=== PATIENT | male | born 1980 | race Caucasian/White ===

== ENCOUNTER 2016-11-18 21:14 | Emergency (ER) | payer OTHER ==
[~2016-11-18] VITALS: Ht 160 cm; Wt 109.1 kg
[2016-11-18] MEDS ORDERED: ALBU8.5H PO (21:29)
[2016-11-18] MEDS ORDERED: OMEP20CA10 PO (21:29)
[2016-11-18] MEDS ORDERED: ATEN50TA PO (21:29)
[2016-11-18] MEDS ORDERED: AMIT50TA3 PO (21:29)
[2016-11-18] MEDS ORDERED: NABU500T3 PO (21:29)
[2016-11-18] MEDS ORDERED: AMLO10TA55 PO (21:29)
[2016-11-18] MEDS ORDERED: METF500T7 PO (21:29)
[2016-11-18] MEDS ORDERED: TRIA16.96 NS (21:29)
[2016-11-18] MEDS ORDERED: LOSA50TA37 PO (21:29)
[2016-11-18] MEDS ORDERED: SITA100 PO (21:29)
[2016-11-18] MEDS ORDERED: BECL8.7A5 PO (21:29)
[2016-11-18] MEDS ORDERED: FISH1 PO (21:29)
[2016-11-18] MEDS ORDERED: RISP2 PO (21:29)
[2016-11-18 21:47] LABS: GLUCOSE,POINT OF CARE 173 MG/DL (70-110)
[2016-11-18 21:49] LABS: HEMATOCRIT 42.4 % (41-53); HEMOGLOBIN 14.4 g/dL (13.5-17.5); LYMPHOCYTES % (AUTO) 28.1 % (22.0-44.0); MEAN CORPUSCULAR HEMOGLOBIN 30.3 pg (26.0-34.0); MEAN CORPUSCULAR HGB CONC 34.1 G/dL (31.0-37.0); MEAN CORPUSCULAR VOLUME 89 fL (80-100); MONOCYTES % (AUTO) 7.3 % (2.0-9.0); NEUTROPHILS % (AUTO) 63.2 % (40.0-70.0); PLATELET COUNT (AUTO) 221 K/uL (150-450); RED BLOOD CELL COUNT(AUTO) 4.76 MIL/uL (4.50-5.90); RED CELL DISTRIBUTION WIDTH 12.5 % (11.5-14.5); WHITE BLOOD COUNT (AUTO) 5.9 K/uL (4.5-11.0)
[2016-11-18 21:50] LABS: BASOPHILS # (AUTO) 0.02 K/uL (0.00-0.20); BASOPHILS % (AUTO) 0.3 % (0.0-2.0); EOSINOPHILS # (AUTO) 0.07 K/uL (0.00-0.70); EOSINOPHILS % (AUTO) 1.17 % (1.0-6.0); LYMPHOCYTES # (AUTO) 1.7 K/uL (1.0-4.8); MONOCYTES # (AUTO) 0.4 K/uL (0.1-1.0); NEUTROPHILS # (AUTO) 3.8 K/uL (1.8-7.7)
[2016-11-18 22:00] LABS: ANION GAP 10 mmol/L (8-16); CARBON DIOXIDE 28 mmol/L (22-29); CHLORIDE 103 mmol/L (98-107); CREATININE 0.93 mg/dL (0.60-1.30); GLOMERULAR FILTR. RATE CALC > 60 mL/min (>60); POTASSIUM 3.7 mmol/L (3.5-5.1); SODIUM SERUM 141 mmol/L (136-145); UREA NITROGEN, BLOOD 7 mg/dL (7-18)
[2016-11-18 22:06] LABS: ALANINE AMINOTRANSFERASE 46 U/L (12-78); ALBUMIN 4.2 g/dL (3.4-5.0); ASPARTATE AMINOTRANSFERASE 24 U/L (15-37); BILIRUBIN,TOTAL 0.9 mg/dL (0.1-1.0); TOTAL PROTEIN, SERUM 7.8 g/dL (6.4-8.2)
[2016-11-18] MEDS ORDERED: LORazepam 2 MG TABLET PO ONE (22:15)
[2016-11-18] MEDS ORDERED: HALOPERIDOL 5 MG TABLET PO ONE (22:15)
[2016-11-18 22:51] VITALS: BP 131/80
== END 2016-11-18 23:08 | disposition home or self-care (01) ==
LOC: EMS 21:16
DX: F20.9 Schizophrenia, unspecified (principal); R46.89 Other symptoms and signs involving appearance and behavior; E11.65 Type 2 diabetes mellitus with hyperglycemia; F32.9 Major depressive disorder, single episode, unspecified; I10 Essential (primary) hypertension; Z88.8 Allergy status to other drugs, medicaments and biological substances
CPT/HCPCS: 36415; 80053; 80307; 82962; 85025; 99285; G0480

== ENCOUNTER 2016-12-19 18:30 | Emergency (ER) | payer OTHER ==
[~2016-12-19] VITALS: Ht 165.1 cm; Wt 110.0 kg
[~2016-12-19 18:30] MED LIST: ALBU8.5H PO; AMIT50TA3 PO; AMLO10TA55 PO; ATEN50TA PO; BECL8.7A5 PO; FISH1 PO; LOSA50TA37 PO; METF500T7 PO; NABU500T3 PO; OMEP20CA10 PO; RISP2 PO; SITA100 PO; TRIA16.96 NS
[2016-12-19] MEDS ORDERED: ARIP20TA8 PO (18:39)
[2016-12-19 19:52] LABS: BASOPHILS % (AUTO) 0.4 % (0.0-2.0); EOSINOPHILS % (AUTO) 2.1 % (1.0-6.0); HEMATOCRIT 41.4 % (41-53); HEMOGLOBIN 14.2 g/dL (13.5-17.5); LYMPHOCYTES % (AUTO) 24.5 % (22.0-44.0); MEAN CORPUSCULAR HEMOGLOBIN 30.2 pg (26.0-34.0); MEAN CORPUSCULAR HGB CONC 34.3 G/dL (31.0-37.0); MEAN CORPUSCULAR VOLUME 88 fL (80-100); MONOCYTES # (AUTO) 0.6 K/uL (0.1-1.0); MONOCYTES % (AUTO) 7.4 % (2.0-9.0); NEUTROPHILS # (AUTO) 5.5 K/uL (1.8-7.7); NEUTROPHILS % (AUTO) 65.6 % (40.0-70.0); PLATELET COUNT (AUTO) 227 K/uL (150-450); RED CELL DISTRIBUTION WIDTH 12.8 % (11.5-14.5); WHITE BLOOD COUNT (AUTO) 8.4 K/uL (4.5-11.0)
[2016-12-19 20:02] LABS: ANION GAP 5 mmol/L (8-16); CALCIUM, TOTAL 9.7 mg/dL (8.8-10.5); CARBON DIOXIDE 31 mmol/L (22-29); CHLORIDE 103 mmol/L (98-107); CREATININE 0.88 mg/dL (0.60-1.30); GLOMERULAR FILTR. RATE CALC > 60 mL/min (>60); POTASSIUM 3.2 mmol/L (3.5-5.1); SODIUM SERUM 139 mmol/L (136-145); UREA NITROGEN, BLOOD 13 mg/dL (7-18)
[2016-12-19 20:08] LABS: ALANINE AMINOTRANSFERASE 135 U/L (12-78); ALBUMIN 3.8 g/dL (3.4-5.0); ASPARTATE AMINOTRANSFERASE 297 U/L (15-37); TOTAL PROTEIN, SERUM 7.4 g/dL (6.4-8.2)
[2016-12-19 22:00] VITALS: BP 124/74
[2016-12-19] MEDS ORDERED: LORazepam 2 MG TABLET PO ONE (22:30)
[2016-12-19] MEDS ORDERED: HALOPERIDOL 5 MG TABLET PO ONE (22:30)
[2016-12-19] MEDS ORDERED: DiphenhydrAMINE HCL 25 MG CAPSULE PO ONE (22:30)
[2016-12-19] MEDS ORDERED: POTASSIUM CHLORIDE 10% 40 MEQ/30 ML LIQUID UDCUP PO ONE (22:30)
[2016-12-21 09:21] LABS: GLUCOSE,POINT OF CARE 190 MG/DL (70-110)
== END 2016-12-20 00:16 | disposition home or self-care (01) ==
LOC: EMS 18:48
DX: R44.0 Auditory hallucinations (principal); G47.00 Insomnia, unspecified; E11.65 Type 2 diabetes mellitus with hyperglycemia; E87.6 Hypokalemia; F20.9 Schizophrenia, unspecified; F32.9 Major depressive disorder, single episode, unspecified; I10 Essential (primary) hypertension; R79.89 Other specified abnormal findings of blood chemistry; Z88.8 Allergy status to other drugs, medicaments and biological substances
CPT/HCPCS: 36415; 80053; 80307; 82962; 85025; 99284; G0480

== ENCOUNTER 2016-12-20 15:12 | Emergency (ER) | payer OTHER ==
[~2016-12-20] VITALS: Ht 160 cm; Wt 110.0 kg
[~2016-12-20 15:12] MED LIST changes: +ARIP20TA8 PO
[2016-12-20 15:56] VITALS: BP 131/91
[2016-12-20 16:03] LABS: GLUCOSE,POINT OF CARE 134 MG/DL (70-110)
[2016-12-20 16:34] LABS: HEMOGLOBIN 14.1 g/dL (13.5-17.5); RED BLOOD CELL COUNT(AUTO) 4.65 MIL/uL (4.50-5.90); WHITE BLOOD COUNT (AUTO) 6.5 K/uL (4.5-11.0)
[2016-12-20 16:35] LABS: BASOPHILS % (AUTO) 0.4 % (0.0-2.0); EOSINOPHILS % (AUTO) 2.6 % (1.0-6.0); HEMATOCRIT 41.2 % (41-53); LYMPHOCYTES # (AUTO) 1.8 K/uL (1.0-4.8); LYMPHOCYTES % (AUTO) 27.1 % (22.0-44.0); MEAN CORPUSCULAR HEMOGLOBIN 30.2 pg (26.0-34.0); MEAN CORPUSCULAR HGB CONC 34.1 G/dL (31.0-37.0); MEAN CORPUSCULAR VOLUME 89 fL (80-100); NEUTROPHILS # (AUTO) 4.1 K/uL (1.8-7.7); NEUTROPHILS % (AUTO) 63.9 % (40.0-70.0); PLATELET COUNT (AUTO) 207 K/uL (150-450); RED CELL DISTRIBUTION WIDTH 12.8 % (11.5-14.5)
[2016-12-20 16:36] LABS: MONOCYTES # (AUTO) 0.4 K/uL (0.1-1.0)
[2016-12-20 16:40] LABS: ANION GAP 7 mmol/L (8-16); CALCIUM, TOTAL 9.6 mg/dL (8.8-10.5); CARBON DIOXIDE 30 mmol/L (22-29); CHLORIDE 101 mmol/L (98-107); CREATININE 0.81 mg/dL (0.60-1.30); GLOMERULAR FILTR. RATE CALC > 60 mL/min (>60); POTASSIUM 3.4 mmol/L (3.5-5.1); SODIUM SERUM 138 mmol/L (136-145); UREA NITROGEN, BLOOD 14 mg/dL (7-18)
[2016-12-20] MEDS ORDERED: HALOPERIDOL 5 MG TABLET PO ONE (16:45)
[2016-12-20] MEDS ORDERED: LORazepam 2 MG TABLET PO ONE (16:45)
[2016-12-20 16:46] LABS: ALANINE AMINOTRANSFERASE 147 U/L (12-78); ASPARTATE AMINOTRANSFERASE 248 U/L (15-37); BILIRUBIN,TOTAL 2.2 mg/dL (0.1-1.0); TOTAL PROTEIN, SERUM 7.7 g/dL (6.4-8.2)
== END 2016-12-20 17:43 | disposition home or self-care (01) ==
LOC: EMS 15:13
DX: F20.9 Schizophrenia, unspecified (principal); R74.0 Nonspecific elevation of levels of transaminase and lactic acid dehydrogenase [LDH]; E80.7 Disorder of bilirubin metabolism, unspecified; E11.9 Type 2 diabetes mellitus without complications; F32.9 Major depressive disorder, single episode, unspecified; I10 Essential (primary) hypertension; Z88.8 Allergy status to other drugs, medicaments and biological substances
CPT/HCPCS: 36415; 80053; 80307; 82962; 85025; 99284; G0480

== ENCOUNTER 2018-02-01 17:31 | Emergency (ER) | payer MEDICAID, OTHER ==
[~2018-02-01] VITALS: Ht 162.6 cm; Wt 110.0 kg
[~2018-02-01 17:31] MED LIST changes: -ALBU8.5H PO; -AMIT50TA3 PO; +AMLO-512 PO; -AMLO10TA55 PO; -ARIP20TA8 PO; -BECL8.7A5 PO; +BECL8.7A7 PO; +BENZ1TAB10 PO; +DIVA-78 PO; +HALO10 PO; +LOSA50TA25 PO; -LOSA50TA37 PO; -NABU500T3 PO; -RISP2 PO
[2018-02-01] MEDS ORDERED: LURA40 PO (17:58)
[2018-02-01 18:04] LABS: GLUCOSE,POINT OF CARE 282 MG/DL (70-110)
[2018-02-01 18:47] LABS: BASOPHILS % (AUTO) 0.4 % (0.0-2.0); EOSINOPHILS % (AUTO) 1.1 % (1.0-6.0); HEMATOCRIT 44.2 % (41-53); HEMOGLOBIN 15.4 g/dL (13.5-17.5); LYMPHOCYTES # (AUTO) 2.1 K/uL (1.0-4.8); LYMPHOCYTES % (AUTO) 39.4 % (22.0-44.0); MEAN CORPUSCULAR HEMOGLOBIN 30.1 pg (26.0-34.0); MEAN CORPUSCULAR HGB CONC 34.8 G/dL (31.0-37.0); MEAN CORPUSCULAR VOLUME 87 fL (80-100); MONOCYTES # (AUTO) 0.4 K/uL (0.1-1.0); MONOCYTES % (AUTO) 7.6 % (2.0-9.0); NEUTROPHILS # (AUTO) 2.8 K/uL (1.8-7.7); NEUTROPHILS % (AUTO) 51.5 % (40.0-70.0); PLATELET COUNT (AUTO) 197 K/uL (150-450); RED CELL DISTRIBUTION WIDTH 13.2 % (11.5-14.5)
[2018-02-01 19:00] LABS: ANION GAP 8 mmol/L (8-16); CALCIUM, TOTAL 9.8 mg/dL (8.8-10.5); CARBON DIOXIDE 31 mmol/L (22-29); CHLORIDE 95 mmol/L (98-107); CREATININE 0.84 mg/dL (0.60-1.30); GLOMERULAR FILTR. RATE CALC > 60 mL/min (>60); GLUCOSE,RANDOM 248 mg/dL (70-110); POTASSIUM 4.3 mmol/L (3.5-5.1); SODIUM SERUM 134 mmol/L (136-145); UREA NITROGEN, BLOOD 9 mg/dL (7-18)
[2018-02-01 19:06] LABS: ALANINE AMINOTRANSFERASE 106 U/L (12-78); ALBUMIN 3.9 g/dL (3.4-5.0); ALKALINE PHOSPHATASE 101 U/L (46-116); ASPARTATE AMINOTRANSFERASE 60 U/L (15-37); BILIRUBIN,TOTAL 0.5 mg/dL (0.1-1.0); TOTAL PROTEIN, SERUM 8.4 g/dL (6.4-8.2)
[2018-02-01] MEDS ORDERED: LORazepam 2 MG/ML VIAL IM ONE (19:15)
[2018-02-01] MEDS ORDERED: HALOPERIDOL 5 MG TABLET PO ONE (19:15)
[2018-02-01] MEDS ORDERED: MetFORMIN HCL 500 MG TABLET PO ONE (19:15)
[2018-02-01 19:48] LABS: AMPHET/METH SCREEN,URINE NEGATIVE (NEGATIVE); BARBITURATE SCREEN, URINE NEGATIVE (NEGATIVE); BENZODIAZEPINES SCREEN,URINE NEGATIVE (NEGATIVE); CANNABINOID SCREEN,URINE NEGATIVE (NEGATIVE); COCAINE SCREEN,URINE NEGATIVE (NEGATIVE); METHADONE SCREEN, URINE NEGATIVE (NEGATIVE); OPIATE SCREEN,URINE NEGATIVE (NEGATIVE)
[2018-02-01 19:49] LABS: PHENCYCLIDINE SCREEN,URINE NEGATIVE (NEGATIVE)
[2018-02-01 20:00] VITALS: BP 139/85
[2018-02-01] MEDS ORDERED: DIVALPROEX SODIUM 500 MG ER TABLET PO ONE (20:00)
== END 2018-02-01 20:33 | disposition home or self-care (01) ==
LOC: EMS 17:32
DX: F25.9 Schizoaffective disorder, unspecified (principal); E11.65 Type 2 diabetes mellitus with hyperglycemia; K76.0 Fatty (change of) liver, not elsewhere classified; F32.9 Major depressive disorder, single episode, unspecified; I10 Essential (primary) hypertension; Z88.8 Allergy status to other drugs, medicaments and biological substances; Z79.84 Long term (current) use of oral hypoglycemic drugs; Z79.899 Other long term (current) drug therapy
CPT/HCPCS: 36415; 80053; 80164; 80307; 82962; 85025; 96372; 99284; G0480; J2060

== ENCOUNTER 2018-02-07 15:50 | Emergency (ER) | payer OTHER ==
[~2018-02-07] VITALS: Ht 162.6 cm; Wt 109.1 kg
[~2018-02-07 15:50] MED LIST changes: +LURA40 PO
[2018-02-07 16:04] LABS: GLUCOSE,POINT OF CARE 368 MG/DL (70-110)
[2018-02-07] MEDS ORDERED: LORazepam 1 MG TABLET PO ONE (16:45)
[2018-02-07] MEDS ORDERED: HALOPERIDOL 5 MG TABLET PO ONE (16:45)
[2018-02-07] MEDS ORDERED: INSULIN REGULAR, HUMAN 100 UNITS/ML IVP ONE (16:45)
[2018-02-07] MEDS ORDERED: SODIUM CHLORIDE 0.9% 1,000 ML IV ONE (16:45)
[2018-02-07 17:58] LABS: GLUCOSE,POINT OF CARE 317 MG/DL (70-110)
[2018-02-07 18:35] LABS: GLUCOSE,POINT OF CARE 276 MG/DL (70-110)
[2018-02-07 19:12] VITALS: BP 131/87
[2018-02-07 19:14] LABS: GLUCOSE,POINT OF CARE 219 MG/DL (70-110)
== END 2018-02-07 19:18 | disposition home or self-care (01) ==
LOC: EMS 15:52
DX: F20.9 Schizophrenia, unspecified (principal); E11.65 Type 2 diabetes mellitus with hyperglycemia; F41.9 Anxiety disorder, unspecified; I10 Essential (primary) hypertension; F32.9 Major depressive disorder, single episode, unspecified; Z76.0 Encounter for issue of repeat prescription; Z79.4 Long term (current) use of insulin; Z88.8 Allergy status to other drugs, medicaments and biological substances; Z79.84 Long term (current) use of oral hypoglycemic drugs
CPT/HCPCS: 82962; 96374; 99284; J1815; J7030

== ENCOUNTER 2018-02-10 01:32 | Emergency (ER) | payer OTHER ==
[~2018-02-10] VITALS: Ht 165.1 cm; Wt 111.8 kg
[2018-02-10 01:49] LABS: GLUCOSE,POINT OF CARE 361 MG/DL (70-110)
[2018-02-10 02:01] LABS: AMPHET/METH SCREEN,URINE NEGATIVE (NEGATIVE); BARBITURATE SCREEN, URINE NEGATIVE (NEGATIVE); BENZODIAZEPINES SCREEN,URINE NEGATIVE (NEGATIVE); CANNABINOID SCREEN,URINE NEGATIVE (NEGATIVE); COCAINE SCREEN,URINE NEGATIVE (NEGATIVE); METHADONE SCREEN, URINE NEGATIVE (NEGATIVE); OPIATE SCREEN,URINE NEGATIVE (NEGATIVE)
[2018-02-10 02:02] LABS: PHENCYCLIDINE SCREEN,URINE NEGATIVE (NEGATIVE)
[2018-02-10 02:07] LABS: BASOPHILS % (AUTO) 0.4 % (0.0-2.0); EOSINOPHILS % (AUTO) 0.5 % (1.0-6.0); HEMATOCRIT 43.1 % (41-53); HEMOGLOBIN 14.9 g/dL (13.5-17.5); LYMPHOCYTES # (AUTO) 1.9 K/uL (1.0-4.8); LYMPHOCYTES % (AUTO) 30.5 % (22.0-44.0); MEAN CORPUSCULAR HEMOGLOBIN 30.1 pg (26.0-34.0); MEAN CORPUSCULAR HGB CONC 34.5 G/dL (31.0-37.0); MEAN CORPUSCULAR VOLUME 87 fL (80-100); MONOCYTES # (AUTO) 0.5 K/uL (0.1-1.0); MONOCYTES % (AUTO) 7.8 % (2.0-9.0); NEUTROPHILS # (AUTO) 3.8 K/uL (1.8-7.7); NEUTROPHILS % (AUTO) 60.8 % (40.0-70.0); PLATELET COUNT (AUTO) 205 K/uL (150-450); RED BLOOD CELL COUNT(AUTO) 4.94 MIL/uL (4.50-5.90); RED CELL DISTRIBUTION WIDTH 13.3 % (11.5-14.5)
[2018-02-10 02:16] LABS: ANION GAP 9 mmol/L (8-16); CALCIUM, TOTAL 9.7 mg/dL (8.8-10.5); CARBON DIOXIDE 31 mmol/L (22-29); CHLORIDE 95 mmol/L (98-107); CREATININE 0.96 mg/dL (0.60-1.30); GLOMERULAR FILTR. RATE CALC > 60 mL/min (>60); GLUCOSE,RANDOM 337 mg/dL (70-110); POTASSIUM 3.8 mmol/L (3.5-5.1); SODIUM SERUM 135 mmol/L (136-145); UREA NITROGEN, BLOOD 8 mg/dL (7-18)
[2018-02-10 02:21] LABS: ALANINE AMINOTRANSFERASE 82 U/L (12-78); ALBUMIN 3.8 g/dL (3.4-5.0); ALKALINE PHOSPHATASE 120 U/L (46-116); ASPARTATE AMINOTRANSFERASE 28 U/L (15-37); BILIRUBIN,TOTAL 0.5 mg/dL (0.1-1.0); TOTAL PROTEIN, SERUM 7.8 g/dL (6.4-8.2)
[2018-02-10] MEDS ORDERED: INSULIN REGULAR, HUMAN 100 UNITS/ML SQ ONE (03:15)
[2018-02-10] MEDS ORDERED: LORazepam 2 MG TABLET PO ONE (03:15)
[2018-02-10 04:15] VITALS: BP 137/66
== END 2018-02-10 04:25 | disposition home or self-care (01) ==
LOC: EMS 01:33
DX: F20.9 Schizophrenia, unspecified (principal); F41.9 Anxiety disorder, unspecified; E11.65 Type 2 diabetes mellitus with hyperglycemia; G47.00 Insomnia, unspecified; F32.9 Major depressive disorder, single episode, unspecified; K21.9 Gastro-esophageal reflux disease without esophagitis; I10 Essential (primary) hypertension; Z88.8 Allergy status to other drugs, medicaments and biological substances; Z79.84 Long term (current) use of oral hypoglycemic drugs; Z79.899 Other long term (current) drug therapy
CPT/HCPCS: 36415; 80053; 80307; 82962; 85025; 96372; 99284; G0480; J1815

== ENCOUNTER 2018-02-12 22:54 | Emergency (ER) | payer OTHER ==
[~2018-02-12] VITALS: Ht 165.1 cm; Wt 111.8 kg
[2018-02-12 23:00] VITALS: BP 126/81
[2018-02-12 23:13] LABS: GLUCOSE,POINT OF CARE 283 MG/DL (70-110)
[2018-02-13] MEDS ORDERED: ACETAMINOPHEN 325 MG TABLET PO ONE (01:00)
[2018-02-13] MEDS ORDERED: HALOPERIDOL 5 MG TABLET PO ONE (01:00)
[2018-02-13] MEDS ORDERED: DiphenhydrAMINE HCL 25 MG CAPSULE PO ONE (01:00)
[2018-02-13] MEDS ORDERED: LORazepam 2 MG TABLET PO ONE (01:00)
== END 2018-02-13 01:12 | disposition home or self-care (01) ==
LOC: EMS 22:55
DX: R45.1 Restlessness and agitation (principal); F41.9 Anxiety disorder, unspecified; F32.9 Major depressive disorder, single episode, unspecified; E11.9 Type 2 diabetes mellitus without complications; F20.9 Schizophrenia, unspecified; K21.9 Gastro-esophageal reflux disease without esophagitis; I10 Essential (primary) hypertension; Z79.84 Long term (current) use of oral hypoglycemic drugs; Z88.8 Allergy status to other drugs, medicaments and biological substances
CPT/HCPCS: 99284

== ENCOUNTER 2018-02-27 23:14 | Emergency (ER) | payer OTHER ==
[~2018-02-27] VITALS: Ht 165.1 cm; Wt 109.1 kg
[2018-02-27] MEDS ORDERED: DIPH50 PO (23:32)
[2018-02-27] MEDS ORDERED: LURA80 PO (23:32)
[2018-02-27 23:38] LABS: GLUCOSE,POINT OF CARE 283 MG/DL (70-110)
[2018-02-27 23:51] LABS: BASOPHILS % (AUTO) 0.5 % (0.0-2.0); EOSINOPHILS % (AUTO) 0.7 % (1.0-6.0); HEMATOCRIT 45.8 % (41-53); HEMOGLOBIN 15.9 g/dL (13.5-17.5); LYMPHOCYTES # (AUTO) 1.8 K/uL (1.0-4.8); LYMPHOCYTES % (AUTO) 28.5 % (22.0-44.0); MEAN CORPUSCULAR HEMOGLOBIN 30.7 pg (26.0-34.0); MEAN CORPUSCULAR HGB CONC 34.8 G/dL (31.0-37.0); MEAN CORPUSCULAR VOLUME 88 fL (80-100); MONOCYTES # (AUTO) 0.6 K/uL (0.1-1.0); NEUTROPHILS # (AUTO) 3.9 K/uL (1.8-7.7); NEUTROPHILS % (AUTO) 61.3 % (40.0-70.0); PLATELET COUNT (AUTO) 190 K/uL (150-450); RED BLOOD CELL COUNT(AUTO) 5.19 MIL/uL (4.50-5.90); RED CELL DISTRIBUTION WIDTH 13.5 % (11.5-14.5)
[2018-02-28] LABS: ANION GAP 8 mmol/L (8-16); CALCIUM, TOTAL 9.8 mg/dL (8.8-10.5); CARBON DIOXIDE 30 mmol/L (22-29); CHLORIDE 97 mmol/L (98-107); CREATININE 0.88 mg/dL (0.60-1.30); GLOMERULAR FILTR. RATE CALC > 60 mL/min (>60); GLUCOSE,RANDOM 272 mg/dL (70-110); POTASSIUM 3.7 mmol/L (3.5-5.1); SODIUM SERUM 135 mmol/L (136-145); UREA NITROGEN, BLOOD 8 mg/dL (7-18)
[2018-02-28] MEDS ORDERED: HALOPERIDOL 5 MG TABLET PO ONE
[2018-02-28] MEDS ORDERED: LORazepam 2 MG TABLET PO ONE
[2018-02-28] MEDS ORDERED: DiphenhydrAMINE HCL 25 MG CAPSULE PO ONE
[2018-02-28 00:06] LABS: ALANINE AMINOTRANSFERASE 120 U/L (12-78); ALBUMIN 4.1 g/dL (3.4-5.0); ALKALINE PHOSPHATASE 110 U/L (46-116); ASPARTATE AMINOTRANSFERASE 72 U/L (15-37); BILIRUBIN,TOTAL 0.5 mg/dL (0.1-1.0); TOTAL PROTEIN, SERUM 8.3 g/dL (6.4-8.2); VALPROIC ACID 25 mcg/mL (50-100)
[2018-02-28 00:46] LABS: AMPHET/METH SCREEN,URINE NEGATIVE (NEGATIVE); BARBITURATE SCREEN, URINE NEGATIVE (NEGATIVE); BENZODIAZEPINES SCREEN,URINE NEGATIVE (NEGATIVE); CANNABINOID SCREEN,URINE NEGATIVE (NEGATIVE); COCAINE SCREEN,URINE NEGATIVE (NEGATIVE); METHADONE SCREEN, URINE NEGATIVE (NEGATIVE); OPIATE SCREEN,URINE NEGATIVE (NEGATIVE)
[2018-02-28 00:48] LABS: PHENCYCLIDINE SCREEN,URINE NEGATIVE (NEGATIVE)
[2018-02-28 01:22] VITALS: BP 132/86
== END 2018-02-28 01:58 | disposition home or self-care (01) ==
LOC: EMS 23:15
DX: F25.9 Schizoaffective disorder, unspecified (principal); F32.9 Major depressive disorder, single episode, unspecified; F41.9 Anxiety disorder, unspecified; J45.909 Unspecified asthma, uncomplicated; E11.9 Type 2 diabetes mellitus without complications; I10 Essential (primary) hypertension; K21.9 Gastro-esophageal reflux disease without esophagitis; Z88.8 Allergy status to other drugs, medicaments and biological substances; Z79.84 Long term (current) use of oral hypoglycemic drugs
CPT/HCPCS: 36415; 80053; 80164; 80307; 82962; 85025; 99284; G0480

== ENCOUNTER 2018-02-28 17:38 | Emergency (ER) | payer OTHER ==
[~2018-02-28] VITALS: Ht 167.6 cm; Wt 110.5 kg
[~2018-02-28 17:38] MED LIST changes: +DIPH50 PO; +LURA80 PO
[2018-02-28 17:59] LABS: GLUCOSE,POINT OF CARE 273 MG/DL (70-110)
[2018-02-28 19:21] LABS: BASOPHILS % (AUTO) 0.3 % (0.0-2.0); EOSINOPHILS % (AUTO) 0.6 % (1.0-6.0); HEMATOCRIT 42.7 % (41-53); HEMOGLOBIN 15.1 g/dL (13.5-17.5); LYMPHOCYTES # (AUTO) 2.4 K/uL (1.0-4.8); LYMPHOCYTES % (AUTO) 40.6 % (22.0-44.0); MEAN CORPUSCULAR HEMOGLOBIN 30.6 pg (26.0-34.0); MEAN CORPUSCULAR HGB CONC 35.3 G/dL (31.0-37.0); MEAN CORPUSCULAR VOLUME 87 fL (80-100); MONOCYTES # (AUTO) 0.5 K/uL (0.1-1.0); MONOCYTES % (AUTO) 8.5 % (2.0-9.0); NEUTROPHILS # (AUTO) 2.9 K/uL (1.8-7.7); PLATELET COUNT (AUTO) 180 K/uL (150-450); RED BLOOD CELL COUNT(AUTO) 4.92 MIL/uL (4.50-5.90); RED CELL DISTRIBUTION WIDTH 13.5 % (11.5-14.5)
[2018-02-28 19:45] LABS: ANION GAP 6 mmol/L (8-16); CALCIUM, TOTAL 9.4 mg/dL (8.8-10.5); CARBON DIOXIDE 31 mmol/L (22-29); CHLORIDE 98 mmol/L (98-107); CREATININE 0.82 mg/dL (0.60-1.30); GLOMERULAR FILTR. RATE CALC > 60 mL/min (>60); GLUCOSE,RANDOM 235 mg/dL (70-110); POTASSIUM 4.3 mmol/L (3.5-5.1); SODIUM SERUM 135 mmol/L (136-145); UREA NITROGEN, BLOOD 9 mg/dL (7-18)
[2018-02-28 19:52] LABS: ALANINE AMINOTRANSFERASE 111 U/L (12-78); ALKALINE PHOSPHATASE 97 U/L (46-116); ASPARTATE AMINOTRANSFERASE 62 U/L (15-37); BILIRUBIN,TOTAL 0.5 mg/dL (0.1-1.0); TOTAL PROTEIN, SERUM 8.1 g/dL (6.4-8.2); VALPROIC ACID 84 mcg/mL (50-100)
[2018-02-28 22:24] LABS: AMPHET/METH SCREEN,URINE NEGATIVE (NEGATIVE); BARBITURATE SCREEN, URINE NEGATIVE (NEGATIVE); BENZODIAZEPINES SCREEN,URINE NEGATIVE (NEGATIVE); CANNABINOID SCREEN,URINE NEGATIVE (NEGATIVE); COCAINE SCREEN,URINE NEGATIVE (NEGATIVE); METHADONE SCREEN, URINE NEGATIVE (NEGATIVE); OPIATE SCREEN,URINE NEGATIVE (NEGATIVE); PHENCYCLIDINE SCREEN,URINE NEGATIVE (NEGATIVE)
[2018-02-28] MEDS ORDERED: HALOPERIDOL 5 MG TABLET PO ONE (22:30)
[2018-02-28] MEDS ORDERED: DiphenhydrAMINE HCL 25 MG CAPSULE PO ONE (22:30)
[2018-02-28] MEDS ORDERED: LORazepam 2 MG TABLET PO ONE (22:30)
[2018-02-28 23:55] VITALS: BP 127/79
== END 2018-02-28 23:59 | disposition home or self-care (01) ==
LOC: EMS 17:40
DX: F25.9 Schizoaffective disorder, unspecified (principal); F41.9 Anxiety disorder, unspecified; F32.9 Major depressive disorder, single episode, unspecified; E11.9 Type 2 diabetes mellitus without complications; I10 Essential (primary) hypertension; Z88.8 Allergy status to other drugs, medicaments and biological substances; Z79.84 Long term (current) use of oral hypoglycemic drugs; Z79.899 Other long term (current) drug therapy
CPT/HCPCS: 36415; 80053; 80164; 80307; 82962; 85025; 99284; G0480

== ENCOUNTER 2018-08-24 22:07 | Emergency (ER) | payer OTHER ==
[~2018-08-24] VITALS: Ht 162.6 cm; Wt 110.0 kg
[~2018-08-24 22:07] MED LIST changes: -BENZ1TAB10 PO; -HALO10 PO; -LOSA50TA25 PO; +LOSA50TA64 PO; -LURA40 PO
[2018-08-24 22:52] LABS: BASOPHILS % (AUTO) 0.3 % (0.0-2.0); EOSINOPHILS % (AUTO) 0.4 % (1.0-6.0); HEMATOCRIT 42.3 % (41-53); HEMOGLOBIN 14.2 g/dL (13.5-17.5); LYMPHOCYTES # (AUTO) 1.5 K/uL (1.0-4.8); LYMPHOCYTES % (AUTO) 19.4 % (22.0-44.0); MEAN CORPUSCULAR HEMOGLOBIN 28.9 pg (26.0-34.0); MEAN CORPUSCULAR HGB CONC 33.5 G/dL (31.0-37.0); MEAN CORPUSCULAR VOLUME 86 fL (80-100); MONOCYTES # (AUTO) 0.5 K/uL (0.1-1.0); MONOCYTES % (AUTO) 7.1 % (2.0-9.0); NEUTROPHILS # (AUTO) 5.5 K/uL (1.8-7.7); NEUTROPHILS % (AUTO) 72.8 % (40.0-70.0); PLATELET COUNT (AUTO) 279 K/uL (150-450); RED CELL DISTRIBUTION WIDTH 14.2 % (11.5-14.5)
[2018-08-24] MEDS ORDERED: DIVA-78 PO (22:56)
[2018-08-24 22:59] LABS: GLUCOSE,POINT OF CARE 222 MG/DL (70-110)
[2018-08-24 23:03] LABS: ANION GAP 10 mmol/L (8-16); CARBON DIOXIDE 29 mmol/L (22-29); CHLORIDE 103 mmol/L (98-107); CREATININE 0.79 mg/dL (0.60-1.30); GLOMERULAR FILTR. RATE CALC > 60 mL/min (>60); GLUCOSE,RANDOM 209 mg/dL (70-110); POTASSIUM 3.9 mmol/L (3.5-5.1); SODIUM SERUM 142 mmol/L (136-145); UREA NITROGEN, BLOOD 11 mg/dL (7-18)
[2018-08-24 23:08] LABS: ALANINE AMINOTRANSFERASE 22 U/L (12-78); ALBUMIN 4.4 g/dL (3.4-5.0); ALKALINE PHOSPHATASE 76 U/L (46-116); ASPARTATE AMINOTRANSFERASE 14 U/L (15-37); BILIRUBIN,TOTAL 0.8 mg/dL (0.1-1.0); TOTAL PROTEIN, SERUM 8.1 g/dL (6.4-8.2)
[2018-08-24 23:24] LABS: AMPHET/METH SCREEN,URINE NEGATIVE (NEGATIVE); BARBITURATE SCREEN, URINE NEGATIVE (NEGATIVE); BENZODIAZEPINES SCREEN,URINE NEGATIVE (NEGATIVE); CANNABINOID SCREEN,URINE NEGATIVE (NEGATIVE); COCAINE SCREEN,URINE NEGATIVE (NEGATIVE); METHADONE SCREEN, URINE NEGATIVE (NEGATIVE); OPIATE SCREEN,URINE NEGATIVE (NEGATIVE)
[2018-08-24 23:25] LABS: PHENCYCLIDINE SCREEN,URINE NEGATIVE (NEGATIVE)
[2018-08-25] MEDS ORDERED: HALOPERIDOL 5 MG TABLET PO ONE (00:30)
[2018-08-25] MEDS ORDERED: LORazepam 1 MG TABLET PO ONE (00:30)
[2018-08-25 00:54] VITALS: BP 136/84
== END 2018-08-25 01:39 | disposition home or self-care (01) ==
LOC: EMS 22:08
DX: F20.9 Schizophrenia, unspecified (principal); F41.9 Anxiety disorder, unspecified; F32.9 Major depressive disorder, single episode, unspecified; E11.9 Type 2 diabetes mellitus without complications; K21.9 Gastro-esophageal reflux disease without esophagitis; I10 Essential (primary) hypertension; J45.909 Unspecified asthma, uncomplicated; Z88.8 Allergy status to other drugs, medicaments and biological substances; Z79.84 Long term (current) use of oral hypoglycemic drugs
CPT/HCPCS: 36415; 80053; 80307; 82962; 85025; 99285; G0480

== ENCOUNTER 2018-10-13 00:53 | Emergency (ER) | payer OTHER ==
[~2018-10-13] VITALS: Ht 160 cm; Wt 109.1 kg
[2018-10-13] MEDS ORDERED: LITH300C3 PO (00:59)
[2018-10-13 01:09] LABS: GLUCOSE,POINT OF CARE 103 MG/DL (70-110)
[2018-10-13 02:42] LABS: BASOPHILS % (AUTO) 0.2 % (0.0-2.0); EOSINOPHILS % (AUTO) 0.9 % (1.0-6.0); HEMATOCRIT 40.6 % (41-53); HEMOGLOBIN 13.5 g/dL (13.5-17.5); LYMPHOCYTES # (AUTO) 2.4 K/uL (1.0-4.8); LYMPHOCYTES % (AUTO) 29.1 % (22.0-44.0); MEAN CORPUSCULAR HEMOGLOBIN 29.2 pg (26.0-34.0); MEAN CORPUSCULAR HGB CONC 33.3 G/dL (31.0-37.0); MEAN CORPUSCULAR VOLUME 88 fL (80-100); MONOCYTES # (AUTO) 0.6 K/uL (0.1-1.0); MONOCYTES % (AUTO) 7.2 % (2.0-9.0); NEUTROPHILS # (AUTO) 5.2 K/uL (1.8-7.7); NEUTROPHILS % (AUTO) 62.6 % (40.0-70.0); PLATELET COUNT (AUTO) 244 K/uL (150-450); RED BLOOD CELL COUNT(AUTO) 4.62 MIL/uL (4.50-5.90); RED CELL DISTRIBUTION WIDTH 13.9 % (11.5-14.5)
[2018-10-13 02:46] LABS: ANION GAP 8 mmol/L (8-16); CALCIUM, TOTAL 9.2 mg/dL (8.8-10.5); CARBON DIOXIDE 29 mmol/L (22-29); CHLORIDE 104 mmol/L (98-107); CREATININE 0.84 mg/dL (0.60-1.30); GLOMERULAR FILTR. RATE CALC > 60 mL/min (>60); GLUCOSE,RANDOM 90 mg/dL (70-110); POTASSIUM 3.8 mmol/L (3.5-5.1); SODIUM SERUM 141 mmol/L (136-145); UREA NITROGEN, BLOOD 7 mg/dL (7-18)
[2018-10-13 02:49] LABS: AMPHET/METH SCREEN,URINE NEGATIVE (NEGATIVE); BARBITURATE SCREEN, URINE NEGATIVE (NEGATIVE); BENZODIAZEPINES SCREEN,URINE NEGATIVE (NEGATIVE); CANNABINOID SCREEN,URINE NEGATIVE (NEGATIVE); COCAINE SCREEN,URINE NEGATIVE (NEGATIVE); METHADONE SCREEN, URINE NEGATIVE (NEGATIVE); OPIATE SCREEN,URINE NEGATIVE (NEGATIVE); PHENCYCLIDINE SCREEN,URINE NEGATIVE (NEGATIVE)
[2018-10-13 02:52] LABS: ALANINE AMINOTRANSFERASE 29 U/L (12-78); ALBUMIN 3.8 g/dL (3.4-5.0); ALKALINE PHOSPHATASE 62 U/L (46-116); ASPARTATE AMINOTRANSFERASE 19 U/L (15-37); BILIRUBIN,TOTAL 0.8 mg/dL (0.1-1.0); TOTAL PROTEIN, SERUM 7.4 g/dL (6.4-8.2)
[2018-10-13] MEDS ORDERED: LORazepam 1 MG TABLET PO ONE (03:45)
[2018-10-13 06:00] VITALS: BP 135/74
== END 2018-10-13 07:11 | disposition home or self-care (01) ==
LOC: EMS 00:57
DX: R45.4 Irritability and anger (principal); F41.9 Anxiety disorder, unspecified; F32.9 Major depressive disorder, single episode, unspecified; I10 Essential (primary) hypertension; F20.9 Schizophrenia, unspecified; Z88.8 Allergy status to other drugs, medicaments and biological substances; Z79.899 Other long term (current) drug therapy
CPT/HCPCS: 36415; 80053; 80307; 82962; 85025; 99284; G0480

== ENCOUNTER 2018-10-17 01:30 | Emergency (ER) | payer OTHER ==
[~2018-10-17] VITALS: Ht 160 cm; Wt 107.5 kg
[~2018-10-17 01:30] MED LIST changes: -BECL8.7A7 PO; -DIPH50 PO; +LITH300C3 PO; -OMEP20CA10 PO; -TRIA16.96 NS
[2018-10-17 02:16] LABS: BASOPHILS % (AUTO) 0.3 % (0.0-2.0); HEMOGLOBIN 14.4 g/dL (13.5-17.5); LYMPHOCYTES # (AUTO) 2.1 K/uL (1.0-4.8); LYMPHOCYTES % (AUTO) 22.9 % (22.0-44.0); MEAN CORPUSCULAR HEMOGLOBIN 29.5 pg (26.0-34.0); MEAN CORPUSCULAR HGB CONC 33.5 G/dL (31.0-37.0); MEAN CORPUSCULAR VOLUME 88 fL (80-100); MONOCYTES # (AUTO) 0.8 K/uL (0.1-1.0); MONOCYTES % (AUTO) 8.5 % (2.0-9.0); NEUTROPHILS # (AUTO) 6.1 K/uL (1.8-7.7); NEUTROPHILS % (AUTO) 67.3 % (40.0-70.0); PLATELET COUNT (AUTO) 266 K/uL (150-450); RED BLOOD CELL COUNT(AUTO) 4.89 MIL/uL (4.50-5.90); RED CELL DISTRIBUTION WIDTH 13.5 % (11.5-14.5)
[2018-10-17 02:22] VITALS: BP 130/89
[2018-10-17 02:24] LABS: AMPHET/METH SCREEN,URINE NEGATIVE (NEGATIVE); BARBITURATE SCREEN, URINE NEGATIVE (NEGATIVE); BENZODIAZEPINES SCREEN,URINE NEGATIVE (NEGATIVE); CANNABINOID SCREEN,URINE NEGATIVE (NEGATIVE); COCAINE SCREEN,URINE NEGATIVE (NEGATIVE); METHADONE SCREEN, URINE NEGATIVE (NEGATIVE); OPIATE SCREEN,URINE NEGATIVE (NEGATIVE); PHENCYCLIDINE SCREEN,URINE NEGATIVE (NEGATIVE)
[2018-10-17 02:25] LABS: ANION GAP 7 mmol/L (8-16); CALCIUM, TOTAL 9.6 mg/dL (8.8-10.5); CARBON DIOXIDE 32 mmol/L (22-29); CHLORIDE 102 mmol/L (98-107); CREATININE 0.79 mg/dL (0.60-1.30); GLOMERULAR FILTR. RATE CALC > 60 mL/min (>60); GLUCOSE,RANDOM 115 mg/dL (70-110); POTASSIUM 3.8 mmol/L (3.5-5.1); SODIUM SERUM 141 mmol/L (136-145); UREA NITROGEN, BLOOD 8 mg/dL (7-18)
[2018-10-17 02:31] LABS: ALANINE AMINOTRANSFERASE 29 U/L (12-78); ALBUMIN 4.1 g/dL (3.4-5.0); ALKALINE PHOSPHATASE 70 U/L (46-116); ASPARTATE AMINOTRANSFERASE 14 U/L (15-37); BILIRUBIN,TOTAL 0.9 mg/dL (0.1-1.0)
[2018-10-17] MEDS ORDERED: LORazepam 1 MG TABLET PO ONE (03:15)
== END 2018-10-17 03:36 | disposition home or self-care (01) ==
LOC: EMS 01:33
DX: F20.9 Schizophrenia, unspecified (principal); E11.9 Type 2 diabetes mellitus without complications; I10 Essential (primary) hypertension; J45.909 Unspecified asthma, uncomplicated; K21.9 Gastro-esophageal reflux disease without esophagitis; F41.9 Anxiety disorder, unspecified; F32.9 Major depressive disorder, single episode, unspecified; Z79.899 Other long term (current) drug therapy; Z88.8 Allergy status to other drugs, medicaments and biological substances
CPT/HCPCS: 36415; 80053; 80307; 82962; 85025; 99285; G0480

== ENCOUNTER 2018-10-19 01:58 | Emergency (ER) | payer OTHER ==
[~2018-10-19] VITALS: Ht 162.6 cm; Wt 79.5 kg
[2018-10-19 03:12] LABS: AMPHET/METH SCREEN,URINE NEGATIVE (NEGATIVE); BARBITURATE SCREEN, URINE NEGATIVE (NEGATIVE); BENZODIAZEPINES SCREEN,URINE NEGATIVE (NEGATIVE); CANNABINOID SCREEN,URINE NEGATIVE (NEGATIVE); COCAINE SCREEN,URINE NEGATIVE (NEGATIVE); METHADONE SCREEN, URINE NEGATIVE (NEGATIVE); OPIATE SCREEN,URINE NEGATIVE (NEGATIVE); PHENCYCLIDINE SCREEN,URINE NEGATIVE (NEGATIVE)
[2018-10-19 03:22] LABS: BASOPHILS % (AUTO) 0.3 % (0.0-2.0); HEMATOCRIT 40.8 % (41-53); HEMOGLOBIN 13.7 g/dL (13.5-17.5); LYMPHOCYTES # (AUTO) 1.9 K/uL (1.0-4.8); MEAN CORPUSCULAR HEMOGLOBIN 29.4 pg (26.0-34.0); MEAN CORPUSCULAR HGB CONC 33.6 G/dL (31.0-37.0); MEAN CORPUSCULAR VOLUME 87 fL (80-100); MONOCYTES # (AUTO) 0.7 K/uL (0.1-1.0); MONOCYTES % (AUTO) 8.7 % (2.0-9.0); NEUTROPHILS # (AUTO) 5.3 K/uL (1.8-7.7); PLATELET COUNT (AUTO) 242 K/uL (150-450); RED BLOOD CELL COUNT(AUTO) 4.67 MIL/uL (4.50-5.90); RED CELL DISTRIBUTION WIDTH 13.8 % (11.5-14.5)
[2018-10-19 03:31] LABS: ANION GAP 12 mmol/L (8-16); CALCIUM, TOTAL 9.1 mg/dL (8.8-10.5); CARBON DIOXIDE 28 mmol/L (22-29); CHLORIDE 100 mmol/L (98-107); CREATININE 0.74 mg/dL (0.60-1.30); GLOMERULAR FILTR. RATE CALC > 60 mL/min (>60); GLUCOSE,RANDOM 125 mg/dL (70-110); POTASSIUM 3.4 mmol/L (3.5-5.1); SODIUM SERUM 140 mmol/L (136-145); UREA NITROGEN, BLOOD 6 mg/dL (7-18)
[2018-10-19 03:39] LABS: ALANINE AMINOTRANSFERASE 30 U/L (12-78); ALBUMIN 3.6 g/dL (3.4-5.0); ALKALINE PHOSPHATASE 63 U/L (46-116); ASPARTATE AMINOTRANSFERASE 13 U/L (15-37); BILIRUBIN,TOTAL 0.8 mg/dL (0.1-1.0); TOTAL PROTEIN, SERUM 7.3 g/dL (6.4-8.2)
[2018-10-19 08:35] VITALS: BP 122/61
[2018-10-19 14:14] LABS: GLUCOSE,POINT OF CARE 175 MG/DL (70-110)
== END 2018-10-19 08:56 | disposition home or self-care (01) ==
LOC: EMS 02:02
DX: F20.9 Schizophrenia, unspecified (principal); F91.8 Other conduct disorders; F41.9 Anxiety disorder, unspecified; F32.9 Major depressive disorder, single episode, unspecified; J45.909 Unspecified asthma, uncomplicated; K21.9 Gastro-esophageal reflux disease without esophagitis; E11.9 Type 2 diabetes mellitus without complications; I10 Essential (primary) hypertension; Z88.8 Allergy status to other drugs, medicaments and biological substances; Z79.84 Long term (current) use of oral hypoglycemic drugs; Z79.899 Other long term (current) drug therapy
CPT/HCPCS: 36415; 80053; 80178; 80307; 82962; 85025; 99284; G0480

== ENCOUNTER 2018-10-19 19:27 | Inpatient (IN) | payer MEDICAID, OTHER ==
[~2018-10-19] VITALS: Ht 165.1 cm; Wt 107.6 kg
[2018-10-19 20:40] VITALS: BP 126/76
[2018-10-19] MEDS ORDERED: HALOPERIDOL 5 MG TABLET PO PRN (21:00)
[2018-10-19 21:21] VITALS: BP 139/82
[2018-10-19] MEDS ORDERED: GLUCAGON,HUMAN RECOMBINANT 1 MG VIAL IM PRN (21:45)
[2018-10-19] MEDS ORDERED: PNEUMOCOCCAL VACCINE POLYVALENT 0.5 ML VIAL [PPSV23] IM ONE (23:45)
[2018-10-20] MEDS: LORazepam 2 MG TABLET PO PRN ×2 (02:31→12:56)
[2018-10-20 04:48] VITALS: BP 124/82
[2018-10-20 06:39] LABS: GLUCOMETER DEV NAME(LOC) BV2X.; GLUCOSE,POINT OF CARE 129 MG/DL (70-110)
[2018-10-20] MEDS: MetFORMIN HCL 500 MG ER TABLET PO SCH (07:22)
[2018-10-20] MEDS ORDERED: NICOTINE 14 MG/24 HOUR PATCH TD PRN (07:30)
[2018-10-20] MEDS ORDERED: GuaiFENesin/D-METHORPHAN [SUGAR-FREE] 200-20MG/10 ML SYRUP UDCUP PO PRN (07:30)
[2018-10-20] MEDS ORDERED: CloNIDine HCL 0.1 MG TABLET PO PRN (07:30)
[2018-10-20] MEDS ORDERED: ONDANSETRON HCL 4 MG TABLET PO PRN (07:30)
[2018-10-20] MEDS ORDERED: IBUPROFEN 400 MG TABLET PO PRN (07:30)
[2018-10-20] MEDS ORDERED: MAG HYDROX/AL HYDROX/SIMETH ES 30 ML SUSPENSION UDCUP PO PRN (07:30)
[2018-10-20] MEDS ORDERED: DOCUSATE SODIUM 100 MG CAPSULE PO PRN (07:30)
[2018-10-20] MEDS ORDERED: MAGNESIUM HYDROXIDE SUSPENSION 30 ML UDCUP PO PRN (07:30)
[2018-10-20] MEDS ORDERED: LOPERAMIDE HCL 2 MG CAPSULE PO PRN (07:30)
[2018-10-20] MEDS ORDERED: PETROLATUM,WHITE 28 GM JELLY TP PRN (07:30)
[2018-10-20 07:53] LABS: BASOPHILS % (AUTO) 0.1 % (0.0-2.0); EOSINOPHILS % (AUTO) 1.1 % (1.0-6.0); HEMATOCRIT 42.1 % (41-53); HEMOGLOBIN 14.1 g/dL (13.5-17.5); LYMPHOCYTES % (AUTO) 26.3 % (22.0-44.0); MEAN CORPUSCULAR HEMOGLOBIN 29.3 pg (26.0-34.0); MEAN CORPUSCULAR HGB CONC 33.4 G/dL (31.0-37.0); MEAN CORPUSCULAR VOLUME 88 fL (80-100); MONOCYTES # (AUTO) 0.5 K/uL (0.1-1.0); MONOCYTES % (AUTO) 6.4 % (2.0-9.0); NEUTROPHILS # (AUTO) 5.1 K/uL (1.8-7.7); NEUTROPHILS % (AUTO) 66.1 % (40.0-70.0); PLATELET COUNT (AUTO) 270 K/uL (150-450); RED BLOOD CELL COUNT(AUTO) 4.82 MIL/uL (4.50-5.90); RED CELL DISTRIBUTION WIDTH 13.7 % (11.5-14.5)
[2018-10-20 08:03] LABS: LITHIUM 0.26 mmol/L (0.60-1.20)
[2018-10-20 08:19] LABS: HEMOGLOBIN A1C 6.7 % (4.5-6.2)
[2018-10-20 08:24] VITALS: BP 131/83
[2018-10-20] MEDS: ATENOLOL 50 MG TABLET PO SCH (08:24)
[2018-10-20] MEDS: LOSARTAN POTASSIUM 50 MG TABLET PO SCH (08:24)
[2018-10-20] MEDS: AmLODIPine BESYLATE 10 MG TABLET PO SCH (08:24)
[2018-10-20] MEDS: SitaGLIPtin PHOSPHATE 100 MG TABLET PO SCH (08:25)
[2018-10-20] MEDS: OMEGA-3/DHA/EPA/FISH OIL 1,000 MG CAPSULE PO SCH (08:25)
[2018-10-20 08:27] LABS: ALANINE AMINOTRANSFERASE 31 U/L (12-78); ALBUMIN 3.8 g/dL (3.4-5.0); ALKALINE PHOSPHATASE 62 U/L (46-116); ANION GAP 9 mmol/L (8-16); ASPARTATE AMINOTRANSFERASE 17 U/L (15-37); BILIRUBIN,TOTAL 1.2 mg/dL (0.1-1.0); CALCIUM, TOTAL 9.5 mg/dL (8.8-10.5); CARBON DIOXIDE 30 mmol/L (22-29); CHLORIDE 102 mmol/L (98-107); CHOLESTEROL 79 mg/dL (131-200); CREATININE 0.75 mg/dL (0.60-1.30); FREE T4 (FREE THYROXINE) 1.35 ng/dL (0.76-1.46); GLOMERULAR FILTR. RATE CALC > 60 mL/min (>60); GLUCOSE,RANDOM 137 mg/dL (70-110); HDL CHOLESTEROL 39 mg/dL (40-60); LDL CHOL (CALC.) 20 mg/dL (0-130); POTASSIUM 3.8 mmol/L (3.5-5.1); SODIUM SERUM 141 mmol/L (136-145); TOTAL PROTEIN, SERUM 7.5 g/dL (6.4-8.2); TRIGLYCERIDES 100 mg/dL (15-150); UREA NITROGEN, BLOOD 8 mg/dL (7-18)
[2018-10-20 08:38] LABS: VALPROIC ACID 5 mcg/mL (50-100)
[2018-10-20 10:19] LABS: GLUCOMETER DEV NAME(LOC) BV2X.; GLUCOSE,POINT OF CARE 220 MG/DL (70-110)
[2018-10-20] MEDS: INSULIN LISPRO 100 UNITS/ML SQ PRN ×3 (11:19→20:38)
[2018-10-20] MEDS: DIVALPROEX SODIUM 250 MG DR TABLET PO SCH (12:24)
[2018-10-20] MEDS ORDERED: CLOTRIMAZOLE 1% 15 GM CREAM TP PRN (12:30)
[2018-10-20 16:09] LABS: GLUCOMETER DEV NAME(LOC) BV2X.; GLUCOSE,POINT OF CARE 148 MG/DL (70-110)
[2018-10-20] MEDS: LITHIUM CARBONATE 300 MG CAPSULE PO SCH (16:19)
[2018-10-20 16:20] VITALS: BP 108/67
[2018-10-20] MEDS: TraZODone HCL 100 MG TABLET PO SCH (20:16)
[2018-10-20] MEDS: LURASIDONE HCL 40 MG TABLET PO SCH (20:16)
[2018-10-20 20:29] LABS: GLUCOMETER DEV NAME(LOC) BV2X.; GLUCOSE,POINT OF CARE 238 MG/DL (70-110)
[2018-10-21 02:45] VITALS: BP 132/77
[2018-10-21 06:29] LABS: GLUCOMETER DEV NAME(LOC) BV2X.; GLUCOSE,POINT OF CARE 135 MG/DL (70-110)
[2018-10-21] MEDS: MetFORMIN HCL 500 MG ER TABLET PO SCH (06:59)
[2018-10-21 08:20] VITALS: BP 115/69
[2018-10-21] MEDS: ATENOLOL 50 MG TABLET PO SCH (08:49)
[2018-10-21] MEDS: OMEGA-3/DHA/EPA/FISH OIL 1,000 MG CAPSULE PO SCH (08:49)
[2018-10-21] MEDS: LITHIUM CARBONATE 300 MG CAPSULE PO SCH ×2 (08:49→16:42)
[2018-10-21] MEDS: DIVALPROEX SODIUM 250 MG DR TABLET PO SCH (08:49)
[2018-10-21] MEDS: SitaGLIPtin PHOSPHATE 100 MG TABLET PO SCH (08:49)
[2018-10-21] MEDS: LOSARTAN POTASSIUM 50 MG TABLET PO SCH (08:49)
[2018-10-21] MEDS: AmLODIPine BESYLATE 10 MG TABLET PO SCH (08:49)
[2018-10-21] MEDS: LORazepam 2 MG TABLET PO PRN ×2 (08:51→21:21)
[2018-10-21] MEDS: INSULIN LISPRO 100 UNITS/ML SQ PRN ×3 (10:45→20:35)
[2018-10-21 10:55] LABS: GLUCOMETER DEV NAME(LOC) BV2X.; GLUCOSE,POINT OF CARE 150 MG/DL (70-110)
[2018-10-21 16:23] VITALS: BP 133/84
[2018-10-21 19:24] LABS: GLUCOMETER DEV NAME(LOC) BV2X.; GLUCOSE,POINT OF CARE 219 MG/DL (70-110)
[2018-10-21] MEDS: LURASIDONE HCL 40 MG TABLET PO SCH (20:17)
[2018-10-21] MEDS: TraZODone HCL 100 MG TABLET PO SCH (20:17)
[2018-10-21 20:40] LABS: GLUCOMETER DEV NAME(LOC) BV2X.; GLUCOSE,POINT OF CARE 215 MG/DL (70-110)
[2018-10-22 00:37] VITALS: BP 126/72
[2018-10-22] MEDS: INSULIN LISPRO 100 UNITS/ML SQ PRN ×3 (06:45→20:51)
[2018-10-22 06:49] LABS: GLUCOMETER DEV NAME(LOC) BV2X.; GLUCOSE,POINT OF CARE 154 MG/DL (70-110)
[2018-10-22] MEDS: MetFORMIN HCL 500 MG ER TABLET PO SCH (07:08)
[2018-10-22] MEDS: ATENOLOL 50 MG TABLET PO SCH (08:25)
[2018-10-22] MEDS: OMEGA-3/DHA/EPA/FISH OIL 1,000 MG CAPSULE PO SCH (08:25)
[2018-10-22] MEDS: DIVALPROEX SODIUM 250 MG DR TABLET PO SCH (08:25)
[2018-10-22] MEDS: LOSARTAN POTASSIUM 50 MG TABLET PO SCH (08:25)
[2018-10-22] MEDS: AmLODIPine BESYLATE 10 MG TABLET PO SCH (08:25)
[2018-10-22] MEDS: SitaGLIPtin PHOSPHATE 100 MG TABLET PO SCH (08:25)
[2018-10-22] MEDS: LITHIUM CARBONATE 300 MG CAPSULE PO SCH ×2 (08:25→16:24)
[2018-10-22 08:51] VITALS: BP 139/80
[2018-10-22 11:30] LABS: GLUCOMETER DEV NAME(LOC) BV2X.; GLUCOSE,POINT OF CARE 131 MG/DL (70-110)
[2018-10-22 16:12] VITALS: BP 113/70
[2018-10-22 16:29] LABS: GLUCOMETER DEV NAME(LOC) BV2X.; GLUCOSE,POINT OF CARE 163 MG/DL (70-110)
[2018-10-22] MEDS: LURASIDONE HCL 40 MG TABLET PO SCH (20:11)
[2018-10-22] MEDS: TraZODone HCL 100 MG TABLET PO SCH (20:11)
[2018-10-22 20:24] LABS: GLUCOMETER DEV NAME(LOC) BV2X.; GLUCOSE,POINT OF CARE 202 MG/DL (70-110)
[2018-10-22] MEDS: LORazepam 2 MG TABLET PO PRN (21:28)
[2018-10-22 21:55] VITALS: BP 121/76
[2018-10-23 00:59] VITALS: BP 118/70
[2018-10-23 06:54] LABS: GLUCOMETER DEV NAME(LOC) BV2X.; GLUCOSE,POINT OF CARE 134 MG/DL (70-110)
[2018-10-23] MEDS: MetFORMIN HCL 500 MG ER TABLET PO SCH (07:11)
[2018-10-23 08:25] VITALS: BP 125/81
[2018-10-23] MEDS: OMEGA-3/DHA/EPA/FISH OIL 1,000 MG CAPSULE PO SCH (08:41)
[2018-10-23] MEDS: LOSARTAN POTASSIUM 50 MG TABLET PO SCH (08:41)
[2018-10-23] MEDS: SitaGLIPtin PHOSPHATE 100 MG TABLET PO SCH (08:41)
[2018-10-23] MEDS: DIVALPROEX SODIUM 250 MG DR TABLET PO SCH (08:42)
[2018-10-23] MEDS: AmLODIPine BESYLATE 10 MG TABLET PO SCH (08:42)
[2018-10-23] MEDS: LITHIUM CARBONATE 300 MG CAPSULE PO SCH ×2 (08:42→16:22)
[2018-10-23] MEDS: ATENOLOL 50 MG TABLET PO SCH (08:43)
[2018-10-23] MEDS: INSULIN LISPRO 100 UNITS/ML SQ PRN ×2 (11:35→20:48)
[2018-10-23 11:55] LABS: GLUCOMETER DEV NAME(LOC) BV2X.; GLUCOSE,POINT OF CARE 182 MG/DL (70-110)
[2018-10-23 16:12] VITALS: BP 122/73
[2018-10-23 16:49] LABS: GLUCOMETER DEV NAME(LOC) BV2X.; GLUCOSE,POINT OF CARE 135 MG/DL (70-110)
[2018-10-23] MEDS: TraZODone HCL 100 MG TABLET PO SCH (20:25)
[2018-10-23] MEDS: LURASIDONE HCL 40 MG TABLET PO SCH (20:25)
[2018-10-23 20:58] LABS: GLUCOMETER DEV NAME(LOC) BV2X.; GLUCOSE,POINT OF CARE 158 MG/DL (70-110)
[2018-10-23] MEDS: LORazepam 2 MG TABLET PO PRN (21:46)
[2018-10-24 01:54] VITALS: BP 120/81
[2018-10-24] MEDS: INSULIN LISPRO 100 UNITS/ML SQ PRN ×4 (06:41→21:19)
[2018-10-24] MEDS: MetFORMIN HCL 500 MG ER TABLET PO SCH (07:14)
[2018-10-24 07:34] LABS: GLUCOMETER DEV NAME(LOC) BV2X.; GLUCOSE,POINT OF CARE 181 MG/DL (70-110)
[2018-10-24] MEDS: SitaGLIPtin PHOSPHATE 100 MG TABLET PO SCH (08:39)
[2018-10-24] MEDS: DIVALPROEX SODIUM 250 MG DR TABLET PO SCH (08:39)
[2018-10-24 08:40] VITALS: BP 127/72
[2018-10-24] MEDS: LITHIUM CARBONATE 300 MG CAPSULE PO SCH ×2 (08:40→16:35)
[2018-10-24] MEDS: ATENOLOL 50 MG TABLET PO SCH (08:40)
[2018-10-24] MEDS: LOSARTAN POTASSIUM 50 MG TABLET PO SCH (08:40)
[2018-10-24] MEDS: OMEGA-3/DHA/EPA/FISH OIL 1,000 MG CAPSULE PO SCH (08:40)
[2018-10-24] MEDS: AmLODIPine BESYLATE 10 MG TABLET PO SCH (08:40)
[2018-10-24 11:09] LABS: GLUCOMETER DEV NAME(LOC) BV2X.; GLUCOSE,POINT OF CARE 151 MG/DL (70-110)
[2018-10-24 16:12] VITALS: BP 120/80
[2018-10-24 16:24] LABS: GLUCOMETER DEV NAME(LOC) BV2X.; GLUCOSE,POINT OF CARE 194 MG/DL (70-110)
[2018-10-24 20:29] LABS: GLUCOMETER DEV NAME(LOC) BV2X.; GLUCOSE,POINT OF CARE 279 MG/DL (70-110)
[2018-10-24] MEDS: LURASIDONE HCL 40 MG TABLET PO SCH (20:39)
[2018-10-24] MEDS: TraZODone HCL 100 MG TABLET PO SCH (20:39)
[2018-10-24] MEDS: LORazepam 2 MG TABLET PO PRN (22:27)
[2018-10-25] MEDS: ACETAMINOPHEN 325 MG TABLET PO PRN
[2018-10-25 00:30] VITALS: BP 103/62
[2018-10-25] MEDS: MetFORMIN HCL 500 MG ER TABLET PO SCH (06:58)
[2018-10-25 07:10] LABS: GLUCOMETER DEV NAME(LOC) BV2X.; GLUCOSE,POINT OF CARE 165 MG/DL (70-110)
[2018-10-25] MEDS: INSULIN LISPRO 100 UNITS/ML SQ PRN ×3 (07:17→19:52)
[2018-10-25 08:13] VITALS: BP 132/83
[2018-10-25] MEDS: ATENOLOL 50 MG TABLET PO SCH (08:20)
[2018-10-25] MEDS: DIVALPROEX SODIUM 250 MG DR TABLET PO SCH (08:20)
[2018-10-25] MEDS: LOSARTAN POTASSIUM 50 MG TABLET PO SCH (08:20)
[2018-10-25] MEDS: AmLODIPine BESYLATE 10 MG TABLET PO SCH (08:20)
[2018-10-25] MEDS: OMEGA-3/DHA/EPA/FISH OIL 1,000 MG CAPSULE PO SCH (08:21)
[2018-10-25] MEDS: SitaGLIPtin PHOSPHATE 100 MG TABLET PO SCH (08:21)
[2018-10-25] MEDS: LITHIUM CARBONATE 300 MG CAPSULE PO SCH ×2 (08:21→16:42)
[2018-10-25 16:17] VITALS: BP 128/78
[2018-10-25 16:50] LABS: GLUCOMETER DEV NAME(LOC) BV2X.; GLUCOSE,POINT OF CARE 127 MG/DL (70-110)
[2018-10-25 16:50] LABS: GLUCOMETER DEV NAME(LOC) BV2X.; GLUCOSE,POINT OF CARE 269 MG/DL (70-110)
[2018-10-25] MEDS: LURASIDONE HCL 40 MG TABLET PO SCH (19:50)
[2018-10-25] MEDS: TraZODone HCL 100 MG TABLET PO SCH (19:50)
[2018-10-25 20:14] LABS: GLUCOMETER DEV NAME(LOC) BV2X.; GLUCOSE,POINT OF CARE 221 MG/DL (70-110)
[2018-10-25] MEDS: LORazepam 2 MG TABLET PO PRN (21:29)
[2018-10-26 00:32] VITALS: BP 121/68
[2018-10-26] MEDS: INSULIN LISPRO 100 UNITS/ML SQ PRN ×3 (06:36→16:52)
[2018-10-26 06:49] LABS: GLUCOMETER DEV NAME(LOC) BV2X.; GLUCOSE,POINT OF CARE 164 MG/DL (70-110)
[2018-10-26] MEDS: MetFORMIN HCL 500 MG ER TABLET PO SCH (07:09)
[2018-10-26 08:27] VITALS: BP 130/80
[2018-10-26] MEDS: LOSARTAN POTASSIUM 50 MG TABLET PO SCH (08:37)
[2018-10-26] MEDS: DIVALPROEX SODIUM 250 MG DR TABLET PO SCH (08:37)
[2018-10-26] MEDS: ATENOLOL 50 MG TABLET PO SCH (08:38)
[2018-10-26] MEDS: OMEGA-3/DHA/EPA/FISH OIL 1,000 MG CAPSULE PO SCH (08:38)
[2018-10-26] MEDS: LITHIUM CARBONATE 300 MG CAPSULE PO SCH ×2 (08:38→16:15)
[2018-10-26] MEDS: AmLODIPine BESYLATE 10 MG TABLET PO SCH (08:38)
[2018-10-26] MEDS: SitaGLIPtin PHOSPHATE 100 MG TABLET PO SCH (08:39)
[2018-10-26 10:39] LABS: GLUCOMETER DEV NAME(LOC) BV2X.; GLUCOSE,POINT OF CARE 219 MG/DL (70-110)
[2018-10-26 16:09] VITALS: BP 114/74
[2018-10-26 17:05] LABS: GLUCOMETER DEV NAME(LOC) BV2X.; GLUCOSE,POINT OF CARE 233 MG/DL (70-110)
[2018-10-26] MEDS: TraZODone HCL 100 MG TABLET PO SCH (20:09)
[2018-10-26] MEDS: LURASIDONE HCL 40 MG TABLET PO SCH (20:09)
[2018-10-26 20:39] LABS: GLUCOMETER DEV NAME(LOC) BV2X.; GLUCOSE,POINT OF CARE 124 MG/DL (70-110)
[2018-10-26] MEDS: ZOLPIDEM TARTRATE 5 MG TABLET PO PRN (21:03)
[2018-10-27 00:33] VITALS: BP 120/81
[2018-10-27] MEDS: MetFORMIN HCL 500 MG ER TABLET PO SCH (07:10)
[2018-10-27 07:29] LABS: GLUCOMETER DEV NAME(LOC) BV2X.; GLUCOSE,POINT OF CARE 134 MG/DL (70-110)
[2018-10-27] MEDS: LOSARTAN POTASSIUM 50 MG TABLET PO SCH (08:38)
[2018-10-27] MEDS: OMEGA-3/DHA/EPA/FISH OIL 1,000 MG CAPSULE PO SCH (08:38)
[2018-10-27] MEDS: LITHIUM CARBONATE 300 MG CAPSULE PO SCH ×2 (08:38→16:03)
[2018-10-27] MEDS: ATENOLOL 50 MG TABLET PO SCH (08:38)
[2018-10-27] MEDS: AmLODIPine BESYLATE 10 MG TABLET PO SCH (08:38)
[2018-10-27] MEDS: DIVALPROEX SODIUM 250 MG DR TABLET PO SCH (08:38)
[2018-10-27] MEDS: SitaGLIPtin PHOSPHATE 100 MG TABLET PO SCH (08:39)
[2018-10-27 08:40] VITALS: BP 123/90
[2018-10-27 16:06] VITALS: BP 124/63
[2018-10-27 16:10] LABS: GLUCOMETER DEV NAME(LOC) BV2X.; GLUCOSE,POINT OF CARE 174 MG/DL (70-110)
[2018-10-27] MEDS: INSULIN LISPRO 100 UNITS/ML SQ PRN ×2 (16:20→20:52)
[2018-10-27 20:14] LABS: GLUCOMETER DEV NAME(LOC) BV2X.; GLUCOSE,POINT OF CARE 160 MG/DL (70-110)
[2018-10-27] MEDS: LURASIDONE HCL 40 MG TABLET PO SCH (20:32)
[2018-10-27] MEDS: TraZODone HCL 100 MG TABLET PO SCH (20:33)
[2018-10-27] MEDS: ZOLPIDEM TARTRATE 5 MG TABLET PO PRN (21:22)
[2018-10-28 03:58] VITALS: BP 138/89
[2018-10-28 06:21] LABS: GLUCOMETER DEV NAME(LOC) BV2X.; GLUCOSE,POINT OF CARE 134 MG/DL (70-110)
[2018-10-28] MEDS: MetFORMIN HCL 500 MG ER TABLET PO SCH (06:43)
[2018-10-28] MEDS: DIVALPROEX SODIUM 250 MG DR TABLET PO SCH (08:23)
[2018-10-28] MEDS: LITHIUM CARBONATE 300 MG CAPSULE PO SCH ×2 (08:23→16:07)
[2018-10-28] MEDS: AmLODIPine BESYLATE 10 MG TABLET PO SCH (08:23)
[2018-10-28] MEDS: SitaGLIPtin PHOSPHATE 100 MG TABLET PO SCH (08:24)
[2018-10-28] MEDS: OMEGA-3/DHA/EPA/FISH OIL 1,000 MG CAPSULE PO SCH (08:24)
[2018-10-28] MEDS: LOSARTAN POTASSIUM 50 MG TABLET PO SCH (08:24)
[2018-10-28] MEDS: ATENOLOL 50 MG TABLET PO SCH (08:26)
[2018-10-28 08:38] VITALS: BP 142/88
[2018-10-28] MEDS: INSULIN LISPRO 100 UNITS/ML SQ PRN ×2 (11:06→20:41)
[2018-10-28 14:52] VITALS: BP 130/85
[2018-10-28] MEDS: ACETAMINOPHEN 325 MG TABLET PO PRN (14:54)
[2018-10-28 16:04] VITALS: BP 131/83
[2018-10-28 16:14] LABS: GLUCOMETER DEV NAME(LOC) BV2S.; GLUCOSE,POINT OF CARE 137 MG/DL (70-110)
[2018-10-28] MEDS: TraZODone HCL 100 MG TABLET PO SCH (20:32)
[2018-10-28] MEDS: LURASIDONE HCL 40 MG TABLET PO SCH (20:32)
[2018-10-28 20:43] LABS: GLUCOMETER DEV NAME(LOC) BV2S.; GLUCOSE,POINT OF CARE 160 MG/DL (70-110)
[2018-10-28] MEDS: ZOLPIDEM TARTRATE 5 MG TABLET PO PRN (21:24)
[2018-10-29 02:30] VITALS: BP 127/81
[2018-10-29 06:30] LABS: GLUCOMETER DEV NAME(LOC) BV2S.; GLUCOSE,POINT OF CARE 116 MG/DL (70-110)
[2018-10-29] MEDS: MetFORMIN HCL 500 MG ER TABLET PO SCH (06:37)
[2018-10-29 08:12] VITALS: BP 125/83
[2018-10-29] MEDS: ATENOLOL 50 MG TABLET PO SCH (08:40)
[2018-10-29] MEDS: SitaGLIPtin PHOSPHATE 100 MG TABLET PO SCH (08:40)
[2018-10-29] MEDS: LITHIUM CARBONATE 300 MG CAPSULE PO SCH ×2 (08:40→17:12)
[2018-10-29] MEDS: LOSARTAN POTASSIUM 50 MG TABLET PO SCH (08:40)
[2018-10-29] MEDS: AmLODIPine BESYLATE 10 MG TABLET PO SCH (08:40)
[2018-10-29] MEDS: OMEGA-3/DHA/EPA/FISH OIL 1,000 MG CAPSULE PO SCH (08:40)
[2018-10-29] MEDS: DIVALPROEX SODIUM 250 MG DR TABLET PO SCH ×2 (08:42→17:13)
[2018-10-29] MEDS: ACETAMINOPHEN 325 MG TABLET PO PRN (09:10)
[2018-10-29 11:05] LABS: GLUCOMETER DEV NAME(LOC) BV2S.; GLUCOSE,POINT OF CARE 134 MG/DL (70-110)
[2018-10-29 16:11] VITALS: BP 122/75
[2018-10-29 17:10] LABS: GLUCOMETER DEV NAME(LOC) BV2S.; GLUCOSE,POINT OF CARE 138 MG/DL (70-110)
[2018-10-29 21:19] LABS: GLUCOMETER DEV NAME(LOC) BV2S.; GLUCOSE,POINT OF CARE 215 MG/DL (70-110)
[2018-10-29] MEDS: LURASIDONE HCL 40 MG TABLET PO SCH (21:36)
[2018-10-29] MEDS: TraZODone HCL 100 MG TABLET PO SCH (21:36)
[2018-10-29] MEDS: INSULIN LISPRO 100 UNITS/ML SQ PRN (22:44)
[2018-10-30 02:19] VITALS: BP 105/64
[2018-10-30] MEDS: ACETAMINOPHEN 325 MG TABLET PO PRN ×2 (02:19→13:01)
[2018-10-30 06:49] LABS: GLUCOMETER DEV NAME(LOC) BV2S.; GLUCOSE,POINT OF CARE 153 MG/DL (70-110)
[2018-10-30] MEDS: MetFORMIN HCL 500 MG ER TABLET PO SCH (06:52)
[2018-10-30] MEDS: INSULIN LISPRO 100 UNITS/ML SQ PRN ×4 (06:53→21:23)
[2018-10-30] MEDS: LOSARTAN POTASSIUM 50 MG TABLET PO SCH (08:08)
[2018-10-30] MEDS: AmLODIPine BESYLATE 10 MG TABLET PO SCH (08:08)
[2018-10-30] MEDS: DIVALPROEX SODIUM 250 MG DR TABLET PO SCH ×2 (08:08→16:14)
[2018-10-30] MEDS: ATENOLOL 50 MG TABLET PO SCH (08:08)
[2018-10-30] MEDS: OMEGA-3/DHA/EPA/FISH OIL 1,000 MG CAPSULE PO SCH (08:09)
[2018-10-30] MEDS: LITHIUM CARBONATE 300 MG CAPSULE PO SCH ×2 (08:09→16:14)
[2018-10-30] MEDS: SitaGLIPtin PHOSPHATE 100 MG TABLET PO SCH (08:09)
[2018-10-30 08:31] VITALS: BP 138/82
[2018-10-30 11:04] LABS: GLUCOMETER DEV NAME(LOC) BV2S.; GLUCOSE,POINT OF CARE 164 MG/DL (70-110)
[2018-10-30 13:01] VITALS: BP 124/78
[2018-10-30 16:25] LABS: GLUCOMETER DEV NAME(LOC) BV2S.; GLUCOSE,POINT OF CARE 184 MG/DL (70-110)
[2018-10-30 16:40] VITALS: BP 114/82
[2018-10-30 20:10] LABS: GLUCOMETER DEV NAME(LOC) BV2S.; GLUCOSE,POINT OF CARE 179 MG/DL (70-110)
[2018-10-30] MEDS: TraZODone HCL 100 MG TABLET PO SCH (20:29)
[2018-10-30] MEDS: LURASIDONE HCL 40 MG TABLET PO SCH (20:29)
[2018-10-31 06:18] VITALS: BP 117/74
[2018-10-31 06:49] LABS: GLUCOMETER DEV NAME(LOC) BV2S.; GLUCOSE,POINT OF CARE 190 MG/DL (70-110)
[2018-10-31] MEDS: MetFORMIN HCL 500 MG ER TABLET PO SCH (07:13)
[2018-10-31] MEDS: INSULIN LISPRO 100 UNITS/ML SQ PRN ×4 (07:14→21:31)
[2018-10-31] MEDS: OMEGA-3/DHA/EPA/FISH OIL 1,000 MG CAPSULE PO SCH (08:12)
[2018-10-31] MEDS: LOSARTAN POTASSIUM 50 MG TABLET PO SCH (08:12)
[2018-10-31] MEDS: AmLODIPine BESYLATE 10 MG TABLET PO SCH (08:12)
[2018-10-31] MEDS: ATENOLOL 50 MG TABLET PO SCH (08:12)
[2018-10-31] MEDS: LITHIUM CARBONATE 300 MG CAPSULE PO SCH ×2 (08:12→16:42)
[2018-10-31] MEDS: SitaGLIPtin PHOSPHATE 100 MG TABLET PO SCH (08:12)
[2018-10-31] MEDS: DIVALPROEX SODIUM 250 MG DR TABLET PO SCH ×2 (08:12→16:42)
[2018-10-31 09:22] VITALS: BP 145/80
[2018-10-31 11:19] LABS: GLUCOMETER DEV NAME(LOC) BV2S.; GLUCOSE,POINT OF CARE 153 MG/DL (70-110)
[2018-10-31 16:07] VITALS: BP 121/73
[2018-10-31 16:09] LABS: GLUCOMETER DEV NAME(LOC) BV2S.; GLUCOSE,POINT OF CARE 185 MG/DL (70-110)
[2018-10-31] MEDS: LURASIDONE HCL 40 MG TABLET PO SCH (20:09)
[2018-10-31] MEDS: TraZODone HCL 100 MG TABLET PO SCH (20:09)
[2018-10-31 20:14] LABS: GLUCOMETER DEV NAME(LOC) BV2S.; GLUCOSE,POINT OF CARE 204 MG/DL (70-110)
[2018-11-01 01:31] VITALS: BP 107/69
[2018-11-01] MEDS: ZOLPIDEM TARTRATE 5 MG TABLET PO PRN ×2 (02:07→21:24)
[2018-11-01] MEDS: MetFORMIN HCL 500 MG ER TABLET PO SCH (07:25)
[2018-11-01] MEDS: INSULIN LISPRO 100 UNITS/ML SQ PRN ×4 (07:28→20:41)
[2018-11-01 07:37] LABS: GLUCOMETER DEV NAME(LOC) BV2S.; GLUCOSE,POINT OF CARE 165 MG/DL (70-110)
[2018-11-01] MEDS: OMEGA-3/DHA/EPA/FISH OIL 1,000 MG CAPSULE PO SCH (08:11)
[2018-11-01] MEDS: DIVALPROEX SODIUM 250 MG DR TABLET PO SCH ×2 (08:11→16:33)
[2018-11-01] MEDS: SitaGLIPtin PHOSPHATE 100 MG TABLET PO SCH (08:11)
[2018-11-01] MEDS: AmLODIPine BESYLATE 10 MG TABLET PO SCH (08:11)
[2018-11-01] MEDS: LITHIUM CARBONATE 300 MG CAPSULE PO SCH ×2 (08:11→16:32)
[2018-11-01] MEDS: ATENOLOL 50 MG TABLET PO SCH (08:11)
[2018-11-01] MEDS: LOSARTAN POTASSIUM 50 MG TABLET PO SCH (08:11)
[2018-11-01 08:42] VITALS: BP 117/69
[2018-11-01] MEDS: ALBUTEROL SULFATE HFA 90 MCG/PUFF 8 GM INHALER IH PRN (09:59)
[2018-11-01 11:14] LABS: GLUCOMETER DEV NAME(LOC) BV2S.; GLUCOSE,POINT OF CARE 219 MG/DL (70-110)
[2018-11-01 16:18] VITALS: BP 114/68
[2018-11-01 16:39] LABS: GLUCOMETER DEV NAME(LOC) BV2S.; GLUCOSE,POINT OF CARE 145 MG/DL (70-110)
[2018-11-01] MEDS: TraZODone HCL 100 MG TABLET PO SCH (20:25)
[2018-11-01] MEDS: LURASIDONE HCL 80 MG TABLET PO SCH (20:26)
[2018-11-01] MEDS ORDERED: LURASIDONE HCL 80 MG TABLET PO SCH (21:00)
[2018-11-01 21:08] LABS: GLUCOMETER DEV NAME(LOC) BV2S.; GLUCOSE,POINT OF CARE 211 MG/DL (70-110)
[2018-11-02 03:51] VITALS: BP 127/78
[2018-11-02] MEDS: MetFORMIN HCL 500 MG ER TABLET PO SCH (06:26)
[2018-11-02 06:29] LABS: GLUCOMETER DEV NAME(LOC) BV2S.; GLUCOSE,POINT OF CARE 174 MG/DL (70-110)
[2018-11-02] MEDS: ALBUTEROL SULFATE HFA 90 MCG/PUFF 8 GM INHALER IH PRN (06:42)
[2018-11-02] MEDS: INSULIN LISPRO 100 UNITS/ML SQ PRN ×3 (06:49→16:35)
[2018-11-02 07:56] LABS: LITHIUM 0.53 mmol/L (0.60-1.20)
[2018-11-02 08:32] VITALS: BP 123/78
[2018-11-02] MEDS: LITHIUM CARBONATE 300 MG CAPSULE PO SCH ×2 (08:32→17:07)
[2018-11-02] MEDS: AmLODIPine BESYLATE 10 MG TABLET PO SCH (08:32)
[2018-11-02] MEDS: ATENOLOL 50 MG TABLET PO SCH (08:32)
[2018-11-02] MEDS: SitaGLIPtin PHOSPHATE 100 MG TABLET PO SCH (08:32)
[2018-11-02] MEDS: OMEGA-3/DHA/EPA/FISH OIL 1,000 MG CAPSULE PO SCH (08:32)
[2018-11-02] MEDS: DIVALPROEX SODIUM 250 MG DR TABLET PO SCH (08:32)
[2018-11-02] MEDS: LOSARTAN POTASSIUM 50 MG TABLET PO SCH (08:32)
[2018-11-02 11:14] LABS: GLUCOMETER DEV NAME(LOC) BV2S.; GLUCOSE,POINT OF CARE 152 MG/DL (70-110)
[2018-11-02 16:06] VITALS: BP 126/85
[2018-11-02 16:34] LABS: GLUCOMETER DEV NAME(LOC) BV2S.; GLUCOSE,POINT OF CARE 148 MG/DL (70-110)
[2018-11-02] MEDS: LURASIDONE HCL 80 MG TABLET PO SCH (17:08)
[2018-11-02] MEDS: TraZODone HCL 100 MG TABLET PO SCH (20:06)
[2018-11-02] MEDS: DIVALPROEX SODIUM 500 MG DR TABLET PO SCH (20:06)
[2018-11-02 20:23] LABS: GLUCOMETER DEV NAME(LOC) BV2S.; GLUCOSE,POINT OF CARE 128 MG/DL (70-110)
[2018-11-02] MEDS: ZOLPIDEM TARTRATE 5 MG TABLET PO PRN (21:43)
[2018-11-03 05:56] VITALS: BP 132/82
[2018-11-03 05:59] LABS: GLUCOMETER DEV NAME(LOC) BV2S.; GLUCOSE,POINT OF CARE 134 MG/DL (70-110)
[2018-11-03] MEDS: MetFORMIN HCL 500 MG ER TABLET PO SCH (07:05)
[2018-11-03] MEDS: LITHIUM CARBONATE 300 MG CAPSULE PO SCH ×2 (08:04→17:12)
[2018-11-03] MEDS: AmLODIPine BESYLATE 10 MG TABLET PO SCH (08:04)
[2018-11-03] MEDS: ATENOLOL 50 MG TABLET PO SCH (08:04)
[2018-11-03] MEDS: SitaGLIPtin PHOSPHATE 100 MG TABLET PO SCH (08:04)
[2018-11-03] MEDS: OMEGA-3/DHA/EPA/FISH OIL 1,000 MG CAPSULE PO SCH (08:04)
[2018-11-03] MEDS: DIVALPROEX SODIUM 500 MG DR TABLET PO SCH ×2 (08:04→20:19)
[2018-11-03] MEDS: LOSARTAN POTASSIUM 50 MG TABLET PO SCH (08:04)
[2018-11-03 08:09] VITALS: BP 129/75
[2018-11-03] MEDS: ALBUTEROL SULFATE HFA 90 MCG/PUFF 8 GM INHALER IH PRN (09:02)
[2018-11-03 10:59] LABS: GLUCOMETER DEV NAME(LOC) BV2S.; GLUCOSE,POINT OF CARE 125 MG/DL (70-110)
[2018-11-03 16:08] VITALS: BP 116/70
[2018-11-03 16:45] LABS: GLUCOMETER DEV NAME(LOC) BV2S.; GLUCOSE,POINT OF CARE 102 MG/DL (70-110)
[2018-11-03] MEDS: LURASIDONE HCL 80 MG TABLET PO SCH (17:11)
[2018-11-03] MEDS: TraZODone HCL 100 MG TABLET PO SCH (20:19)
[2018-11-03] MEDS: INSULIN LISPRO 100 UNITS/ML SQ PRN (20:21)
[2018-11-03 20:54] LABS: GLUCOMETER DEV NAME(LOC) BV2S.; GLUCOSE,POINT OF CARE 234 MG/DL (70-110)
[2018-11-04 06:22] VITALS: BP 112/60
[2018-11-04 06:44] LABS: GLUCOMETER DEV NAME(LOC) BV2S.; GLUCOSE,POINT OF CARE 116 MG/DL (70-110)
[2018-11-04] MEDS: MetFORMIN HCL 500 MG ER TABLET PO SCH (07:12)
[2018-11-04] MEDS: SitaGLIPtin PHOSPHATE 100 MG TABLET PO SCH (08:05)
[2018-11-04] MEDS: LOSARTAN POTASSIUM 50 MG TABLET PO SCH (08:05)
[2018-11-04] MEDS: DIVALPROEX SODIUM 500 MG DR TABLET PO SCH ×2 (08:05→20:46)
[2018-11-04] MEDS: AmLODIPine BESYLATE 10 MG TABLET PO SCH (08:05)
[2018-11-04] MEDS: OMEGA-3/DHA/EPA/FISH OIL 1,000 MG CAPSULE PO SCH (08:05)
[2018-11-04] MEDS: ATENOLOL 50 MG TABLET PO SCH (08:05)
[2018-11-04] MEDS: LITHIUM CARBONATE 300 MG CAPSULE PO SCH ×2 (08:06→16:52)
[2018-11-04 08:28] VITALS: BP 133/69
[2018-11-04 11:44] LABS: GLUCOMETER DEV NAME(LOC) BV2S.; GLUCOSE,POINT OF CARE 100 MG/DL (70-110)
[2018-11-04] MEDS: ALBUTEROL SULFATE HFA 90 MCG/PUFF 8 GM INHALER IH PRN (13:51)
[2018-11-04 16:34] LABS: GLUCOMETER DEV NAME(LOC) BV2S.; GLUCOSE,POINT OF CARE 167 MG/DL (70-110)
[2018-11-04 16:36] VITALS: BP 122/66
[2018-11-04] MEDS: INSULIN LISPRO 100 UNITS/ML SQ PRN ×2 (16:59→21:11)
[2018-11-04] MEDS: LURASIDONE HCL 80 MG TABLET PO SCH (17:31)
[2018-11-04 20:44] LABS: GLUCOMETER DEV NAME(LOC) BV2S.; GLUCOSE,POINT OF CARE 205 MG/DL (70-110)
[2018-11-04] MEDS: TraZODone HCL 100 MG TABLET PO SCH (20:46)
[2018-11-05 03:35] VITALS: BP 120/80
[2018-11-05] MEDS: MetFORMIN HCL 500 MG ER TABLET PO SCH (07:09)
[2018-11-05 07:35] LABS: GLUCOMETER DEV NAME(LOC) BV2S.; GLUCOSE,POINT OF CARE 139 MG/DL (70-110)
[2018-11-05 08:03] LABS: AMPHET/METH SCREEN,URINE NEGATIVE (NEGATIVE); BARBITURATE SCREEN, URINE NEGATIVE (NEGATIVE); BENZODIAZEPINES SCREEN,URINE NEGATIVE (NEGATIVE); CANNABINOID SCREEN,URINE NEGATIVE (NEGATIVE); COCAINE SCREEN,URINE NEGATIVE (NEGATIVE); METHADONE SCREEN, URINE NEGATIVE (NEGATIVE); OPIATE SCREEN,URINE NEGATIVE (NEGATIVE); PHENCYCLIDINE SCREEN,URINE NEGATIVE (NEGATIVE)
[2018-11-05] MEDS: LOSARTAN POTASSIUM 50 MG TABLET PO SCH (08:08)
[2018-11-05] MEDS: OMEGA-3/DHA/EPA/FISH OIL 1,000 MG CAPSULE PO SCH (08:08)
[2018-11-05] MEDS: SitaGLIPtin PHOSPHATE 100 MG TABLET PO SCH (08:08)
[2018-11-05] MEDS: ATENOLOL 50 MG TABLET PO SCH (08:08)
[2018-11-05] MEDS: AmLODIPine BESYLATE 10 MG TABLET PO SCH (08:08)
[2018-11-05] MEDS: DIVALPROEX SODIUM 500 MG DR TABLET PO SCH ×2 (08:09→20:37)
[2018-11-05] MEDS: LITHIUM CARBONATE 300 MG CAPSULE PO SCH ×2 (08:09→16:31)
[2018-11-05 08:18] VITALS: BP 122/64
[2018-11-05 10:59] LABS: GLUCOMETER DEV NAME(LOC) BV2S.; GLUCOSE,POINT OF CARE 135 MG/DL (70-110)
[2018-11-05 16:06] VITALS: BP 108/68
[2018-11-05 16:29] LABS: GLUCOMETER DEV NAME(LOC) BV2S.; GLUCOSE,POINT OF CARE 175 MG/DL (70-110)
[2018-11-05] MEDS: INSULIN LISPRO 100 UNITS/ML SQ PRN ×2 (16:42→20:47)
[2018-11-05] MEDS: LURASIDONE HCL 80 MG TABLET PO SCH (17:11)
[2018-11-05] MEDS: TraZODone HCL 100 MG TABLET PO SCH (20:37)
[2018-11-05 20:39] LABS: GLUCOMETER DEV NAME(LOC) BV2S.; GLUCOSE,POINT OF CARE 151 MG/DL (70-110)
[2018-11-06 06:03] VITALS: BP 121/68
[2018-11-06 06:14] LABS: GLUCOMETER DEV NAME(LOC) BV2S.; GLUCOSE,POINT OF CARE 108 MG/DL (70-110)
[2018-11-06] MEDS: MetFORMIN HCL 500 MG ER TABLET PO SCH (06:36)
[2018-11-06 08:29] VITALS: BP 119/77
[2018-11-06] MEDS: OMEGA-3/DHA/EPA/FISH OIL 1,000 MG CAPSULE PO SCH (08:36)
[2018-11-06] MEDS: AmLODIPine BESYLATE 10 MG TABLET PO SCH (08:36)
[2018-11-06] MEDS: LITHIUM CARBONATE 300 MG CAPSULE PO SCH ×2 (08:36→17:18)
[2018-11-06] MEDS: ATENOLOL 50 MG TABLET PO SCH (08:36)
[2018-11-06] MEDS: DIVALPROEX SODIUM 500 MG DR TABLET PO SCH (08:36)
[2018-11-06] MEDS: SitaGLIPtin PHOSPHATE 100 MG TABLET PO SCH (08:36)
[2018-11-06] MEDS: LOSARTAN POTASSIUM 50 MG TABLET PO SCH (08:37)
[2018-11-06] MEDS: INSULIN LISPRO 100 UNITS/ML SQ PRN ×2 (10:52→16:23)
[2018-11-06 10:59] LABS: GLUCOMETER DEV NAME(LOC) BV2S.; GLUCOSE,POINT OF CARE 141 MG/DL (70-110)
[2018-11-06] MEDS ORDERED: LURA80 PO (12:10)
[2018-11-06] MEDS ORDERED: TRAZ-220 PO (12:14)
[2018-11-06] MEDS ORDERED: LITH600 PO (12:14)
[2018-11-06] MEDS ORDERED: DIVA-78 PO ×2 (12:14)
[2018-11-06 16:29] LABS: GLUCOMETER DEV NAME(LOC) BV2S.; GLUCOSE,POINT OF CARE 245 MG/DL (70-110)
[2018-11-06] MEDS: LURASIDONE HCL 80 MG TABLET PO SCH (17:18)
== END 2018-11-06 17:30 | disposition home or self-care (01) | DRG 750 ==
LOC: B2X 22:55 → B2S 10-28 08:55
PROVIDERS: ADMIT Psychiatry & Neurology Child & Adolescent Psychiatry; ATTEND Psychiatry & Neurology Child & Adolescent Psychiatry
PROC: 3E0234Z Introduction of Serum, Toxoid and Vaccine into Muscle, Percutaneous Approach (ICD-10-PCS; principal; 2018-10-19)
DX: F20.0 Paranoid schizophrenia (principal); R45.850 Homicidal ideations; Z81.8 Family history of other mental and behavioral disorders; E11.9 Type 2 diabetes mellitus without complications; E78.00 Pure hypercholesterolemia, unspecified; E78.5 Hyperlipidemia, unspecified; F41.9 Anxiety disorder, unspecified; I10 Essential (primary) hypertension; J45.909 Unspecified asthma, uncomplicated; K21.9 Gastro-esophageal reflux disease without esophagitis; Z23 Encounter for immunization
CPT/HCPCS: 80307; 83036; 84439; 84443; 86592; 90732; J3535

== ENCOUNTER 2019-01-10 17:33 | Emergency (ER) | payer MEDICAID, OTHER ==
[~2019-01-10] VITALS: Ht 165.1 cm; Wt 108.6 kg
[~2019-01-10 17:33] MED LIST changes: -AMLO-512 PO; +AMLO10TA7 PO; -LITH300C3 PO; +LITH600 PO; +TRAZ-220 PO
[2019-01-10 18:40] LABS: AMPHET/METH SCREEN,URINE NEGATIVE (NEGATIVE); BARBITURATE SCREEN, URINE NEGATIVE (NEGATIVE); BENZODIAZEPINES SCREEN,URINE NEGATIVE (NEGATIVE); CANNABINOID SCREEN,URINE NEGATIVE (NEGATIVE); COCAINE SCREEN,URINE NEGATIVE (NEGATIVE); METHADONE SCREEN, URINE NEGATIVE (NEGATIVE); OPIATE SCREEN,URINE NEGATIVE (NEGATIVE)
[2019-01-10 18:42] LABS: PHENCYCLIDINE SCREEN,URINE NEGATIVE (NEGATIVE)
[2019-01-10 19:07] LABS: ANION GAP 10 mmol/L (8-16); BASOPHILS % (AUTO) 0.3 % (0.0-2.0); CARBON DIOXIDE 27 mmol/L (22-29); CHLORIDE 99 mmol/L (98-107); CREATININE 0.75 mg/dL (0.60-1.30); EOSINOPHILS % (AUTO) 1.4 % (1.0-6.0); GLOMERULAR FILTR. RATE CALC > 60 mL/min (>60); GLUCOSE,RANDOM 123 mg/dL (70-110); HEMATOCRIT 41.8 % (41-53); HEMOGLOBIN 13.9 g/dL (13.5-17.5); LYMPHOCYTES # (AUTO) 2.2 K/uL (1.0-4.8); LYMPHOCYTES % (AUTO) 24.2 % (22.0-44.0); MEAN CORPUSCULAR HEMOGLOBIN 29.7 pg (26.0-34.0); MEAN CORPUSCULAR HGB CONC 33.3 G/dL (31.0-37.0); MEAN CORPUSCULAR VOLUME 89 fL (80-100); MONOCYTES # (AUTO) 0.5 K/uL (0.1-1.0); MONOCYTES % (AUTO) 5.5 % (2.0-9.0); NEUTROPHILS # (AUTO) 6.2 K/uL (1.8-7.7); NEUTROPHILS % (AUTO) 68.6 % (40.0-70.0); POTASSIUM 4.2 mmol/L (3.5-5.1); RED BLOOD CELL COUNT(AUTO) 4.69 MIL/uL (4.50-5.90); RED CELL DISTRIBUTION WIDTH 13.7 % (11.5-14.5); SODIUM SERUM 136 mmol/L (136-145); UREA NITROGEN, BLOOD 5 mg/dL (7-18)
[2019-01-10 19:13] LABS: ALANINE AMINOTRANSFERASE 18 U/L (12-78); ALBUMIN 4.3 g/dL (3.4-5.0); ALKALINE PHOSPHATASE 78 U/L (46-116); ASPARTATE AMINOTRANSFERASE 17 U/L (15-37); BILIRUBIN,TOTAL 0.7 mg/dL (0.1-1.0)
[2019-01-10] MEDS ORDERED: HALOPERIDOL 5 MG TABLET PO ONE (19:15)
[2019-01-10 19:29] LABS: PLATELET COUNT (AUTO) 225 K/uL (150-450)
[2019-01-10 20:10] VITALS: BP 121/77
== END 2019-01-10 20:18 | disposition home or self-care (01) ==
LOC: EMS 17:34
DX: F41.9 Anxiety disorder, unspecified (principal); J45.909 Unspecified asthma, uncomplicated; F32.9 Major depressive disorder, single episode, unspecified; E11.9 Type 2 diabetes mellitus without complications; K21.9 Gastro-esophageal reflux disease without esophagitis; I10 Essential (primary) hypertension; F20.9 Schizophrenia, unspecified; Z79.84 Long term (current) use of oral hypoglycemic drugs; Z88.8 Allergy status to other drugs, medicaments and biological substances
CPT/HCPCS: 36415; 80053; 80307; 85025; 99285; G0480

== ENCOUNTER 2019-01-12 17:39 | Inpatient (IN) | payer MEDICAID, OTHER ==
[~2019-01-12] VITALS: Ht 165.1 cm; Wt 108.6 kg
[2019-01-12 18:56] LABS: BASOPHILS % (AUTO) 0.5 % (0.0-2.0); EOSINOPHILS % (AUTO) 1.7 % (1.0-6.0); HEMATOCRIT 40.9 % (41-53); HEMOGLOBIN 13.5 g/dL (13.5-17.5); LYMPHOCYTES % (AUTO) 25.2 % (22.0-44.0); MEAN CORPUSCULAR HEMOGLOBIN 29.4 pg (26.0-34.0); MEAN CORPUSCULAR HGB CONC 32.9 G/dL (31.0-37.0); MEAN CORPUSCULAR VOLUME 89 fL (80-100); MONOCYTES # (AUTO) 0.5 K/uL (0.1-1.0); MONOCYTES % (AUTO) 6.9 % (2.0-9.0); NEUTROPHILS # (AUTO) 5.1 K/uL (1.8-7.7); NEUTROPHILS % (AUTO) 65.7 % (40.0-70.0); PLATELET COUNT (AUTO) 278 K/uL (150-450); RED BLOOD CELL COUNT(AUTO) 4.58 MIL/uL (4.50-5.90); RED CELL DISTRIBUTION WIDTH 13.6 % (11.5-14.5)
[2019-01-12 19:25] LABS: APPEARANCE,URINE CLEAR (CLEAR); BILIRUBIN,URINE NEGATIVE (NEGATIVE); GLUCOSE, URINE (UA) NEGATIVE (NEGATIVE); KETONES,URINE NEGATIVE (NEGATIVE); LEUKOCYTE ESTERASE ,URINE NEGATIVE (NEGATIVE); NITRATE,URINE NEGATIVE (NEGATIVE); OCCULT BLOOD,URINE NEGATIVE (NEGATIVE); PROTEIN,URINE NEGATIVE (NEGATIVE); UROBILINOGEN,URINE 0.2 mg/dL (<=1.0)
[2019-01-12 19:25] LABS: ANION GAP 8 mmol/L (8-16); CALCIUM, TOTAL 10.1 mg/dL (8.8-10.5); CARBON DIOXIDE 29 mmol/L (22-29); CHLORIDE 101 mmol/L (98-107); CREATININE 0.83 mg/dL (0.60-1.30); GLOMERULAR FILTR. RATE CALC > 60 mL/min (>60); GLUCOSE,RANDOM 158 mg/dL (70-110); POTASSIUM 4.1 mmol/L (3.5-5.1); SODIUM SERUM 138 mmol/L (136-145); UREA NITROGEN, BLOOD 6 mg/dL (7-18)
[2019-01-12 19:30] LABS: AMPHET/METH SCREEN,URINE NEGATIVE (NEGATIVE); BARBITURATE SCREEN, URINE NEGATIVE (NEGATIVE); BENZODIAZEPINES SCREEN,URINE NEGATIVE (NEGATIVE); CANNABINOID SCREEN,URINE NEGATIVE (NEGATIVE); COCAINE SCREEN,URINE NEGATIVE (NEGATIVE); METHADONE SCREEN, URINE NEGATIVE (NEGATIVE); OPIATE SCREEN,URINE NEGATIVE (NEGATIVE); PHENCYCLIDINE SCREEN,URINE NEGATIVE (NEGATIVE)
[2019-01-12 19:30] LABS: ALANINE AMINOTRANSFERASE 20 U/L (12-78); ALBUMIN 4.4 g/dL (3.4-5.0); ALKALINE PHOSPHATASE 86 U/L (46-116); ASPARTATE AMINOTRANSFERASE 13 U/L (15-37); BILIRUBIN,TOTAL 0.5 mg/dL (0.1-1.0); TOTAL PROTEIN, SERUM 7.6 g/dL (6.4-8.2)
[2019-01-12 21:16] VITALS: BP 142/90
[2019-01-12] MEDS ORDERED: ALBUTEROL SULFATE HFA 90 MCG/PUFF 8 GM INHALER IH PRN (21:45)
[2019-01-12] MEDS ORDERED: GuaiFENesin/D-METHORPHAN [SUGAR-FREE] 200-20MG/10 ML SYRUP UDCUP PO PRN (21:45)
[2019-01-12] MEDS ORDERED: NICOTINE 14 MG/24 HOUR PATCH TD PRN (21:45)
[2019-01-12] MEDS ORDERED: LOPERAMIDE HCL 2 MG CAPSULE PO PRN (21:45)
[2019-01-12] MEDS ORDERED: MAG HYDROX/AL HYDROX/SIMETH ES 30 ML SUSPENSION UDCUP PO PRN (21:45)
[2019-01-12] MEDS ORDERED: IBUPROFEN 400 MG TABLET PO PRN (21:45)
[2019-01-12] MEDS ORDERED: MAGNESIUM HYDROXIDE SUSPENSION 30 ML UDCUP PO PRN (21:45)
[2019-01-12] MEDS ORDERED: DOCUSATE SODIUM 100 MG CAPSULE PO PRN (21:45)
[2019-01-12] MEDS ORDERED: CloNIDine HCL 0.1 MG TABLET PO PRN (21:45)
[2019-01-12] MEDS ORDERED: ACETAMINOPHEN 325 MG TABLET PO PRN (21:45)
[2019-01-12] MEDS ORDERED: PETROLATUM,WHITE 28 GM JELLY TP PRN (21:45)
[2019-01-12] MEDS ORDERED: ONDANSETRON HCL 4 MG TABLET PO PRN (21:45)
[2019-01-12] MEDS: ZOLPIDEM TARTRATE 10 MG TABLET PO PRN (22:25)
[2019-01-12] MEDS: HALOPERIDOL 5 MG TABLET PO PRN (22:47)
[2019-01-13 00:15] VITALS: BP 139/86
[2019-01-13 06:57] LABS: BASOPHILS % (AUTO) 0.3 % (0.0-2.0); EOSINOPHILS % (AUTO) 1.9 % (1.0-6.0); HEMATOCRIT 39.4 % (41-53); HEMOGLOBIN 13.2 g/dL (13.5-17.5); LYMPHOCYTES # (AUTO) 2.5 K/uL (1.0-4.8); MEAN CORPUSCULAR HEMOGLOBIN 29.9 pg (26.0-34.0); MEAN CORPUSCULAR HGB CONC 33.4 G/dL (31.0-37.0); MEAN CORPUSCULAR VOLUME 89 fL (80-100); MONOCYTES # (AUTO) 0.5 K/uL (0.1-1.0); NEUTROPHILS # (AUTO) 4.6 K/uL (1.8-7.7); NEUTROPHILS % (AUTO) 58.8 % (40.0-70.0); PLATELET COUNT (AUTO) 244 K/uL (150-450); RED BLOOD CELL COUNT(AUTO) 4.41 MIL/uL (4.50-5.90); RED CELL DISTRIBUTION WIDTH 13.6 % (11.5-14.5)
[2019-01-13 07:41] LABS: CHOL/HDL RATIO 2.2 (4.2-7.3); FREE T4 (FREE THYROXINE) 1.07 ng/dL (0.76-1.46); THYROID STIMULATING HORMONE 4.47 uIU/mL (0.36-3.74)
[2019-01-13] MEDS: ATENOLOL 50 MG TABLET PO SCH (09:00)
[2019-01-13] MEDS: SitaGLIPtin PHOSPHATE 100 MG TABLET PO SCH (09:41)
[2019-01-13] MEDS: MetFORMIN HCL 500 MG ER TABLET PO SCH (09:41)
[2019-01-13] MEDS: LOSARTAN POTASSIUM 50 MG TABLET PO SCH (09:41)
[2019-01-13 10:13] VITALS: BP 139/94
[2019-01-13] MEDS: DIVALPROEX SODIUM 500 MG DR TABLET PO SCH ×2 (11:30→20:18)
[2019-01-13 12:21] LABS: GLUCOSE,POINT OF CARE 231 MG/DL (70-110)
[2019-01-13 12:40] LABS: GLUCOMETER DEV NAME(LOC) 3E.I; GLUCOSE,POINT OF CARE 171 MG/DL (70-110)
[2019-01-13 12:40] LABS: GLUCOMETER DEV NAME(LOC) 3E.I; GLUCOSE,POINT OF CARE 133 MG/DL (70-110)
[2019-01-13] MEDS: LORazepam 2 MG TABLET PO PRN (16:11)
[2019-01-13] MEDS: LITHIUM CARBONATE 600 MG CAPSULE PO SCH (16:11)
[2019-01-13 16:19] VITALS: BP 118/70
[2019-01-13 16:20] LABS: GLUCOMETER DEV NAME(LOC) 3E.I; GLUCOSE,POINT OF CARE 156 MG/DL (70-110)
[2019-01-13] MEDS: LURASIDONE HCL 80 MG TABLET PO SCH (18:42)
[2019-01-13] MEDS: TraZODone HCL 100 MG TABLET PO SCH (20:18)
[2019-01-13 20:24] LABS: GLUCOMETER DEV NAME(LOC) 3E.I; GLUCOSE,POINT OF CARE 170 MG/DL (70-110)
[2019-01-13] MEDS: ZOLPIDEM TARTRATE 10 MG TABLET PO PRN (21:59)
[2019-01-14 06:36] LABS: GLUCOMETER DEV NAME(LOC) 3E.I; GLUCOSE,POINT OF CARE 114 MG/DL (70-110)
[2019-01-14] MEDS: MetFORMIN HCL 500 MG ER TABLET PO SCH (06:53)
[2019-01-14] MEDS: ATENOLOL 50 MG TABLET PO SCH (08:51)
[2019-01-14] MEDS: DIVALPROEX SODIUM 500 MG DR TABLET PO SCH ×2 (08:51→20:08)
[2019-01-14] MEDS: LITHIUM CARBONATE 600 MG CAPSULE PO SCH ×2 (08:51→16:57)
[2019-01-14] MEDS: SitaGLIPtin PHOSPHATE 100 MG TABLET PO SCH (08:51)
[2019-01-14] MEDS: LOSARTAN POTASSIUM 50 MG TABLET PO SCH (08:52)
[2019-01-14 10:11] VITALS: BP 156/80
[2019-01-14 15:59] LABS: GLUCOMETER DEV NAME(LOC) 3E.I; GLUCOSE,POINT OF CARE 182 MG/DL (70-110)
[2019-01-14] MEDS: LURASIDONE HCL 80 MG TABLET PO SCH (17:40)
[2019-01-14 18:21] VITALS: BP 113/68
[2019-01-14] MEDS: HALOPERIDOL 5 MG TABLET PO PRN (20:08)
[2019-01-14] MEDS: TraZODone HCL 100 MG TABLET PO SCH (20:08)
[2019-01-14] MEDS: ZOLPIDEM TARTRATE 10 MG TABLET PO PRN (20:52)
[2019-01-15 06:15] LABS: GLUCOMETER DEV NAME(LOC) 3E.I; GLUCOSE,POINT OF CARE 124 MG/DL (70-110)
[2019-01-15] MEDS: MetFORMIN HCL 500 MG ER TABLET PO SCH (06:48)
[2019-01-15] MEDS: DIVALPROEX SODIUM 500 MG DR TABLET PO SCH ×2 (08:47→20:05)
[2019-01-15] MEDS: LITHIUM CARBONATE 600 MG CAPSULE PO SCH ×2 (08:48→16:02)
[2019-01-15] MEDS: SitaGLIPtin PHOSPHATE 100 MG TABLET PO SCH (08:48)
[2019-01-15] MEDS: ATENOLOL 50 MG TABLET PO SCH (08:49)
[2019-01-15] MEDS: LOSARTAN POTASSIUM 50 MG TABLET PO SCH (08:49)
[2019-01-15 09:45] VITALS: BP 124/86
[2019-01-15] MEDS: LORazepam 2 MG TABLET PO PRN (15:35)
[2019-01-15 16:05] VITALS: BP 106/65
[2019-01-15 16:11] LABS: GLUCOMETER DEV NAME(LOC) 3E.I; GLUCOSE,POINT OF CARE 162 MG/DL (70-110)
[2019-01-15] MEDS: LURASIDONE HCL 80 MG TABLET PO SCH (18:09)
[2019-01-15] MEDS: TraZODone HCL 100 MG TABLET PO SCH (20:05)
[2019-01-15] MEDS: ZOLPIDEM TARTRATE 10 MG TABLET PO PRN (20:58)
[2019-01-15] MEDS: HALOPERIDOL 5 MG TABLET PO PRN (20:58)
[2019-01-16] MEDS: MetFORMIN HCL 500 MG ER TABLET PO SCH (06:45)
[2019-01-16 07:02] LABS: GLUCOMETER DEV NAME(LOC) 3E.I; GLUCOSE,POINT OF CARE 152 MG/DL (70-110)
[2019-01-16 08:00] VITALS: BP 128/84
[2019-01-16] MEDS: DIVALPROEX SODIUM 500 MG DR TABLET PO SCH ×2 (08:57→20:15)
[2019-01-16] MEDS: LOSARTAN POTASSIUM 50 MG TABLET PO SCH (08:58)
[2019-01-16] MEDS: ATENOLOL 50 MG TABLET PO SCH (08:58)
[2019-01-16] MEDS: SitaGLIPtin PHOSPHATE 100 MG TABLET PO SCH (08:58)
[2019-01-16] MEDS: LITHIUM CARBONATE 600 MG CAPSULE PO SCH ×2 (08:58→16:32)
[2019-01-16] MEDS: HALOPERIDOL 5 MG TABLET PO PRN (16:32)
[2019-01-16] MEDS: LORazepam 2 MG TABLET PO PRN ×2 (16:32→21:48)
[2019-01-16 16:41] LABS: GLUCOMETER DEV NAME(LOC) 3E.I; GLUCOSE,POINT OF CARE 214 MG/DL (70-110)
[2019-01-16 17:00] VITALS: BP 116/79
[2019-01-16] MEDS: LURASIDONE HCL 80 MG TABLET PO SCH (18:22)
[2019-01-16] MEDS: TraZODone HCL 100 MG TABLET PO SCH (20:15)
[2019-01-16] MEDS: ZOLPIDEM TARTRATE 10 MG TABLET PO PRN (21:48)
[2019-01-17 06:32] LABS: GLUCOMETER DEV NAME(LOC) 3E.I; GLUCOSE,POINT OF CARE 123 MG/DL (70-110)
[2019-01-17] MEDS: MetFORMIN HCL 500 MG ER TABLET PO SCH (06:52)
[2019-01-17] MEDS: LOSARTAN POTASSIUM 50 MG TABLET PO SCH (08:54)
[2019-01-17] MEDS: ATENOLOL 50 MG TABLET PO SCH (08:55)
[2019-01-17] MEDS: LITHIUM CARBONATE 600 MG CAPSULE PO SCH ×2 (08:55→17:00)
[2019-01-17] MEDS: DIVALPROEX SODIUM 500 MG DR TABLET PO SCH (08:55)
[2019-01-17] MEDS: SitaGLIPtin PHOSPHATE 100 MG TABLET PO SCH (08:55)
[2019-01-17 10:22] VITALS: BP 132/72
[2019-01-17 16:11] VITALS: BP 127/74
[2019-01-17] MEDS: LURASIDONE HCL 80 MG TABLET PO SCH (18:00)
== END 2019-01-17 19:45 | disposition home or self-care (01) | DRG 750 ==
LOC: EMS 17:40 → 3EI 19:30
PROVIDERS: ADMIT Psychiatry & Neurology Psychiatry; ATTEND Psychiatry & Neurology Psychiatry
DX: F20.9 Schizophrenia, unspecified (principal); R45.850 Homicidal ideations; E11.9 Type 2 diabetes mellitus without complications; F32.9 Major depressive disorder, single episode, unspecified; F41.9 Anxiety disorder, unspecified; F80.81 Childhood onset fluency disorder; I10 Essential (primary) hypertension; J45.909 Unspecified asthma, uncomplicated; K21.9 Gastro-esophageal reflux disease without esophagitis; Z79.899 Other long term (current) drug therapy; Z88.8 Allergy status to other drugs, medicaments and biological substances
CPT/HCPCS: 83036; 84439; 84443; 87081; G0480

== ENCOUNTER 2019-01-26 23:17 | Inpatient (IN) | payer MEDICAID ==
[~2019-01-26] VITALS: Ht 172.7 cm; Wt 110.0 kg
[~2019-01-26 23:17] MED LIST changes: -AMLO10TA7 PO; -FISH1 PO; +METF500T20 PO; -METF500T7 PO
[2019-01-27 01:34] LABS: BASOPHILS % (AUTO) 0.2 % (0.0-2.0); EOSINOPHILS % (AUTO) 1.7 % (1.0-6.0); HEMATOCRIT 42.5 % (41-53); LYMPHOCYTES # (AUTO) 2.3 K/uL (1.0-4.8); MEAN CORPUSCULAR HEMOGLOBIN 29.5 pg (26.0-34.0); MEAN CORPUSCULAR VOLUME 90 fL (80-100); MONOCYTES # (AUTO) 0.5 K/uL (0.1-1.0); NEUTROPHILS # (AUTO) 3.8 K/uL (1.8-7.7); NEUTROPHILS % (AUTO) 56.1 % (40.0-70.0); PLATELET COUNT (AUTO) 266 K/uL (150-450); RED BLOOD CELL COUNT(AUTO) 4.75 MIL/uL (4.50-5.90); RED CELL DISTRIBUTION WIDTH 13.1 % (11.5-14.5)
[2019-01-27 01:48] LABS: ANION GAP 8 mmol/L (8-16); CALCIUM, TOTAL 9.7 mg/dL (8.8-10.5); CARBON DIOXIDE 29 mmol/L (22-29); CHLORIDE 102 mmol/L (98-107); CREATININE 0.78 mg/dL (0.60-1.30); GLOMERULAR FILTR. RATE CALC > 60 mL/min (>60); GLUCOSE,RANDOM 182 mg/dL (70-110); POTASSIUM 3.8 mmol/L (3.5-5.1); SODIUM SERUM 139 mmol/L (136-145); UREA NITROGEN, BLOOD 7 mg/dL (7-18)
[2019-01-27 01:54] LABS: ALANINE AMINOTRANSFERASE 15 U/L (12-78); ALBUMIN 3.9 g/dL (3.4-5.0); ALKALINE PHOSPHATASE 76 U/L (46-116); ASPARTATE AMINOTRANSFERASE 12 U/L (15-37); BILIRUBIN,TOTAL 0.5 mg/dL (0.1-1.0); TOTAL PROTEIN, SERUM 7.7 g/dL (6.4-8.2)
[2019-01-27 02:11] LABS: AMPHET/METH SCREEN,URINE NEGATIVE (NEGATIVE); BARBITURATE SCREEN, URINE NEGATIVE (NEGATIVE); BENZODIAZEPINES SCREEN,URINE NEGATIVE (NEGATIVE); CANNABINOID SCREEN,URINE NEGATIVE (NEGATIVE); COCAINE SCREEN,URINE NEGATIVE (NEGATIVE); METHADONE SCREEN, URINE NEGATIVE (NEGATIVE); OPIATE SCREEN,URINE NEGATIVE (NEGATIVE)
[2019-01-27 02:13] LABS: PHENCYCLIDINE SCREEN,URINE NEGATIVE (NEGATIVE)
[2019-01-27] MEDS ORDERED: OLANZapine 5 MG RAPDIS TABLET PO PRN (03:30)
[2019-01-27 04:43] LABS: APPEARANCE,URINE CLEAR (CLEAR); BILIRUBIN,URINE NEGATIVE (NEGATIVE); GLUCOSE, URINE (UA) 500 mg/dL (NEGATIVE); KETONES,URINE NEGATIVE (NEGATIVE); LEUKOCYTE ESTERASE ,URINE NEGATIVE (NEGATIVE); NITRATE,URINE NEGATIVE (NEGATIVE); OCCULT BLOOD,URINE NEGATIVE (NEGATIVE); PROTEIN,URINE NEGATIVE (NEGATIVE); UROBILINOGEN,URINE 0.2 mg/dL (<=1.0)
[2019-01-27 04:47] LABS: VALPROIC ACID 87 mcg/mL (50-100)
[2019-01-27 04:55] LABS: BACTERIA,URINE None Seen /HPF (None Seen); RBC,URINE 0-2 /HPF (0-2); SQUAMOUS EPITHELIAL CELL,UR Rare /LPF (None Seen); WBC,URINE 0-2 /HPF (0-5)
[2019-01-27 05:01] LABS: GLUCOSE,POINT OF CARE 168 MG/DL (70-110)
[2019-01-27] MEDS ORDERED: MAGNESIUM HYDROXIDE SUSPENSION 30 ML UDCUP PO PRN (07:15)
[2019-01-27] MEDS ORDERED: ACETAMINOPHEN 325 MG TABLET PO PRN (07:15)
[2019-01-27] MEDS ORDERED: CloNIDine HCL 0.1 MG TABLET PO PRN (07:15)
[2019-01-27] MEDS ORDERED: IBUPROFEN 400 MG TABLET PO PRN (07:15)
[2019-01-27] MEDS ORDERED: ALBUTEROL SULFATE HFA 90 MCG/PUFF 8 GM INHALER IH PRN (07:15)
[2019-01-27] MEDS ORDERED: LOPERAMIDE HCL 2 MG CAPSULE PO PRN (07:15)
[2019-01-27] MEDS ORDERED: PETROLATUM,WHITE 28 GM JELLY TP PRN (07:15)
[2019-01-27] MEDS ORDERED: DOCUSATE SODIUM 100 MG CAPSULE PO PRN (07:15)
[2019-01-27] MEDS ORDERED: MAG HYDROX/AL HYDROX/SIMETH ES 30 ML SUSPENSION UDCUP PO PRN (07:15)
[2019-01-27] MEDS ORDERED: ONDANSETRON HCL 4 MG TABLET PO PRN (07:15)
[2019-01-27] MEDS ORDERED: GuaiFENesin/D-METHORPHAN [SUGAR-FREE] 200-20MG/10 ML SYRUP UDCUP PO PRN (07:15)
[2019-01-27] MEDS ORDERED: NICOTINE 14 MG/24 HOUR PATCH TD PRN (07:15)
[2019-01-27 11:54] VITALS: BP 108/76
[2019-01-27 12:27] VITALS: BP 108/76
[2019-01-27] MEDS: LORazepam 2 MG TABLET PO PRN (14:46)
[2019-01-27 16:04] VITALS: BP 128/72
[2019-01-28 00:18] VITALS: BP 117/78
[2019-01-28 06:26] LABS: GLUCOMETER DEV NAME(LOC) BV2S.; GLUCOSE,POINT OF CARE 137 MG/DL (70-110)
[2019-01-28] MEDS ORDERED: MetFORMIN HCL 500 MG ER TABLET PO SCH (07:00)
[2019-01-28 08:04] VITALS: BP 125/84
[2019-01-28] MEDS: ATENOLOL 50 MG TABLET PO SCH (08:12)
[2019-01-28] MEDS: SitaGLIPtin PHOSPHATE 100 MG TABLET PO SCH (08:12)
[2019-01-28 08:52] LABS: CHOL/HDL RATIO 2.9 (4.2-7.3); FREE T4 (FREE THYROXINE) 1.04 ng/dL (0.76-1.46); HEMOGLOBIN A1C 6.6 % (4.5-6.2); THYROID STIMULATING HORMONE 2.67 uIU/mL (0.36-3.74)
[2019-01-28] MEDS: LITHIUM CARBONATE 600 MG CAPSULE PO SCH ×2 (11:29→16:02)
[2019-01-28] MEDS: DIVALPROEX SODIUM 500 MG DR TABLET PO SCH ×2 (11:29→20:07)
[2019-01-28] MEDS: OLANZapine 5 MG TABLET PO SCH ×2 (11:29→16:02)
[2019-01-28] MEDS: LORazepam 2 MG TABLET PO PRN (14:19)
[2019-01-28 16:37] VITALS: BP 130/79
[2019-01-28] MEDS ORDERED: LURASIDONE HCL 80 MG TABLET PO SCH (17:00)
[2019-01-28 18:28] LABS: GLUCOMETER DEV NAME(LOC) BV2S.; GLUCOSE,POINT OF CARE 232 MG/DL (70-110)
[2019-01-28] MEDS ORDERED: TraZODone HCL 100 MG TABLET PO SCH (21:00)
[2019-01-28] MEDS: ZOLPIDEM TARTRATE 10 MG TABLET PO PRN (21:01)
[2019-01-29 02:10] VITALS: BP 124/76
[2019-01-29 06:30] LABS: GLUCOMETER DEV NAME(LOC) BV2S.; GLUCOSE,POINT OF CARE 147 MG/DL (70-110)
[2019-01-29] MEDS: MetFORMIN HCL 750 MG ER TABLET PO SCH (06:55)
[2019-01-29] MEDS: SitaGLIPtin PHOSPHATE 100 MG TABLET PO SCH (08:11)
[2019-01-29] MEDS: OLANZapine 5 MG TABLET PO SCH ×2 (08:11→16:04)
[2019-01-29] MEDS: LITHIUM CARBONATE 600 MG CAPSULE PO SCH (08:11)
[2019-01-29] MEDS: ATENOLOL 50 MG TABLET PO SCH (08:11)
[2019-01-29] MEDS: DIVALPROEX SODIUM 500 MG DR TABLET PO SCH ×2 (08:11→20:14)
[2019-01-29 08:27] VITALS: BP 119/71
[2019-01-29 08:30] LABS: LITHIUM 0.47 mmol/L (0.60-1.20)
[2019-01-29] MEDS: LORazepam 2 MG TABLET PO PRN (11:47)
[2019-01-29 16:01] VITALS: BP 121/74
[2019-01-29 16:55] LABS: GLUCOMETER DEV NAME(LOC) BV2S.; GLUCOSE,POINT OF CARE 143 MG/DL (70-110)
[2019-01-29] MEDS: LITHIUM CARBONATE 300 MG CAPSULE PO SCH (20:13)
[2019-01-29] MEDS: ZOLPIDEM TARTRATE 10 MG TABLET PO PRN (21:55)
[2019-01-30 06:26] LABS: GLUCOMETER DEV NAME(LOC) BV2S.; GLUCOSE,POINT OF CARE 124 MG/DL (70-110)
[2019-01-30] MEDS: MetFORMIN HCL 750 MG ER TABLET PO SCH (06:50)
[2019-01-30] MEDS: OLANZapine 5 MG TABLET PO SCH ×2 (08:03→16:39)
[2019-01-30] MEDS: SitaGLIPtin PHOSPHATE 100 MG TABLET PO SCH (08:03)
[2019-01-30] MEDS: LITHIUM CARBONATE 600 MG CAPSULE PO SCH (08:04)
[2019-01-30] MEDS: ATENOLOL 50 MG TABLET PO SCH (08:04)
[2019-01-30] MEDS: DIVALPROEX SODIUM 500 MG DR TABLET PO SCH ×2 (08:04→20:44)
[2019-01-30 08:15] VITALS: BP 132/70
[2019-01-30 16:08] VITALS: BP 148/57
[2019-01-30 16:21] LABS: GLUCOMETER DEV NAME(LOC) BV2S.; GLUCOSE,POINT OF CARE 137 MG/DL (70-110)
[2019-01-30] MEDS: LORazepam 2 MG TABLET PO PRN (16:49)
[2019-01-30 16:59] VITALS: BP 111/80
[2019-01-30] MEDS: LITHIUM CARBONATE 300 MG CAPSULE PO SCH (20:44)
[2019-01-30] MEDS: ZOLPIDEM TARTRATE 10 MG TABLET PO PRN (21:10)
[2019-01-31 00:30] VITALS: BP 130/72
[2019-01-31 06:31] LABS: GLUCOMETER DEV NAME(LOC) BV2S.; GLUCOSE,POINT OF CARE 127 MG/DL (70-110)
[2019-01-31] MEDS: MetFORMIN HCL 750 MG ER TABLET PO SCH (06:45)
[2019-01-31] MEDS: LITHIUM CARBONATE 600 MG CAPSULE PO SCH (08:24)
[2019-01-31] MEDS: SitaGLIPtin PHOSPHATE 100 MG TABLET PO SCH (08:24)
[2019-01-31] MEDS: OLANZapine 5 MG TABLET PO SCH ×2 (08:25→16:10)
[2019-01-31] MEDS: DIVALPROEX SODIUM 500 MG DR TABLET PO SCH ×2 (08:25→20:37)
[2019-01-31] MEDS: ATENOLOL 50 MG TABLET PO SCH (08:25)
[2019-01-31 08:43] VITALS: BP 127/65
[2019-01-31 16:20] VITALS: BP 115/69
[2019-01-31 17:17] LABS: GLUCOMETER DEV NAME(LOC) BV2S.; GLUCOSE,POINT OF CARE 210 MG/DL (70-110)
[2019-01-31] MEDS: LORazepam 2 MG TABLET PO PRN (18:39)
[2019-01-31] MEDS: ZOLPIDEM TARTRATE 10 MG TABLET PO PRN (20:37)
[2019-01-31] MEDS: LITHIUM CARBONATE 300 MG CAPSULE PO SCH (20:37)
[2019-02-01 06:59] VITALS: BP 116/67
[2019-02-01] MEDS: MetFORMIN HCL 750 MG ER TABLET PO SCH (07:05)
[2019-02-01] MEDS: OLANZapine 5 MG TABLET PO SCH ×2 (08:20→16:07)
[2019-02-01] MEDS: DIVALPROEX SODIUM 500 MG DR TABLET PO SCH ×2 (08:20→20:09)
[2019-02-01] MEDS: LITHIUM CARBONATE 600 MG CAPSULE PO SCH (08:20)
[2019-02-01] MEDS: SitaGLIPtin PHOSPHATE 100 MG TABLET PO SCH (08:21)
[2019-02-01] MEDS: ATENOLOL 50 MG TABLET PO SCH (08:21)
[2019-02-01 09:43] VITALS: BP 122/77
[2019-02-01 16:17] VITALS: BP 118/68
[2019-02-01 17:01] LABS: GLUCOMETER DEV NAME(LOC) BV2S.; GLUCOSE,POINT OF CARE 180 MG/DL (70-110)
[2019-02-01] MEDS: LORazepam 2 MG TABLET PO PRN (17:29)
[2019-02-01] MEDS: LITHIUM CARBONATE 300 MG CAPSULE PO SCH (20:09)
[2019-02-02 05:03] VITALS: BP 114/67
[2019-02-02 06:21] LABS: GLUCOMETER DEV NAME(LOC) BV2S.; GLUCOSE,POINT OF CARE 123 MG/DL (70-110)
[2019-02-02] MEDS: MetFORMIN HCL 750 MG ER TABLET PO SCH (06:45)
[2019-02-02 08:20] VITALS: BP 112/66
[2019-02-02] MEDS: SitaGLIPtin PHOSPHATE 100 MG TABLET PO SCH (08:34)
[2019-02-02] MEDS: ATENOLOL 50 MG TABLET PO SCH (08:34)
[2019-02-02] MEDS: LITHIUM CARBONATE 600 MG CAPSULE PO SCH (08:34)
[2019-02-02] MEDS: DIVALPROEX SODIUM 500 MG DR TABLET PO SCH ×2 (08:34→20:06)
[2019-02-02] MEDS: OLANZapine 5 MG TABLET PO SCH ×2 (08:34→16:01)
[2019-02-02 16:09] VITALS: BP 106/60
[2019-02-02 16:25] LABS: GLUCOMETER DEV NAME(LOC) BV2S.; GLUCOSE,POINT OF CARE 173 MG/DL (70-110)
[2019-02-02] MEDS: LITHIUM CARBONATE 300 MG CAPSULE PO SCH (20:06)
[2019-02-02] MEDS: ZOLPIDEM TARTRATE 10 MG TABLET PO PRN (21:12)
[2019-02-03] MEDS: MetFORMIN HCL 750 MG ER TABLET PO SCH (06:30)
[2019-02-03 06:42] VITALS: BP 113/66
[2019-02-03 06:50] LABS: GLUCOMETER DEV NAME(LOC) BV2S.; GLUCOSE,POINT OF CARE 100 MG/DL (70-110)
[2019-02-03] MEDS: ATENOLOL 50 MG TABLET PO SCH (08:03)
[2019-02-03] MEDS: SitaGLIPtin PHOSPHATE 100 MG TABLET PO SCH (08:03)
[2019-02-03] MEDS: DIVALPROEX SODIUM 500 MG DR TABLET PO SCH ×2 (08:03→20:15)
[2019-02-03] MEDS: LITHIUM CARBONATE 600 MG CAPSULE PO SCH (08:03)
[2019-02-03] MEDS: OLANZapine 5 MG TABLET PO SCH ×2 (08:04→16:29)
[2019-02-03 08:09] VITALS: BP 125/64
[2019-02-03 16:04] VITALS: BP 121/72
[2019-02-03 16:26] LABS: GLUCOMETER DEV NAME(LOC) BV2S.; GLUCOSE,POINT OF CARE 157 MG/DL (70-110)
[2019-02-03] MEDS: LORazepam 2 MG TABLET PO PRN (16:30)
[2019-02-03] MEDS: ZOLPIDEM TARTRATE 10 MG TABLET PO PRN (20:15)
[2019-02-03] MEDS: LITHIUM CARBONATE 300 MG CAPSULE PO SCH (20:15)
[2019-02-04 06:17] LABS: GLUCOMETER DEV NAME(LOC) BV2S.; GLUCOSE,POINT OF CARE 137 MG/DL (70-110)
[2019-02-04 06:29] VITALS: BP 113/72
[2019-02-04] MEDS: MetFORMIN HCL 750 MG ER TABLET PO SCH (06:38)
[2019-02-04 08:11] VITALS: BP 129/94
[2019-02-04] MEDS: OLANZapine 5 MG TABLET PO SCH ×2 (08:20→16:09)
[2019-02-04] MEDS: ATENOLOL 50 MG TABLET PO SCH (08:20)
[2019-02-04] MEDS: DIVALPROEX SODIUM 500 MG DR TABLET PO SCH ×2 (08:20→20:07)
[2019-02-04] MEDS: SitaGLIPtin PHOSPHATE 100 MG TABLET PO SCH (08:20)
[2019-02-04] MEDS: LITHIUM CARBONATE 600 MG CAPSULE PO SCH (08:20)
[2019-02-04 16:04] VITALS: BP 105/60
[2019-02-04] MEDS: LITHIUM CARBONATE 300 MG CAPSULE PO SCH (20:07)
[2019-02-04] MEDS: ZOLPIDEM TARTRATE 10 MG TABLET PO PRN (21:28)
[2019-02-04] MEDS: LORazepam 2 MG TABLET PO PRN (23:52)
[2019-02-05 00:18] VITALS: BP 122/86
[2019-02-05] MEDS: MetFORMIN HCL 750 MG ER TABLET PO SCH (06:25)
[2019-02-05 06:35] LABS: GLUCOMETER DEV NAME(LOC) BV2S.; GLUCOSE,POINT OF CARE 135 MG/DL (70-110)
[2019-02-05] MEDS: LITHIUM CARBONATE 600 MG CAPSULE PO SCH (08:05)
[2019-02-05] MEDS: ATENOLOL 50 MG TABLET PO SCH (08:05)
[2019-02-05] MEDS: DIVALPROEX SODIUM 500 MG DR TABLET PO SCH (08:05)
[2019-02-05] MEDS: OLANZapine 5 MG TABLET PO SCH ×2 (08:05→16:07)
[2019-02-05] MEDS: SitaGLIPtin PHOSPHATE 100 MG TABLET PO SCH (08:05)
[2019-02-05 08:15] VITALS: BP 130/79
[2019-02-05] MEDS ORDERED: OLAN5TAB2 PO (13:19)
[2019-02-05] MEDS ORDERED: METF-960 PO (13:19)
[2019-02-05] MEDS ORDERED: LITH600 PO ×2 (13:19→13:20)
[2019-02-05 16:03] VITALS: BP 124/81
== END 2019-02-05 16:30 | disposition home or self-care (01) | DRG 750 ==
LOC: EMS 23:18 → B2S 01-27 09:18
PROVIDERS: ADMIT Psychiatry & Neurology Psychiatry; ATTEND Psychiatry & Neurology Psychiatry
DX: F20.9 Schizophrenia, unspecified (principal); E11.65 Type 2 diabetes mellitus with hyperglycemia; F31.9 Bipolar disorder, unspecified; I10 Essential (primary) hypertension; J45.909 Unspecified asthma, uncomplicated; F41.9 Anxiety disorder, unspecified; K21.9 Gastro-esophageal reflux disease without esophagitis; Z79.84 Long term (current) use of oral hypoglycemic drugs; Z79.899 Other long term (current) drug therapy; Z88.8 Allergy status to other drugs, medicaments and biological substances; Z91.14 Patient's other noncompliance with medication regimen
CPT/HCPCS: 83036; 84439; 84443; 87081; G0480

== ENCOUNTER 2020-08-16 14:17 | Emergency (ER) | payer MEDICAID, OTHER ==
[~2020-08-16] VITALS: Ht 170.2 cm; Wt 113.6 kg
[~2020-08-16 14:17] MED LIST changes: +ATEN-72 PO; -ATEN50TA PO; +DIVA-112 PO; -DIVA-78 PO; -LITH600 PO; +LITH600C5 PO; -LOSA50TA64 PO; -LURA80 PO; +METF-960 PO; -METF500T20 PO; +OLAN5TAB2 PO; -TRAZ-220 PO
[2020-08-16] MEDS ORDERED: HALO5TAB2 PO (15:04)
[2020-08-16] MEDS ORDERED: OMEG100033 PO (15:04)
[2020-08-16] MEDS ORDERED: MONT-35 PO (15:04)
[2020-08-16] MEDS ORDERED: PANT-31 PO (15:04)
[2020-08-16] MEDS ORDERED: BENZ1TAB10 PO (15:04)
[2020-08-16] MEDS ORDERED: GLIM4 PO (15:04)
[2020-08-16] MEDS ORDERED: AMLO-258 PO (15:04)
[2020-08-16] MEDS ORDERED: OLAN5TAB2 PO (15:04)
[2020-08-16] MEDS ORDERED: ZOLP-280 PO (15:04)
[2020-08-16] MEDS ORDERED: ATEN-72 PO (15:04)
[2020-08-16] MEDS ORDERED: LOSA50TA37 PO (15:04)
[2020-08-16] MEDS ORDERED: FAMO20 PO (15:04)
[2020-08-16] MEDS ORDERED: LOPE2 PO (15:04)
[2020-08-16] MEDS ORDERED: CHOL100044 PO (15:04)
[2020-08-16] MEDS ORDERED: LITH300C3 PO (15:04)
[2020-08-16] MEDS ORDERED: OLAN10TA3 PO (15:04)
[2020-08-16] MEDS ORDERED: NAPR-1025 PO (15:04)
[2020-08-16] MEDS ORDERED: ATOR40TA28 PO (15:04)
[2020-08-16] MEDS ORDERED: HydrOXYzine PAMOATE 25 MG CAPSULE PO ONE (15:30)
[2020-08-16] MEDS ORDERED: HydrOXYzine HCL 25 MG TABLET PO ONE (15:30)
[2020-08-16 16:16] VITALS: BP 131/84
== END 2020-08-16 16:27 | disposition home or self-care (01) ==
LOC: EMS 14:21
DX: F43.20 Adjustment disorder, unspecified (principal); J45.909 Unspecified asthma, uncomplicated; F32.9 Major depressive disorder, single episode, unspecified; E11.9 Type 2 diabetes mellitus without complications; K21.9 Gastro-esophageal reflux disease without esophagitis; I10 Essential (primary) hypertension; F20.9 Schizophrenia, unspecified; Z88.8 Allergy status to other drugs, medicaments and biological substances
CPT/HCPCS: 99283

== ENCOUNTER 2020-09-20 18:47 | Inpatient (IN) | payer MEDICAID, OTHER ==
[~2020-09-20] VITALS: Ht 167.6 cm; Wt 111.3 kg
[~2020-09-20 18:47] MED LIST changes: +AMLO-258 PO; +ATOR40TA28 PO; +BENZ1TAB10 PO; +CHOL100044 PO; +FAMO20 PO; +GLIM4 PO; +HALO5TAB2 PO; +LITH300C3 PO; +LOPE2 PO; +LOSA50TA37 PO; -METF-960 PO; +MONT-35 PO; +NAPR-1025 PO; +OLAN10TA3 PO; +OMEG100033 PO; +PANT-31 PO; +ZOLP-280 PO
[2020-09-20] MEDS ORDERED: LORazepam 2 MG TABLET PO ONE (19:30)
[2020-09-20] MEDS ORDERED: HALOPERIDOL 5 MG TABLET PO ONE (19:30)
[2020-09-20] MEDS ORDERED: DIPH25 PO (19:56)
[2020-09-20] MEDS ORDERED: ATEN-73 PO (19:56)
[2020-09-20 20:13] LABS: BASOPHILS % (AUTO) 0.2 % (0.0-2.0); EOSINOPHILS % (AUTO) 0.6 % (1.0-6.0); HEMATOCRIT 41.9 % (41-53); HEMOGLOBIN 14.2 g/dL (13.5-17.5); LYMPHOCYTES # (AUTO) 1.4 K/uL (1.0-4.8); LYMPHOCYTES % (AUTO) 24.4 % (22.0-44.0); MEAN CORPUSCULAR HEMOGLOBIN 29.7 pg (26.0-34.0); MEAN CORPUSCULAR HGB CONC 33.9 G/dL (31.0-37.0); MEAN CORPUSCULAR VOLUME 88 fL (80-100); MONOCYTES # (AUTO) 0.5 K/uL (0.1-1.0); MONOCYTES % (AUTO) 8.4 % (2.0-9.0); NEUTROPHILS # (AUTO) 3.9 K/uL (1.8-7.7); NEUTROPHILS % (AUTO) 66.4 % (40.0-70.0); PLATELET COUNT (AUTO) 198 K/uL (150-450); RED BLOOD CELL COUNT(AUTO) 4.78 MIL/uL (4.50-5.90); RED CELL DISTRIBUTION WIDTH 13.3 % (11.5-14.5)
[2020-09-20 20:29] LABS: ANION GAP 11 mmol/L (8-16); CARBON DIOXIDE 27 mmol/L (22-29); CHLORIDE 94 mmol/L (98-107); CREATININE 0.88 mg/dL (0.60-1.30); GLOMERULAR FILTR. RATE CALC > 60 mL/min (>60); GLUCOSE,RANDOM 303 mg/dL (70-110); POTASSIUM 3.9 mmol/L (3.5-5.1); SODIUM SERUM 132 mmol/L (136-145); UREA NITROGEN, BLOOD 6 mg/dL (7-18)
[2020-09-20 20:34] LABS: ALANINE AMINOTRANSFERASE 74 U/L (12-78); ALBUMIN 4.3 g/dL (3.4-5.0); ALKALINE PHOSPHATASE 87 U/L (46-116); ASPARTATE AMINOTRANSFERASE 43 U/L (15-37); BILIRUBIN,TOTAL 0.8 mg/dL (0.1-1.0); TOTAL PROTEIN, SERUM 7.9 g/dL (6.4-8.2)
[2020-09-20 20:35] LABS: COVID AG,FIA SOURCE NASOPHARYNGEAL
[2020-09-20 20:43] LABS: LITHIUM 0.49 mmol/L (0.60-1.20)
[2020-09-20] MEDS ORDERED: OLANZapine 5 MG RAPDIS TABLET PO PRN (20:45)
[2020-09-20] MEDS ORDERED: ZOLPIDEM TARTRATE 10 MG TABLET PO PRN (20:45)
[2020-09-20 21:08] LABS: VALPROIC ACID 65 mcg/mL (50-100)
[2020-09-20 21:39] LABS: GLUCOSE,POINT OF CARE 334 MG/DL (70-110)
[2020-09-20 21:40] LABS: AMPHET/METH SCREEN,URINE NEGATIVE (NEGATIVE); BARBITURATE SCREEN, URINE NEGATIVE (NEGATIVE); BENZODIAZEPINES SCREEN,URINE NEGATIVE (NEGATIVE); CANNABINOID SCREEN,URINE NEGATIVE (NEGATIVE); COCAINE SCREEN,URINE NEGATIVE (NEGATIVE); METHADONE SCREEN, URINE NEGATIVE (NEGATIVE); OPIATE SCREEN,URINE NEGATIVE (NEGATIVE); PHENCYCLIDINE SCREEN,URINE NEGATIVE (NEGATIVE)
[2020-09-21 00:28] LABS: GLUCOMETER DEV NAME(LOC) BV3N.; GLUCOSE,POINT OF CARE 374 MG/DL (70-110)
[2020-09-21] MEDS ORDERED: -PHARMACY VACCINE NOTE- MISC ONE (00:30)
[2020-09-21] MEDS: LORazepam 2 MG TABLET PO PRN ×2 (00:34→06:25)
[2020-09-21 01:11] LABS: GLUCOMETER DEV NAME(LOC) BV3N.; GLUCOSE,POINT OF CARE 397 MG/DL (70-110)
[2020-09-21 01:50] VITALS: BP 139/87
[2020-09-21] MEDS ORDERED: GLUCAGON,HUMAN RECOMBINANT 1 MG VIAL IM PRN (07:30)
[2020-09-21] MEDS: SitaGLIPtin PHOSPHATE 100 MG TABLET PO SCH (08:08)
[2020-09-21 08:44] VITALS: BP 143/96
[2020-09-21] MEDS: INSULIN LISPRO 100 UNITS/ML SQ PRN ×3 (11:21→20:25)
[2020-09-21 13:01] LABS: GLUCOMETER DEV NAME(LOC) BV3N.; GLUCOSE,POINT OF CARE 375 MG/DL (70-110)
[2020-09-21] MEDS ORDERED: TUBERCULIN, PURIFIED PROTEIN DERIVATIVE 5 TU/0.1 ML SYRINGE ID ONE (13:30)
[2020-09-21] MEDS ORDERED: PROMETHAZINE HCL 25 MG TABLET PO PRN (13:30)
[2020-09-21] MEDS ORDERED: MAG HYDROX/AL HYDROX/SIMETH ES 30 ML SUSPENSION UDCUP PO PRN (13:30)
[2020-09-21] MEDS ORDERED: GuaiFENesin/D-METHORPHAN [SUGAR-FREE] 200-20MG/10 ML SYRUP UDCUP PO PRN (13:30)
[2020-09-21] MEDS ORDERED: MAGNESIUM HYDROXIDE SUSPENSION 30 ML UDCUP PO PRN (13:30)
[2020-09-21] MEDS ORDERED: ACETAMINOPHEN 325 MG TABLET PO PRN (13:30)
[2020-09-21] MEDS ORDERED: HydrOXYzine PAMOATE 50 MG CAPSULE PO PRN (13:30)
[2020-09-21] MEDS ORDERED: LOPERAMIDE HCL 2 MG CAPSULE PO PRN (13:30)
[2020-09-21 13:45] VITALS: BP 137/85
[2020-09-21] MEDS: THIAMINE 100 MG TABLET PO SCH (15:58)
[2020-09-21 16:01] VITALS: BP 135/76
[2020-09-21] MEDS: LITHIUM CARBONATE 600 MG CAPSULE PO SCH (20:27)
[2020-09-21] MEDS: DIVALPROEX SODIUM 500 MG ER TABLET PO SCH (20:27)
[2020-09-21] MEDS: MELATONIN 5 MG TABLET PO SCH (20:27)
[2020-09-21 20:39] VITALS: BP 108/68
[2020-09-21] MEDS ORDERED: OLANZapine 5 MG RAPDIS TABLET PO SCH (21:00)
[2020-09-21] MEDS: ATORVASTATIN CALCIUM 40 MG TABLET PO SCH (21:00)
[2020-09-21 23:20] LABS: GLUCOMETER DEV NAME(LOC) BV3N.; GLUCOSE,POINT OF CARE 348 MG/DL (70-110)
[2020-09-21 23:20] LABS: GLUCOMETER DEV NAME(LOC) BV3N.; GLUCOSE,POINT OF CARE 318 MG/DL (70-110)
[2020-09-22 05:22] VITALS: BP 115/74
[2020-09-22 06:29] LABS: GLUCOMETER DEV NAME(LOC) BV3N.; GLUCOSE,POINT OF CARE 208 MG/DL (70-110)
[2020-09-22] MEDS: MetFORMIN HCL 500 MG TABLET PO SCH ×2 (06:59→16:47)
[2020-09-22] MEDS: INSULIN LISPRO 100 UNITS/ML SQ PRN ×4 (07:01→21:18)
[2020-09-22 08:05] VITALS: BP 121/82
[2020-09-22 08:16] LABS: HEMOGLOBIN A1C 8.6 % (3.8-5.6)
[2020-09-22 08:36] LABS: CHOL/HDL RATIO 6.5 (4.2-7.3); CHOLESTEROL 203 mg/dL (131-200); FREE T4 (FREE THYROXINE) 1.45 ng/dL (0.76-1.46); HDL CHOLESTEROL 31 mg/dL (40-60); THYROID STIMULATING HORMONE 2.96 uIU/mL (0.36-3.74); TRIGLYCERIDES 611 mg/dL (15-150)
[2020-09-22] MEDS: LOSARTAN POTASSIUM 50 MG TABLET PO SCH (08:39)
[2020-09-22] MEDS: FAMOTIDINE 20 MG TABLET PO SCH ×2 (08:40→16:47)
[2020-09-22] MEDS: SitaGLIPtin PHOSPHATE 100 MG TABLET PO SCH ×2 (08:40→09:00)
[2020-09-22] MEDS: FOLIC ACID 1 MG TABLET PO SCH (08:40)
[2020-09-22] MEDS: OMEGA-3/DHA/EPA/FISH OIL 1,000 MG CAPSULE PO SCH (08:40)
[2020-09-22] MEDS: NALTREXONE HCL 50 MG TABLET PO SCH (08:40)
[2020-09-22] MEDS: THIAMINE 100 MG TABLET PO SCH ×2 (08:41→16:47)
[2020-09-22] MEDS: MULTIVITAMINS WITH MINERALS, THERAPEUTIC TABLET PO SCH (08:41)
[2020-09-22] MEDS: CHOLECALCIFEROL (VIT D3) 1,000 UNITS [25 MCG] TABLET PO SCH (08:41)
[2020-09-22 11:59] LABS: GLUCOMETER DEV NAME(LOC) BV3N.; GLUCOSE,POINT OF CARE 238 MG/DL (70-110)
[2020-09-22 14:03] VITALS: BP 121/82
[2020-09-22] MEDS: LORazepam 2 MG TABLET PO PRN (16:47)
[2020-09-22 17:21] LABS: GLUCOMETER DEV NAME(LOC) BV3N.; GLUCOSE,POINT OF CARE 295 MG/DL (70-110)
[2020-09-22 17:48] VITALS: BP 118/73
[2020-09-22] MEDS ORDERED: OLANZapine 10 MG RAPDIS TABLET PO SCH (21:00)
[2020-09-22] MEDS: MELATONIN 5 MG TABLET PO SCH (21:11)
[2020-09-22] MEDS: LITHIUM CARBONATE 600 MG CAPSULE PO SCH (21:11)
[2020-09-22] MEDS: DIVALPROEX SODIUM 500 MG ER TABLET PO SCH (21:11)
[2020-09-22] MEDS: ATORVASTATIN CALCIUM 40 MG TABLET PO SCH (21:12)
[2020-09-23 04:07] VITALS: BP 120/80
[2020-09-23] MEDS: MetFORMIN HCL 500 MG TABLET PO SCH (06:12)
[2020-09-23 06:38] LABS: GLUCOMETER DEV NAME(LOC) BV3N.; GLUCOSE,POINT OF CARE 298 MG/DL (70-110)
[2020-09-23 06:47] LABS: GLUCOMETER DEV NAME(LOC) BV3N.; GLUCOSE,POINT OF CARE 196 MG/DL (70-110)
[2020-09-23] MEDS: INSULIN LISPRO 100 UNITS/ML SQ PRN ×2 (07:10→11:29)
[2020-09-23 08:06] VITALS: BP 131/91
[2020-09-23] MEDS: LOSARTAN POTASSIUM 50 MG TABLET PO SCH (08:12)
[2020-09-23] MEDS: NALTREXONE HCL 50 MG TABLET PO SCH (08:12)
[2020-09-23] MEDS: THIAMINE 100 MG TABLET PO SCH (08:12)
[2020-09-23] MEDS: SitaGLIPtin PHOSPHATE 100 MG TABLET PO SCH (08:12)
[2020-09-23] MEDS: FAMOTIDINE 20 MG TABLET PO SCH (08:13)
[2020-09-23] MEDS: MULTIVITAMINS WITH MINERALS, THERAPEUTIC TABLET PO SCH (08:13)
[2020-09-23] MEDS: LORazepam 2 MG TABLET PO PRN (08:13)
[2020-09-23] MEDS: CHOLECALCIFEROL (VIT D3) 1,000 UNITS [25 MCG] TABLET PO SCH (08:13)
[2020-09-23] MEDS: OMEGA-3/DHA/EPA/FISH OIL 1,000 MG CAPSULE PO SCH (08:13)
[2020-09-23] MEDS: FOLIC ACID 1 MG TABLET PO SCH (08:13)
[2020-09-23 11:24] LABS: GLUCOMETER DEV NAME(LOC) BV3N.; GLUCOSE,POINT OF CARE 256 MG/DL (70-110)
[2020-09-23] MEDS ORDERED: OLAN10TA22 PO (13:31)
[2020-09-23] MEDS ORDERED: DIVA-80 PO (13:31)
[2020-09-23] MEDS ORDERED: LITH600C5 PO (13:31)
[2020-09-23] MEDS ORDERED: NALT50TA PO (13:31)
[2020-09-23] MEDS ORDERED: OMEG-135 PO (13:31)
[2020-09-23] MEDS ORDERED: MELA5TAB3 PO (13:31)
[2020-09-23] MEDS ORDERED: METF-960 PO (13:57)
[2020-09-23 16:08] VITALS: BP 100/63
== END 2020-09-23 15:45 | disposition home or self-care (01) | DRG 750 ==
LOC: EMS 18:48 → B3A 21:00
PROVIDERS: ADMIT Psychiatry & Neurology Psychiatry; ATTEND Psychiatry & Neurology Psychiatry
DX: F25.9 Schizoaffective disorder, unspecified (principal); E11.65 Type 2 diabetes mellitus with hyperglycemia; R45.850 Homicidal ideations; E78.00 Pure hypercholesterolemia, unspecified; Z81.8 Family history of other mental and behavioral disorders; J45.909 Unspecified asthma, uncomplicated; I10 Essential (primary) hypertension; Z88.8 Allergy status to other drugs, medicaments and biological substances; E66.9 Obesity, unspecified; Z68.39 Body mass index [BMI] 39.0-39.9, adult; F31.9 Bipolar disorder, unspecified; F41.9 Anxiety disorder, unspecified; K21.9 Gastro-esophageal reflux disease without esophagitis; E78.5 Hyperlipidemia, unspecified; Z20.822 Contact with and (suspected) exposure to COVID-19
CPT/HCPCS: 80053; 80061; 80164; 80178; 82962; 83036; 84439; 84443; 85025; 86592; 87426; 99285; A9575; G0480

== ENCOUNTER 2020-10-07 17:23 | Inpatient (IN) | payer MEDICAID, OTHER ==
[~2020-10-07] VITALS: Ht 165.1 cm; Wt 105.2 kg
[~2020-10-07 17:23] MED LIST changes: -AMLO-258 PO; -ATEN-72 PO; -BENZ1TAB10 PO; -CHOL100044 PO; -DIVA-112 PO; +DIVA-80 PO; -GLIM4 PO; -HALO5TAB2 PO; -LITH300C3 PO; -LOPE2 PO; +MELA5TAB3 PO; +METF-960 PO; -MONT-35 PO; +NALT50TA PO; -NAPR-1025 PO; +OLAN10TA22 PO; -OLAN10TA3 PO; -OLAN5TAB2 PO; +OMEG-135 PO; -OMEG100033 PO; -PANT-31 PO; -ZOLP-280 PO
[2020-10-07 18:05] LABS: COVID AG,FIA SOURCE NASOPHARYNGEAL
[2020-10-07 18:13] LABS: AMPHET/METH SCREEN,URINE NEGATIVE (NEGATIVE); BARBITURATE SCREEN, URINE NEGATIVE (NEGATIVE); BENZODIAZEPINES SCREEN,URINE NEGATIVE (NEGATIVE); CANNABINOID SCREEN,URINE NEGATIVE (NEGATIVE); COCAINE SCREEN,URINE NEGATIVE (NEGATIVE); METHADONE SCREEN, URINE NEGATIVE (NEGATIVE); OPIATE SCREEN,URINE NEGATIVE (NEGATIVE)
[2020-10-07 18:29] LABS: BASOPHILS % (AUTO) 0.4 % (0.0-2.0); EOSINOPHILS % (AUTO) 0.5 % (1.0-6.0); HEMOGLOBIN 14.4 g/dL (13.5-17.5); LYMPHOCYTES % (AUTO) 13.4 % (22.0-44.0); MEAN CORPUSCULAR HEMOGLOBIN 29.7 pg (26.0-34.0); MEAN CORPUSCULAR HGB CONC 33.4 G/dL (31.0-37.0); MEAN CORPUSCULAR VOLUME 89 fL (80-100); MONOCYTES # (AUTO) 0.5 K/uL (0.1-1.0); MONOCYTES % (AUTO) 6.9 % (2.0-9.0); NEUTROPHILS # (AUTO) 5.6 K/uL (1.8-7.7); NEUTROPHILS % (AUTO) 78.8 % (40.0-70.0); PLATELET COUNT (AUTO) 176 K/uL (150-450); RED BLOOD CELL COUNT(AUTO) 4.84 MIL/uL (4.50-5.90); RED CELL DISTRIBUTION WIDTH 13.3 % (11.5-14.5)
[2020-10-07 18:35] LABS: PHENCYCLIDINE SCREEN,URINE NEGATIVE (NEGATIVE)
[2020-10-07 18:40] LABS: ANION GAP 12 mmol/L (8-16); CALCIUM, TOTAL 9.5 mg/dL (8.8-10.5); CARBON DIOXIDE 26 mmol/L (22-29); CHLORIDE 92 mmol/L (98-107); CREATININE 0.83 mg/dL (0.60-1.30); GLOMERULAR FILTR. RATE CALC > 60 mL/min (>60); GLUCOSE,RANDOM 342 mg/dL (70-110); POTASSIUM 3.9 mmol/L (3.5-5.1); SODIUM SERUM 130 mmol/L (136-145); UREA NITROGEN, BLOOD 4 mg/dL (7-18)
[2020-10-07 18:46] LABS: ALANINE AMINOTRANSFERASE 63 U/L (12-78); ALBUMIN 4.2 g/dL (3.4-5.0); ALKALINE PHOSPHATASE 88 U/L (46-116); ASPARTATE AMINOTRANSFERASE 31 U/L (15-37); BILIRUBIN,TOTAL 1.1 mg/dL (0.1-1.0); TOTAL PROTEIN, SERUM 7.7 g/dL (6.4-8.2)
[2020-10-07] MEDS ORDERED: OLANZapine 5 MG RAPDIS TABLET PO PRN (19:00)
[2020-10-07] MEDS ORDERED: LORazepam 2 MG TABLET PO PRN (19:00)
[2020-10-07] MEDS ORDERED: SitaGLIPtin PHOSPHATE 100 MG TABLET PO ONE (19:45)
[2020-10-07 22:30] LABS: GLUCOSE,POINT OF CARE 249 MG/DL (70-110)
[2020-10-08 01:36] LABS: GLUCOSE,POINT OF CARE 214 MG/DL (70-110)
[2020-10-08 02:30] VITALS: BP 135/82
[2020-10-08] MEDS: ZOLPIDEM TARTRATE 10 MG TABLET PO PRN (03:14)
[2020-10-08 05:44] LABS: CHOL/HDL RATIO 2.5 (4.2-7.3)
[2020-10-08] MEDS ORDERED: -PHARMACY VACCINE NOTE- MISC ONE (05:45)
[2020-10-08 05:57] LABS: GLUCOMETER DEV NAME(LOC) 3E.I 2; GLUCOSE,POINT OF CARE 198 MG/DL (70-110)
[2020-10-08 11:36] VITALS: BP 134/90
[2020-10-08] MEDS ORDERED: PROMETHAZINE HCL 25 MG TABLET PO PRN (13:00)
[2020-10-08] MEDS ORDERED: HydrOXYzine PAMOATE 50 MG CAPSULE PO PRN (13:00)
[2020-10-08] MEDS ORDERED: GuaiFENesin/D-METHORPHAN [SUGAR-FREE] 200-20MG/10 ML SYRUP UDCUP PO PRN (13:00)
[2020-10-08] MEDS ORDERED: GLUCAGON,HUMAN RECOMBINANT 1 MG VIAL IM PRN (16:15)
[2020-10-08] MEDS ORDERED: DEXTROSE 50%-WATER 25 GM/50 ML SYRINGE IVP PRN (16:15)
[2020-10-08] MEDS ORDERED: INSULIN LISPRO 100 UNITS/ML SQ PRN (16:15)
[2020-10-08 16:29] VITALS: BP 141/75
[2020-10-08] MEDS: THIAMINE 100 MG TABLET PO SCH (17:11)
[2020-10-08] MEDS: LITHIUM CARBONATE 600 MG CAPSULE PO SCH (17:11)
[2020-10-08] MEDS ORDERED: PALIPERIDONE PALMITATE 234 MG/1.5 ML SYRINGE IM ONE (19:15)
[2020-10-08] MEDS ORDERED: PALIPERIDONE 1.5 MG ER TABLET PO PRN (19:15)
[2020-10-08] MEDS: DIVALPROEX SODIUM 500 MG ER TABLET PO SCH (20:07)
[2020-10-08] MEDS: ATORVASTATIN CALCIUM 40 MG TABLET PO SCH (20:07)
[2020-10-08] MEDS: MELATONIN 5 MG TABLET PO SCH (20:07)
[2020-10-08] MEDS: MetFORMIN HCL 500 MG TABLET PO SCH (20:07)
[2020-10-08] MEDS ORDERED: PALIPERIDONE 3 MG ER TABLET PO SCH (21:00)
[2020-10-08] MEDS ORDERED: OLANZapine 5 MG RAPDIS TABLET PO SCH (21:00)
[2020-10-09 00:10] VITALS: BP 107/65
[2020-10-09 05:28] LABS: GLUCOMETER DEV NAME(LOC) 3E.I 2; GLUCOSE,POINT OF CARE 259 MG/DL (70-110)
[2020-10-09] MEDS: INSULIN LISPRO 100 UNITS/ML SQ PRN ×2 (06:30→17:46)
[2020-10-09] MEDS: LITHIUM CARBONATE 600 MG CAPSULE PO SCH ×2 (06:30→16:50)
[2020-10-09] MEDS: MetFORMIN HCL 500 MG TABLET PO SCH ×2 (06:30→16:50)
[2020-10-09 07:07] LABS: LITHIUM 0.54 mmol/L (0.60-1.20)
[2020-10-09 08:33] VITALS: BP 131/85
[2020-10-09] MEDS: THIAMINE 100 MG TABLET PO SCH ×2 (08:46→16:50)
[2020-10-09] MEDS: MULTIVITAMINS WITH MINERALS, THERAPEUTIC TABLET PO SCH (08:46)
[2020-10-09] MEDS: OMEGA-3/DHA/EPA/FISH OIL 1,000 MG CAPSULE PO SCH (08:47)
[2020-10-09] MEDS: FOLIC ACID 1 MG TABLET PO SCH (08:47)
[2020-10-09] MEDS: LOSARTAN POTASSIUM 50 MG TABLET PO SCH (08:47)
[2020-10-09] MEDS: NALTREXONE HCL 50 MG TABLET PO SCH (08:47)
[2020-10-09] MEDS: SitaGLIPtin PHOSPHATE 100 MG TABLET PO SCH (08:47)
[2020-10-09 08:54] VITALS: BP 138/90
[2020-10-09] MEDS ORDERED: OMEGA-3/DHA/EPA/FISH OIL 1,000 MG CAPSULE PO SCH (09:00)
[2020-10-09 11:19] LABS: FREE T4 (FREE THYROXINE) 1.38 ng/dL (0.76-1.46); THYROID STIMULATING HORMONE 3.18 uIU/mL (0.36-3.74)
[2020-10-09 16:54] VITALS: BP 148/87
[2020-10-09 18:21] LABS: GLUCOMETER DEV NAME(LOC) 3E.I 2; GLUCOSE,POINT OF CARE 304 MG/DL (70-110)
[2020-10-09] MEDS: DIVALPROEX SODIUM 500 MG ER TABLET PO SCH (20:47)
[2020-10-09] MEDS: ATORVASTATIN CALCIUM 40 MG TABLET PO SCH (20:47)
[2020-10-09] MEDS: MELATONIN 5 MG TABLET PO SCH (20:47)
[2020-10-09] MEDS: ZOLPIDEM TARTRATE 10 MG TABLET PO PRN (21:59)
[2020-10-10 05:43] LABS: GLUCOMETER DEV NAME(LOC) 3E.I 2; GLUCOSE,POINT OF CARE 226 MG/DL (70-110)
[2020-10-10] MEDS: LITHIUM CARBONATE 600 MG CAPSULE PO SCH ×2 (06:33→16:18)
[2020-10-10] MEDS: MetFORMIN HCL 500 MG TABLET PO SCH ×2 (06:34→16:18)
[2020-10-10] MEDS: INSULIN LISPRO 100 UNITS/ML SQ PRN ×2 (06:55→17:19)
[2020-10-10] MEDS: MULTIVITAMINS WITH MINERALS, THERAPEUTIC TABLET PO SCH (08:20)
[2020-10-10] MEDS: OMEGA-3/DHA/EPA/FISH OIL 1,000 MG CAPSULE PO SCH (08:20)
[2020-10-10] MEDS: THIAMINE 100 MG TABLET PO SCH ×2 (08:20→16:18)
[2020-10-10] MEDS: FOLIC ACID 1 MG TABLET PO SCH (08:20)
[2020-10-10] MEDS: NALTREXONE HCL 50 MG TABLET PO SCH (08:20)
[2020-10-10] MEDS: LOSARTAN POTASSIUM 50 MG TABLET PO SCH (08:20)
[2020-10-10] MEDS: SitaGLIPtin PHOSPHATE 100 MG TABLET PO SCH (08:20)
[2020-10-10 08:28] VITALS: BP 144/86
[2020-10-10 16:20] VITALS: BP 118/83
[2020-10-10 16:43] LABS: GLUCOMETER DEV NAME(LOC) 3E.I 2; GLUCOSE,POINT OF CARE 343 MG/DL (70-110)
[2020-10-10] MEDS: ATORVASTATIN CALCIUM 40 MG TABLET PO SCH (20:13)
[2020-10-10] MEDS: DIVALPROEX SODIUM 500 MG ER TABLET PO SCH (20:13)
[2020-10-10] MEDS: MELATONIN 5 MG TABLET PO SCH (20:13)
[2020-10-11 05:33] LABS: GLUCOMETER DEV NAME(LOC) 3E.I 2; GLUCOSE,POINT OF CARE 234 MG/DL (70-110)
[2020-10-11] MEDS: INSULIN LISPRO 100 UNITS/ML SQ PRN ×2 (06:33→17:45)
[2020-10-11] MEDS: LITHIUM CARBONATE 600 MG CAPSULE PO SCH ×2 (06:34→16:10)
[2020-10-11] MEDS: MetFORMIN HCL 500 MG TABLET PO SCH ×2 (06:34→16:10)
[2020-10-11] MEDS: SitaGLIPtin PHOSPHATE 100 MG TABLET PO SCH (08:16)
[2020-10-11] MEDS: OMEGA-3/DHA/EPA/FISH OIL 1,000 MG CAPSULE PO SCH (08:16)
[2020-10-11] MEDS: MULTIVITAMINS WITH MINERALS, THERAPEUTIC TABLET PO SCH (08:16)
[2020-10-11] MEDS: LOSARTAN POTASSIUM 50 MG TABLET PO SCH (08:16)
[2020-10-11] MEDS: NALTREXONE HCL 50 MG TABLET PO SCH (08:16)
[2020-10-11] MEDS: THIAMINE 100 MG TABLET PO SCH ×2 (08:16→16:10)
[2020-10-11] MEDS: FOLIC ACID 1 MG TABLET PO SCH (08:16)
[2020-10-11 08:26] VITALS: BP 123/72
[2020-10-11 16:26] LABS: GLUCOMETER DEV NAME(LOC) 3E.I 2; GLUCOSE,POINT OF CARE 252 MG/DL (70-110)
[2020-10-11 17:00] VITALS: BP 120/74
[2020-10-11] MEDS ORDERED: LOPERAMIDE HCL 2 MG CAPSULE PO PRN (19:45)
[2020-10-11] MEDS: ATORVASTATIN CALCIUM 40 MG TABLET PO SCH (20:49)
[2020-10-11] MEDS: DIVALPROEX SODIUM 500 MG ER TABLET PO SCH (20:49)
[2020-10-11] MEDS: MELATONIN 5 MG TABLET PO SCH (20:49)
[2020-10-11] MEDS: DIVALPROEX SODIUM 250 MG ER TABLET PO SCH (21:25)
[2020-10-12 06:04] LABS: GLUCOMETER DEV NAME(LOC) 3E.I 2; GLUCOSE,POINT OF CARE 178 MG/DL (70-110)
[2020-10-12] MEDS: INSULIN LISPRO 100 UNITS/ML SQ PRN ×2 (06:38→17:00)
[2020-10-12] MEDS: MetFORMIN HCL 500 MG TABLET PO SCH ×2 (06:40→16:39)
[2020-10-12 08:15] VITALS: BP 146/93
[2020-10-12] MEDS ORDERED: PALIPERIDONE PALMITATE 156 MG/ML SYRINGE IM ONE (09:00)
[2020-10-12] MEDS: THIAMINE 100 MG TABLET PO SCH ×2 (09:34→16:40)
[2020-10-12] MEDS: NALTREXONE HCL 50 MG TABLET PO SCH (09:34)
[2020-10-12] MEDS: FOLIC ACID 1 MG TABLET PO SCH (09:34)
[2020-10-12] MEDS: OMEGA-3/DHA/EPA/FISH OIL 1,000 MG CAPSULE PO SCH (09:34)
[2020-10-12] MEDS: MULTIVITAMINS WITH MINERALS, THERAPEUTIC TABLET PO SCH (09:34)
[2020-10-12] MEDS: SitaGLIPtin PHOSPHATE 100 MG TABLET PO SCH (09:34)
[2020-10-12] MEDS: LITHIUM CARBONATE 600 MG CAPSULE PO SCH (09:35)
[2020-10-12] MEDS: LOSARTAN POTASSIUM 50 MG TABLET PO SCH (09:35)
[2020-10-12 16:19] VITALS: BP 116/74
[2020-10-12 17:14] LABS: GLUCOMETER DEV NAME(LOC) 3E.I 2; GLUCOSE,POINT OF CARE 241 MG/DL (70-110)
[2020-10-12] MEDS ORDERED: LITHIUM CARBONATE 300 MG CAPSULE PO SCH (18:00)
[2020-10-12] MEDS: MELATONIN 5 MG TABLET PO SCH (21:13)
[2020-10-12] MEDS: DIVALPROEX SODIUM 250 MG ER TABLET PO SCH (21:13)
[2020-10-12] MEDS: ATORVASTATIN CALCIUM 40 MG TABLET PO SCH (21:13)
[2020-10-12] MEDS: DIVALPROEX SODIUM 500 MG ER TABLET PO SCH (21:13)
[2020-10-12 21:38] LABS: COVID AG,FIA SOURCE NASOPHARYNGEAL
[2020-10-13 05:37] LABS: GLUCOMETER DEV NAME(LOC) 3E.I 2; GLUCOSE,POINT OF CARE 171 MG/DL (70-110)
[2020-10-13] MEDS: MetFORMIN HCL 500 MG TABLET PO SCH (07:01)
[2020-10-13] MEDS: INSULIN LISPRO 100 UNITS/ML SQ PRN (07:04)
[2020-10-13] MEDS: LITHIUM CARBONATE 600 MG CAPSULE PO SCH (08:29)
[2020-10-13] MEDS: FOLIC ACID 1 MG TABLET PO SCH (08:29)
[2020-10-13] MEDS: NALTREXONE HCL 50 MG TABLET PO SCH (08:29)
[2020-10-13] MEDS: THIAMINE 100 MG TABLET PO SCH (08:29)
[2020-10-13] MEDS: OMEGA-3/DHA/EPA/FISH OIL 1,000 MG CAPSULE PO SCH (08:29)
[2020-10-13] MEDS: LOSARTAN POTASSIUM 50 MG TABLET PO SCH (08:29)
[2020-10-13] MEDS: SitaGLIPtin PHOSPHATE 100 MG TABLET PO SCH (08:29)
[2020-10-13] MEDS: MULTIVITAMINS WITH MINERALS, THERAPEUTIC TABLET PO SCH (08:29)
[2020-10-13 08:44] VITALS: BP 130/70
[2020-10-13] MEDS ORDERED: FOLI-130 PO (14:56)
[2020-10-13] MEDS ORDERED: MULT-1239 PO (15:01)
[2020-10-13] MEDS ORDERED: PALI117D IM (15:07)
[2020-10-13] MEDS ORDERED: LITH600C5 PO (15:07)
[2020-10-13] MEDS ORDERED: LITH300C3 PO (15:07)
[2020-10-13] MEDS ORDERED: NALT50TA PO (15:07)
[2020-10-13] MEDS ORDERED: DIVA-80 PO (15:07)
[2020-10-13] MEDS ORDERED: DIVA-85 PO (15:07)
[2020-10-13] MEDS ORDERED: OMEG-135 PO (15:07)
[2020-10-13] MEDS ORDERED: MELA5TAB3 PO (15:07)
[2020-10-13] MEDS ORDERED: THIA100T80 PO (15:44)
[2020-10-13 16:25] VITALS: BP 135/82
== END 2020-10-13 16:45 | disposition home or self-care (01) | DRG 750 ==
LOC: EMS 17:23 → 3EI 22:40
PROVIDERS: ADMIT Psychiatry & Neurology Psychiatry; ATTEND Psychiatry & Neurology Psychiatry
DX: F25.9 Schizoaffective disorder, unspecified (principal); E11.649 Type 2 diabetes mellitus with hypoglycemia without coma; R45.851 Suicidal ideations; E78.00 Pure hypercholesterolemia, unspecified; E78.5 Hyperlipidemia, unspecified; F41.9 Anxiety disorder, unspecified; Z20.822 Contact with and (suspected) exposure to COVID-19; K21.9 Gastro-esophageal reflux disease without esophagitis; I10 Essential (primary) hypertension; J45.909 Unspecified asthma, uncomplicated; Z88.6 Allergy status to analgesic agent; Z91.14 Patient's other noncompliance with medication regimen
CPT/HCPCS: 80053; 80061; 80074; 80164; 80178; 82948; 82962; 83036; 84439; 84443; 85025; 87426; 99285; A9575; G0480

== ENCOUNTER 2020-11-05 15:46 | Emergency (ER) | payer MEDICAID, OTHER ==
[~2020-11-05] VITALS: Ht 177.8 cm; Wt 108.0 kg
[~2020-11-05 15:46] MED LIST changes: +DIVA-85 PO; -FAMO20 PO; +FOLI-130 PO; +LITH300C3 PO; +MULT-1239 PO; -OLAN10TA22 PO; +PALI117D IM; +THIA100T80 PO
[2020-11-05 16:56] LABS: BASOPHILS % (AUTO) 0.2 % (0.0-2.0); EOSINOPHILS % (AUTO) 0.7 % (1.0-6.0); HEMATOCRIT 41.2 % (41-53); HEMOGLOBIN 13.9 g/dL (13.5-17.5); LYMPHOCYTES # (AUTO) 1.3 K/uL (1.0-4.8); MEAN CORPUSCULAR HEMOGLOBIN 29.5 pg (26.0-34.0); MEAN CORPUSCULAR HGB CONC 33.7 G/dL (31.0-37.0); MEAN CORPUSCULAR VOLUME 88 fL (80-100); MONOCYTES # (AUTO) 0.5 K/uL (0.1-1.0); NEUTROPHILS # (AUTO) 5.3 K/uL (1.8-7.7); NEUTROPHILS % (AUTO) 74.1 % (40.0-70.0); PLATELET COUNT (AUTO) 177 K/uL (150-450); RED BLOOD CELL COUNT(AUTO) 4.71 MIL/uL (4.50-5.90); RED CELL DISTRIBUTION WIDTH 13.3 % (11.5-14.5)
[2020-11-05 17:04] LABS: AMPHET/METH SCREEN,URINE NEGATIVE (NEGATIVE); BARBITURATE SCREEN, URINE NEGATIVE (NEGATIVE); BENZODIAZEPINES SCREEN,URINE NEGATIVE (NEGATIVE); CANNABINOID SCREEN,URINE NEGATIVE (NEGATIVE); COCAINE SCREEN,URINE NEGATIVE (NEGATIVE); METHADONE SCREEN, URINE NEGATIVE (NEGATIVE); OPIATE SCREEN,URINE NEGATIVE (NEGATIVE)
[2020-11-05 17:05] LABS: PHENCYCLIDINE SCREEN,URINE NEGATIVE (NEGATIVE)
[2020-11-05 17:08] LABS: ANION GAP 11 mmol/L (8-16); CALCIUM, TOTAL 9.2 mg/dL (8.8-10.5); CARBON DIOXIDE 26 mmol/L (22-29); CHLORIDE 98 mmol/L (98-107); CREATININE 0.78 mg/dL (0.60-1.30); GLOMERULAR FILTR. RATE CALC > 60 mL/min (>60); GLUCOSE,RANDOM 370 mg/dL (70-110); POTASSIUM 4.2 mmol/L (3.5-5.1); SODIUM SERUM 135 mmol/L (136-145); UREA NITROGEN, BLOOD 10 mg/dL (7-18)
[2020-11-05 17:10] LABS: LITHIUM 0.55 mmol/L (0.60-1.20)
[2020-11-05 17:11] LABS: ALANINE AMINOTRANSFERASE 47 U/L (12-78); ALBUMIN 3.8 g/dL (3.4-5.0); ALKALINE PHOSPHATASE 94 U/L (46-116); ASPARTATE AMINOTRANSFERASE 25 U/L (15-37); BILIRUBIN,TOTAL 0.7 mg/dL (0.1-1.0); TOTAL PROTEIN, SERUM 7.6 g/dL (6.4-8.2); VALPROIC ACID 38 mcg/mL (50-100)
[2020-11-05] MEDS ORDERED: INSULIN REGULAR, HUMAN 100 UNITS/ML SQ ONE (17:30)
[2020-11-05 18:05] VITALS: BP 140/80
== END 2020-11-05 18:16 | disposition home or self-care (01) ==
LOC: EMS 15:49
DX: E11.65 Type 2 diabetes mellitus with hyperglycemia (principal); F20.9 Schizophrenia, unspecified; J45.909 Unspecified asthma, uncomplicated; F41.9 Anxiety disorder, unspecified; K21.9 Gastro-esophageal reflux disease without esophagitis; I10 Essential (primary) hypertension; Z76.0 Encounter for issue of repeat prescription; Z79.84 Long term (current) use of oral hypoglycemic drugs; Z88.6 Allergy status to analgesic agent; Z88.8 Allergy status to other drugs, medicaments and biological substances
CPT/HCPCS: 36415; 80053; 80164; 80178; 80307; 82962; 85025; 96372; 99283; G0480; J1815

== ENCOUNTER 2020-12-05 17:27 | Inpatient (IN) | payer MEDICAID, OTHER ==
[~2020-12-05] VITALS: Ht 167.6 cm; Wt 103.5 kg
[2020-12-05 18:34] LABS: AMPHET/METH SCREEN,URINE NEGATIVE (NEGATIVE); BARBITURATE SCREEN, URINE NEGATIVE (NEGATIVE); BENZODIAZEPINES SCREEN,URINE NEGATIVE (NEGATIVE); CANNABINOID SCREEN,URINE NEGATIVE (NEGATIVE); COCAINE SCREEN,URINE NEGATIVE (NEGATIVE); METHADONE SCREEN, URINE NEGATIVE (NEGATIVE); OPIATE SCREEN,URINE NEGATIVE (NEGATIVE); PHENCYCLIDINE SCREEN,URINE NEGATIVE (NEGATIVE)
[2020-12-05 18:37] LABS: BASOPHILS % (AUTO) 0.2 % (0.0-2.0); EOSINOPHILS % (AUTO) 0.4 % (1.0-6.0); HEMATOCRIT 41.4 % (41-53); HEMOGLOBIN 13.9 g/dL (13.5-17.5); LYMPHOCYTES # (AUTO) 1.4 K/uL (1.0-4.8); LYMPHOCYTES % (AUTO) 20.8 % (22.0-44.0); MEAN CORPUSCULAR HEMOGLOBIN 29.4 pg (26.0-34.0); MEAN CORPUSCULAR HGB CONC 33.5 G/dL (31.0-37.0); MEAN CORPUSCULAR VOLUME 88 fL (80-100); MONOCYTES # (AUTO) 0.5 K/uL (0.1-1.0); MONOCYTES % (AUTO) 7.2 % (2.0-9.0); NEUTROPHILS # (AUTO) 4.8 K/uL (1.8-7.7); NEUTROPHILS % (AUTO) 71.4 % (40.0-70.0); PLATELET COUNT (AUTO) 189 K/uL (150-450); RED BLOOD CELL COUNT(AUTO) 4.72 MIL/uL (4.50-5.90); RED CELL DISTRIBUTION WIDTH 13.5 % (11.5-14.5)
[2020-12-05 18:45] LABS: ANION GAP 11 mmol/L (8-16); CALCIUM, TOTAL 9.2 mg/dL (8.8-10.5); CARBON DIOXIDE 25 mmol/L (22-29); CHLORIDE 91 mmol/L (98-107); CREATININE 0.69 mg/dL (0.60-1.30); GLOMERULAR FILTR. RATE CALC > 60 mL/min (>60); GLUCOSE,RANDOM 297 mg/dL (70-110); POTASSIUM 3.7 mmol/L (3.5-5.1); SODIUM SERUM 127 mmol/L (136-145); UREA NITROGEN, BLOOD 6 mg/dL (7-18)
[2020-12-05 18:51] LABS: ALANINE AMINOTRANSFERASE 53 U/L (12-78); ALBUMIN 3.9 g/dL (3.4-5.0); ALKALINE PHOSPHATASE 81 U/L (46-116); ASPARTATE AMINOTRANSFERASE 29 U/L (15-37); TOTAL PROTEIN, SERUM 7.5 g/dL (6.4-8.2)
[2020-12-05 18:52] LABS: VALPROIC ACID < 3 mcg/mL (50-100)
[2020-12-05 18:53] LABS: LITHIUM 0.57 mmol/L (0.60-1.20)
[2020-12-05 19:53] LABS: COVID AG,FIA SOURCE NASOPHARYNGEAL
[2020-12-05] MEDS ORDERED: HALOPERIDOL 5 MG TABLET PO PRN (20:45)
[2020-12-05] MEDS ORDERED: LORazepam 2 MG TABLET PO PRN (20:45)
[2020-12-05 21:38] VITALS: BP 151/93
[2020-12-05] MEDS: ZOLPIDEM TARTRATE 10 MG TABLET PO PRN (21:47)
[2020-12-05] MEDS ORDERED: DEXTROSE 50%-WATER 25 GM/50 ML SYRINGE IVP PRN (22:15)
[2020-12-06 06:15] LABS: GLUCOMETER DEV NAME(LOC) 3E.C; GLUCOSE,POINT OF CARE 191 MG/DL (70-110)
[2020-12-06] MEDS ORDERED: OMEPRAZOLE 20 MG CAPSULE PO PRN (07:00)
[2020-12-06] MEDS ORDERED: ACETAMINOPHEN 325 MG TABLET PO PRN (07:00)
[2020-12-06] MEDS ORDERED: PETROLATUM,WHITE 28 GM JELLY TP PRN (07:00)
[2020-12-06] MEDS ORDERED: BENZOCAINE/MENTHOL LOZENGE PO PRN (07:00)
[2020-12-06] MEDS ORDERED: DOCUSATE SODIUM 100 MG CAPSULE PO PRN (07:00)
[2020-12-06] MEDS ORDERED: ALBUTEROL SULFATE HFA 90 MCG/PUFF 8 GM INHALER IH PRN (07:00)
[2020-12-06] MEDS ORDERED: MAG HYDROX/AL HYDROX/SIMETH ES 30 ML SUSPENSION UDCUP PO PRN (07:00)
[2020-12-06] MEDS ORDERED: BACITRACIN 28 GM OINTMENT TP PRN (07:00)
[2020-12-06] MEDS ORDERED: MAGNESIUM HYDROXIDE SUSPENSION 30 ML UDCUP PO PRN (07:00)
[2020-12-06] MEDS ORDERED: ONDANSETRON HCL 4 MG TABLET PO PRN (07:00)
[2020-12-06] MEDS ORDERED: CloNIDine HCL 0.1 MG TABLET PO PRN (07:00)
[2020-12-06] MEDS: MetFORMIN HCL 500 MG TABLET PO SCH ×2 (07:03→17:44)
[2020-12-06] MEDS: INSULIN LISPRO 100 UNITS/ML SQ PRN ×2 (07:10→16:39)
[2020-12-06] MEDS: LOSARTAN POTASSIUM 50 MG TABLET PO SCH (08:28)
[2020-12-06] MEDS: TERBINAFINE HCL 1% 30 GM CREAM TP SCH ×2 (08:28→16:35)
[2020-12-06] MEDS: METOPROLOL TARTRATE 25 MG TABLET PO SCH ×2 (08:28→16:35)
[2020-12-06] MEDS: SitaGLIPtin PHOSPHATE 100 MG TABLET PO SCH (08:28)
[2020-12-06] MEDS: DIVALPROEX SODIUM 500 MG ER TABLET PO SCH ×3 (08:30→16:36)
[2020-12-06] MEDS ORDERED: CLOTRIMAZOLE 1% 15 GM CREAM TP SCH (09:00)
[2020-12-06 09:15] VITALS: BP 143/101
[2020-12-06 10:01] LABS: BASOPHILS % (AUTO) 0.2 % (0.0-2.0); EOSINOPHILS % (AUTO) 0.7 % (1.0-6.0); HEMATOCRIT 43.5 % (41-53); HEMOGLOBIN 14.5 g/dL (13.5-17.5); LYMPHOCYTES # (AUTO) 1.5 K/uL (1.0-4.8); LYMPHOCYTES % (AUTO) 26.6 % (22.0-44.0); MEAN CORPUSCULAR HEMOGLOBIN 29.5 pg (26.0-34.0); MEAN CORPUSCULAR HGB CONC 33.4 G/dL (31.0-37.0); MEAN CORPUSCULAR VOLUME 89 fL (80-100); MONOCYTES # (AUTO) 0.5 K/uL (0.1-1.0); MONOCYTES % (AUTO) 8.2 % (2.0-9.0); NEUTROPHILS # (AUTO) 3.5 K/uL (1.8-7.7); NEUTROPHILS % (AUTO) 64.3 % (40.0-70.0); PLATELET COUNT (AUTO) 206 K/uL (150-450); RED BLOOD CELL COUNT(AUTO) 4.92 MIL/uL (4.50-5.90); RED CELL DISTRIBUTION WIDTH 13.4 % (11.5-14.5)
[2020-12-06 10:20] LABS: ALANINE AMINOTRANSFERASE 52 U/L (12-78); ALBUMIN 3.9 g/dL (3.4-5.0); ALKALINE PHOSPHATASE 81 U/L (46-116); ANION GAP 9 mmol/L (8-16); ASPARTATE AMINOTRANSFERASE 27 U/L (15-37); BILIRUBIN,TOTAL 0.9 mg/dL (0.1-1.0); CALCIUM, TOTAL 9.9 mg/dL (8.8-10.5); CARBON DIOXIDE 24 mmol/L (22-29); CHLORIDE 102 mmol/L (98-107); CREATININE 0.82 mg/dL (0.60-1.30); GLOMERULAR FILTR. RATE CALC > 60 mL/min (>60); GLUCOSE,RANDOM 326 mg/dL (70-110); POTASSIUM 4.2 mmol/L (3.5-5.1); SODIUM SERUM 135 mmol/L (136-145); TOTAL PROTEIN, SERUM 7.7 g/dL (6.4-8.2); UREA NITROGEN, BLOOD 8 mg/dL (7-18)
[2020-12-06 10:22] LABS: CHOL/HDL RATIO 5.5 (4.2-7.3); CHOLESTEROL 177 mg/dL (131-200); HDL CHOLESTEROL 32 mg/dL (40-60); TRIGLYCERIDES 483 mg/dL (15-150)
[2020-12-06 16:00] VITALS: BP 96/52
[2020-12-06 16:30] LABS: GLUCOMETER DEV NAME(LOC) 3E.C; GLUCOSE,POINT OF CARE 280 MG/DL (70-110)
[2020-12-06 18:00] VITALS: BP 102/58
[2020-12-06] MEDS: ATORVASTATIN CALCIUM 40 MG TABLET PO SCH (20:08)
[2020-12-06] MEDS: LITHIUM CARBONATE 600 MG CAPSULE PO SCH (20:08)
[2020-12-06] MEDS: OLANZapine 10 MG TABLET PO SCH (20:08)
[2020-12-06 21:05] VITALS: BP 126/87
[2020-12-06] MEDS: ZOLPIDEM TARTRATE 10 MG TABLET PO PRN (21:08)
[2020-12-06 21:26] VITALS: BP 126/87
[2020-12-07 06:38] LABS: GLUCOMETER DEV NAME(LOC) 3E.C; GLUCOSE,POINT OF CARE 186 MG/DL (70-110)
[2020-12-07] MEDS: MetFORMIN HCL 500 MG TABLET PO SCH ×2 (06:57→18:41)
[2020-12-07] MEDS: INSULIN LISPRO 100 UNITS/ML SQ PRN ×2 (06:58→17:08)
[2020-12-07 07:48] LABS: POTASSIUM 4.1 mmol/L (3.5-5.1)
[2020-12-07] MEDS: METOPROLOL TARTRATE 25 MG TABLET PO SCH ×2 (09:43→16:13)
[2020-12-07] MEDS: TERBINAFINE HCL 1% 30 GM CREAM TP SCH ×2 (09:43→16:12)
[2020-12-07] MEDS: LOSARTAN POTASSIUM 50 MG TABLET PO SCH (09:43)
[2020-12-07] MEDS: SitaGLIPtin PHOSPHATE 100 MG TABLET PO SCH (09:43)
[2020-12-07] MEDS: DIVALPROEX SODIUM 500 MG ER TABLET PO SCH ×3 (09:44→16:12)
[2020-12-07] MEDS: LOPERAMIDE HCL 2 MG CAPSULE PO PRN ×3 (12:27→19:18)
[2020-12-07 16:28] LABS: GLUCOMETER DEV NAME(LOC) 3E.C; GLUCOSE,POINT OF CARE 213 MG/DL (70-110)
[2020-12-07] MEDS: ATORVASTATIN CALCIUM 40 MG TABLET PO SCH (20:04)
[2020-12-07] MEDS: OLANZapine 10 MG TABLET PO SCH (20:04)
[2020-12-07] MEDS: LITHIUM CARBONATE 600 MG CAPSULE PO SCH (20:04)
[2020-12-07] MEDS: ZOLPIDEM TARTRATE 10 MG TABLET PO PRN (20:28)
[2020-12-07 21:05] LABS: GLUCOMETER DEV NAME(LOC) 3E.C; GLUCOSE,POINT OF CARE 282 MG/DL (70-110)
[2020-12-08 06:48] LABS: GLUCOMETER DEV NAME(LOC) 3E.C; GLUCOSE,POINT OF CARE 195 MG/DL (70-110)
[2020-12-08] MEDS: MetFORMIN HCL 500 MG TABLET PO SCH ×2 (06:58→16:54)
[2020-12-08] MEDS: INSULIN LISPRO 100 UNITS/ML SQ PRN ×2 (06:59→16:51)
[2020-12-08 08:11] VITALS: BP 122/72
[2020-12-08] MEDS: SitaGLIPtin PHOSPHATE 100 MG TABLET PO SCH (08:49)
[2020-12-08] MEDS: TERBINAFINE HCL 1% 30 GM CREAM TP SCH ×2 (08:49→15:57)
[2020-12-08] MEDS: METOPROLOL TARTRATE 25 MG TABLET PO SCH ×2 (08:49→15:59)
[2020-12-08] MEDS: LOSARTAN POTASSIUM 50 MG TABLET PO SCH (08:49)
[2020-12-08] MEDS: DIVALPROEX SODIUM 500 MG ER TABLET PO SCH ×3 (08:51→15:57)
[2020-12-08 16:45] LABS: GLUCOMETER DEV NAME(LOC) 3E.C; GLUCOSE,POINT OF CARE 255 MG/DL (70-110)
[2020-12-08 17:29] VITALS: BP 109/67
[2020-12-08] MEDS: LITHIUM CARBONATE 600 MG CAPSULE PO SCH (20:08)
[2020-12-08] MEDS: OLANZapine 10 MG TABLET PO SCH (20:08)
[2020-12-08] MEDS: ATORVASTATIN CALCIUM 40 MG TABLET PO SCH (20:08)
[2020-12-08] MEDS: ZOLPIDEM TARTRATE 10 MG TABLET PO PRN (20:28)
[2020-12-09 06:40] LABS: GLUCOMETER DEV NAME(LOC) 3E.C; GLUCOSE,POINT OF CARE 186 MG/DL (70-110)
[2020-12-09] MEDS: MetFORMIN HCL 500 MG TABLET PO SCH ×2 (06:53→17:01)
[2020-12-09] MEDS: INSULIN LISPRO 100 UNITS/ML SQ PRN ×2 (06:54→17:00)
[2020-12-09 08:09] VITALS: BP 114/79
[2020-12-09] MEDS: DIVALPROEX SODIUM 500 MG ER TABLET PO SCH ×3 (08:26→16:03)
[2020-12-09] MEDS: METOPROLOL TARTRATE 25 MG TABLET PO SCH ×2 (08:26→16:03)
[2020-12-09] MEDS: SitaGLIPtin PHOSPHATE 100 MG TABLET PO SCH (08:26)
[2020-12-09] MEDS: LOSARTAN POTASSIUM 50 MG TABLET PO SCH (08:26)
[2020-12-09] MEDS: TERBINAFINE HCL 1% 30 GM CREAM TP SCH ×2 (09:46→16:03)
[2020-12-09] MEDS: LOPERAMIDE HCL 2 MG CAPSULE PO PRN (14:15)
[2020-12-09 16:25] VITALS: BP 123/90
[2020-12-09 16:26] LABS: GLUCOMETER DEV NAME(LOC) 3E.C; GLUCOSE,POINT OF CARE 214 MG/DL (70-110)
[2020-12-09] MEDS: ATORVASTATIN CALCIUM 40 MG TABLET PO SCH (20:13)
[2020-12-09] MEDS: OLANZapine 10 MG TABLET PO SCH (20:13)
[2020-12-09] MEDS: LITHIUM CARBONATE 600 MG CAPSULE PO SCH (20:13)
[2020-12-09] MEDS: ZOLPIDEM TARTRATE 10 MG TABLET PO PRN (20:33)
[2020-12-10 05:24] LABS: GLUCOMETER DEV NAME(LOC) 3E.C; GLUCOSE,POINT OF CARE 173 MG/DL (70-110)
[2020-12-10 05:45] LABS: LITHIUM 0.94 mmol/L (0.60-1.20)
[2020-12-10] MEDS: INSULIN LISPRO 100 UNITS/ML SQ PRN (07:00)
[2020-12-10] MEDS: MetFORMIN HCL 500 MG TABLET PO SCH (07:01)
[2020-12-10 08:10] VITALS: BP 116/86
[2020-12-10] MEDS: LOSARTAN POTASSIUM 50 MG TABLET PO SCH (10:51)
[2020-12-10] MEDS: SitaGLIPtin PHOSPHATE 100 MG TABLET PO SCH (10:51)
[2020-12-10] MEDS: METOPROLOL TARTRATE 25 MG TABLET PO SCH (10:51)
[2020-12-10] MEDS: DIVALPROEX SODIUM 500 MG ER TABLET PO SCH ×2 (10:52→12:49)
[2020-12-10] MEDS: TERBINAFINE HCL 1% 30 GM CREAM TP SCH (10:52)
[2020-12-10] MEDS: LOPERAMIDE HCL 2 MG CAPSULE PO PRN (12:48)
[2020-12-10] MEDS ORDERED: DIVA-80 PO (14:24)
[2020-12-10] MEDS ORDERED: OLAN10TA74 PO (14:30)
[2020-12-10] MEDS ORDERED: METO25 PO (14:32)
== END 2020-12-10 15:20 | disposition home or self-care (01) | DRG 750 ==
LOC: EMS 17:29 → 3EC 20:31
PROVIDERS: ADMIT Psychiatry & Neurology Psychiatry; ATTEND Psychiatry & Neurology Psychiatry
DX: F20.0 Paranoid schizophrenia (principal); E11.65 Type 2 diabetes mellitus with hyperglycemia; Z20.822 Contact with and (suspected) exposure to COVID-19; E87.1 Hypo-osmolality and hyponatremia; E78.5 Hyperlipidemia, unspecified; F31.9 Bipolar disorder, unspecified; G47.00 Insomnia, unspecified; I10 Essential (primary) hypertension; J45.909 Unspecified asthma, uncomplicated; K59.00 Constipation, unspecified; R45.850 Homicidal ideations
CPT/HCPCS: 80053; 80061; 80164; 80178; 82962; 84132; 84295; 85025; 99285; G0480

== ENCOUNTER 2020-12-18 16:54 | Inpatient (IN) | payer MEDICAID, OTHER ==
[~2020-12-18] VITALS: Ht 162.6 cm; Wt 103.9 kg
[~2020-12-18 16:54] MED LIST changes: -DIVA-85 PO; -FOLI-130 PO; -LITH300C3 PO; -MELA5TAB3 PO; +METO25 PO; -MULT-1239 PO; -NALT50TA PO; +OLAN10TA74 PO; -OMEG-135 PO; -PALI117D IM; -THIA100T80 PO
[2020-12-18 17:47] LABS: AMPHET/METH SCREEN,URINE NEGATIVE (NEGATIVE); BARBITURATE SCREEN, URINE NEGATIVE (NEGATIVE); BENZODIAZEPINES SCREEN,URINE NEGATIVE (NEGATIVE); CANNABINOID SCREEN,URINE NEGATIVE (NEGATIVE); COCAINE SCREEN,URINE NEGATIVE (NEGATIVE); METHADONE SCREEN, URINE NEGATIVE (NEGATIVE); OPIATE SCREEN,URINE NEGATIVE (NEGATIVE); PHENCYCLIDINE SCREEN,URINE NEGATIVE (NEGATIVE)
[2020-12-18 18:08] LABS: BASOPHILS % (AUTO) 0.3 % (0.0-2.0); EOSINOPHILS % (AUTO) 0.5 % (1.0-6.0); HEMATOCRIT 43.8 % (41-53); HEMOGLOBIN 14.9 g/dL (13.5-17.5); LYMPHOCYTES # (AUTO) 1.4 K/uL (1.0-4.8); LYMPHOCYTES % (AUTO) 19.1 % (22.0-44.0); MEAN CORPUSCULAR HEMOGLOBIN 29.7 pg (26.0-34.0); MEAN CORPUSCULAR HGB CONC 33.9 G/dL (31.0-37.0); MEAN CORPUSCULAR VOLUME 88 fL (80-100); MONOCYTES # (AUTO) 0.6 K/uL (0.1-1.0); MONOCYTES % (AUTO) 7.9 % (2.0-9.0); NEUTROPHILS # (AUTO) 5.4 K/uL (1.8-7.7); NEUTROPHILS % (AUTO) 72.2 % (40.0-70.0); PLATELET COUNT (AUTO) 205 K/uL (150-450); RED CELL DISTRIBUTION WIDTH 13.3 % (11.5-14.5)
[2020-12-18 18:18] LABS: ANION GAP 7 mmol/L (8-16); CALCIUM, TOTAL 9.9 mg/dL (8.8-10.5); CARBON DIOXIDE 28 mmol/L (22-29); CHLORIDE 99 mmol/L (98-107); CREATININE 0.74 mg/dL (0.60-1.30); GLOMERULAR FILTR. RATE CALC > 60 mL/min (>60); GLUCOSE,RANDOM 264 mg/dL (70-110); POTASSIUM 4.1 mmol/L (3.5-5.1); SODIUM SERUM 134 mmol/L (136-145); UREA NITROGEN, BLOOD 8 mg/dL (7-18)
[2020-12-18 18:25] LABS: ALANINE AMINOTRANSFERASE 52 U/L (12-78); ALBUMIN 4.4 g/dL (3.4-5.0); ALKALINE PHOSPHATASE 89 U/L (46-116); ASPARTATE AMINOTRANSFERASE 26 U/L (15-37); BILIRUBIN,TOTAL 0.6 mg/dL (0.1-1.0); VALPROIC ACID < 3 mcg/mL (50-100)
[2020-12-18] MEDS ORDERED: LORazepam 2 MG/ML VIAL IVP ONE (19:15)
[2020-12-18] MEDS ORDERED: SODIUM CHLORIDE 0.9% 1,000 ML IV ONE (19:15)
[2020-12-18 19:43] LABS: COVID AG,FIA SOURCE NASOPHARYNGEAL
[2020-12-18] MEDS ORDERED: HALOPERIDOL 5 MG TABLET PO PRN (20:30)
[2020-12-18] MEDS ORDERED: LORazepam 2 MG TABLET PO PRN (20:30)
[2020-12-18] MEDS: OLANZapine 10 MG TABLET PO SCH (22:12)
[2020-12-18] MEDS: LITHIUM CARBONATE 600 MG CAPSULE PO SCH (22:12)
[2020-12-19 09:05] LABS: GLUCOMETER DEV NAME(LOC) BV3N.; GLUCOSE,POINT OF CARE 238 MG/DL (70-110)
[2020-12-19] MEDS ORDERED: ACETAMINOPHEN 325 MG TABLET PO PRN (10:15)
[2020-12-19] MEDS ORDERED: GLUCAGON,HUMAN RECOMBINANT 1 MG VIAL IM PRN (10:15)
[2020-12-19] MEDS ORDERED: OMEPRAZOLE 20 MG CAPSULE PO PRN (10:15)
[2020-12-19] MEDS ORDERED: BACITRACIN 28 GM OINTMENT TP PRN (10:15)
[2020-12-19] MEDS ORDERED: DOCUSATE SODIUM 100 MG CAPSULE PO PRN (10:15)
[2020-12-19] MEDS ORDERED: CloNIDine HCL 0.1 MG TABLET PO PRN (10:15)
[2020-12-19] MEDS ORDERED: MAGNESIUM HYDROXIDE SUSPENSION 30 ML UDCUP PO PRN (10:15)
[2020-12-19] MEDS ORDERED: MAG HYDROX/AL HYDROX/SIMETH ES 30 ML SUSPENSION UDCUP PO PRN (10:15)
[2020-12-19] MEDS ORDERED: BENZOCAINE/MENTHOL LOZENGE PO PRN (10:15)
[2020-12-19] MEDS ORDERED: PETROLATUM,WHITE 28 GM JELLY TP PRN (10:15)
[2020-12-19] MEDS ORDERED: LOPERAMIDE HCL 2 MG CAPSULE PO PRN (10:15)
[2020-12-19] MEDS ORDERED: ALBUTEROL SULFATE HFA 90 MCG/PUFF 8 GM INHALER IH PRN (10:15)
[2020-12-19] MEDS ORDERED: ONDANSETRON HCL 4 MG TABLET PO PRN (10:15)
[2020-12-19] MEDS: INSULIN LISPRO 100 UNITS/ML SQ PRN ×3 (11:50→21:04)
[2020-12-19 11:58] LABS: GLUCOMETER DEV NAME(LOC) BV3N.; GLUCOSE,POINT OF CARE 288 MG/DL (70-110)
[2020-12-19 13:56] VITALS: BP 138/92
[2020-12-19] MEDS: LOSARTAN POTASSIUM 50 MG TABLET PO SCH (16:23)
[2020-12-19] MEDS: MetFORMIN HCL 500 MG TABLET PO SCH (16:23)
[2020-12-19 16:42] LABS: GLUCOMETER DEV NAME(LOC) BV3N.; GLUCOSE,POINT OF CARE 261 MG/DL (70-110)
[2020-12-19 17:33] VITALS: BP 138/92
[2020-12-19] MEDS: LITHIUM CARBONATE 600 MG CAPSULE PO SCH (20:13)
[2020-12-19] MEDS: ATORVASTATIN CALCIUM 40 MG TABLET PO SCH (20:13)
[2020-12-19] MEDS: OLANZapine 10 MG TABLET PO SCH (20:13)
[2020-12-19] MEDS: ZOLPIDEM TARTRATE 10 MG TABLET PO PRN (20:14)
[2020-12-19 20:36] LABS: GLUCOMETER DEV NAME(LOC) BV2S.; GLUCOSE,POINT OF CARE 236 MG/DL (70-110)
[2020-12-20 05:54] VITALS: BP 110/73
[2020-12-20 06:18] LABS: GLUCOMETER DEV NAME(LOC) BV2S.; GLUCOSE,POINT OF CARE 237 MG/DL (70-110)
[2020-12-20] MEDS: MetFORMIN HCL 500 MG TABLET PO SCH ×2 (06:56→17:32)
[2020-12-20] MEDS: INSULIN LISPRO 100 UNITS/ML SQ PRN ×4 (06:57→21:12)
[2020-12-20 08:28] VITALS: BP 116/76
[2020-12-20] MEDS: SitaGLIPtin PHOSPHATE 100 MG TABLET PO SCH (09:12)
[2020-12-20] MEDS: LOSARTAN POTASSIUM 50 MG TABLET PO SCH (09:12)
[2020-12-20 11:28] LABS: GLUCOMETER DEV NAME(LOC) BV3S.; GLUCOSE,POINT OF CARE 339 MG/DL (70-110)
[2020-12-20] MEDS ORDERED: PNEUMOCOCCAL VACCINE POLYVALENT 0.5 ML VIAL [PPSV23] IM. ONE (13:30)
[2020-12-20] MEDS ORDERED: -PHARMACY VACCINE NOTE- MISC ONE (13:45)
[2020-12-20 16:31] VITALS: BP 137/77
[2020-12-20 17:45] LABS: GLUCOMETER DEV NAME(LOC) BV2S.; GLUCOSE,POINT OF CARE 325 MG/DL (70-110)
[2020-12-20] MEDS: OLANZapine 10 MG TABLET PO SCH (20:53)
[2020-12-20] MEDS: LITHIUM CARBONATE 600 MG CAPSULE PO SCH (20:53)
[2020-12-20] MEDS: ATORVASTATIN CALCIUM 40 MG TABLET PO SCH (21:08)
[2020-12-20] MEDS: ZOLPIDEM TARTRATE 10 MG TABLET PO PRN (21:18)
[2020-12-20 21:19] LABS: GLUCOMETER DEV NAME(LOC) BV2S.; GLUCOSE,POINT OF CARE 287 MG/DL (70-110)
[2020-12-21 00:26] VITALS: BP 133/72
[2020-12-21 05:59] LABS: GLUCOMETER DEV NAME(LOC) BV2S.; GLUCOSE,POINT OF CARE 228 MG/DL (70-110)
[2020-12-21] MEDS: MetFORMIN HCL 500 MG TABLET PO SCH ×2 (06:26→16:53)
[2020-12-21] MEDS: INSULIN LISPRO 100 UNITS/ML SQ PRN ×4 (06:27→20:08)
[2020-12-21 08:17] VITALS: BP 130/86
[2020-12-21] MEDS: SitaGLIPtin PHOSPHATE 100 MG TABLET PO SCH (08:36)
[2020-12-21] MEDS: LOSARTAN POTASSIUM 50 MG TABLET PO SCH (08:37)
[2020-12-21 11:22] LABS: GLUCOMETER DEV NAME(LOC) BV2S.; GLUCOSE,POINT OF CARE 228 MG/DL (70-110)
[2020-12-21 16:21] VITALS: BP 121/79
[2020-12-21 17:26] LABS: GLUCOMETER DEV NAME(LOC) BV2S.; GLUCOSE,POINT OF CARE 321 MG/DL (70-110)
[2020-12-21] MEDS: ATORVASTATIN CALCIUM 40 MG TABLET PO SCH (20:02)
[2020-12-21] MEDS: LITHIUM CARBONATE 600 MG CAPSULE PO SCH (20:02)
[2020-12-21] MEDS: OLANZapine 10 MG TABLET PO SCH (20:02)
[2020-12-21 20:16] LABS: GLUCOMETER DEV NAME(LOC) BV2S.; GLUCOSE,POINT OF CARE 216 MG/DL (70-110)
[2020-12-21] MEDS: ZOLPIDEM TARTRATE 10 MG TABLET PO PRN (21:43)
[2020-12-22 00:12] VITALS: BP 127/73
[2020-12-22] MEDS: MetFORMIN HCL 500 MG TABLET PO SCH ×2 (06:39→16:22)
[2020-12-22] MEDS: INSULIN LISPRO 100 UNITS/ML SQ PRN ×4 (06:40→21:02)
[2020-12-22 07:02] LABS: GLUCOMETER DEV NAME(LOC) BV2X.2; GLUCOSE,POINT OF CARE 215 MG/DL (70-110)
[2020-12-22] MEDS: LOSARTAN POTASSIUM 50 MG TABLET PO SCH (08:12)
[2020-12-22] MEDS: SitaGLIPtin PHOSPHATE 100 MG TABLET PO SCH (08:12)
[2020-12-22 08:17] VITALS: BP 121/75
[2020-12-22 11:26] LABS: GLUCOMETER DEV NAME(LOC) BV2S.; GLUCOSE,POINT OF CARE 249 MG/DL (70-110)
[2020-12-22 16:11] VITALS: BP 127/69
[2020-12-22 16:42] LABS: GLUCOMETER DEV NAME(LOC) BV2S.; GLUCOSE,POINT OF CARE 294 MG/DL (70-110)
[2020-12-22 19:43] LABS: GLUCOMETER DEV NAME(LOC) BV2S.; GLUCOSE,POINT OF CARE 267 MG/DL (70-110)
[2020-12-22] MEDS: LITHIUM CARBONATE 600 MG CAPSULE PO SCH (20:15)
[2020-12-22] MEDS: ATORVASTATIN CALCIUM 40 MG TABLET PO SCH (20:15)
[2020-12-22] MEDS: OLANZapine 10 MG TABLET PO SCH (20:16)
[2020-12-22] MEDS: ZOLPIDEM TARTRATE 10 MG TABLET PO PRN (21:03)
[2020-12-23 00:13] VITALS: BP 129/70
[2020-12-23] MEDS: MetFORMIN HCL 500 MG TABLET PO SCH ×2 (06:09→17:05)
[2020-12-23] MEDS: INSULIN LISPRO 100 UNITS/ML SQ PRN ×4 (06:19→22:55)
[2020-12-23 06:27] LABS: GLUCOMETER DEV NAME(LOC) BV2S.; GLUCOSE,POINT OF CARE 205 MG/DL (70-110)
[2020-12-23 08:15] VITALS: BP 121/88
[2020-12-23] MEDS: SitaGLIPtin PHOSPHATE 100 MG TABLET PO SCH (08:34)
[2020-12-23] MEDS: MULTIVITAMINS WITH MINERALS, THERAPEUTIC TABLET PO SCH (08:34)
[2020-12-23] MEDS: LOSARTAN POTASSIUM 50 MG TABLET PO SCH (08:34)
[2020-12-23 11:16] LABS: GLUCOMETER DEV NAME(LOC) BV2S.; GLUCOSE,POINT OF CARE 221 MG/DL (70-110)
[2020-12-23 16:07] VITALS: BP 146/91
[2020-12-23 17:06] LABS: GLUCOMETER DEV NAME(LOC) BV2S.; GLUCOSE,POINT OF CARE 169 MG/DL (70-110)
[2020-12-23] MEDS: OLANZapine 10 MG TABLET PO SCH (19:48)
[2020-12-23] MEDS: LITHIUM CARBONATE 600 MG CAPSULE PO SCH (19:48)
[2020-12-23] MEDS: ATORVASTATIN CALCIUM 40 MG TABLET PO SCH (19:48)
[2020-12-23 19:51] LABS: GLUCOMETER DEV NAME(LOC) BV2S.; GLUCOSE,POINT OF CARE 331 MG/DL (70-110)
[2020-12-23] MEDS: ZOLPIDEM TARTRATE 10 MG TABLET PO PRN (20:23)
[2020-12-24 00:43] VITALS: BP 131/80
[2020-12-24] MEDS: INSULIN LISPRO 100 UNITS/ML SQ PRN ×3 (06:33→16:41)
[2020-12-24] MEDS: MetFORMIN HCL 500 MG TABLET PO SCH ×2 (07:09→16:40)
[2020-12-24] MEDS ORDERED: INSULIN GLARGINE,HUM.REC.ANLOG 100 UNITS/ML SQ SCH (08:00)
[2020-12-24] MEDS: SitaGLIPtin PHOSPHATE 100 MG TABLET PO SCH (08:11)
[2020-12-24] MEDS: MULTIVITAMINS WITH MINERALS, THERAPEUTIC TABLET PO SCH (08:11)
[2020-12-24] MEDS: LOSARTAN POTASSIUM 50 MG TABLET PO SCH (08:11)
[2020-12-24 08:25] VITALS: BP 153/95
[2020-12-24 10:00] VITALS: BP 131/90
[2020-12-24 11:55] LABS: GLUCOMETER DEV NAME(LOC) BV2S.; GLUCOSE,POINT OF CARE 227 MG/DL (70-110)
[2020-12-24] MEDS ORDERED: LITH600C5 PO (14:14)
[2020-12-24] MEDS ORDERED: INSLAN SQ (14:15)
[2020-12-24 16:27] VITALS: BP 140/79
[2020-12-24 17:27] LABS: GLUCOMETER DEV NAME(LOC) BV2S.; GLUCOSE,POINT OF CARE 242 MG/DL (70-110)
[2020-12-25] MEDS ORDERED: INSULIN GLARGINE,HUM.REC.ANLOG 100 UNITS/ML SQ SCH (09:00)
== END 2020-12-24 17:10 | disposition home or self-care (01) | DRG 750 ==
LOC: EMS 16:56 → B3A 12-19 06:02 → B2S 12-19 18:53
PROVIDERS: ADMIT Psychiatry & Neurology Psychiatry; ATTEND Psychiatry & Neurology Psychiatry
DX: F20.0 Paranoid schizophrenia (principal); E11.65 Type 2 diabetes mellitus with hyperglycemia; F29 Unspecified psychosis not due to a substance or known physiological condition; F31.9 Bipolar disorder, unspecified; G47.00 Insomnia, unspecified; I10 Essential (primary) hypertension; J45.909 Unspecified asthma, uncomplicated; K59.00 Constipation, unspecified; K21.9 Gastro-esophageal reflux disease without esophagitis; E78.5 Hyperlipidemia, unspecified; Z20.822 Contact with and (suspected) exposure to COVID-19; Z88.8 Allergy status to other drugs, medicaments and biological substances; Z79.899 Other long term (current) drug therapy; Z79.4 Long term (current) use of insulin
CPT/HCPCS: 80053; 80164; 80178; 82962; 85025; 87081; 93005; 99285; G0480; J1815; J2060; J7030

== ENCOUNTER 2021-01-03 19:26 | Inpatient (IN) | payer MEDICAID, OTHER ==
[~2021-01-03] VITALS: Ht 162.6 cm; Wt 108.0 kg
[~2021-01-03 19:26] MED LIST changes: -DIVA-80 PO; +INSLAN SQ; -METO25 PO
[2021-01-03] MEDS ORDERED: LURA40TA2 PO (19:39)
[2021-01-03] MEDS ORDERED: BENZ0.5T44 PO (19:39)
[2021-01-03] MEDS ORDERED: DIVA125T32 PO (19:39)
[2021-01-03 20:09] LABS: BASOPHILS % (AUTO) 0.3 % (0.0-2.0); EOSINOPHILS % (AUTO) 0.6 % (1.0-6.0); HEMATOCRIT 40.3 % (41-53); HEMOGLOBIN 13.6 g/dL (13.5-17.5); LYMPHOCYTES # (AUTO) 1.9 K/uL (1.0-4.8); LYMPHOCYTES % (AUTO) 33.9 % (22.0-44.0); MEAN CORPUSCULAR HEMOGLOBIN 29.6 pg (26.0-34.0); MEAN CORPUSCULAR HGB CONC 33.7 G/dL (31.0-37.0); MEAN CORPUSCULAR VOLUME 88 fL (80-100); MONOCYTES # (AUTO) 0.3 K/uL (0.1-1.0); MONOCYTES % (AUTO) 5.7 % (2.0-9.0); NEUTROPHILS # (AUTO) 3.4 K/uL (1.8-7.7); NEUTROPHILS % (AUTO) 59.5 % (40.0-70.0); PLATELET COUNT (AUTO) 252 K/uL (150-450); RED BLOOD CELL COUNT(AUTO) 4.59 MIL/uL (4.50-5.90); RED CELL DISTRIBUTION WIDTH 13.3 % (11.5-14.5)
[2021-01-03 20:16] LABS: ANION GAP 10 mmol/L (8-16); CALCIUM, TOTAL 9.4 mg/dL (8.8-10.5); CARBON DIOXIDE 27 mmol/L (22-29); CHLORIDE 100 mmol/L (98-107); CREATININE 0.66 mg/dL (0.60-1.30); GLOMERULAR FILTR. RATE CALC > 60 mL/min (>60); GLUCOSE,RANDOM 244 mg/dL (70-110); POTASSIUM 3.8 mmol/L (3.5-5.1); SODIUM SERUM 137 mmol/L (136-145); UREA NITROGEN, BLOOD 3 mg/dL (7-18)
[2021-01-03 20:23] LABS: ALANINE AMINOTRANSFERASE 39 U/L (12-78); ALKALINE PHOSPHATASE 80 U/L (46-116); ASPARTATE AMINOTRANSFERASE 16 U/L (15-37); BILIRUBIN,TOTAL 0.7 mg/dL (0.1-1.0); TOTAL PROTEIN, SERUM 7.7 g/dL (6.4-8.2); VALPROIC ACID 57 mcg/mL (50-100)
[2021-01-03 20:24] LABS: LITHIUM 0.23 mmol/L (0.60-1.20)
[2021-01-03] MEDS ORDERED: OLANZapine 5 MG RAPDIS TABLET PO PRN (21:30)
[2021-01-03] MEDS ORDERED: LORazepam 2 MG TABLET PO PRN (21:30)
[2021-01-03] MEDS ORDERED: ZOLPIDEM TARTRATE 10 MG TABLET PO PRN (21:30)
[2021-01-03] MEDS ORDERED: HALOPERIDOL 5 MG TABLET PO PRN (21:45)
[2021-01-03 23:45] LABS: COVID AG,FIA SOURCE NASOPHARYNGEAL
[2021-01-04 00:16] LABS: APPEARANCE,URINE CLOUDY (CLEAR); BILIRUBIN,URINE NEGATIVE (NEGATIVE); GLUCOSE, URINE (UA) NEGATIVE (NEGATIVE); KETONES,URINE NEGATIVE (NEGATIVE); LEUKOCYTE ESTERASE ,URINE NEGATIVE (NEGATIVE); NITRATE,URINE NEGATIVE (NEGATIVE); OCCULT BLOOD,URINE SMALL (NEGATIVE); PH,URINE 5.5 (5.0-8.0); PROTEIN,URINE TRACE (NEGATIVE); UROBILINOGEN,URINE 0.2 mg/dL (<=1.0)
[2021-01-04 00:26] LABS: AMPHET/METH SCREEN,URINE NEGATIVE (NEGATIVE); BARBITURATE SCREEN, URINE NEGATIVE (NEGATIVE); BENZODIAZEPINES SCREEN,URINE NEGATIVE (NEGATIVE); CANNABINOID SCREEN,URINE NEGATIVE (NEGATIVE); COCAINE SCREEN,URINE NEGATIVE (NEGATIVE); METHADONE SCREEN, URINE NEGATIVE (NEGATIVE); OPIATE SCREEN,URINE NEGATIVE (NEGATIVE)
[2021-01-04 00:28] LABS: PHENCYCLIDINE SCREEN,URINE NEGATIVE (NEGATIVE)
[2021-01-04 00:39] LABS: BACTERIA,URINE Few /HPF (None Seen)
[2021-01-04 05:07] LABS: CHOL/HDL RATIO 1.8 (4.2-7.3); CHOLESTEROL 70 mg/dL (131-200); HDL CHOLESTEROL 38 mg/dL (40-60); LDL CHOL (CALC.) 14 mg/dL (0-130); TRIGLYCERIDES 90 mg/dL (15-150)
[2021-01-04] MEDS ORDERED: GLUCAGON,HUMAN RECOMBINANT 1 MG VIAL IM PRN (11:15)
[2021-01-04 11:53] LABS: GLUCOMETER DEV NAME(LOC) BV2S.; GLUCOSE,POINT OF CARE 234 MG/DL (70-110)
[2021-01-04 13:07] VITALS: BP 141/101
[2021-01-04 16:39] VITALS: BP 133/80
[2021-01-04] MEDS: INSULIN LISPRO 100 UNITS/ML SQ PRN ×2 (16:55→21:12)
[2021-01-04] MEDS ORDERED: MetFORMIN HCL 500 MG TABLET PO ONE (17:00)
[2021-01-04 17:18] LABS: GLUCOMETER DEV NAME(LOC) BV2S.; GLUCOSE,POINT OF CARE 181 MG/DL (70-110)
[2021-01-04] MEDS: ZOLPIDEM TARTRATE 10 MG TABLET PO PRN (20:17)
[2021-01-04 21:29] LABS: GLUCOMETER DEV NAME(LOC) BV2S.; GLUCOSE,POINT OF CARE 160 MG/DL (70-110)
[2021-01-05 01:01] VITALS: BP 136/89
[2021-01-05] MEDS: LORazepam 2 MG TABLET PO PRN ×2 (05:09→20:20)
[2021-01-05 05:10] VITALS: BP 146/87
[2021-01-05 05:35] VITALS: BP 141/82
[2021-01-05] MEDS: INSULIN LISPRO 100 UNITS/ML SQ PRN ×4 (06:38→21:49)
[2021-01-05 06:51] LABS: GLUCOMETER DEV NAME(LOC) BV2S.; GLUCOSE,POINT OF CARE 193 MG/DL (70-110)
[2021-01-05] MEDS: SitaGLIPtin PHOSPHATE 100 MG TABLET PO SCH (09:46)
[2021-01-05] MEDS: INSULIN GLARGINE,HUM.REC.ANLOG 100 UNITS/ML SQ SCH (09:50)
[2021-01-05 10:19] LABS: GLUCOMETER DEV NAME(LOC) BV2S.; GLUCOSE,POINT OF CARE 222 MG/DL (70-110)
[2021-01-05 13:15] VITALS: BP 148/90
[2021-01-05 16:28] VITALS: BP 123/83
[2021-01-05 19:50] LABS: GLUCOMETER DEV NAME(LOC) BV2S.; GLUCOSE,POINT OF CARE 348 MG/DL (70-110)
[2021-01-05] MEDS: ZOLPIDEM TARTRATE 10 MG TABLET PO PRN (20:20)
[2021-01-05] MEDS ORDERED: CloNIDine HCL 0.1 MG TABLET PO PRN (20:30)
[2021-01-05] MEDS ORDERED: BACITRACIN 28 GM OINTMENT TP PRN (20:30)
[2021-01-05] MEDS ORDERED: ALBUTEROL SULFATE HFA 90 MCG/PUFF 8 GM INHALER IH PRN (20:30)
[2021-01-05] MEDS ORDERED: LOPERAMIDE HCL 2 MG CAPSULE PO PRN (20:30)
[2021-01-05] MEDS ORDERED: DOCUSATE SODIUM 100 MG CAPSULE PO PRN (20:30)
[2021-01-05] MEDS ORDERED: MAG HYDROX/AL HYDROX/SIMETH ES 30 ML SUSPENSION UDCUP PO PRN (20:30)
[2021-01-05] MEDS ORDERED: PETROLATUM,WHITE 28 GM JELLY TP PRN (20:30)
[2021-01-05] MEDS ORDERED: ONDANSETRON HCL 4 MG TABLET PO PRN (20:30)
[2021-01-05] MEDS ORDERED: MAGNESIUM HYDROXIDE SUSPENSION 30 ML UDCUP PO PRN (20:30)
[2021-01-05] MEDS ORDERED: OMEPRAZOLE 20 MG CAPSULE PO PRN (20:30)
[2021-01-05] MEDS: ATORVASTATIN CALCIUM 40 MG TABLET PO SCH (20:52)
[2021-01-05 22:02] LABS: GLUCOMETER DEV NAME(LOC) BV2S.; GLUCOSE,POINT OF CARE 178 MG/DL (70-110)
[2021-01-06 01:59] VITALS: BP 134/82
[2021-01-06] MEDS: INSULIN LISPRO 100 UNITS/ML SQ PRN ×4 (06:42→22:52)
[2021-01-06 06:51] LABS: GLUCOMETER DEV NAME(LOC) BV2S.; GLUCOSE,POINT OF CARE 189 MG/DL (70-110)
[2021-01-06] MEDS: DIVALPROEX SODIUM 500 MG DR TABLET PO SCH ×2 (09:03→16:27)
[2021-01-06] MEDS: BENZTROPINE MESYLATE 0.5 MG TABLET PO SCH ×2 (09:03→16:26)
[2021-01-06] MEDS: SitaGLIPtin PHOSPHATE 100 MG TABLET PO SCH (09:03)
[2021-01-06] MEDS: LOSARTAN POTASSIUM 50 MG TABLET PO SCH (09:03)
[2021-01-06] MEDS: INSULIN GLARGINE,HUM.REC.ANLOG 100 UNITS/ML SQ SCH (09:14)
[2021-01-06 09:24] LABS: GLUCOMETER DEV NAME(LOC) BV2S.; GLUCOSE,POINT OF CARE 215 MG/DL (70-110)
[2021-01-06 09:37] VITALS: BP 140/84
[2021-01-06 11:38] LABS: GLUCOMETER DEV NAME(LOC) BV2S.; GLUCOSE,POINT OF CARE 189 MG/DL (70-110)
[2021-01-06 16:30] VITALS: BP 118/75
[2021-01-06 16:34] LABS: GLUCOMETER DEV NAME(LOC) BV2S.; GLUCOSE,POINT OF CARE 196 MG/DL (70-110)
[2021-01-06] MEDS: LORazepam 2 MG TABLET PO PRN (19:21)
[2021-01-06] MEDS: LURASIDONE HCL 40 MG TABLET PO SCH (20:05)
[2021-01-06] MEDS: ATORVASTATIN CALCIUM 40 MG TABLET PO SCH (20:05)
[2021-01-07 01:43] VITALS: BP 129/80
[2021-01-07] MEDS: INSULIN LISPRO 100 UNITS/ML SQ PRN ×4 (06:30→20:15)
[2021-01-07 06:39] LABS: GLUCOMETER DEV NAME(LOC) BV2S.; GLUCOSE,POINT OF CARE 162 MG/DL (70-110)
[2021-01-07 08:43] VITALS: BP 137/100
[2021-01-07] MEDS: INSULIN GLARGINE,HUM.REC.ANLOG 100 UNITS/ML SQ SCH (08:56)
[2021-01-07] MEDS: LOSARTAN POTASSIUM 50 MG TABLET PO SCH (09:00)
[2021-01-07] MEDS: SitaGLIPtin PHOSPHATE 100 MG TABLET PO SCH (09:00)
[2021-01-07] MEDS: BENZTROPINE MESYLATE 0.5 MG TABLET PO SCH ×2 (09:00→16:34)
[2021-01-07] MEDS: DIVALPROEX SODIUM 500 MG DR TABLET PO SCH ×2 (09:00→16:34)
[2021-01-07 09:04] LABS: GLUCOMETER DEV NAME(LOC) BV2S.; GLUCOSE,POINT OF CARE 258 MG/DL (70-110)
[2021-01-07 11:48] LABS: GLUCOMETER DEV NAME(LOC) BV2S.; GLUCOSE,POINT OF CARE 186 MG/DL (70-110)
[2021-01-07] MEDS: MULTIVITAMINS, THERAPEUTIC TABLET PO SCH (11:50)
[2021-01-07 16:30] VITALS: BP 135/79
[2021-01-07 17:05] LABS: GLUCOMETER DEV NAME(LOC) BV2S.; GLUCOSE,POINT OF CARE 255 MG/DL (70-110)
[2021-01-07] MEDS: ATORVASTATIN CALCIUM 40 MG TABLET PO SCH (20:09)
[2021-01-07] MEDS: LURASIDONE HCL 40 MG TABLET PO SCH (20:09)
[2021-01-07] MEDS: ZOLPIDEM TARTRATE 10 MG TABLET PO PRN (20:35)
[2021-01-07 20:54] LABS: GLUCOMETER DEV NAME(LOC) BV2S.; GLUCOSE,POINT OF CARE 201 MG/DL (70-110)
[2021-01-08 04:17] VITALS: BP 128/73
[2021-01-08] MEDS: INSULIN LISPRO 100 UNITS/ML SQ PRN ×4 (06:39→20:13)
[2021-01-08 06:48] LABS: GLUCOMETER DEV NAME(LOC) BV2S.; GLUCOSE,POINT OF CARE 159 MG/DL (70-110)
[2021-01-08] MEDS: MULTIVITAMINS, THERAPEUTIC TABLET PO SCH (08:08)
[2021-01-08] MEDS: SitaGLIPtin PHOSPHATE 100 MG TABLET PO SCH (08:09)
[2021-01-08] MEDS: LOSARTAN POTASSIUM 50 MG TABLET PO SCH (08:09)
[2021-01-08] MEDS: DIVALPROEX SODIUM 500 MG DR TABLET PO SCH ×2 (08:09→16:05)
[2021-01-08] MEDS: BENZTROPINE MESYLATE 0.5 MG TABLET PO SCH ×2 (08:09→16:05)
[2021-01-08 08:13] VITALS: BP 141/92
[2021-01-08] MEDS: INSULIN GLARGINE,HUM.REC.ANLOG 100 UNITS/ML SQ SCH (08:20)
[2021-01-08 08:26] LABS: GLUCOMETER DEV NAME(LOC) BV2S.; GLUCOSE,POINT OF CARE 284 MG/DL (70-110)
[2021-01-08 11:28] LABS: GLUCOMETER DEV NAME(LOC) BV2S.; GLUCOSE,POINT OF CARE 205 MG/DL (70-110)
[2021-01-08 16:12] VITALS: BP 128/95
[2021-01-08 16:17] LABS: GLUCOMETER DEV NAME(LOC) BV2S.; GLUCOSE,POINT OF CARE 137 MG/DL (70-110)
[2021-01-08] MEDS: ATORVASTATIN CALCIUM 40 MG TABLET PO SCH (20:07)
[2021-01-08] MEDS: LURASIDONE HCL 40 MG TABLET PO SCH (20:07)
[2021-01-08 20:22] LABS: GLUCOMETER DEV NAME(LOC) BV2S.; GLUCOSE,POINT OF CARE 251 MG/DL (70-110)
[2021-01-08] MEDS: ZOLPIDEM TARTRATE 10 MG TABLET PO PRN (20:55)
[2021-01-09 00:26] VITALS: BP 119/76
[2021-01-09 06:22] LABS: GLUCOMETER DEV NAME(LOC) BV2S.; GLUCOSE,POINT OF CARE 138 MG/DL (70-110)
[2021-01-09] MEDS: INSULIN LISPRO 100 UNITS/ML SQ PRN ×4 (06:30→20:03)
[2021-01-09 07:26] LABS: COVID AG,FIA SOURCE NASOPHARYNGEAL
[2021-01-09 08:12] VITALS: BP 139/83
[2021-01-09] MEDS: SitaGLIPtin PHOSPHATE 100 MG TABLET PO SCH (08:18)
[2021-01-09] MEDS: MULTIVITAMINS, THERAPEUTIC TABLET PO SCH (08:18)
[2021-01-09] MEDS: DIVALPROEX SODIUM 500 MG DR TABLET PO SCH ×2 (08:18→16:15)
[2021-01-09] MEDS: LOSARTAN POTASSIUM 50 MG TABLET PO SCH (08:18)
[2021-01-09] MEDS: BENZTROPINE MESYLATE 0.5 MG TABLET PO SCH ×2 (08:18→16:15)
[2021-01-09] MEDS: INSULIN GLARGINE,HUM.REC.ANLOG 100 UNITS/ML SQ SCH (08:25)
[2021-01-09 08:34] LABS: GLUCOMETER DEV NAME(LOC) BV2S.; GLUCOSE,POINT OF CARE 246 MG/DL (70-110)
[2021-01-09 11:23] LABS: GLUCOMETER DEV NAME(LOC) BV2S.; GLUCOSE,POINT OF CARE 154 MG/DL (70-110)
[2021-01-09] MEDS: ACETAMINOPHEN 325 MG TABLET PO PRN (11:47)
[2021-01-09 16:15] VITALS: BP 108/76
[2021-01-09 16:26] LABS: GLUCOMETER DEV NAME(LOC) BV2S.; GLUCOSE,POINT OF CARE 162 MG/DL (70-110)
[2021-01-09] MEDS: LURASIDONE HCL 40 MG TABLET PO SCH (20:01)
[2021-01-09] MEDS: ATORVASTATIN CALCIUM 40 MG TABLET PO SCH (20:01)
[2021-01-09 20:07] LABS: GLUCOMETER DEV NAME(LOC) BV2S.; GLUCOSE,POINT OF CARE 188 MG/DL (70-110)
[2021-01-09] MEDS: ZOLPIDEM TARTRATE 10 MG TABLET PO PRN (20:32)
[2021-01-10 00:25] VITALS: BP 108/76
[2021-01-10 06:19] LABS: GLUCOMETER DEV NAME(LOC) BV2S.; GLUCOSE,POINT OF CARE 161 MG/DL (70-110)
[2021-01-10] MEDS: INSULIN LISPRO 100 UNITS/ML SQ PRN ×4 (06:43→20:35)
[2021-01-10] MEDS: MULTIVITAMINS, THERAPEUTIC TABLET PO SCH (08:18)
[2021-01-10] MEDS: LOSARTAN POTASSIUM 50 MG TABLET PO SCH (08:18)
[2021-01-10] MEDS: DIVALPROEX SODIUM 500 MG DR TABLET PO SCH ×2 (08:18→16:30)
[2021-01-10] MEDS: SitaGLIPtin PHOSPHATE 100 MG TABLET PO SCH (08:18)
[2021-01-10] MEDS: BENZTROPINE MESYLATE 0.5 MG TABLET PO SCH ×2 (08:18→16:30)
[2021-01-10 08:34] VITALS: BP 130/81
[2021-01-10] MEDS: INSULIN GLARGINE,HUM.REC.ANLOG 100 UNITS/ML SQ SCH (08:34)
[2021-01-10 08:35] LABS: GLUCOMETER DEV NAME(LOC) BV2S.; GLUCOSE,POINT OF CARE 279 MG/DL (70-110)
[2021-01-10 11:22] LABS: GLUCOMETER DEV NAME(LOC) BV2S.; GLUCOSE,POINT OF CARE 185 MG/DL (70-110)
[2021-01-10 16:24] VITALS: BP 124/73
[2021-01-10 16:31] LABS: GLUCOMETER DEV NAME(LOC) BV2S.; GLUCOSE,POINT OF CARE 259 MG/DL (70-110)
[2021-01-10 20:21] LABS: GLUCOMETER DEV NAME(LOC) BV2S.; GLUCOSE,POINT OF CARE 231 MG/DL (70-110)
[2021-01-10] MEDS: ATORVASTATIN CALCIUM 40 MG TABLET PO SCH (20:29)
[2021-01-10] MEDS: LURASIDONE HCL 40 MG TABLET PO SCH (20:29)
[2021-01-10] MEDS: ZOLPIDEM TARTRATE 10 MG TABLET PO PRN (20:40)
[2021-01-11 00:09] VITALS: BP 125/83
[2021-01-11 05:56] LABS: GLUCOMETER DEV NAME(LOC) BV2S.; GLUCOSE,POINT OF CARE 163 MG/DL (70-110)
[2021-01-11] MEDS: INSULIN LISPRO 100 UNITS/ML SQ PRN ×4 (06:38→20:30)
[2021-01-11] MEDS: DIVALPROEX SODIUM 500 MG DR TABLET PO SCH ×2 (08:03→16:28)
[2021-01-11] MEDS: SitaGLIPtin PHOSPHATE 100 MG TABLET PO SCH (08:03)
[2021-01-11] MEDS: MULTIVITAMINS, THERAPEUTIC TABLET PO SCH (08:03)
[2021-01-11] MEDS: LOSARTAN POTASSIUM 50 MG TABLET PO SCH (08:03)
[2021-01-11] MEDS: BENZTROPINE MESYLATE 0.5 MG TABLET PO SCH ×2 (08:04→16:28)
[2021-01-11 08:06] VITALS: BP 127/81
[2021-01-11] MEDS: INSULIN GLARGINE,HUM.REC.ANLOG 100 UNITS/ML SQ SCH (08:29)
[2021-01-11] MEDS: BENZOCAINE/MENTHOL LOZENGE PO PRN ×2 (09:45→22:48)
[2021-01-11 10:18] LABS: GLUCOMETER DEV NAME(LOC) BV2S.; GLUCOSE,POINT OF CARE 267 MG/DL (70-110)
[2021-01-11 11:40] LABS: GLUCOMETER DEV NAME(LOC) BV2S.; GLUCOSE,POINT OF CARE 176 MG/DL (70-110)
[2021-01-11] MEDS: ACETAMINOPHEN 325 MG TABLET PO PRN (14:24)
[2021-01-11 16:09] VITALS: BP 129/82
[2021-01-11 16:18] LABS: GLUCOMETER DEV NAME(LOC) BV2S.; GLUCOSE,POINT OF CARE 135 MG/DL (70-110)
[2021-01-11 20:25] LABS: GLUCOMETER DEV NAME(LOC) BV2S.; GLUCOSE,POINT OF CARE 234 MG/DL (70-110)
[2021-01-11] MEDS: ATORVASTATIN CALCIUM 40 MG TABLET PO SCH (20:27)
[2021-01-11] MEDS: LURASIDONE HCL 40 MG TABLET PO SCH (20:27)
[2021-01-11] MEDS: ZOLPIDEM TARTRATE 10 MG TABLET PO PRN (21:57)
[2021-01-12 00:51] VITALS: BP 111/70
[2021-01-12 06:16] LABS: GLUCOMETER DEV NAME(LOC) BV2S.; GLUCOSE,POINT OF CARE 159 MG/DL (70-110)
[2021-01-12] MEDS: INSULIN LISPRO 100 UNITS/ML SQ PRN ×2 (06:46→11:11)
[2021-01-12] MEDS: BENZTROPINE MESYLATE 0.5 MG TABLET PO SCH (08:06)
[2021-01-12] MEDS: MULTIVITAMINS, THERAPEUTIC TABLET PO SCH (08:06)
[2021-01-12] MEDS: SitaGLIPtin PHOSPHATE 100 MG TABLET PO SCH (08:06)
[2021-01-12] MEDS: LOSARTAN POTASSIUM 50 MG TABLET PO SCH (08:06)
[2021-01-12] MEDS: DIVALPROEX SODIUM 500 MG DR TABLET PO SCH (08:06)
[2021-01-12] MEDS: INSULIN GLARGINE,HUM.REC.ANLOG 100 UNITS/ML SQ SCH (08:12)
[2021-01-12 08:22] LABS: GLUCOMETER DEV NAME(LOC) BV2S.; GLUCOSE,POINT OF CARE 304 MG/DL (70-110)
[2021-01-12] MEDS ORDERED: LURA40TA2 PO (08:55)
[2021-01-12] MEDS ORDERED: BENZ0.5T44 PO (08:55)
[2021-01-12] MEDS ORDERED: INSLAN SQ (08:56)
[2021-01-12 11:18] LABS: GLUCOMETER DEV NAME(LOC) BV2S.; GLUCOSE,POINT OF CARE 186 MG/DL (70-110)
== END 2021-01-12 13:10 | disposition home or self-care (01) | DRG 750 ==
LOC: EMS 19:26 → B2S 01-04 11:13
PROVIDERS: ADMIT Psychiatry & Neurology Psychiatry; ATTEND Psychiatry & Neurology Psychiatry
DX: F25.1 Schizoaffective disorder, depressive type (principal); E11.65 Type 2 diabetes mellitus with hyperglycemia; E78.5 Hyperlipidemia, unspecified; G47.00 Insomnia, unspecified; I10 Essential (primary) hypertension; Z20.822 Contact with and (suspected) exposure to COVID-19; J45.909 Unspecified asthma, uncomplicated; K59.00 Constipation, unspecified; Z88.6 Allergy status to analgesic agent; K21.9 Gastro-esophageal reflux disease without esophagitis; F41.9 Anxiety disorder, unspecified
CPT/HCPCS: 80053; 80061; 80164; 80178; 81001; 82962; 85025; 99285; G0480; J1815

== ENCOUNTER 2021-01-14 15:24 | Inpatient (IN) | payer MEDICAID ==
[~2021-01-14] VITALS: Ht 162.6 cm; Wt 103.0 kg
[~2021-01-14 15:24] MED LIST changes: +BENZ0.5T44 PO; -LITH600C5 PO; +LURA40TA2 PO; -METF-960 PO; -OLAN10TA74 PO
[2021-01-14 16:33] LABS: GLUCOMETER DEV NAME(LOC) ERT.5; GLUCOSE,POINT OF CARE 200 MG/DL (70-110)
[2021-01-14 16:57] LABS: BASOPHILS % (AUTO) 0.2 % (0.0-2.0); HEMATOCRIT 42.7 % (41-53); HEMOGLOBIN 14.2 g/dL (13.5-17.5); LYMPHOCYTES # (AUTO) 2.4 K/uL (1.0-4.8); LYMPHOCYTES % (AUTO) 45.7 % (22.0-44.0); MEAN CORPUSCULAR HEMOGLOBIN 28.8 pg (26.0-34.0); MEAN CORPUSCULAR HGB CONC 33.3 G/dL (31.0-37.0); MEAN CORPUSCULAR VOLUME 87 fL (80-100); MONOCYTES # (AUTO) 0.5 K/uL (0.1-1.0); MONOCYTES % (AUTO) 9.7 % (2.0-9.0); NEUTROPHILS # (AUTO) 2.3 K/uL (1.8-7.7); NEUTROPHILS % (AUTO) 43.4 % (40.0-70.0); PLATELET COUNT (AUTO) 209 K/uL (150-450); RED BLOOD CELL COUNT(AUTO) 4.93 MIL/uL (4.50-5.90)
[2021-01-14 17:10] LABS: ANION GAP 9 mmol/L (8-16); CALCIUM, TOTAL 9.7 mg/dL (8.8-10.5); CARBON DIOXIDE 28 mmol/L (22-29); CHLORIDE 97 mmol/L (98-107); CREATININE 0.53 mg/dL (0.60-1.30); GLOMERULAR FILTR. RATE CALC > 60 mL/min (>60); GLUCOSE,RANDOM 198 mg/dL (70-110); POTASSIUM 3.9 mmol/L (3.5-5.1); SODIUM SERUM 134 mmol/L (136-145); UREA NITROGEN, BLOOD 4 mg/dL (7-18)
[2021-01-14 17:12] LABS: AMPHET/METH SCREEN,URINE NEGATIVE (NEGATIVE); BARBITURATE SCREEN, URINE NEGATIVE (NEGATIVE); BENZODIAZEPINES SCREEN,URINE NEGATIVE (NEGATIVE); CANNABINOID SCREEN,URINE NEGATIVE (NEGATIVE); COCAINE SCREEN,URINE NEGATIVE (NEGATIVE); METHADONE SCREEN, URINE NEGATIVE (NEGATIVE); OPIATE SCREEN,URINE NEGATIVE (NEGATIVE)
[2021-01-14 17:15] LABS: ALANINE AMINOTRANSFERASE 58 U/L (12-78); ALKALINE PHOSPHATASE 71 U/L (46-116); ASPARTATE AMINOTRANSFERASE 34 U/L (15-37); TOTAL PROTEIN, SERUM 8.2 g/dL (6.4-8.2)
[2021-01-14 17:17] LABS: PHENCYCLIDINE SCREEN,URINE NEGATIVE (NEGATIVE)
[2021-01-14] MEDS ORDERED: HALOPERIDOL 5 MG TABLET PO PRN (18:00)
[2021-01-14 20:10] LABS: COVID AG,FIA SOURCE NASOPHARYNGEAL
[2021-01-15 02:53] VITALS: BP 136/89
[2021-01-15] MEDS ORDERED: ONDANSETRON HCL 4 MG TABLET PO PRN (06:30)
[2021-01-15] MEDS ORDERED: PETROLATUM,WHITE 28 GM JELLY TP PRN (06:30)
[2021-01-15] MEDS ORDERED: MAGNESIUM HYDROXIDE SUSPENSION 30 ML UDCUP PO PRN (06:30)
[2021-01-15] MEDS ORDERED: OMEPRAZOLE 20 MG CAPSULE PO PRN (06:30)
[2021-01-15] MEDS ORDERED: BENZOCAINE/MENTHOL LOZENGE PO PRN (06:30)
[2021-01-15] MEDS ORDERED: CloNIDine HCL 0.1 MG TABLET PO PRN (06:30)
[2021-01-15] MEDS ORDERED: ALBUTEROL SULFATE HFA 90 MCG/PUFF 8 GM INHALER IH PRN (06:30)
[2021-01-15] MEDS ORDERED: DEXTROSE 50%-WATER 25 GM/50 ML SYRINGE IVP PRN (06:30)
[2021-01-15] MEDS ORDERED: LOPERAMIDE HCL 2 MG CAPSULE PO PRN (06:30)
[2021-01-15] MEDS ORDERED: MAG HYDROX/AL HYDROX/SIMETH ES 30 ML SUSPENSION UDCUP PO PRN (06:30)
[2021-01-15] MEDS ORDERED: BACITRACIN 28 GM OINTMENT TP PRN (06:30)
[2021-01-15] MEDS ORDERED: INSULIN LISPRO 100 UNITS/ML SQ PRN (06:30)
[2021-01-15] MEDS ORDERED: DOCUSATE SODIUM 100 MG CAPSULE PO PRN (06:30)
[2021-01-15] MEDS ORDERED: GLUCAGON,HUMAN RECOMBINANT 1 MG VIAL IM PRN (06:45)
[2021-01-15] MEDS: INSULIN LISPRO 100 UNITS/ML SQ PRN ×4 (06:50→20:53)
[2021-01-15 06:55] LABS: GLUCOMETER DEV NAME(LOC) BV2S.; GLUCOSE,POINT OF CARE 200 MG/DL (70-110)
[2021-01-15 07:45] LABS: CHOL/HDL RATIO 2.2 (4.2-7.3); FREE T4 (FREE THYROXINE) 1.72 ng/dL (0.76-1.46)
[2021-01-15 08:03] VITALS: BP 128/90
[2021-01-15] MEDS: INSULIN GLARGINE,HUM.REC.ANLOG 100 UNITS/ML SQ SCH (08:11)
[2021-01-15 13:08] LABS: GLUCOMETER DEV NAME(LOC) BV2S.; GLUCOSE,POINT OF CARE 178 MG/DL (70-110)
[2021-01-15 16:07] VITALS: BP 142/91
[2021-01-15] MEDS: BENZTROPINE MESYLATE 0.5 MG TABLET PO SCH (16:08)
[2021-01-15] MEDS: DIVALPROEX SODIUM 500 MG DR TABLET PO SCH (16:08)
[2021-01-15 16:24] LABS: GLUCOMETER DEV NAME(LOC) BV2S.; GLUCOSE,POINT OF CARE 201 MG/DL (70-110)
[2021-01-15] MEDS: LURASIDONE HCL 40 MG TABLET PO SCH (20:24)
[2021-01-15] MEDS: ATORVASTATIN CALCIUM 40 MG TABLET PO SCH (20:24)
[2021-01-15 20:40] LABS: GLUCOMETER DEV NAME(LOC) BV2S.; GLUCOSE,POINT OF CARE 198 MG/DL (70-110)
[2021-01-15] MEDS: ZOLPIDEM TARTRATE 10 MG TABLET PO PRN (20:57)
[2021-01-16 01:05] VITALS: BP 123/86
[2021-01-16 06:35] LABS: GLUCOMETER DEV NAME(LOC) BV2S.; GLUCOSE,POINT OF CARE 182 MG/DL (70-110)
[2021-01-16] MEDS: INSULIN LISPRO 100 UNITS/ML SQ PRN ×4 (06:45→20:44)
[2021-01-16 08:12] VITALS: BP 135/81
[2021-01-16] MEDS: BENZTROPINE MESYLATE 0.5 MG TABLET PO SCH ×2 (08:31→16:30)
[2021-01-16] MEDS: DIVALPROEX SODIUM 500 MG DR TABLET PO SCH ×2 (08:31→16:29)
[2021-01-16] MEDS: LOSARTAN POTASSIUM 50 MG TABLET PO SCH (08:35)
[2021-01-16] MEDS: INSULIN GLARGINE,HUM.REC.ANLOG 100 UNITS/ML SQ SCH (08:53)
[2021-01-16 09:00] LABS: GLUCOMETER DEV NAME(LOC) BV2S.; GLUCOSE,POINT OF CARE 257 MG/DL (70-110)
[2021-01-16 11:40] LABS: GLUCOMETER DEV NAME(LOC) BV2S.; GLUCOSE,POINT OF CARE 207 MG/DL (70-110)
[2021-01-16] MEDS: ACETAMINOPHEN 325 MG TABLET PO PRN ×2 (12:36→17:24)
[2021-01-16 16:03] VITALS: BP 126/83
[2021-01-16 16:17] LABS: GLUCOMETER DEV NAME(LOC) BV2S.; GLUCOSE,POINT OF CARE 143 MG/DL (70-110)
[2021-01-16 20:23] LABS: GLUCOMETER DEV NAME(LOC) BV2S.; GLUCOSE,POINT OF CARE 241 MG/DL (70-110)
[2021-01-16] MEDS: ATORVASTATIN CALCIUM 40 MG TABLET PO SCH (20:29)
[2021-01-16] MEDS: LURASIDONE HCL 40 MG TABLET PO SCH (20:29)
[2021-01-16] MEDS: ZOLPIDEM TARTRATE 10 MG TABLET PO PRN (20:56)
[2021-01-17 00:33] VITALS: BP 124/86
[2021-01-17 06:14] LABS: GLUCOMETER DEV NAME(LOC) BV2S.; GLUCOSE,POINT OF CARE 187 MG/DL (70-110)
[2021-01-17] MEDS: INSULIN LISPRO 100 UNITS/ML SQ PRN ×4 (06:27→20:38)
[2021-01-17] MEDS: ACETAMINOPHEN 325 MG TABLET PO PRN ×2 (06:42→16:18)
[2021-01-17 08:15] VITALS: BP 132/81
[2021-01-17] MEDS: BENZTROPINE MESYLATE 0.5 MG TABLET PO SCH ×2 (08:38→17:13)
[2021-01-17] MEDS: LOSARTAN POTASSIUM 50 MG TABLET PO SCH (08:38)
[2021-01-17] MEDS: DIVALPROEX SODIUM 500 MG DR TABLET PO SCH ×2 (08:38→17:13)
[2021-01-17] MEDS: INSULIN GLARGINE,HUM.REC.ANLOG 100 UNITS/ML SQ SCH (08:44)
[2021-01-17 08:50] LABS: GLUCOMETER DEV NAME(LOC) BV2S.; GLUCOSE,POINT OF CARE 286 MG/DL (70-110)
[2021-01-17 11:30] LABS: GLUCOMETER DEV NAME(LOC) BV2S.; GLUCOSE,POINT OF CARE 208 MG/DL (70-110)
[2021-01-17 16:06] VITALS: BP 134/89
[2021-01-17 16:26] LABS: GLUCOMETER DEV NAME(LOC) BV2S.; GLUCOSE,POINT OF CARE 248 MG/DL (70-110)
[2021-01-17 20:23] LABS: GLUCOMETER DEV NAME(LOC) BV2S.; GLUCOSE,POINT OF CARE 155 MG/DL (70-110)
[2021-01-17] MEDS: LURASIDONE HCL 40 MG TABLET PO SCH (20:27)
[2021-01-17] MEDS: ATORVASTATIN CALCIUM 40 MG TABLET PO SCH (20:27)
[2021-01-17] MEDS: ZOLPIDEM TARTRATE 10 MG TABLET PO PRN (20:40)
[2021-01-18 00:59] VITALS: BP 129/82
[2021-01-18 06:13] LABS: GLUCOMETER DEV NAME(LOC) BV2S.; GLUCOSE,POINT OF CARE 176 MG/DL (70-110)
[2021-01-18] MEDS: INSULIN LISPRO 100 UNITS/ML SQ PRN ×4 (06:40→20:36)
[2021-01-18] MEDS: INSULIN GLARGINE,HUM.REC.ANLOG 100 UNITS/ML SQ SCH (08:12)
[2021-01-18] MEDS: ACETAMINOPHEN 325 MG TABLET PO PRN ×3 (08:15→19:29)
[2021-01-18 08:18] LABS: GLUCOMETER DEV NAME(LOC) BV2S.; GLUCOSE,POINT OF CARE 283 MG/DL (70-110)
[2021-01-18 08:24] VITALS: BP 135/90
[2021-01-18] MEDS: SitaGLIPtin PHOSPHATE 100 MG TABLET PO SCH (08:48)
[2021-01-18] MEDS: LOSARTAN POTASSIUM 50 MG TABLET PO SCH (08:48)
[2021-01-18] MEDS: DIVALPROEX SODIUM 500 MG DR TABLET PO SCH ×2 (08:48→16:28)
[2021-01-18] MEDS: BENZTROPINE MESYLATE 0.5 MG TABLET PO SCH ×2 (08:48→16:28)
[2021-01-18 11:25] LABS: GLUCOMETER DEV NAME(LOC) BV2S.; GLUCOSE,POINT OF CARE 146 MG/DL (70-110)
[2021-01-18] MEDS: LORazepam 2 MG TABLET PO PRN (14:20)
[2021-01-18 16:11] VITALS: BP 119/77
[2021-01-18 16:18] LABS: GLUCOMETER DEV NAME(LOC) BV2S.; GLUCOSE,POINT OF CARE 214 MG/DL (70-110)
[2021-01-18 20:16] LABS: GLUCOMETER DEV NAME(LOC) BV2S.; GLUCOSE,POINT OF CARE 244 MG/DL (70-110)
[2021-01-18] MEDS: LURASIDONE HCL 40 MG TABLET PO SCH (20:29)
[2021-01-18] MEDS: ATORVASTATIN CALCIUM 40 MG TABLET PO SCH (20:29)
[2021-01-18] MEDS: ZOLPIDEM TARTRATE 10 MG TABLET PO PRN (21:28)
[2021-01-19 05:29] VITALS: BP 119/74
[2021-01-19 06:18] LABS: GLUCOMETER DEV NAME(LOC) BV2S.; GLUCOSE,POINT OF CARE 163 MG/DL (70-110)
[2021-01-19] MEDS: INSULIN LISPRO 100 UNITS/ML SQ PRN ×4 (06:35→20:54)
[2021-01-19 08:12] VITALS: BP 131/85
[2021-01-19] MEDS: DIVALPROEX SODIUM 500 MG DR TABLET PO SCH ×2 (08:54→16:14)
[2021-01-19] MEDS: LOSARTAN POTASSIUM 50 MG TABLET PO SCH (08:54)
[2021-01-19] MEDS: BENZTROPINE MESYLATE 0.5 MG TABLET PO SCH ×2 (08:54→16:14)
[2021-01-19] MEDS: SitaGLIPtin PHOSPHATE 100 MG TABLET PO SCH (08:54)
[2021-01-19] MEDS: INSULIN GLARGINE,HUM.REC.ANLOG 100 UNITS/ML SQ SCH ×2 (09:01→21:43)
[2021-01-19 09:14] LABS: GLUCOMETER DEV NAME(LOC) BV2S.; GLUCOSE,POINT OF CARE 218 MG/DL (70-110)
[2021-01-19] MEDS: ACETAMINOPHEN 325 MG TABLET PO PRN (11:21)
[2021-01-19 11:38] LABS: GLUCOMETER DEV NAME(LOC) BV2S.; GLUCOSE,POINT OF CARE 199 MG/DL (70-110)
[2021-01-19 14:19] LABS: GLUCOMETER DEV NAME(LOC) POC.BV
[2021-01-19 16:03] VITALS: BP 136/91
[2021-01-19 17:04] LABS: GLUCOMETER DEV NAME(LOC) BV2S.; GLUCOSE,POINT OF CARE 133 MG/DL (70-110)
[2021-01-19] MEDS: LURASIDONE HCL 40 MG TABLET PO SCH (20:01)
[2021-01-19] MEDS: ATORVASTATIN CALCIUM 40 MG TABLET PO SCH (20:01)
[2021-01-19] MEDS: ZOLPIDEM TARTRATE 10 MG TABLET PO PRN (20:28)
[2021-01-19 20:54] LABS: GLUCOMETER DEV NAME(LOC) BV2S.; GLUCOSE,POINT OF CARE 224 MG/DL (70-110)
[2021-01-20 02:23] VITALS: BP 123/77
[2021-01-20 06:44] LABS: GLUCOMETER DEV NAME(LOC) BV2S.; GLUCOSE,POINT OF CARE 220 MG/DL (70-110)
[2021-01-20] MEDS: INSULIN LISPRO 100 UNITS/ML SQ PRN ×4 (06:44→21:36)
[2021-01-20] MEDS: INSULIN GLARGINE,HUM.REC.ANLOG 100 UNITS/ML SQ SCH ×2 (06:47→21:36)
[2021-01-20 08:11] VITALS: BP 133/88
[2021-01-20] MEDS: SitaGLIPtin PHOSPHATE 100 MG TABLET PO SCH (08:41)
[2021-01-20] MEDS: DIVALPROEX SODIUM 500 MG DR TABLET PO SCH ×2 (08:42→16:30)
[2021-01-20] MEDS: BENZTROPINE MESYLATE 0.5 MG TABLET PO SCH ×2 (08:42→16:30)
[2021-01-20] MEDS: LOSARTAN POTASSIUM 50 MG TABLET PO SCH (08:42)
[2021-01-20 11:36] LABS: GLUCOMETER DEV NAME(LOC) BV2S.; GLUCOSE,POINT OF CARE 174 MG/DL (70-110)
[2021-01-20] MEDS: ACETAMINOPHEN 325 MG TABLET PO PRN (13:46)
[2021-01-20 16:17] VITALS: BP 133/89
[2021-01-20 16:35] LABS: GLUCOMETER DEV NAME(LOC) BV2S.; GLUCOSE,POINT OF CARE 154 MG/DL (70-110)
[2021-01-20] MEDS: LURASIDONE HCL 40 MG TABLET PO SCH (21:20)
[2021-01-20] MEDS: ATORVASTATIN CALCIUM 40 MG TABLET PO SCH (21:20)
[2021-01-20] MEDS: ZOLPIDEM TARTRATE 10 MG TABLET PO PRN (21:31)
[2021-01-20 21:36] LABS: GLUCOMETER DEV NAME(LOC) BV2S.; GLUCOSE,POINT OF CARE 184 MG/DL (70-110)
[2021-01-21 04:13] VITALS: BP 123/80
[2021-01-21 06:37] LABS: GLUCOMETER DEV NAME(LOC) BV2S.; GLUCOSE,POINT OF CARE 170 MG/DL (70-110)
[2021-01-21] MEDS: INSULIN GLARGINE,HUM.REC.ANLOG 100 UNITS/ML SQ SCH ×2 (06:43→20:32)
[2021-01-21] MEDS: INSULIN LISPRO 100 UNITS/ML SQ PRN ×4 (06:43→20:33)
[2021-01-21 08:07] VITALS: BP 140/91
[2021-01-21] MEDS: SitaGLIPtin PHOSPHATE 100 MG TABLET PO SCH (09:10)
[2021-01-21] MEDS: DIVALPROEX SODIUM 500 MG DR TABLET PO SCH ×2 (09:10→16:29)
[2021-01-21] MEDS: BENZTROPINE MESYLATE 0.5 MG TABLET PO SCH ×2 (09:10→16:29)
[2021-01-21] MEDS: LOSARTAN POTASSIUM 50 MG TABLET PO SCH (09:10)
[2021-01-21 11:24] LABS: GLUCOMETER DEV NAME(LOC) BV2S.; GLUCOSE,POINT OF CARE 125 MG/DL (70-110)
[2021-01-21] MEDS: MULTIVITAMINS, THERAPEUTIC TABLET PO SCH (11:32)
[2021-01-21 16:05] VITALS: BP 129/83
[2021-01-21 16:20] LABS: GLUCOMETER DEV NAME(LOC) BV2S.; GLUCOSE,POINT OF CARE 138 MG/DL (70-110)
[2021-01-21 20:16] LABS: GLUCOMETER DEV NAME(LOC) BV2S.; GLUCOSE,POINT OF CARE 209 MG/DL (70-110)
[2021-01-21] MEDS: LURASIDONE HCL 40 MG TABLET PO SCH (20:31)
[2021-01-21] MEDS: ATORVASTATIN CALCIUM 40 MG TABLET PO SCH (20:31)
[2021-01-21] MEDS: ZOLPIDEM TARTRATE 10 MG TABLET PO PRN (21:06)
[2021-01-22 05:06] VITALS: BP 107/72
[2021-01-22 06:13] LABS: GLUCOMETER DEV NAME(LOC) BV2S.; GLUCOSE,POINT OF CARE 181 MG/DL (70-110)
[2021-01-22] MEDS: INSULIN GLARGINE,HUM.REC.ANLOG 100 UNITS/ML SQ SCH ×2 (06:34→20:14)
[2021-01-22] MEDS: INSULIN LISPRO 100 UNITS/ML SQ PRN ×4 (06:35→20:14)
[2021-01-22 08:03] VITALS: BP 119/78
[2021-01-22] MEDS: DIVALPROEX SODIUM 500 MG DR TABLET PO SCH ×2 (09:09→16:15)
[2021-01-22] MEDS: SitaGLIPtin PHOSPHATE 100 MG TABLET PO SCH (09:09)
[2021-01-22] MEDS: MULTIVITAMINS, THERAPEUTIC TABLET PO SCH (09:09)
[2021-01-22] MEDS: LOSARTAN POTASSIUM 50 MG TABLET PO SCH (09:09)
[2021-01-22] MEDS: BENZTROPINE MESYLATE 0.5 MG TABLET PO SCH ×2 (09:09→16:15)
[2021-01-22] MEDS: ACETAMINOPHEN 325 MG TABLET PO PRN (11:09)
[2021-01-22 11:29] LABS: GLUCOMETER DEV NAME(LOC) BV2S.; GLUCOSE,POINT OF CARE 144 MG/DL (70-110)
[2021-01-22 16:22] VITALS: BP 119/82
[2021-01-22 16:47] LABS: GLUCOMETER DEV NAME(LOC) BV2S.; GLUCOSE,POINT OF CARE 150 MG/DL (70-110)
[2021-01-22] MEDS: LURASIDONE HCL 40 MG TABLET PO SCH (20:12)
[2021-01-22] MEDS: ATORVASTATIN CALCIUM 40 MG TABLET PO SCH (20:12)
[2021-01-22] MEDS: ZOLPIDEM TARTRATE 10 MG TABLET PO PRN (20:33)
[2021-01-22 20:45] LABS: GLUCOMETER DEV NAME(LOC) BV2S.; GLUCOSE,POINT OF CARE 190 MG/DL (70-110)
[2021-01-23 00:57] VITALS: BP 128/77
[2021-01-23 06:19] LABS: GLUCOMETER DEV NAME(LOC) BV2S.; GLUCOSE,POINT OF CARE 141 MG/DL (70-110)
[2021-01-23] MEDS: INSULIN GLARGINE,HUM.REC.ANLOG 100 UNITS/ML SQ SCH ×2 (06:57→20:41)
[2021-01-23] MEDS: INSULIN LISPRO 100 UNITS/ML SQ PRN ×4 (06:58→20:41)
[2021-01-23 08:12] VITALS: BP 136/90
[2021-01-23] MEDS: SitaGLIPtin PHOSPHATE 100 MG TABLET PO SCH (08:51)
[2021-01-23] MEDS: MULTIVITAMINS, THERAPEUTIC TABLET PO SCH (08:52)
[2021-01-23] MEDS: LOSARTAN POTASSIUM 50 MG TABLET PO SCH (08:52)
[2021-01-23] MEDS: BENZTROPINE MESYLATE 0.5 MG TABLET PO SCH ×2 (08:52→16:28)
[2021-01-23] MEDS: DIVALPROEX SODIUM 500 MG DR TABLET PO SCH ×2 (08:52→16:28)
[2021-01-23 11:23] LABS: GLUCOMETER DEV NAME(LOC) BV2S.; GLUCOSE,POINT OF CARE 155 MG/DL (70-110)
[2021-01-23] MEDS: LORazepam 2 MG TABLET PO PRN (12:46)
[2021-01-23 16:02] VITALS: BP 127/89
[2021-01-23 16:58] LABS: GLUCOMETER DEV NAME(LOC) BV2S.; GLUCOSE,POINT OF CARE 129 MG/DL (70-110)
[2021-01-23] MEDS: ATORVASTATIN CALCIUM 40 MG TABLET PO SCH (20:11)
[2021-01-23] MEDS: LURASIDONE HCL 40 MG TABLET PO SCH (20:11)
[2021-01-23] MEDS: ZOLPIDEM TARTRATE 10 MG TABLET PO PRN (20:34)
[2021-01-23 20:58] LABS: GLUCOMETER DEV NAME(LOC) BV2S.; GLUCOSE,POINT OF CARE 187 MG/DL (70-110)
[2021-01-24 00:21] VITALS: BP 124/81
[2021-01-24 06:11] LABS: GLUCOMETER DEV NAME(LOC) BV2S.; GLUCOSE,POINT OF CARE 173 MG/DL (70-110)
[2021-01-24] MEDS: INSULIN LISPRO 100 UNITS/ML SQ PRN ×4 (06:34→20:35)
[2021-01-24] MEDS: INSULIN GLARGINE,HUM.REC.ANLOG 100 UNITS/ML SQ SCH ×2 (06:36→20:35)
[2021-01-24] MEDS: MULTIVITAMINS, THERAPEUTIC TABLET PO SCH (08:13)
[2021-01-24] MEDS: DIVALPROEX SODIUM 500 MG DR TABLET PO SCH ×2 (08:13→16:30)
[2021-01-24] MEDS: LOSARTAN POTASSIUM 50 MG TABLET PO SCH (08:13)
[2021-01-24] MEDS: BENZTROPINE MESYLATE 0.5 MG TABLET PO SCH ×2 (08:13→16:30)
[2021-01-24] MEDS: SitaGLIPtin PHOSPHATE 100 MG TABLET PO SCH (08:13)
[2021-01-24 08:49] VITALS: BP 145/81
[2021-01-24] MEDS: ACETAMINOPHEN 325 MG TABLET PO PRN (08:49)
[2021-01-24 09:56] VITALS: BP 145/81
[2021-01-24 11:06] LABS: GLUCOMETER DEV NAME(LOC) BV2S.; GLUCOSE,POINT OF CARE 165 MG/DL (70-110)
[2021-01-24 16:10] VITALS: BP 124/81
[2021-01-24 16:17] LABS: GLUCOMETER DEV NAME(LOC) BV2S.; GLUCOSE,POINT OF CARE 187 MG/DL (70-110)
[2021-01-24 20:18] LABS: GLUCOMETER DEV NAME(LOC) BV2S.; GLUCOSE,POINT OF CARE 204 MG/DL (70-110)
[2021-01-24] MEDS: ATORVASTATIN CALCIUM 40 MG TABLET PO SCH (20:34)
[2021-01-24] MEDS: LURASIDONE HCL 40 MG TABLET PO SCH (20:34)
[2021-01-24] MEDS: ZOLPIDEM TARTRATE 10 MG TABLET PO PRN (21:23)
[2021-01-25 00:52] VITALS: BP 137/85
[2021-01-25] MEDS: INSULIN LISPRO 100 UNITS/ML SQ PRN ×2 (07:03→11:31)
[2021-01-25] MEDS: INSULIN GLARGINE,HUM.REC.ANLOG 100 UNITS/ML SQ SCH (07:03)
[2021-01-25 08:05] VITALS: BP 149/100
[2021-01-25] MEDS: SitaGLIPtin PHOSPHATE 100 MG TABLET PO SCH (09:09)
[2021-01-25] MEDS: DIVALPROEX SODIUM 500 MG DR TABLET PO SCH ×2 (09:09→16:04)
[2021-01-25] MEDS: MULTIVITAMINS, THERAPEUTIC TABLET PO SCH (09:09)
[2021-01-25] MEDS: LOSARTAN POTASSIUM 50 MG TABLET PO SCH (09:10)
[2021-01-25] MEDS: BENZTROPINE MESYLATE 0.5 MG TABLET PO SCH ×2 (09:10→16:04)
[2021-01-25 11:24] LABS: GLUCOMETER DEV NAME(LOC) BV2S.; GLUCOSE,POINT OF CARE 159 MG/DL (70-110)
[2021-01-25 11:28] LABS: GLUCOMETER DEV NAME(LOC) BV2S.; GLUCOSE,POINT OF CARE 158 MG/DL (70-110)
[2021-01-25] MEDS ORDERED: DIVA-112 PO (14:48)
[2021-01-25] MEDS ORDERED: INSU100V SQ ×2 (14:50→14:51)
[2021-01-25 16:03] VITALS: BP 138/94
== END 2021-01-25 16:35 | disposition home or self-care (01) | DRG 750 ==
LOC: EMS 15:28 → B2S 18:26
PROVIDERS: ADMIT Psychiatry & Neurology Psychiatry; ATTEND Psychiatry & Neurology Psychiatry
DX: F25.1 Schizoaffective disorder, depressive type (principal); R45.851 Suicidal ideations; F79 Unspecified intellectual disabilities; E11.65 Type 2 diabetes mellitus with hyperglycemia; F41.9 Anxiety disorder, unspecified; F31.9 Bipolar disorder, unspecified; G47.00 Insomnia, unspecified; I10 Essential (primary) hypertension; J45.909 Unspecified asthma, uncomplicated; K21.9 Gastro-esophageal reflux disease without esophagitis; E78.5 Hyperlipidemia, unspecified; K59.00 Constipation, unspecified; Z20.822 Contact with and (suspected) exposure to COVID-19; Z79.899 Other long term (current) drug therapy; Z88.8 Allergy status to other drugs, medicaments and biological substances
CPT/HCPCS: 80053; 80061; 80164; 82962; 84436; 84439; 85025; 87081; 99285; G0480; J1815; Q0162

== ENCOUNTER 2021-01-27 17:49 | Emergency (ER) | payer MEDICAID, OTHER ==
[~2021-01-27] VITALS: Ht 162.6 cm; Wt 99.1 kg
[~2021-01-27 17:49] MED LIST changes: +DIVA-112 PO; -INSLAN SQ; +INSU100V SQ
[2021-01-27 19:49] LABS: BASOPHILS % (AUTO) 0.4 % (0.0-2.0); EOSINOPHILS % (AUTO) 0.2 % (1.0-6.0); HEMATOCRIT 40.7 % (41-53); HEMOGLOBIN 13.6 g/dL (13.5-17.5); LYMPHOCYTES # (AUTO) 1.6 K/uL (1.0-4.8); LYMPHOCYTES % (AUTO) 28.4 % (22.0-44.0); MEAN CORPUSCULAR HGB CONC 33.4 G/dL (31.0-37.0); MEAN CORPUSCULAR VOLUME 87 fL (80-100); MONOCYTES # (AUTO) 0.5 K/uL (0.1-1.0); MONOCYTES % (AUTO) 9.3 % (2.0-9.0); NEUTROPHILS # (AUTO) 3.5 K/uL (1.8-7.7); NEUTROPHILS % (AUTO) 61.7 % (40.0-70.0); PLATELET COUNT (AUTO) 226 K/uL (150-450); RED BLOOD CELL COUNT(AUTO) 4.69 MIL/uL (4.50-5.90); RED CELL DISTRIBUTION WIDTH 13.5 % (11.5-14.5)
[2021-01-27 20:01] LABS: ANION GAP 9 mmol/L (8-16); CALCIUM, TOTAL 9.6 mg/dL (8.8-10.5); CARBON DIOXIDE 30 mmol/L (22-29); CHLORIDE 103 mmol/L (98-107); CREATININE 0.69 mg/dL (0.60-1.30); GLOMERULAR FILTR. RATE CALC > 60 mL/min (>60); GLUCOSE,RANDOM 169 mg/dL (70-110); POTASSIUM 3.7 mmol/L (3.5-5.1); SODIUM SERUM 142 mmol/L (136-145); UREA NITROGEN, BLOOD 5 mg/dL (7-18)
[2021-01-27 20:07] LABS: ALANINE AMINOTRANSFERASE 40 U/L (12-78); ALBUMIN 3.8 g/dL (3.4-5.0); ALKALINE PHOSPHATASE 59 U/L (46-116); ASPARTATE AMINOTRANSFERASE 33 U/L (15-37); BILIRUBIN,TOTAL 1.2 mg/dL (0.1-1.0); TOTAL PROTEIN, SERUM 7.5 g/dL (6.4-8.2); VALPROIC ACID 33 mcg/mL (50-100)
[2021-01-27 20:08] LABS: COVID AG,FIA SOURCE NASOPHARYNGEAL
[2021-01-27 20:17] LABS: APPEARANCE,URINE CLOUDY (CLEAR); BILIRUBIN,URINE NEGATIVE (NEGATIVE); GLUCOSE, URINE (UA) 250 mg/dL (NEGATIVE); KETONES,URINE 15 mg/dL (NEGATIVE); LEUKOCYTE ESTERASE ,URINE NEGATIVE (NEGATIVE); NITRATE,URINE NEGATIVE (NEGATIVE); OCCULT BLOOD,URINE TRACE (NEGATIVE); PROTEIN,URINE SEE CONFIRM (NEGATIVE); UROBILINOGEN,URINE 0.2 mg/dL (<=1.0)
[2021-01-27 20:33] LABS: AMPHET/METH SCREEN,URINE NEGATIVE (NEGATIVE); BARBITURATE SCREEN, URINE NEGATIVE (NEGATIVE); BENZODIAZEPINES SCREEN,URINE NEGATIVE (NEGATIVE); CANNABINOID SCREEN,URINE NEGATIVE (NEGATIVE); COCAINE SCREEN,URINE NEGATIVE (NEGATIVE); METHADONE SCREEN, URINE NEGATIVE (NEGATIVE); OPIATE SCREEN,URINE NEGATIVE (NEGATIVE)
[2021-01-27 20:39] LABS: PHENCYCLIDINE SCREEN,URINE NEGATIVE (NEGATIVE)
[2021-01-27 21:01] LABS: BACTERIA,URINE Rare /HPF (None Seen); RBC,URINE 0-2 /HPF (0-2)
[2021-01-27 21:05] LABS: SQUAMOUS EPITHELIAL CELL,UR Few /LPF (None Seen); SULFOSALICYLIC ACID,URINE 1+ (Negative)
[2021-01-27] MEDS ORDERED: LORazepam 1 MG TABLET PO ONE (21:30)
[2021-01-27 21:49] VITALS: BP 156/95
== END 2021-01-27 23:37 | disposition home or self-care (01) ==
LOC: EMS 17:54
DX: F20.9 Schizophrenia, unspecified (principal); F31.9 Bipolar disorder, unspecified; F41.9 Anxiety disorder, unspecified; I10 Essential (primary) hypertension; K21.9 Gastro-esophageal reflux disease without esophagitis; E11.9 Type 2 diabetes mellitus without complications; Z88.6 Allergy status to analgesic agent; Z88.8 Allergy status to other drugs, medicaments and biological substances; Z79.4 Long term (current) use of insulin; Z79.899 Other long term (current) drug therapy; Z20.822 Contact with and (suspected) exposure to COVID-19
CPT/HCPCS: 36415; 80053; 80164; 80307; 81001; 85025; 87426; 99284; G0480; 81002

== ENCOUNTER 2021-02-15 17:44 | Inpatient (IN) | payer MEDICAID, OTHER ==
[~2021-02-15] VITALS: Ht 170.2 cm; Wt 94.4 kg
[2021-02-15 18:21] LABS: BASOPHILS % (AUTO) 0.3 % (0.0-2.0); HEMATOCRIT 40.3 % (41-53); HEMOGLOBIN 13.6 g/dL (13.5-17.5); LYMPHOCYTES # (AUTO) 1.6 K/uL (1.0-4.8); LYMPHOCYTES % (AUTO) 23.2 % (22.0-44.0); MEAN CORPUSCULAR HEMOGLOBIN 29.2 pg (26.0-34.0); MEAN CORPUSCULAR HGB CONC 33.7 G/dL (31.0-37.0); MEAN CORPUSCULAR VOLUME 86 fL (80-100); MONOCYTES # (AUTO) 0.5 K/uL (0.1-1.0); MONOCYTES % (AUTO) 6.6 % (2.0-9.0); NEUTROPHILS # (AUTO) 4.7 K/uL (1.8-7.7); NEUTROPHILS % (AUTO) 68.9 % (40.0-70.0); PLATELET COUNT (AUTO) 234 K/uL (150-450); RED BLOOD CELL COUNT(AUTO) 4.66 MIL/uL (4.50-5.90); RED CELL DISTRIBUTION WIDTH 13.6 % (11.5-14.5)
[2021-02-15 18:36] LABS: ANION GAP 10 mmol/L (8-16); CALCIUM, TOTAL 9.3 mg/dL (8.8-10.5); CARBON DIOXIDE 26 mmol/L (22-29); CHLORIDE 104 mmol/L (98-107); CREATININE 0.67 mg/dL (0.60-1.30); GLOMERULAR FILTR. RATE CALC > 60 mL/min (>60); GLUCOSE,RANDOM 151 mg/dL (70-110); POTASSIUM 3.9 mmol/L (3.5-5.1); SODIUM SERUM 140 mmol/L (136-145); UREA NITROGEN, BLOOD 8 mg/dL (7-18)
[2021-02-15 18:42] LABS: ALANINE AMINOTRANSFERASE 32 U/L (12-78); ALBUMIN 4.2 g/dL (3.4-5.0); ALKALINE PHOSPHATASE 71 U/L (46-116); ASPARTATE AMINOTRANSFERASE 18 U/L (15-37); BILIRUBIN,TOTAL 1.2 mg/dL (0.1-1.0); TOTAL PROTEIN, SERUM 7.8 g/dL (6.4-8.2)
[2021-02-15 18:46] LABS: AMPHET/METH SCREEN,URINE NEGATIVE (NEGATIVE); BARBITURATE SCREEN, URINE NEGATIVE (NEGATIVE); BENZODIAZEPINES SCREEN,URINE NEGATIVE (NEGATIVE); CANNABINOID SCREEN,URINE NEGATIVE (NEGATIVE); COCAINE SCREEN,URINE NEGATIVE (NEGATIVE); METHADONE SCREEN, URINE NEGATIVE (NEGATIVE); OPIATE SCREEN,URINE NEGATIVE (NEGATIVE)
[2021-02-15 18:53] LABS: PHENCYCLIDINE SCREEN,URINE NEGATIVE (NEGATIVE)
[2021-02-15 22:01] LABS: COVID AG,FIA SOURCE NASOPHARYNGEAL
[2021-02-15] MEDS: HALOPERIDOL 5 MG TABLET PO PRN (23:00)
[2021-02-15] MEDS: ZOLPIDEM TARTRATE 10 MG TABLET PO PRN (23:00)
[2021-02-16 02:34] LABS: CHOLESTEROL 82 mg/dL (131-200); HDL CHOLESTEROL 42 mg/dL (40-60); LDL CHOL (CALC.) 25 mg/dL (0-130); TRIGLYCERIDES 77 mg/dL (15-150)
[2021-02-16 07:19] LABS: CHOL/HDL RATIO 1.9 (4.2-7.3)
[2021-02-16 10:00] VITALS: BP 136/89
[2021-02-16 13:36] LABS: GLUCOMETER DEV NAME(LOC) BV3N.; GLUCOSE,POINT OF CARE 301 MG/DL (70-110)
[2021-02-16] MEDS ORDERED: -PHARMACY VACCINE NOTE- MISC ONE (14:00)
[2021-02-16 16:06] VITALS: BP 131/90
[2021-02-16] MEDS: INSULIN LISPRO 100 UNITS/ML SQ PRN ×2 (16:57→21:19)
[2021-02-16 17:03] LABS: GLUCOMETER DEV NAME(LOC) BV3N.; GLUCOSE,POINT OF CARE 157 MG/DL (70-110)
[2021-02-16] MEDS ORDERED: ACETAMINOPHEN 325 MG TABLET PO PRN (18:30)
[2021-02-16] MEDS: ATORVASTATIN CALCIUM 40 MG TABLET PO SCH (21:17)
[2021-02-16] MEDS: INSULIN GLARGINE,HUM.REC.ANLOG 100 UNITS/ML SQ SCH (21:21)
[2021-02-16 21:25] LABS: GLUCOMETER DEV NAME(LOC) BV3N.; GLUCOSE,POINT OF CARE 192 MG/DL (70-110)
[2021-02-16] MEDS: ZOLPIDEM TARTRATE 10 MG TABLET PO PRN (21:36)
[2021-02-16] MEDS: HALOPERIDOL 5 MG TABLET PO PRN (21:36)
[2021-02-17 05:15] VITALS: BP 128/81
[2021-02-17 06:31] LABS: GLUCOMETER DEV NAME(LOC) BV3N.; GLUCOSE,POINT OF CARE 146 MG/DL (70-110)
[2021-02-17] MEDS: INSULIN LISPRO 100 UNITS/ML SQ PRN ×3 (06:31→16:45)
[2021-02-17 08:33] VITALS: BP 138/85
[2021-02-17] MEDS: SitaGLIPtin PHOSPHATE 100 MG TABLET PO SCH (08:53)
[2021-02-17] MEDS: DIVALPROEX SODIUM 500 MG DR TABLET PO SCH ×2 (08:53→16:40)
[2021-02-17] MEDS: LOSARTAN POTASSIUM 50 MG TABLET PO SCH (08:54)
[2021-02-17] MEDS: LITHIUM CARBONATE 300 MG CAPSULE PO SCH ×2 (08:54→16:39)
[2021-02-17] MEDS: INSULIN GLARGINE,HUM.REC.ANLOG 100 UNITS/ML SQ SCH ×2 (09:00→21:28)
[2021-02-17 12:37] LABS: GLUCOMETER DEV NAME(LOC) BV3S.; GLUCOSE,POINT OF CARE 156 MG/DL (70-110)
[2021-02-17] MEDS ORDERED: ONDANSETRON HCL 4 MG TABLET PO PRN (12:45)
[2021-02-17] MEDS ORDERED: BENZOCAINE/MENTHOL LOZENGE PO PRN (12:45)
[2021-02-17] MEDS ORDERED: MAG HYDROX/AL HYDROX/SIMETH ES 30 ML SUSPENSION UDCUP PO PRN (12:45)
[2021-02-17] MEDS ORDERED: OMEPRAZOLE 20 MG CAPSULE PO PRN (12:45)
[2021-02-17] MEDS ORDERED: MAGNESIUM HYDROXIDE SUSPENSION 30 ML UDCUP PO PRN (12:45)
[2021-02-17] MEDS ORDERED: CloNIDine HCL 0.1 MG TABLET PO PRN (12:45)
[2021-02-17] MEDS ORDERED: PETROLATUM,WHITE 28 GM JELLY TP PRN (12:45)
[2021-02-17] MEDS ORDERED: LOPERAMIDE HCL 2 MG CAPSULE PO PRN (12:45)
[2021-02-17] MEDS ORDERED: DOCUSATE SODIUM 100 MG CAPSULE PO PRN (12:45)
[2021-02-17] MEDS ORDERED: BACITRACIN 28 GM OINTMENT TP PRN (12:45)
[2021-02-17 16:21] VITALS: BP 122/85
[2021-02-17 16:38] LABS: GLUCOMETER DEV NAME(LOC) BV3N.; GLUCOSE,POINT OF CARE 168 MG/DL (70-110)
[2021-02-17] MEDS: ATORVASTATIN CALCIUM 40 MG TABLET PO SCH (21:24)
[2021-02-17] MEDS: LURASIDONE HCL 80 MG TABLET PO SCH (21:24)
[2021-02-17 22:07] LABS: GLUCOMETER DEV NAME(LOC) BV3N.; GLUCOSE,POINT OF CARE 141 MG/DL (70-110)
[2021-02-18] MEDS: HALOPERIDOL 5 MG TABLET PO PRN (00:06)
[2021-02-18] MEDS: ZOLPIDEM TARTRATE 10 MG TABLET PO PRN (00:06)
[2021-02-18 01:22] VITALS: BP 126/84
[2021-02-18 06:13] LABS: GLUCOMETER DEV NAME(LOC) BV3N.; GLUCOSE,POINT OF CARE 162 MG/DL (70-110)
[2021-02-18] MEDS: INSULIN LISPRO 100 UNITS/ML SQ PRN ×3 (06:39→21:45)
[2021-02-18] MEDS: LOSARTAN POTASSIUM 50 MG TABLET PO SCH (08:59)
[2021-02-18] MEDS: SitaGLIPtin PHOSPHATE 100 MG TABLET PO SCH (09:00)
[2021-02-18] MEDS: LITHIUM CARBONATE 300 MG CAPSULE PO SCH ×2 (09:00→16:39)
[2021-02-18] MEDS: INSULIN GLARGINE,HUM.REC.ANLOG 100 UNITS/ML SQ SCH ×2 (09:00→22:10)
[2021-02-18] MEDS: DIVALPROEX SODIUM 500 MG DR TABLET PO SCH ×2 (09:00→16:38)
[2021-02-18 09:55] VITALS: BP 147/90
[2021-02-18 11:48] LABS: GLUCOMETER DEV NAME(LOC) BV3N.; GLUCOSE,POINT OF CARE 140 MG/DL (70-110)
[2021-02-18 16:20] VITALS: BP 106/72
[2021-02-18] MEDS: ACETAMINOPHEN 325 MG TABLET PO PRN (16:48)
[2021-02-18] MEDS: ATORVASTATIN CALCIUM 40 MG TABLET PO SCH (20:55)
[2021-02-18] MEDS: LURASIDONE HCL 80 MG TABLET PO SCH (20:55)
[2021-02-18 21:18] LABS: GLUCOMETER DEV NAME(LOC) BV3N.; GLUCOSE,POINT OF CARE 146 MG/DL (70-110)
[2021-02-19 00:25] VITALS: BP 129/83
[2021-02-19] MEDS: ZOLPIDEM TARTRATE 10 MG TABLET PO PRN ×2 (01:49→20:51)
[2021-02-19] MEDS: HALOPERIDOL 5 MG TABLET PO PRN ×4 (02:00→20:51)
[2021-02-19] MEDS: ACETAMINOPHEN 325 MG TABLET PO PRN ×3 (02:00→20:40)
[2021-02-19] MEDS ORDERED: GLUCAGON,HUMAN RECOMBINANT 1 MG VIAL IM PRN (04:00)
[2021-02-19 06:49] LABS: GLUCOMETER DEV NAME(LOC) BV3N.; GLUCOSE,POINT OF CARE 129 MG/DL (70-110)
[2021-02-19] MEDS: INSULIN LISPRO 100 UNITS/ML SQ PRN ×4 (06:49→20:49)
[2021-02-19] MEDS: DIVALPROEX SODIUM 500 MG DR TABLET PO SCH ×2 (08:03→16:43)
[2021-02-19] MEDS: SitaGLIPtin PHOSPHATE 100 MG TABLET PO SCH (08:03)
[2021-02-19] MEDS: LITHIUM CARBONATE 300 MG CAPSULE PO SCH ×2 (08:03→16:35)
[2021-02-19] MEDS: LOSARTAN POTASSIUM 50 MG TABLET PO SCH (08:03)
[2021-02-19 08:22] VITALS: BP 118/79
[2021-02-19 08:23] LABS: GLUCOMETER DEV NAME(LOC) BV3N.; GLUCOSE,POINT OF CARE 223 MG/DL (70-110)
[2021-02-19] MEDS: INSULIN GLARGINE,HUM.REC.ANLOG 100 UNITS/ML SQ SCH ×2 (08:39→20:49)
[2021-02-19 11:31] LABS: GLUCOMETER DEV NAME(LOC) BV3N.; GLUCOSE,POINT OF CARE 210 MG/DL (70-110)
[2021-02-19 16:08] VITALS: BP 133/78
[2021-02-19 20:02] LABS: GLUCOMETER DEV NAME(LOC) BV3N.; GLUCOSE,POINT OF CARE 129 MG/DL (70-110)
[2021-02-19] MEDS: ATORVASTATIN CALCIUM 40 MG TABLET PO SCH (20:30)
[2021-02-19] MEDS: LURASIDONE HCL 80 MG TABLET PO SCH (20:30)
[2021-02-19 21:22] LABS: GLUCOMETER DEV NAME(LOC) BV3N.; GLUCOSE,POINT OF CARE 248 MG/DL (70-110)
[2021-02-20 04:25] VITALS: BP 109/70
[2021-02-20 06:34] LABS: GLUCOMETER DEV NAME(LOC) BV3N.; GLUCOSE,POINT OF CARE 154 MG/DL (70-110)
[2021-02-20] MEDS: INSULIN LISPRO 100 UNITS/ML SQ PRN ×4 (06:35→21:15)
[2021-02-20 08:13] VITALS: BP 131/78
[2021-02-20] MEDS: LITHIUM CARBONATE 300 MG CAPSULE PO SCH ×2 (08:29→16:11)
[2021-02-20] MEDS: SitaGLIPtin PHOSPHATE 100 MG TABLET PO SCH (08:29)
[2021-02-20] MEDS: RisperiDONE 2 MG TABLET PO SCH ×2 (08:29→16:52)
[2021-02-20] MEDS: LOSARTAN POTASSIUM 50 MG TABLET PO SCH (08:29)
[2021-02-20] MEDS: DIVALPROEX SODIUM 500 MG DR TABLET PO SCH ×2 (08:30→16:19)
[2021-02-20 08:40] LABS: GLUCOMETER DEV NAME(LOC) BV3N.; GLUCOSE,POINT OF CARE 283 MG/DL (70-110)
[2021-02-20] MEDS: INSULIN GLARGINE,HUM.REC.ANLOG 100 UNITS/ML SQ SCH ×2 (08:40→21:15)
[2021-02-20 11:24] LABS: GLUCOMETER DEV NAME(LOC) BV3N.; GLUCOSE,POINT OF CARE 183 MG/DL (70-110)
[2021-02-20] MEDS: HALOPERIDOL 5 MG TABLET PO PRN ×2 (16:11→20:43)
[2021-02-20 16:17] VITALS: BP 134/68
[2021-02-20] MEDS: LURASIDONE HCL 80 MG TABLET PO SCH (20:43)
[2021-02-20] MEDS: ATORVASTATIN CALCIUM 40 MG TABLET PO SCH (20:43)
[2021-02-20] MEDS: ZOLPIDEM TARTRATE 10 MG TABLET PO PRN (20:43)
[2021-02-20 21:10] LABS: GLUCOMETER DEV NAME(LOC) BV3N.; GLUCOSE,POINT OF CARE 150 MG/DL (70-110)
[2021-02-21 04:45] VITALS: BP 131/89
[2021-02-21] MEDS: ACETAMINOPHEN 325 MG TABLET PO PRN (04:48)
[2021-02-21 04:50] VITALS: BP 131/89
[2021-02-21] MEDS: INSULIN LISPRO 100 UNITS/ML SQ PRN ×3 (06:42→17:05)
[2021-02-21 06:47] LABS: GLUCOMETER DEV NAME(LOC) BV3N.; GLUCOSE,POINT OF CARE 162 MG/DL (70-110)
[2021-02-21] MEDS: SitaGLIPtin PHOSPHATE 100 MG TABLET PO SCH (08:48)
[2021-02-21] MEDS: LOSARTAN POTASSIUM 50 MG TABLET PO SCH (08:48)
[2021-02-21] MEDS: LITHIUM CARBONATE 300 MG CAPSULE PO SCH ×2 (08:48→16:40)
[2021-02-21] MEDS: INSULIN GLARGINE,HUM.REC.ANLOG 100 UNITS/ML SQ SCH ×2 (08:51→21:21)
[2021-02-21] MEDS: DIVALPROEX SODIUM 500 MG DR TABLET PO SCH ×2 (09:00→16:41)
[2021-02-21 10:51] VITALS: BP 146/90
[2021-02-21 11:29] LABS: GLUCOMETER DEV NAME(LOC) BV3N.; GLUCOSE,POINT OF CARE 151 MG/DL (70-110)
[2021-02-21] MEDS: ALBUTEROL SULFATE HFA 90 MCG/PUFF 8 GM INHALER IH PRN (14:28)
[2021-02-21] MEDS: HALOPERIDOL 5 MG TABLET PO PRN (16:40)
[2021-02-21 16:44] VITALS: BP 136/89
[2021-02-21 20:01] LABS: GLUCOMETER DEV NAME(LOC) BV3N.; GLUCOSE,POINT OF CARE 263 MG/DL (70-110)
[2021-02-21] MEDS: OLANZapine 7.5 MG TABLET PO SCH (21:10)
[2021-02-21] MEDS: LURASIDONE HCL 80 MG TABLET PO SCH (21:11)
[2021-02-21] MEDS: ATORVASTATIN CALCIUM 40 MG TABLET PO SCH (21:11)
[2021-02-21] MEDS: ZOLPIDEM TARTRATE 10 MG TABLET PO PRN (21:45)
[2021-02-21 22:00] LABS: GLUCOMETER DEV NAME(LOC) BV3N.; GLUCOSE,POINT OF CARE 109 MG/DL (70-110)
[2021-02-22 06:22] VITALS: BP 129/82
[2021-02-22 06:23] LABS: GLUCOMETER DEV NAME(LOC) BV3N.; GLUCOSE,POINT OF CARE 113 MG/DL (70-110)
[2021-02-22] MEDS: DIVALPROEX SODIUM 500 MG DR TABLET PO SCH ×3 (09:00→17:15)
[2021-02-22] MEDS: LOSARTAN POTASSIUM 50 MG TABLET PO SCH (09:04)
[2021-02-22] MEDS: LITHIUM CARBONATE 300 MG CAPSULE PO SCH ×2 (09:04→17:15)
[2021-02-22] MEDS: ACETAMINOPHEN 325 MG TABLET PO PRN (09:04)
[2021-02-22] MEDS: SitaGLIPtin PHOSPHATE 100 MG TABLET PO SCH (09:05)
[2021-02-22] MEDS: INSULIN GLARGINE,HUM.REC.ANLOG 100 UNITS/ML SQ SCH ×2 (09:17→21:13)
[2021-02-22 09:28] VITALS: BP 128/83
[2021-02-22 11:03] LABS: GLUCOMETER DEV NAME(LOC) BV3N.; GLUCOSE,POINT OF CARE 154 MG/DL (70-110)
[2021-02-22] MEDS: INSULIN LISPRO 100 UNITS/ML SQ PRN (11:09)
[2021-02-22] MEDS: HALOPERIDOL 5 MG TABLET PO PRN ×2 (12:51→22:10)
[2021-02-22 16:22] VITALS: BP 125/87
[2021-02-22 17:05] LABS: GLUCOMETER DEV NAME(LOC) BV3N.; GLUCOSE,POINT OF CARE 114 MG/DL (70-110)
[2021-02-22] MEDS: LURASIDONE HCL 80 MG TABLET PO SCH (20:22)
[2021-02-22] MEDS: ATORVASTATIN CALCIUM 40 MG TABLET PO SCH (20:23)
[2021-02-22] MEDS: OLANZapine 7.5 MG TABLET PO SCH (20:23)
[2021-02-22 20:42] LABS: GLUCOMETER DEV NAME(LOC) BV3N.; GLUCOSE,POINT OF CARE 128 MG/DL (70-110)
[2021-02-22] MEDS: ZOLPIDEM TARTRATE 10 MG TABLET PO PRN (21:53)
[2021-02-23 06:54] LABS: GLUCOMETER DEV NAME(LOC) BV3N.; GLUCOSE,POINT OF CARE 115 MG/DL (70-110)
[2021-02-23 08:34] VITALS: BP 140/93
[2021-02-23] MEDS: LITHIUM CARBONATE 300 MG CAPSULE PO SCH ×2 (09:09→16:30)
[2021-02-23] MEDS: SitaGLIPtin PHOSPHATE 100 MG TABLET PO SCH (09:09)
[2021-02-23] MEDS: DIVALPROEX SODIUM 500 MG DR TABLET PO SCH ×2 (09:09→09:35)
[2021-02-23] MEDS: INSULIN GLARGINE,HUM.REC.ANLOG 100 UNITS/ML SQ SCH ×2 (09:13→20:45)
[2021-02-23] MEDS: LOSARTAN POTASSIUM 50 MG TABLET PO SCH (09:55)
[2021-02-23] MEDS: INSULIN LISPRO 100 UNITS/ML SQ PRN ×3 (11:44→20:44)
[2021-02-23 11:50] LABS: GLUCOMETER DEV NAME(LOC) BV2S.; GLUCOSE,POINT OF CARE 133 MG/DL (70-110)
[2021-02-23] MEDS: ACETAMINOPHEN 325 MG TABLET PO PRN (13:55)
[2021-02-23 16:10] VITALS: BP 132/92
[2021-02-23 16:18] LABS: GLUCOMETER DEV NAME(LOC) BV2S.; GLUCOSE,POINT OF CARE 186 MG/DL (70-110)
[2021-02-23 20:21] LABS: GLUCOMETER DEV NAME(LOC) BV2S.; GLUCOSE,POINT OF CARE 124 MG/DL (70-110)
[2021-02-23] MEDS: LURASIDONE HCL 80 MG TABLET PO SCH (20:33)
[2021-02-23] MEDS: OLANZapine 7.5 MG TABLET PO SCH (20:33)
[2021-02-23] MEDS: ATORVASTATIN CALCIUM 40 MG TABLET PO SCH (20:33)
[2021-02-23] MEDS: ZOLPIDEM TARTRATE 10 MG TABLET PO PRN (21:57)
[2021-02-24 05:46] LABS: GLUCOMETER DEV NAME(LOC) BV2S.; GLUCOSE,POINT OF CARE 115 MG/DL (70-110)
[2021-02-24 06:16] VITALS: BP 124/83
[2021-02-24] MEDS: LITHIUM CARBONATE 300 MG CAPSULE PO SCH ×2 (08:33→16:07)
[2021-02-24] MEDS: LOSARTAN POTASSIUM 50 MG TABLET PO SCH (08:33)
[2021-02-24] MEDS: DIVALPROEX SODIUM 500 MG DR TABLET PO SCH ×2 (08:33→17:00)
[2021-02-24] MEDS: SitaGLIPtin PHOSPHATE 100 MG TABLET PO SCH (08:34)
[2021-02-24 08:37] VITALS: BP 132/79
[2021-02-24 08:43] LABS: GLUCOMETER DEV NAME(LOC) BV2S.; GLUCOSE,POINT OF CARE 170 MG/DL (70-110)
[2021-02-24] MEDS: INSULIN GLARGINE,HUM.REC.ANLOG 100 UNITS/ML SQ SCH ×2 (08:44→20:54)
[2021-02-24] MEDS: HALOPERIDOL 5 MG TABLET PO PRN ×3 (09:41→21:29)
[2021-02-24] MEDS: INSULIN LISPRO 100 UNITS/ML SQ PRN ×3 (11:19→20:54)
[2021-02-24 11:27] LABS: GLUCOMETER DEV NAME(LOC) BV2S.; GLUCOSE,POINT OF CARE 181 MG/DL (70-110)
[2021-02-24 16:13] VITALS: BP 126/87
[2021-02-24 19:47] LABS: GLUCOMETER DEV NAME(LOC) BV2S.; GLUCOSE,POINT OF CARE 134 MG/DL (70-110)
[2021-02-24] MEDS: OLANZapine 7.5 MG TABLET PO SCH (20:37)
[2021-02-24] MEDS: LURASIDONE HCL 80 MG TABLET PO SCH (20:38)
[2021-02-24] MEDS: ATORVASTATIN CALCIUM 40 MG TABLET PO SCH (20:38)
[2021-02-24] MEDS: ZOLPIDEM TARTRATE 10 MG TABLET PO PRN (20:47)
[2021-02-24 21:05] LABS: GLUCOMETER DEV NAME(LOC) BV2S.; GLUCOSE,POINT OF CARE 241 MG/DL (70-110)
[2021-02-25 05:41] VITALS: BP 110/64
[2021-02-25 06:46] LABS: GLUCOMETER DEV NAME(LOC) BV2S.; GLUCOSE,POINT OF CARE 111 MG/DL (70-110)
[2021-02-25] MEDS: SitaGLIPtin PHOSPHATE 100 MG TABLET PO SCH (08:24)
[2021-02-25] MEDS: LOSARTAN POTASSIUM 50 MG TABLET PO SCH (08:24)
[2021-02-25] MEDS: LITHIUM CARBONATE 300 MG CAPSULE PO SCH ×2 (08:24→16:30)
[2021-02-25 08:41] VITALS: BP 137/92
[2021-02-25] MEDS: INSULIN GLARGINE,HUM.REC.ANLOG 100 UNITS/ML SQ SCH ×2 (08:44→20:41)
[2021-02-25] MEDS: HALOPERIDOL 5 MG TABLET PO PRN ×2 (10:26→22:21)
[2021-02-25] MEDS: INSULIN LISPRO 100 UNITS/ML SQ PRN ×3 (11:08→20:41)
[2021-02-25 12:13] LABS: GLUCOMETER DEV NAME(LOC) BV2S.; GLUCOSE,POINT OF CARE 141 MG/DL (70-110)
[2021-02-25 16:16] VITALS: BP 118/84
[2021-02-25 16:42] LABS: GLUCOMETER DEV NAME(LOC) BV2S.; GLUCOSE,POINT OF CARE 259 MG/DL (70-110)
[2021-02-25] MEDS: ACETAMINOPHEN 325 MG TABLET PO PRN (18:45)
[2021-02-25] MEDS: OLANZapine 7.5 MG TABLET PO SCH (20:31)
[2021-02-25] MEDS: LURASIDONE HCL 80 MG TABLET PO SCH (20:31)
[2021-02-25] MEDS: ATORVASTATIN CALCIUM 40 MG TABLET PO SCH (20:31)
[2021-02-25] MEDS: ZOLPIDEM TARTRATE 10 MG TABLET PO PRN (21:56)
[2021-02-25 23:28] LABS: GLUCOMETER DEV NAME(LOC) BV2S.; GLUCOSE,POINT OF CARE 168 MG/DL (70-110)
[2021-02-26 01:28] VITALS: BP 132/77
[2021-02-26 06:31] LABS: GLUCOMETER DEV NAME(LOC) BV2S.; GLUCOSE,POINT OF CARE 122 MG/DL (70-110)
[2021-02-26] MEDS: INSULIN LISPRO 100 UNITS/ML SQ PRN ×4 (06:39→21:19)
[2021-02-26 08:25] VITALS: BP 134/82
[2021-02-26] MEDS: LITHIUM CARBONATE 300 MG CAPSULE PO SCH ×2 (08:50→16:11)
[2021-02-26] MEDS: SitaGLIPtin PHOSPHATE 100 MG TABLET PO SCH (08:50)
[2021-02-26] MEDS: LOSARTAN POTASSIUM 50 MG TABLET PO SCH (08:50)
[2021-02-26] MEDS: INSULIN GLARGINE,HUM.REC.ANLOG 100 UNITS/ML SQ SCH ×2 (08:55→21:19)
[2021-02-26 09:02] LABS: GLUCOMETER DEV NAME(LOC) BV2S.; GLUCOSE,POINT OF CARE 139 MG/DL (70-110)
[2021-02-26 11:25] LABS: GLUCOMETER DEV NAME(LOC) BV2S.; GLUCOSE,POINT OF CARE 136 MG/DL (70-110)
[2021-02-26 16:05] VITALS: BP 145/91
[2021-02-26] MEDS: HALOPERIDOL 5 MG TABLET PO PRN (16:11)
[2021-02-26 16:25] LABS: GLUCOMETER DEV NAME(LOC) BV2S.; GLUCOSE,POINT OF CARE 127 MG/DL (70-110)
[2021-02-26] MEDS: ACETAMINOPHEN 325 MG TABLET PO PRN (17:15)
[2021-02-26] MEDS: ATORVASTATIN CALCIUM 40 MG TABLET PO SCH (20:09)
[2021-02-26] MEDS: LURASIDONE HCL 80 MG TABLET PO SCH (20:09)
[2021-02-26] MEDS: OLANZapine 7.5 MG TABLET PO SCH (20:09)
[2021-02-26 20:24] LABS: GLUCOMETER DEV NAME(LOC) BV2S.; GLUCOSE,POINT OF CARE 156 MG/DL (70-110)
[2021-02-26] MEDS: ZOLPIDEM TARTRATE 10 MG TABLET PO PRN (20:28)
[2021-02-27 01:24] VITALS: BP 132/78
[2021-02-27] MEDS: INSULIN LISPRO 100 UNITS/ML SQ PRN ×3 (06:19→20:53)
[2021-02-27 06:27] LABS: GLUCOMETER DEV NAME(LOC) BV2S.; GLUCOSE,POINT OF CARE 215 MG/DL (70-110)
[2021-02-27 07:30] LABS: COVID AG,FIA SOURCE NASOPHARYNGEAL
[2021-02-27 08:08] VITALS: BP 129/87
[2021-02-27] MEDS: LITHIUM CARBONATE 300 MG CAPSULE PO SCH ×2 (08:34→16:36)
[2021-02-27] MEDS: LOSARTAN POTASSIUM 50 MG TABLET PO SCH (08:34)
[2021-02-27] MEDS: SitaGLIPtin PHOSPHATE 100 MG TABLET PO SCH (08:34)
[2021-02-27] MEDS: INSULIN GLARGINE,HUM.REC.ANLOG 100 UNITS/ML SQ SCH ×2 (08:44→20:52)
[2021-02-27 08:52] LABS: GLUCOMETER DEV NAME(LOC) BV2S.; GLUCOSE,POINT OF CARE 126 MG/DL (70-110)
[2021-02-27] MEDS: HALOPERIDOL 5 MG TABLET PO PRN (09:39)
[2021-02-27] MEDS: LORazepam 2 MG TABLET PO PRN (09:39)
[2021-02-27 11:12] LABS: GLUCOMETER DEV NAME(LOC) BV2S.; GLUCOSE,POINT OF CARE 109 MG/DL (70-110)
[2021-02-27 16:12] VITALS: BP 138/70
[2021-02-27 16:23] LABS: GLUCOMETER DEV NAME(LOC) BV2S.; GLUCOSE,POINT OF CARE 124 MG/DL (70-110)
[2021-02-27] MEDS: ACETAMINOPHEN 325 MG TABLET PO PRN (16:49)
[2021-02-27 20:16] LABS: GLUCOMETER DEV NAME(LOC) BV2S.; GLUCOSE,POINT OF CARE 149 MG/DL (70-110)
[2021-02-27] MEDS: LURASIDONE HCL 80 MG TABLET PO SCH (20:38)
[2021-02-27] MEDS: OLANZapine 7.5 MG TABLET PO SCH (20:38)
[2021-02-27] MEDS: ATORVASTATIN CALCIUM 40 MG TABLET PO SCH (20:38)
[2021-02-27] MEDS: ZOLPIDEM TARTRATE 10 MG TABLET PO PRN (21:56)
[2021-02-27] MEDS: ALBUTEROL SULFATE HFA 90 MCG/PUFF 8 GM INHALER IH PRN (22:15)
[2021-02-28 00:56] VITALS: BP 141/84
[2021-02-28 06:37] LABS: GLUCOMETER DEV NAME(LOC) BV2S.; GLUCOSE,POINT OF CARE 113 MG/DL (70-110)
[2021-02-28] MEDS: LOSARTAN POTASSIUM 50 MG TABLET PO SCH (08:12)
[2021-02-28] MEDS: LITHIUM CARBONATE 300 MG CAPSULE PO SCH ×2 (08:12→16:22)
[2021-02-28] MEDS: SitaGLIPtin PHOSPHATE 100 MG TABLET PO SCH (08:12)
[2021-02-28] MEDS: INSULIN GLARGINE,HUM.REC.ANLOG 100 UNITS/ML SQ SCH ×2 (08:32→20:21)
[2021-02-28] MEDS: ACETAMINOPHEN 325 MG TABLET PO PRN ×2 (08:35→17:52)
[2021-02-28] MEDS: HALOPERIDOL 5 MG TABLET PO PRN ×3 (08:35→22:04)
[2021-02-28 08:38] LABS: GLUCOMETER DEV NAME(LOC) BV2S.; GLUCOSE,POINT OF CARE 231 MG/DL (70-110)
[2021-02-28 08:42] VITALS: BP 121/73
[2021-02-28] MEDS: INSULIN LISPRO 100 UNITS/ML SQ PRN ×3 (11:49→20:20)
[2021-02-28 11:54] LABS: GLUCOMETER DEV NAME(LOC) BV2S.; GLUCOSE,POINT OF CARE 168 MG/DL (70-110)
[2021-02-28 16:13] VITALS: BP 133/94
[2021-02-28 16:41] LABS: GLUCOMETER DEV NAME(LOC) BV2S.; GLUCOSE,POINT OF CARE 186 MG/DL (70-110)
[2021-02-28] MEDS: ALBUTEROL SULFATE HFA 90 MCG/PUFF 8 GM INHALER IH PRN (18:41)
[2021-02-28] MEDS: OLANZapine 7.5 MG TABLET PO SCH (20:07)
[2021-02-28] MEDS: LURASIDONE HCL 80 MG TABLET PO SCH (20:07)
[2021-02-28] MEDS: ATORVASTATIN CALCIUM 40 MG TABLET PO SCH (20:07)
[2021-02-28 20:41] LABS: GLUCOMETER DEV NAME(LOC) BV2S.; GLUCOSE,POINT OF CARE 243 MG/DL (70-110)
[2021-02-28] MEDS: ZOLPIDEM TARTRATE 10 MG TABLET PO PRN (22:02)
[2021-03-01 01:47] VITALS: BP 141/84
[2021-03-01 06:31] LABS: GLUCOMETER DEV NAME(LOC) BV2S.; GLUCOSE,POINT OF CARE 117 MG/DL (70-110)
[2021-03-01] MEDS: LOSARTAN POTASSIUM 50 MG TABLET PO SCH (08:12)
[2021-03-01] MEDS: LITHIUM CARBONATE 300 MG CAPSULE PO SCH ×2 (08:12→16:11)
[2021-03-01] MEDS: SitaGLIPtin PHOSPHATE 100 MG TABLET PO SCH (08:12)
[2021-03-01 08:19] VITALS: BP 129/84
[2021-03-01] MEDS: INSULIN GLARGINE,HUM.REC.ANLOG 100 UNITS/ML SQ SCH ×2 (08:20→20:16)
[2021-03-01] MEDS: INSULIN LISPRO 100 UNITS/ML SQ PRN ×3 (11:07→20:16)
[2021-03-01 11:22] LABS: GLUCOMETER DEV NAME(LOC) BV2S.; GLUCOSE,POINT OF CARE 125 MG/DL (70-110)
[2021-03-01] MEDS: ALBUTEROL SULFATE HFA 90 MCG/PUFF 8 GM INHALER IH PRN (13:07)
[2021-03-01] MEDS: ACETAMINOPHEN 325 MG TABLET PO PRN (16:11)
[2021-03-01 16:12] VITALS: BP 125/79
[2021-03-01 16:23] LABS: GLUCOMETER DEV NAME(LOC) BV2S.; GLUCOSE,POINT OF CARE 128 MG/DL (70-110)
[2021-03-01] MEDS: HALOPERIDOL 5 MG TABLET PO PRN (16:23)
[2021-03-01] MEDS: LORazepam 2 MG TABLET PO PRN (19:07)
[2021-03-01] MEDS: ATORVASTATIN CALCIUM 40 MG TABLET PO SCH (20:02)
[2021-03-01] MEDS: OLANZapine 7.5 MG TABLET PO SCH (20:02)
[2021-03-01] MEDS: LURASIDONE HCL 80 MG TABLET PO SCH (20:02)
[2021-03-01 21:09] LABS: GLUCOMETER DEV NAME(LOC) BV2S.; GLUCOSE,POINT OF CARE 143 MG/DL (70-110)
[2021-03-02 00:24] VITALS: BP 139/86
[2021-03-02 06:08] LABS: GLUCOMETER DEV NAME(LOC) BV2S.; GLUCOSE,POINT OF CARE 110 MG/DL (70-110)
[2021-03-02 08:33] VITALS: BP 125/70
[2021-03-02] MEDS: SitaGLIPtin PHOSPHATE 100 MG TABLET PO SCH (08:47)
[2021-03-02] MEDS: LITHIUM CARBONATE 300 MG CAPSULE PO SCH ×2 (08:47→16:23)
[2021-03-02] MEDS: LOSARTAN POTASSIUM 50 MG TABLET PO SCH (08:47)
[2021-03-02] MEDS: INSULIN GLARGINE,HUM.REC.ANLOG 100 UNITS/ML SQ SCH ×2 (08:53→21:05)
[2021-03-02] MEDS: INSULIN LISPRO 100 UNITS/ML SQ PRN ×2 (11:38→17:05)
[2021-03-02 11:51] LABS: GLUCOMETER DEV NAME(LOC) BV2S.; GLUCOSE,POINT OF CARE 121 MG/DL (70-110)
[2021-03-02] MEDS: ACETAMINOPHEN 325 MG TABLET PO PRN (14:54)
[2021-03-02 16:07] VITALS: BP 112/68
[2021-03-02 16:31] LABS: GLUCOMETER DEV NAME(LOC) BV2S.; GLUCOSE,POINT OF CARE 160 MG/DL (70-110)
[2021-03-02] MEDS: OLANZapine 7.5 MG TABLET PO SCH (20:13)
[2021-03-02] MEDS: ATORVASTATIN CALCIUM 40 MG TABLET PO SCH (20:13)
[2021-03-02] MEDS: LURASIDONE HCL 80 MG TABLET PO SCH (20:13)
[2021-03-02 20:20] LABS: GLUCOMETER DEV NAME(LOC) BV2S.; GLUCOSE,POINT OF CARE 119 MG/DL (70-110)
[2021-03-02] MEDS: ZOLPIDEM TARTRATE 10 MG TABLET PO PRN (22:56)
[2021-03-03 00:34] VITALS: BP 138/91
[2021-03-03 06:44] LABS: GLUCOMETER DEV NAME(LOC) BV2S.; GLUCOSE,POINT OF CARE 88 MG/DL (70-110)
[2021-03-03 08:14] VITALS: BP 137/84
[2021-03-03] MEDS: SitaGLIPtin PHOSPHATE 100 MG TABLET PO SCH (08:28)
[2021-03-03] MEDS: LOSARTAN POTASSIUM 50 MG TABLET PO SCH (08:28)
[2021-03-03] MEDS: LITHIUM CARBONATE 300 MG CAPSULE PO SCH ×2 (08:28→16:03)
[2021-03-03] MEDS: INSULIN GLARGINE,HUM.REC.ANLOG 100 UNITS/ML SQ SCH (08:35)
[2021-03-03 08:43] LABS: GLUCOMETER DEV NAME(LOC) BV2S.; GLUCOSE,POINT OF CARE 141 MG/DL (70-110)
[2021-03-03] MEDS: ALBUTEROL SULFATE HFA 90 MCG/PUFF 8 GM INHALER IH PRN ×2 (11:22→17:41)
[2021-03-03] MEDS: INSULIN LISPRO 100 UNITS/ML SQ PRN (11:29)
[2021-03-03 11:36] LABS: GLUCOMETER DEV NAME(LOC) BV2S.; GLUCOSE,POINT OF CARE 120 MG/DL (70-110)
[2021-03-03] MEDS: HALOPERIDOL 5 MG TABLET PO PRN (12:18)
[2021-03-03 16:05] VITALS: BP 127/80
[2021-03-03] MEDS ORDERED: LURA80TA2 PO (16:13)
[2021-03-03] MEDS ORDERED: LITH300C3 PO (16:14)
[2021-03-03] MEDS ORDERED: OLAN7.5T22 PO (16:14)
[2021-03-03] MEDS ORDERED: INSLAN SQ ×2 (16:15→16:16)
== END 2021-03-03 18:40 | disposition home or self-care (01) | DRG 750 ==
LOC: EMS 17:48 → B3A 02-16 08:14 → B2S 02-23 09:03
PROVIDERS: ADMIT Psychiatry & Neurology Psychiatry; ATTEND Psychiatry & Neurology Psychiatry
DX: F25.9 Schizoaffective disorder, unspecified (principal); F79 Unspecified intellectual disabilities; E11.65 Type 2 diabetes mellitus with hyperglycemia; E78.5 Hyperlipidemia, unspecified; F32.A Depression, unspecified; F41.9 Anxiety disorder, unspecified; G47.00 Insomnia, unspecified; I10 Essential (primary) hypertension; J45.909 Unspecified asthma, uncomplicated; K59.00 Constipation, unspecified; K21.9 Gastro-esophageal reflux disease without esophagitis; Z88.8 Allergy status to other drugs, medicaments and biological substances; Z79.899 Other long term (current) drug therapy; Z20.822 Contact with and (suspected) exposure to COVID-19
CPT/HCPCS: 80053; 80061; 80178; 82962; 85025; 99285; G0480; J1815; J3535

== ENCOUNTER 2021-03-14 18:07 | Inpatient (IN) | payer MEDICAID, OTHER ==
[~2021-03-14] VITALS: Ht 165.1 cm; Wt 94.3 kg
[~2021-03-14 18:07] MED LIST changes: -BENZ0.5T44 PO; -DIVA-112 PO; +INSLAN SQ; -INSU100V SQ; +LITH300C3 PO; -LURA40TA2 PO; +LURA80TA2 PO; +OLAN7.5T22 PO
[2021-03-14 21:12] LABS: BASOPHILS % (AUTO) 0.1 % (0.0-2.0); EOSINOPHILS % (AUTO) 0.4 % (1.0-6.0); HEMATOCRIT 40.7 % (41-53); HEMOGLOBIN 13.9 g/dL (13.5-17.5); LYMPHOCYTES # (AUTO) 1.8 K/uL (1.0-4.8); LYMPHOCYTES % (AUTO) 23.1 % (22.0-44.0); MEAN CORPUSCULAR HEMOGLOBIN 29.3 pg (26.0-34.0); MEAN CORPUSCULAR HGB CONC 34.2 G/dL (31.0-37.0); MEAN CORPUSCULAR VOLUME 86 fL (80-100); MONOCYTES # (AUTO) 0.4 K/uL (0.1-1.0); MONOCYTES % (AUTO) 5.4 % (2.0-9.0); NEUTROPHILS # (AUTO) 5.6 K/uL (1.8-7.7); PLATELET COUNT (AUTO) 220 K/uL (150-450); RED BLOOD CELL COUNT(AUTO) 4.75 MIL/uL (4.50-5.90); RED CELL DISTRIBUTION WIDTH 13.5 % (11.5-14.5)
[2021-03-14 21:21] LABS: ANION GAP 9 mmol/L (8-16); CALCIUM, TOTAL 9.7 mg/dL (8.8-10.5); CARBON DIOXIDE 28 mmol/L (22-29); CHLORIDE 104 mmol/L (98-107); CREATININE 0.65 mg/dL (0.60-1.30); GLOMERULAR FILTR. RATE CALC > 60 mL/min (>60); GLUCOSE,RANDOM 144 mg/dL (70-110); SODIUM SERUM 141 mmol/L (136-145); UREA NITROGEN, BLOOD 11 mg/dL (7-18)
[2021-03-14 21:27] LABS: ALANINE AMINOTRANSFERASE 30 U/L (12-78); ALBUMIN 4.4 g/dL (3.4-5.0); ALKALINE PHOSPHATASE 72 U/L (46-116); ASPARTATE AMINOTRANSFERASE 19 U/L (15-37); BILIRUBIN,TOTAL 1.1 mg/dL (0.1-1.0)
[2021-03-14 22:34] LABS: COVID AG,FIA SOURCE NASOPHARYNGEAL
[2021-03-14] MEDS: ZOLPIDEM TARTRATE 10 MG TABLET PO PRN (22:44)
[2021-03-14 22:56] LABS: AMPHET/METH SCREEN,URINE NEGATIVE (NEGATIVE); BARBITURATE SCREEN, URINE NEGATIVE (NEGATIVE); BENZODIAZEPINES SCREEN,URINE NEGATIVE (NEGATIVE); CANNABINOID SCREEN,URINE NEGATIVE (NEGATIVE); COCAINE SCREEN,URINE NEGATIVE (NEGATIVE); METHADONE SCREEN, URINE NEGATIVE (NEGATIVE); OPIATE SCREEN,URINE NEGATIVE (NEGATIVE)
[2021-03-14 23:02] LABS: PHENCYCLIDINE SCREEN,URINE NEGATIVE (NEGATIVE)
[2021-03-14 23:03] LABS: GLUCOMETER DEV NAME(LOC) ERT.5; GLUCOSE,POINT OF CARE 153 MG/DL (70-110)
[2021-03-15 01:35] LABS: CHOL/HDL RATIO 2.2 (4.2-7.3); CHOLESTEROL 90 mg/dL (131-200); HDL CHOLESTEROL 41 mg/dL (40-60); TRIGLYCERIDES 139 mg/dL (15-150)
[2021-03-15 01:36] LABS: LDL CHOL (CALC.) 21 mg/dL (0-130)
[2021-03-15 11:18] LABS: GLUCOMETER DEV NAME(LOC) BV2S.; GLUCOSE,POINT OF CARE 191 MG/DL (70-110)
[2021-03-15] MEDS ORDERED: GLUCAGON,HUMAN RECOMBINANT 1 MG VIAL IM PRN (12:30)
[2021-03-15] MEDS: INSULIN LISPRO 100 UNITS/ML SQ PRN ×2 (12:33→20:19)
[2021-03-15] MEDS: HALOPERIDOL 5 MG TABLET PO PRN (12:34)
[2021-03-15 16:16] VITALS: BP 122/74
[2021-03-15 17:00] LABS: GLUCOMETER DEV NAME(LOC) BV2S.; GLUCOSE,POINT OF CARE 123 MG/DL (70-110)
[2021-03-15] MEDS: LITHIUM CARBONATE 300 MG CAPSULE PO SCH (17:56)
[2021-03-15] MEDS: LORazepam 2 MG TABLET PO PRN (17:56)
[2021-03-15] MEDS: LURASIDONE HCL 80 MG TABLET PO SCH (20:09)
[2021-03-15] MEDS: OLANZapine 10 MG TABLET PO SCH (20:09)
[2021-03-15 20:16] LABS: GLUCOMETER DEV NAME(LOC) BV2S.; GLUCOSE,POINT OF CARE 145 MG/DL (70-110)
[2021-03-15] MEDS: INSULIN GLARGINE,HUM.REC.ANLOG 100 UNITS/ML SQ SCH (20:19)
[2021-03-16 00:39] VITALS: BP 119/70
[2021-03-16 07:01] LABS: GLUCOMETER DEV NAME(LOC) BV2S.; GLUCOSE,POINT OF CARE 125 MG/DL (70-110)
[2021-03-16] MEDS: LOSARTAN POTASSIUM 50 MG TABLET PO SCH (08:06)
[2021-03-16] MEDS: LITHIUM CARBONATE 300 MG CAPSULE PO SCH ×2 (08:07→15:59)
[2021-03-16 08:08] VITALS: BP 103/60
[2021-03-16] MEDS: SitaGLIPtin PHOSPHATE 100 MG TABLET PO SCH (08:08)
[2021-03-16] MEDS: INSULIN GLARGINE,HUM.REC.ANLOG 100 UNITS/ML SQ SCH ×2 (08:22→21:30)
[2021-03-16 16:20] VITALS: BP 124/77
[2021-03-16 17:00] LABS: GLUCOMETER DEV NAME(LOC) BV2S.; GLUCOSE,POINT OF CARE 121 MG/DL (70-110)
[2021-03-16 17:01] LABS: GLUCOMETER DEV NAME(LOC) BV2S.; GLUCOSE,POINT OF CARE 190 MG/DL (70-110)
[2021-03-16] MEDS: INSULIN LISPRO 100 UNITS/ML SQ PRN (17:06)
[2021-03-16] MEDS: LURASIDONE HCL 80 MG TABLET PO SCH (20:43)
[2021-03-16] MEDS: OLANZapine 10 MG TABLET PO SCH (20:43)
[2021-03-16 21:02] LABS: GLUCOMETER DEV NAME(LOC) BV2S.; GLUCOSE,POINT OF CARE 111 MG/DL (70-110)
[2021-03-16] MEDS: ZOLPIDEM TARTRATE 10 MG TABLET PO PRN (21:59)
[2021-03-16] MEDS ORDERED: OMEPRAZOLE 20 MG CAPSULE PO PRN (23:00)
[2021-03-16] MEDS ORDERED: PETROLATUM,WHITE 28 GM JELLY TP PRN (23:00)
[2021-03-16] MEDS ORDERED: DOCUSATE SODIUM 100 MG CAPSULE PO PRN (23:00)
[2021-03-16] MEDS ORDERED: MAG HYDROX/AL HYDROX/SIMETH ES 30 ML SUSPENSION UDCUP PO PRN (23:00)
[2021-03-16] MEDS ORDERED: BACITRACIN 28 GM OINTMENT TP PRN (23:00)
[2021-03-16] MEDS ORDERED: BENZOCAINE/MENTHOL LOZENGE PO PRN (23:00)
[2021-03-16] MEDS ORDERED: ALBUTEROL SULFATE HFA 90 MCG/PUFF 8 GM INHALER IH PRN (23:00)
[2021-03-16] MEDS ORDERED: LOPERAMIDE HCL 2 MG CAPSULE PO PRN (23:00)
[2021-03-16] MEDS ORDERED: MAGNESIUM HYDROXIDE SUSPENSION 30 ML UDCUP PO PRN (23:00)
[2021-03-16] MEDS ORDERED: CloNIDine HCL 0.1 MG TABLET PO PRN (23:00)
[2021-03-17 00:11] VITALS: BP 121/77
[2021-03-17 06:51] LABS: GLUCOMETER DEV NAME(LOC) BV2S.; GLUCOSE,POINT OF CARE 123 MG/DL (70-110)
[2021-03-17 08:22] VITALS: BP 120/72
[2021-03-17] MEDS: INSULIN GLARGINE,HUM.REC.ANLOG 100 UNITS/ML SQ SCH ×2 (09:14→20:47)
[2021-03-17] MEDS: LITHIUM CARBONATE 300 MG CAPSULE PO SCH ×2 (09:42→16:39)
[2021-03-17] MEDS: SitaGLIPtin PHOSPHATE 100 MG TABLET PO SCH (09:42)
[2021-03-17] MEDS: LOSARTAN POTASSIUM 50 MG TABLET PO SCH (09:43)
[2021-03-17 11:53] LABS: GLUCOMETER DEV NAME(LOC) BV2S.; GLUCOSE,POINT OF CARE 141 MG/DL (70-110)
[2021-03-17] MEDS: INSULIN LISPRO 100 UNITS/ML SQ PRN ×2 (13:22→16:46)
[2021-03-17 16:12] VITALS: BP 130/87
[2021-03-17] MEDS: ACETAMINOPHEN 325 MG TABLET PO PRN ×2 (16:39→22:13)
[2021-03-17] MEDS: HALOPERIDOL 5 MG TABLET PO PRN (17:56)
[2021-03-17] MEDS: OLANZapine 10 MG TABLET PO SCH (20:49)
[2021-03-17] MEDS: LURASIDONE HCL 80 MG TABLET PO SCH ×2 (20:49→21:00)
[2021-03-17 21:20] LABS: GLUCOMETER DEV NAME(LOC) BV2S.; GLUCOSE,POINT OF CARE 157 MG/DL (70-110)
[2021-03-17 21:20] LABS: GLUCOMETER DEV NAME(LOC) BV2S.; GLUCOSE,POINT OF CARE 118 MG/DL (70-110)
[2021-03-17] MEDS: ZOLPIDEM TARTRATE 10 MG TABLET PO PRN (21:34)
[2021-03-18 00:54] VITALS: BP 124/71
[2021-03-18 06:16] LABS: GLUCOMETER DEV NAME(LOC) BV2S.; GLUCOSE,POINT OF CARE 117 MG/DL (70-110)
[2021-03-18 08:17] VITALS: BP 131/81
[2021-03-18] MEDS: HALOPERIDOL 5 MG TABLET PO PRN ×2 (09:00→20:30)
[2021-03-18] MEDS: SitaGLIPtin PHOSPHATE 100 MG TABLET PO SCH (09:00)
[2021-03-18] MEDS: LOSARTAN POTASSIUM 50 MG TABLET PO SCH (09:00)
[2021-03-18] MEDS: GABAPENTIN 300 MG CAPSULE PO SCH ×2 (09:01→16:11)
[2021-03-18] MEDS: LITHIUM CARBONATE 300 MG CAPSULE PO SCH ×2 (09:01→16:11)
[2021-03-18] MEDS: INSULIN GLARGINE,HUM.REC.ANLOG 100 UNITS/ML SQ SCH ×2 (09:05→20:20)
[2021-03-18] MEDS: INSULIN LISPRO 100 UNITS/ML SQ PRN ×3 (11:12→20:20)
[2021-03-18 15:00] LABS: GLUCOMETER DEV NAME(LOC) BV2S.; GLUCOSE,POINT OF CARE 151 MG/DL (70-110)
[2021-03-18 16:14] VITALS: BP 125/87
[2021-03-18 17:44] LABS: GLUCOMETER DEV NAME(LOC) BV2S.; GLUCOSE,POINT OF CARE 166 MG/DL (70-110)
[2021-03-18] MEDS: OLANZapine 10 MG TABLET PO SCH (20:10)
[2021-03-18] MEDS: ZOLPIDEM TARTRATE 10 MG TABLET PO PRN (20:10)
[2021-03-18] MEDS: LURASIDONE HCL 80 MG TABLET PO SCH (20:21)
[2021-03-18 22:51] LABS: GLUCOMETER DEV NAME(LOC) BV2S.; GLUCOSE,POINT OF CARE 145 MG/DL (70-110)
[2021-03-19 00:04] VITALS: BP 117/76
[2021-03-19 06:35] LABS: GLUCOMETER DEV NAME(LOC) BV2S.; GLUCOSE,POINT OF CARE 96 MG/DL (70-110)
[2021-03-19] MEDS: GABAPENTIN 300 MG CAPSULE PO SCH ×2 (08:00→16:29)
[2021-03-19] MEDS: MULTIVITAMINS WITH MINERALS, THERAPEUTIC TABLET PO SCH (08:00)
[2021-03-19] MEDS: LOSARTAN POTASSIUM 50 MG TABLET PO SCH (08:00)
[2021-03-19] MEDS: SitaGLIPtin PHOSPHATE 100 MG TABLET PO SCH (08:00)
[2021-03-19] MEDS: LITHIUM CARBONATE 300 MG CAPSULE PO SCH ×2 (08:00→16:29)
[2021-03-19 08:04] VITALS: BP 125/78
[2021-03-19] MEDS: INSULIN GLARGINE,HUM.REC.ANLOG 100 UNITS/ML SQ SCH ×2 (08:08→20:35)
[2021-03-19] MEDS: INSULIN LISPRO 100 UNITS/ML SQ PRN ×2 (11:00→20:35)
[2021-03-19 12:01] LABS: GLUCOMETER DEV NAME(LOC) BV2S.; GLUCOSE,POINT OF CARE 146 MG/DL (70-110)
[2021-03-19 16:11] VITALS: BP 121/80
[2021-03-19 17:29] LABS: GLUCOMETER DEV NAME(LOC) BV2S.; GLUCOSE,POINT OF CARE 99 MG/DL (70-110)
[2021-03-19] MEDS: OLANZapine 10 MG TABLET PO SCH (20:03)
[2021-03-19] MEDS: HALOPERIDOL 5 MG TABLET PO PRN (20:05)
[2021-03-19] MEDS: LURASIDONE HCL 80 MG TABLET PO SCH (20:31)
[2021-03-19 20:43] LABS: GLUCOMETER DEV NAME(LOC) BV2S.; GLUCOSE,POINT OF CARE 159 MG/DL (70-110)
[2021-03-19] MEDS: ZOLPIDEM TARTRATE 10 MG TABLET PO PRN (21:37)
[2021-03-20 00:06] VITALS: BP 135/87
[2021-03-20 06:19] LABS: GLUCOMETER DEV NAME(LOC) BV2S.; GLUCOSE,POINT OF CARE 92 MG/DL (70-110)
[2021-03-20 07:26] LABS: COVID AG,FIA SOURCE NASOPHARYNGEAL
[2021-03-20 08:12] VITALS: BP 138/85
[2021-03-20] MEDS: GABAPENTIN 300 MG CAPSULE PO SCH ×2 (09:27→16:06)
[2021-03-20] MEDS: SitaGLIPtin PHOSPHATE 100 MG TABLET PO SCH (09:27)
[2021-03-20] MEDS: LOSARTAN POTASSIUM 50 MG TABLET PO SCH (09:27)
[2021-03-20] MEDS: MULTIVITAMINS WITH MINERALS, THERAPEUTIC TABLET PO SCH (09:27)
[2021-03-20] MEDS: LITHIUM CARBONATE 300 MG CAPSULE PO SCH ×2 (09:27→16:06)
[2021-03-20] MEDS: INSULIN GLARGINE,HUM.REC.ANLOG 100 UNITS/ML SQ SCH ×2 (09:38→20:36)
[2021-03-20] MEDS: ACETAMINOPHEN 325 MG TABLET PO PRN ×2 (11:01→22:45)
[2021-03-20] MEDS: HALOPERIDOL 5 MG TABLET PO PRN ×2 (11:01→22:00)
[2021-03-20 11:37] LABS: GLUCOMETER DEV NAME(LOC) BV2S.; GLUCOSE,POINT OF CARE 134 MG/DL (70-110)
[2021-03-20 16:03] VITALS: BP 104/75
[2021-03-20 17:11] LABS: GLUCOMETER DEV NAME(LOC) BV2S.; GLUCOSE,POINT OF CARE 103 MG/DL (70-110)
[2021-03-20] MEDS: INSULIN LISPRO 100 UNITS/ML SQ PRN (20:36)
[2021-03-20 20:37] LABS: GLUCOMETER DEV NAME(LOC) BV2S.; GLUCOSE,POINT OF CARE 261 MG/DL (70-110)
[2021-03-20] MEDS: LURASIDONE HCL 80 MG TABLET PO SCH (21:00)
[2021-03-20] MEDS: ZOLPIDEM TARTRATE 10 MG TABLET PO PRN (21:28)
[2021-03-20] MEDS: OLANZapine 10 MG TABLET PO SCH (21:28)
[2021-03-21 00:33] VITALS: BP 134/84
[2021-03-21] MEDS: LORazepam 2 MG TABLET PO PRN (00:40)
[2021-03-21 06:07] LABS: GLUCOMETER DEV NAME(LOC) BV2S.; GLUCOSE,POINT OF CARE 105 MG/DL (70-110)
[2021-03-21 08:06] VITALS: BP 124/80
[2021-03-21] MEDS: LOSARTAN POTASSIUM 50 MG TABLET PO SCH (08:13)
[2021-03-21] MEDS: MULTIVITAMINS WITH MINERALS, THERAPEUTIC TABLET PO SCH (08:13)
[2021-03-21] MEDS: SitaGLIPtin PHOSPHATE 100 MG TABLET PO SCH (08:14)
[2021-03-21] MEDS: GABAPENTIN 300 MG CAPSULE PO SCH ×2 (08:14→16:29)
[2021-03-21] MEDS: LITHIUM CARBONATE 300 MG CAPSULE PO SCH ×2 (08:20→16:29)
[2021-03-21] MEDS: INSULIN GLARGINE,HUM.REC.ANLOG 100 UNITS/ML SQ SCH ×2 (08:23→20:12)
[2021-03-21 08:29] LABS: GLUCOMETER DEV NAME(LOC) BV2S.; GLUCOSE,POINT OF CARE 242 MG/DL (70-110)
[2021-03-21] MEDS: HALOPERIDOL 5 MG TABLET PO PRN (10:00)
[2021-03-21 11:56] LABS: GLUCOMETER DEV NAME(LOC) BV2S.; GLUCOSE,POINT OF CARE 125 MG/DL (70-110)
[2021-03-21] MEDS ORDERED: HALOPERIDOL DECANOATE 100 MG/ML VIAL IM ONE (15:15)
[2021-03-21 16:08] VITALS: BP 121/83
[2021-03-21 16:20] LABS: GLUCOMETER DEV NAME(LOC) BV2S.; GLUCOSE,POINT OF CARE 125 MG/DL (70-110)
[2021-03-21] MEDS: ACETAMINOPHEN 325 MG TABLET PO PRN (18:28)
[2021-03-21] MEDS: OLANZapine 10 MG TABLET PO SCH (20:09)
[2021-03-21] MEDS: LURASIDONE HCL 80 MG TABLET PO SCH (20:11)
[2021-03-21 20:18] LABS: GLUCOMETER DEV NAME(LOC) BV2S.; GLUCOSE,POINT OF CARE 137 MG/DL (70-110)
[2021-03-21] MEDS: ZOLPIDEM TARTRATE 10 MG TABLET PO PRN (22:29)
[2021-03-22 00:16] VITALS: BP 122/81
[2021-03-22 06:44] LABS: GLUCOMETER DEV NAME(LOC) BV2S.; GLUCOSE,POINT OF CARE 111 MG/DL (70-110)
[2021-03-22 08:16] VITALS: BP 118/85
[2021-03-22] MEDS: MULTIVITAMINS WITH MINERALS, THERAPEUTIC TABLET PO SCH (09:27)
[2021-03-22] MEDS: GABAPENTIN 300 MG CAPSULE PO SCH ×2 (09:27→16:22)
[2021-03-22] MEDS: SitaGLIPtin PHOSPHATE 100 MG TABLET PO SCH (09:27)
[2021-03-22] MEDS: LOSARTAN POTASSIUM 50 MG TABLET PO SCH (09:27)
[2021-03-22] MEDS: LITHIUM CARBONATE 300 MG CAPSULE PO SCH ×2 (09:27→16:22)
[2021-03-22] MEDS: INSULIN GLARGINE,HUM.REC.ANLOG 100 UNITS/ML SQ SCH ×2 (09:36→21:06)
[2021-03-22] MEDS: INSULIN LISPRO 100 UNITS/ML SQ PRN ×2 (11:21→16:23)
[2021-03-22 11:28] LABS: GLUCOMETER DEV NAME(LOC) BV2S.; GLUCOSE,POINT OF CARE 149 MG/DL (70-110)
[2021-03-22 16:09] VITALS: BP 114/73
[2021-03-22 16:33] LABS: GLUCOMETER DEV NAME(LOC) BV2S.; GLUCOSE,POINT OF CARE 172 MG/DL (70-110)
[2021-03-22] MEDS: OLANZapine 10 MG TABLET PO SCH (20:02)
[2021-03-22] MEDS: LURASIDONE HCL 80 MG TABLET PO SCH ×2 (20:02→20:05)
[2021-03-22 20:14] LABS: GLUCOMETER DEV NAME(LOC) BV2S.; GLUCOSE,POINT OF CARE 88 MG/DL (70-110)
[2021-03-22] MEDS: ZOLPIDEM TARTRATE 10 MG TABLET PO PRN (21:03)
[2021-03-22 21:14] LABS: GLUCOMETER DEV NAME(LOC) BV2S.; GLUCOSE,POINT OF CARE 117 MG/DL (70-110)
[2021-03-22] MEDS: LORazepam 2 MG TABLET PO PRN (22:45)
[2021-03-23 00:49] VITALS: BP 130/86
[2021-03-23 06:54] LABS: GLUCOMETER DEV NAME(LOC) BV2S.; GLUCOSE,POINT OF CARE 70 MG/DL (70-110)
[2021-03-23 08:09] VITALS: BP 123/77
[2021-03-23] MEDS: MULTIVITAMINS WITH MINERALS, THERAPEUTIC TABLET PO SCH (09:25)
[2021-03-23] MEDS: SitaGLIPtin PHOSPHATE 100 MG TABLET PO SCH (09:25)
[2021-03-23] MEDS: LOSARTAN POTASSIUM 50 MG TABLET PO SCH (09:25)
[2021-03-23] MEDS: LITHIUM CARBONATE 300 MG CAPSULE PO SCH ×2 (09:25→16:12)
[2021-03-23] MEDS: GABAPENTIN 300 MG CAPSULE PO SCH ×2 (09:25→16:12)
[2021-03-23] MEDS: INSULIN GLARGINE,HUM.REC.ANLOG 100 UNITS/ML SQ SCH ×2 (09:32→20:19)
[2021-03-23 09:43] LABS: GLUCOMETER DEV NAME(LOC) BV2S.; GLUCOSE,POINT OF CARE 116 MG/DL (70-110)
[2021-03-23 11:53] LABS: GLUCOMETER DEV NAME(LOC) BV2S.; GLUCOSE,POINT OF CARE 137 MG/DL (70-110)
[2021-03-23 16:15] VITALS: BP 143/85
[2021-03-23 16:23] LABS: GLUCOMETER DEV NAME(LOC) BV2S.; GLUCOSE,POINT OF CARE 107 MG/DL (70-110)
[2021-03-23] MEDS: INSULIN LISPRO 100 UNITS/ML SQ PRN (20:19)
[2021-03-23 20:25] LABS: GLUCOMETER DEV NAME(LOC) BV2S.; GLUCOSE,POINT OF CARE 212 MG/DL (70-110)
[2021-03-23] MEDS: OLANZapine 10 MG TABLET PO SCH (22:04)
[2021-03-23] MEDS: ZOLPIDEM TARTRATE 10 MG TABLET PO PRN (22:06)
[2021-03-23] MEDS: ACETAMINOPHEN 325 MG TABLET PO PRN (22:17)
[2021-03-24 00:05] VITALS: BP 135/87
[2021-03-24 06:18] LABS: GLUCOMETER DEV NAME(LOC) BV2S.; GLUCOSE,POINT OF CARE 99 MG/DL (70-110)
[2021-03-24 08:18] VITALS: BP 117/74
[2021-03-24] MEDS: LOSARTAN POTASSIUM 50 MG TABLET PO SCH (08:47)
[2021-03-24] MEDS: MULTIVITAMINS WITH MINERALS, THERAPEUTIC TABLET PO SCH (08:47)
[2021-03-24] MEDS: LITHIUM CARBONATE 300 MG CAPSULE PO SCH ×2 (08:47→16:38)
[2021-03-24] MEDS: GABAPENTIN 300 MG CAPSULE PO SCH ×2 (08:47→16:38)
[2021-03-24] MEDS: SitaGLIPtin PHOSPHATE 100 MG TABLET PO SCH (08:47)
[2021-03-24] MEDS: INSULIN GLARGINE,HUM.REC.ANLOG 100 UNITS/ML SQ SCH ×2 (08:54→21:08)
[2021-03-24 13:45] LABS: GLUCOMETER DEV NAME(LOC) BV2S.; GLUCOSE,POINT OF CARE 134 MG/DL (70-110)
[2021-03-24 16:10] VITALS: BP 126/81
[2021-03-24 17:20] LABS: GLUCOMETER DEV NAME(LOC) BV2S.; GLUCOSE,POINT OF CARE 164 MG/DL (70-110)
[2021-03-24] MEDS: INSULIN LISPRO 100 UNITS/ML SQ PRN (17:22)
[2021-03-24] MEDS: ZOLPIDEM TARTRATE 10 MG TABLET PO PRN (20:40)
[2021-03-24] MEDS: OLANZapine 10 MG TABLET PO SCH (20:40)
[2021-03-24 21:17] LABS: GLUCOMETER DEV NAME(LOC) BV2S.; GLUCOSE,POINT OF CARE 96 MG/DL (70-110)
[2021-03-24] MEDS: HALOPERIDOL 5 MG TABLET PO PRN (21:53)
[2021-03-24] MEDS: LORazepam 2 MG TABLET PO PRN (21:53)
[2021-03-25 00:27] VITALS: BP 125/79
[2021-03-25 06:23] LABS: GLUCOMETER DEV NAME(LOC) BV2S.; GLUCOSE,POINT OF CARE 96 MG/DL (70-110)
[2021-03-25] MEDS: ACETAMINOPHEN 325 MG TABLET PO PRN (06:32)
[2021-03-25 08:22] VITALS: BP 128/85
[2021-03-25 08:50] LABS: GLUCOMETER DEV NAME(LOC) BV2S.; GLUCOSE,POINT OF CARE 125 MG/DL (70-110)
[2021-03-25] MEDS: LITHIUM CARBONATE 300 MG CAPSULE PO SCH ×2 (09:17→16:18)
[2021-03-25] MEDS: MULTIVITAMINS WITH MINERALS, THERAPEUTIC TABLET PO SCH (09:17)
[2021-03-25] MEDS: GABAPENTIN 300 MG CAPSULE PO SCH ×2 (09:17→16:18)
[2021-03-25] MEDS: LOSARTAN POTASSIUM 50 MG TABLET PO SCH (09:17)
[2021-03-25] MEDS: SitaGLIPtin PHOSPHATE 100 MG TABLET PO SCH (09:17)
[2021-03-25] MEDS: INSULIN GLARGINE,HUM.REC.ANLOG 100 UNITS/ML SQ SCH (09:20)
[2021-03-25 10:54] LABS: GLUCOMETER DEV NAME(LOC) BV2S.; GLUCOSE,POINT OF CARE 171 MG/DL (70-110)
[2021-03-25] MEDS: INSULIN LISPRO 100 UNITS/ML SQ PRN ×2 (11:35→16:33)
[2021-03-25] MEDS ORDERED: GABA-1181 PO ×2 (14:17→14:18)
[2021-03-25 17:01] LABS: GLUCOMETER DEV NAME(LOC) BV2S.; GLUCOSE,POINT OF CARE 191 MG/DL (70-110)
[2021-04-20] MEDS ORDERED: HALOPERIDOL DECANOATE 100 MG/ML VIAL IM SCH (09:00)
== END 2021-03-25 14:09 | disposition home or self-care (01) | DRG 750 ==
LOC: EMS 18:08 → B2S 03-15 01:00
PROVIDERS: ADMIT Psychiatry & Neurology Psychiatry; ATTEND Psychiatry & Neurology Psychiatry
DX: F25.1 Schizoaffective disorder, depressive type (principal); F79 Unspecified intellectual disabilities; R45.851 Suicidal ideations; E11.65 Type 2 diabetes mellitus with hyperglycemia; F41.9 Anxiety disorder, unspecified; G47.00 Insomnia, unspecified; Z20.822 Contact with and (suspected) exposure to COVID-19; E78.5 Hyperlipidemia, unspecified; K59.00 Constipation, unspecified; J45.909 Unspecified asthma, uncomplicated; I10 Essential (primary) hypertension
CPT/HCPCS: 80053; 80061; 80178; 82962; 85025; 87081; 99285; G0480; J1631; J1815

== ENCOUNTER 2021-03-27 20:13 | Inpatient (IN) | payer MEDICAID, OTHER ==
[~2021-03-27] VITALS: Ht 165.1 cm; Wt 95.7 kg
[~2021-03-27 20:13] MED LIST changes: -ATOR40TA28 PO; +GABA-1181 PO; -INSLAN SQ; +LOSA-382 PO; -LOSA50TA37 PO; -LURA80TA2 PO; -SITA100 PO
[2021-03-27 20:55] LABS: COVID AG,FIA SOURCE NASOPHARYNGEAL
[2021-03-27 21:00] LABS: BASOPHILS % (AUTO) 0.4 % (0.0-2.0); EOSINOPHILS % (AUTO) 1.2 % (1.0-6.0); HEMATOCRIT 38.4 % (41-53); HEMOGLOBIN 13.1 g/dL (13.5-17.5); LYMPHOCYTES # (AUTO) 1.9 K/uL (1.0-4.8); LYMPHOCYTES % (AUTO) 27.8 % (22.0-44.0); MEAN CORPUSCULAR HEMOGLOBIN 29.3 pg (26.0-34.0); MEAN CORPUSCULAR HGB CONC 34.1 G/dL (31.0-37.0); MEAN CORPUSCULAR VOLUME 86 fL (80-100); MONOCYTES # (AUTO) 0.3 K/uL (0.1-1.0); MONOCYTES % (AUTO) 5.1 % (2.0-9.0); NEUTROPHILS # (AUTO) 4.4 K/uL (1.8-7.7); NEUTROPHILS % (AUTO) 65.5 % (40.0-70.0); PLATELET COUNT (AUTO) 225 K/uL (150-450); RED BLOOD CELL COUNT(AUTO) 4.47 MIL/uL (4.50-5.90); RED CELL DISTRIBUTION WIDTH 13.5 % (11.5-14.5)
[2021-03-27 21:01] LABS: AMPHET/METH SCREEN,URINE NEGATIVE (NEGATIVE); BARBITURATE SCREEN, URINE NEGATIVE (NEGATIVE); BENZODIAZEPINES SCREEN,URINE NEGATIVE (NEGATIVE); CANNABINOID SCREEN,URINE NEGATIVE (NEGATIVE); COCAINE SCREEN,URINE NEGATIVE (NEGATIVE); METHADONE SCREEN, URINE NEGATIVE (NEGATIVE); OPIATE SCREEN,URINE NEGATIVE (NEGATIVE); PHENCYCLIDINE SCREEN,URINE NEGATIVE (NEGATIVE)
[2021-03-27 21:09] LABS: ANION GAP 9 mmol/L (8-16); CALCIUM, TOTAL 9.2 mg/dL (8.8-10.5); CARBON DIOXIDE 28 mmol/L (22-29); CHLORIDE 98 mmol/L (98-107); CREATININE 0.69 mg/dL (0.60-1.30); GLOMERULAR FILTR. RATE CALC > 60 mL/min (>60); GLUCOSE,RANDOM 217 mg/dL (70-110); POTASSIUM 4.1 mmol/L (3.5-5.1); SODIUM SERUM 135 mmol/L (136-145); UREA NITROGEN, BLOOD 7 mg/dL (7-18)
[2021-03-27 21:16] LABS: ALANINE AMINOTRANSFERASE 28 U/L (12-78); ALKALINE PHOSPHATASE 77 U/L (46-116); ASPARTATE AMINOTRANSFERASE 19 U/L (15-37); BILIRUBIN,TOTAL 0.8 mg/dL (0.1-1.0); TOTAL PROTEIN, SERUM 7.7 g/dL (6.4-8.2)
[2021-03-27 21:44] LABS: LITHIUM < 0.20 mmol/L (0.60-1.20)
[2021-03-27] MEDS ORDERED: LORazepam 2 MG TABLET PO ONE (21:45)
[2021-03-27] MEDS ORDERED: OLANZapine 5 MG TABLET PO ONE (22:15)
[2021-03-28 03:29] VITALS: BP 125/83
[2021-03-28 07:07] LABS: GLUCOMETER DEV NAME(LOC) BV2S.; GLUCOSE,POINT OF CARE 127 MG/DL (70-110)
[2021-03-28 08:23] LABS: HEMOGLOBIN A1C 6.5 % (3.8-5.6)
[2021-03-28 08:24] VITALS: BP 127/85
[2021-03-28] MEDS: OLANZapine 5 MG RAPDIS TABLET PO PRN (08:41)
[2021-03-28 08:44] LABS: CHOL/HDL RATIO 3.1 (4.2-7.3); FREE T4 (FREE THYROXINE) 1.22 ng/dL (0.76-1.46); THYROID STIMULATING HORMONE 2.47 uIU/mL (0.36-3.74)
[2021-03-28] MEDS ORDERED: BACITRACIN 28 GM OINTMENT TP PRN (13:15)
[2021-03-28] MEDS ORDERED: DOCUSATE SODIUM 100 MG CAPSULE PO PRN (13:15)
[2021-03-28] MEDS ORDERED: ONDANSETRON HCL 4 MG TABLET PO PRN (13:15)
[2021-03-28] MEDS ORDERED: CloNIDine HCL 0.1 MG TABLET PO PRN (13:15)
[2021-03-28] MEDS ORDERED: LOPERAMIDE HCL 2 MG CAPSULE PO PRN (13:15)
[2021-03-28] MEDS ORDERED: GLUCAGON,HUMAN RECOMBINANT 1 MG VIAL IM PRN (13:15)
[2021-03-28] MEDS ORDERED: MAGNESIUM HYDROXIDE SUSPENSION 30 ML UDCUP PO PRN (13:15)
[2021-03-28] MEDS ORDERED: PETROLATUM,WHITE 28 GM JELLY TP PRN (13:15)
[2021-03-28] MEDS ORDERED: OMEPRAZOLE 20 MG CAPSULE PO PRN (13:15)
[2021-03-28] MEDS: ACETAMINOPHEN 325 MG TABLET PO PRN ×2 (14:28→21:29)
[2021-03-28 16:30] VITALS: BP 136/83
[2021-03-28] MEDS: MetFORMIN HCL 500 MG TABLET PO SCH (16:39)
[2021-03-28] MEDS: LITHIUM CARBONATE 300 MG CAPSULE PO SCH (16:39)
[2021-03-28] MEDS: INSULIN LISPRO 100 UNITS/ML SQ PRN (16:58)
[2021-03-28 17:11] LABS: GLUCOMETER DEV NAME(LOC) BV2S.; GLUCOSE,POINT OF CARE 165 MG/DL (70-110)
[2021-03-28] MEDS: OLANZapine 7.5 MG TABLET PO SCH (20:13)
[2021-03-28 20:47] LABS: GLUCOMETER DEV NAME(LOC) BV2S.; GLUCOSE,POINT OF CARE 111 MG/DL (70-110)
[2021-03-28] MEDS: ZOLPIDEM TARTRATE 10 MG TABLET PO PRN (21:19)
[2021-03-28] MEDS: GABAPENTIN 300 MG CAPSULE PO SCH (21:41)
[2021-03-29 01:47] VITALS: BP 125/80
[2021-03-29] MEDS: MetFORMIN HCL 500 MG TABLET PO SCH ×2 (06:48→16:18)
[2021-03-29] MEDS: LITHIUM CARBONATE 300 MG CAPSULE PO SCH ×2 (06:48→16:18)
[2021-03-29 06:55] LABS: GLUCOMETER DEV NAME(LOC) BV2S.; GLUCOSE,POINT OF CARE 120 MG/DL (70-110)
[2021-03-29 08:43] VITALS: BP 118/77
[2021-03-29] MEDS: GABAPENTIN 300 MG CAPSULE PO SCH ×2 (08:57→16:18)
[2021-03-29] MEDS: LOSARTAN POTASSIUM 50 MG TABLET PO SCH (08:57)
[2021-03-29] MEDS: OMEGA-3/DHA/EPA/FISH OIL 1,000 MG CAPSULE PO SCH (08:57)
[2021-03-29] MEDS: ALBUTEROL SULFATE HFA 90 MCG/PUFF 8 GM INHALER IH PRN (10:39)
[2021-03-29] MEDS: INSULIN LISPRO 100 UNITS/ML SQ PRN ×2 (11:25→20:22)
[2021-03-29 11:38] LABS: GLUCOMETER DEV NAME(LOC) BV2S.; GLUCOSE,POINT OF CARE 143 MG/DL (70-110)
[2021-03-29 16:20] VITALS: BP 125/77
[2021-03-29 17:18] LABS: GLUCOMETER DEV NAME(LOC) BV2S.; GLUCOSE,POINT OF CARE 123 MG/DL (70-110)
[2021-03-29 20:54] LABS: GLUCOMETER DEV NAME(LOC) BV2S.; GLUCOSE,POINT OF CARE 141 MG/DL (70-110)
[2021-03-29] MEDS: ACETAMINOPHEN 325 MG TABLET PO PRN (21:06)
[2021-03-29] MEDS: OLANZapine 7.5 MG TABLET PO SCH (21:49)
[2021-03-29] MEDS: ZOLPIDEM TARTRATE 10 MG TABLET PO PRN (21:49)
[2021-03-30 05:18] VITALS: BP 121/74
[2021-03-30 06:22] LABS: GLUCOMETER DEV NAME(LOC) BV2S.; GLUCOSE,POINT OF CARE 122 MG/DL (70-110)
[2021-03-30] MEDS: LITHIUM CARBONATE 300 MG CAPSULE PO SCH ×2 (07:06→16:36)
[2021-03-30] MEDS: MetFORMIN HCL 500 MG TABLET PO SCH ×2 (07:07→16:36)
[2021-03-30 08:29] VITALS: BP 122/77
[2021-03-30] MEDS: GABAPENTIN 300 MG CAPSULE PO SCH ×2 (08:46→16:36)
[2021-03-30] MEDS: LOSARTAN POTASSIUM 50 MG TABLET PO SCH (08:46)
[2021-03-30] MEDS: OMEGA-3/DHA/EPA/FISH OIL 1,000 MG CAPSULE PO SCH (08:46)
[2021-03-30 11:30] LABS: GLUCOMETER DEV NAME(LOC) BV2S.; GLUCOSE,POINT OF CARE 128 MG/DL (70-110)
[2021-03-30 16:25] VITALS: BP 126/80
[2021-03-30 16:48] LABS: GLUCOMETER DEV NAME(LOC) BV2S.; GLUCOSE,POINT OF CARE 120 MG/DL (70-110)
[2021-03-30] MEDS: INSULIN LISPRO 100 UNITS/ML SQ PRN (20:37)
[2021-03-30 20:52] LABS: GLUCOMETER DEV NAME(LOC) BV2S.; GLUCOSE,POINT OF CARE 152 MG/DL (70-110)
[2021-03-30] MEDS: BENZOCAINE/MENTHOL LOZENGE PO PRN (21:02)
[2021-03-30] MEDS: OLANZapine 7.5 MG TABLET PO SCH (21:35)
[2021-03-30] MEDS: ZOLPIDEM TARTRATE 10 MG TABLET PO PRN (21:35)
[2021-03-31 01:06] VITALS: BP 106/66
[2021-03-31] MEDS: MetFORMIN HCL 500 MG TABLET PO SCH ×2 (06:03→16:00)
[2021-03-31] MEDS: LITHIUM CARBONATE 300 MG CAPSULE PO SCH ×2 (06:03→16:00)
[2021-03-31 06:25] LABS: GLUCOMETER DEV NAME(LOC) BV2S.; GLUCOSE,POINT OF CARE 135 MG/DL (70-110)
[2021-03-31] MEDS: ACETAMINOPHEN 325 MG TABLET PO PRN ×2 (07:59→17:05)
[2021-03-31] MEDS: LOSARTAN POTASSIUM 50 MG TABLET PO SCH (08:00)
[2021-03-31] MEDS: OMEGA-3/DHA/EPA/FISH OIL 1,000 MG CAPSULE PO SCH (08:00)
[2021-03-31] MEDS: GABAPENTIN 300 MG CAPSULE PO SCH ×2 (08:00→16:00)
[2021-03-31 08:22] VITALS: BP 124/83
[2021-03-31 11:16] LABS: GLUCOMETER DEV NAME(LOC) BV2S.; GLUCOSE,POINT OF CARE 121 MG/DL (70-110)
[2021-03-31] MEDS: ALBUTEROL SULFATE HFA 90 MCG/PUFF 8 GM INHALER IH PRN ×2 (12:31→18:31)
[2021-03-31 16:09] VITALS: BP 126/86
[2021-03-31 16:18] LABS: GLUCOMETER DEV NAME(LOC) BV2S.; GLUCOSE,POINT OF CARE 179 MG/DL (70-110)
[2021-03-31] MEDS: INSULIN LISPRO 100 UNITS/ML SQ PRN (17:05)
[2021-03-31 20:22] LABS: GLUCOMETER DEV NAME(LOC) BV2S.; GLUCOSE,POINT OF CARE 119 MG/DL (70-110)
[2021-03-31] MEDS: OLANZapine 7.5 MG TABLET PO SCH (20:33)
[2021-03-31] MEDS: LORazepam 2 MG TABLET PO PRN (21:43)
[2021-04-01 00:44] VITALS: BP 122/76
[2021-04-01] MEDS: LITHIUM CARBONATE 300 MG CAPSULE PO SCH ×2 (06:33→16:08)
[2021-04-01] MEDS: MetFORMIN HCL 500 MG TABLET PO SCH ×2 (06:33→16:08)
[2021-04-01 06:50] LABS: GLUCOMETER DEV NAME(LOC) BV2S.; GLUCOSE,POINT OF CARE 131 MG/DL (70-110)
[2021-04-01] MEDS: GABAPENTIN 300 MG CAPSULE PO SCH ×2 (07:57→16:08)
[2021-04-01] MEDS: LOSARTAN POTASSIUM 50 MG TABLET PO SCH (07:57)
[2021-04-01] MEDS: OMEGA-3/DHA/EPA/FISH OIL 1,000 MG CAPSULE PO SCH (07:57)
[2021-04-01] MEDS: ALBUTEROL SULFATE HFA 90 MCG/PUFF 8 GM INHALER IH PRN (07:58)
[2021-04-01 08:37] VITALS: BP 130/82
[2021-04-01] MEDS: ACETAMINOPHEN 325 MG TABLET PO PRN ×2 (09:29→18:18)
[2021-04-01 11:08] LABS: GLUCOMETER DEV NAME(LOC) BV2S.; GLUCOSE,POINT OF CARE 110 MG/DL (70-110)
[2021-04-01 16:07] VITALS: BP 126/81
[2021-04-01 20:47] LABS: GLUCOMETER DEV NAME(LOC) BV2S.; GLUCOSE,POINT OF CARE 122 MG/DL (70-110)
[2021-04-01 20:47] LABS: GLUCOMETER DEV NAME(LOC) BV2S.; GLUCOSE,POINT OF CARE 111 MG/DL (70-110)
[2021-04-01] MEDS: OLANZapine 7.5 MG TABLET PO SCH (20:49)
[2021-04-01] MEDS: ZOLPIDEM TARTRATE 10 MG TABLET PO PRN (21:56)
[2021-04-02 02:16] VITALS: BP 105/75
[2021-04-02 06:18] LABS: GLUCOMETER DEV NAME(LOC) BV2S.; GLUCOSE,POINT OF CARE 113 MG/DL (70-110)
[2021-04-02] MEDS: LITHIUM CARBONATE 300 MG CAPSULE PO SCH ×2 (06:46→16:58)
[2021-04-02] MEDS: MetFORMIN HCL 500 MG TABLET PO SCH ×2 (06:46→16:58)
[2021-04-02 08:19] LABS: COVID AG,FIA SOURCE NASOPHARYNGEAL
[2021-04-02 08:24] VITALS: BP 129/77
[2021-04-02] MEDS: GABAPENTIN 300 MG CAPSULE PO SCH ×2 (08:39→16:58)
[2021-04-02] MEDS: MULTIVITAMINS WITH IRON TABLET PO SCH (08:39)
[2021-04-02] MEDS: LOSARTAN POTASSIUM 50 MG TABLET PO SCH (08:39)
[2021-04-02] MEDS: OMEGA-3/DHA/EPA/FISH OIL 1,000 MG CAPSULE PO SCH (08:39)
[2021-04-02] MEDS: ALBUTEROL SULFATE HFA 90 MCG/PUFF 8 GM INHALER IH PRN (10:21)
[2021-04-02] MEDS: ACETAMINOPHEN 325 MG TABLET PO PRN (10:21)
[2021-04-02] MEDS: INSULIN LISPRO 100 UNITS/ML SQ PRN (10:56)
[2021-04-02 12:33] LABS: GLUCOMETER DEV NAME(LOC) BV2S.; GLUCOSE,POINT OF CARE 145 MG/DL (70-110)
[2021-04-02 16:22] VITALS: BP 113/74
[2021-04-02 16:50] LABS: GLUCOMETER DEV NAME(LOC) BV2S.; GLUCOSE,POINT OF CARE 113 MG/DL (70-110)
[2021-04-02] MEDS: LORazepam 2 MG TABLET PO PRN (18:31)
[2021-04-02] MEDS: OLANZapine 7.5 MG TABLET PO SCH (20:01)
[2021-04-02 20:16] LABS: GLUCOMETER DEV NAME(LOC) BV2S.; GLUCOSE,POINT OF CARE 132 MG/DL (70-110)
[2021-04-02] MEDS: ZOLPIDEM TARTRATE 10 MG TABLET PO PRN (21:46)
[2021-04-03 00:43] VITALS: BP 123/77
[2021-04-03 06:22] LABS: GLUCOMETER DEV NAME(LOC) BV2S.; GLUCOSE,POINT OF CARE 119 MG/DL (70-110)
[2021-04-03] MEDS: MetFORMIN HCL 500 MG TABLET PO SCH ×2 (06:32→16:29)
[2021-04-03] MEDS: LITHIUM CARBONATE 300 MG CAPSULE PO SCH ×2 (06:32→16:29)
[2021-04-03 08:19] VITALS: BP 107/60
[2021-04-03] MEDS: OMEGA-3/DHA/EPA/FISH OIL 1,000 MG CAPSULE PO SCH (08:29)
[2021-04-03] MEDS: GABAPENTIN 300 MG CAPSULE PO SCH ×2 (08:29→16:29)
[2021-04-03] MEDS: MULTIVITAMINS WITH IRON TABLET PO SCH (08:29)
[2021-04-03] MEDS: LOSARTAN POTASSIUM 50 MG TABLET PO SCH (08:30)
[2021-04-03] MEDS: INSULIN LISPRO 100 UNITS/ML SQ PRN (11:06)
[2021-04-03 11:54] LABS: GLUCOMETER DEV NAME(LOC) BV2S.; GLUCOSE,POINT OF CARE 155 MG/DL (70-110)
[2021-04-03 16:19] VITALS: BP 136/79
[2021-04-03 17:01] LABS: GLUCOMETER DEV NAME(LOC) BV2S.; GLUCOSE,POINT OF CARE 117 MG/DL (70-110)
[2021-04-03] MEDS: OLANZapine 7.5 MG TABLET PO SCH (20:08)
[2021-04-03 21:37] LABS: GLUCOMETER DEV NAME(LOC) BV2S.; GLUCOSE,POINT OF CARE 108 MG/DL (70-110)
[2021-04-03] MEDS: ZOLPIDEM TARTRATE 10 MG TABLET PO PRN (21:41)
[2021-04-04 00:58] VITALS: BP 127/80
[2021-04-04] MEDS: LITHIUM CARBONATE 300 MG CAPSULE PO SCH ×2 (06:33→16:36)
[2021-04-04] MEDS: MetFORMIN HCL 500 MG TABLET PO SCH ×2 (06:33→16:36)
[2021-04-04 06:41] LABS: GLUCOMETER DEV NAME(LOC) BV2S.; GLUCOSE,POINT OF CARE 116 MG/DL (70-110)
[2021-04-04 08:09] VITALS: BP 119/80
[2021-04-04] MEDS: OMEGA-3/DHA/EPA/FISH OIL 1,000 MG CAPSULE PO SCH (08:27)
[2021-04-04] MEDS: MULTIVITAMINS WITH IRON TABLET PO SCH (08:27)
[2021-04-04] MEDS: GABAPENTIN 300 MG CAPSULE PO SCH ×2 (08:27→16:36)
[2021-04-04] MEDS: LOSARTAN POTASSIUM 50 MG TABLET PO SCH (08:27)
[2021-04-04] MEDS: ACETAMINOPHEN 325 MG TABLET PO PRN (08:28)
[2021-04-04] MEDS: ALBUTEROL SULFATE HFA 90 MCG/PUFF 8 GM INHALER IH PRN (08:33)
[2021-04-04 11:13] LABS: GLUCOMETER DEV NAME(LOC) BV2S.; GLUCOSE,POINT OF CARE 98 MG/DL (70-110)
[2021-04-04 16:13] VITALS: BP 117/77
[2021-04-04 16:29] LABS: GLUCOMETER DEV NAME(LOC) BV2S.; GLUCOSE,POINT OF CARE 137 MG/DL (70-110)
[2021-04-04 20:21] LABS: GLUCOMETER DEV NAME(LOC) BV2S.; GLUCOSE,POINT OF CARE 226 MG/DL (70-110)
[2021-04-04] MEDS: OLANZapine 7.5 MG TABLET PO SCH (20:38)
[2021-04-04] MEDS: INSULIN LISPRO 100 UNITS/ML SQ PRN (21:05)
[2021-04-04] MEDS: ZOLPIDEM TARTRATE 10 MG TABLET PO PRN (21:56)
[2021-04-05] MEDS: ACETAMINOPHEN 325 MG TABLET PO PRN ×2 (00:40→08:39)
[2021-04-05 02:49] VITALS: BP 110/68
[2021-04-05] MEDS: MetFORMIN HCL 500 MG TABLET PO SCH ×2 (06:34→16:23)
[2021-04-05] MEDS: LITHIUM CARBONATE 300 MG CAPSULE PO SCH ×2 (06:34→16:23)
[2021-04-05 06:52] LABS: GLUCOMETER DEV NAME(LOC) BV2S.; GLUCOSE,POINT OF CARE 94 MG/DL (70-110)
[2021-04-05 08:21] VITALS: BP 122/77
[2021-04-05] MEDS: MULTIVITAMINS WITH IRON TABLET PO SCH (08:38)
[2021-04-05] MEDS: OMEGA-3/DHA/EPA/FISH OIL 1,000 MG CAPSULE PO SCH (08:38)
[2021-04-05] MEDS: LOSARTAN POTASSIUM 50 MG TABLET PO SCH (08:38)
[2021-04-05] MEDS: GABAPENTIN 300 MG CAPSULE PO SCH ×2 (08:38→16:23)
[2021-04-05 11:24] LABS: GLUCOMETER DEV NAME(LOC) BV2S.; GLUCOSE,POINT OF CARE 188 MG/DL (70-110)
[2021-04-05] MEDS: INSULIN LISPRO 100 UNITS/ML SQ PRN (11:24)
[2021-04-05 16:16] VITALS: BP 120/80
[2021-04-05 16:43] LABS: GLUCOMETER DEV NAME(LOC) BV2S.; GLUCOSE,POINT OF CARE 118 MG/DL (70-110)
[2021-04-05] MEDS: OLANZapine 7.5 MG TABLET PO SCH (20:24)
[2021-04-05 20:35] LABS: GLUCOMETER DEV NAME(LOC) BV2S.; GLUCOSE,POINT OF CARE 127 MG/DL (70-110)
[2021-04-05] MEDS: ZOLPIDEM TARTRATE 10 MG TABLET PO PRN (22:11)
[2021-04-06 01:42] VITALS: BP 119/76
[2021-04-06] MEDS: OLANZapine 5 MG RAPDIS TABLET PO PRN (04:53)
[2021-04-06] MEDS: LITHIUM CARBONATE 300 MG CAPSULE PO SCH ×2 (06:36→16:39)
[2021-04-06] MEDS: MetFORMIN HCL 500 MG TABLET PO SCH ×2 (06:36→16:39)
[2021-04-06 06:55] LABS: GLUCOMETER DEV NAME(LOC) BV2S.; GLUCOSE,POINT OF CARE 118 MG/DL (70-110)
[2021-04-06 08:19] VITALS: BP 123/89
[2021-04-06] MEDS: ACETAMINOPHEN 325 MG TABLET PO PRN ×2 (08:20→21:30)
[2021-04-06] MEDS: GABAPENTIN 300 MG CAPSULE PO SCH ×2 (08:21→16:38)
[2021-04-06] MEDS: LOSARTAN POTASSIUM 50 MG TABLET PO SCH (08:21)
[2021-04-06] MEDS: MULTIVITAMINS WITH IRON TABLET PO SCH (08:21)
[2021-04-06] MEDS: OMEGA-3/DHA/EPA/FISH OIL 1,000 MG CAPSULE PO SCH (08:22)
[2021-04-06 11:05] LABS: GLUCOMETER DEV NAME(LOC) BV2S.; GLUCOSE,POINT OF CARE 97 MG/DL (70-110)
[2021-04-06 16:17] VITALS: BP 108/74
[2021-04-06 16:19] LABS: GLUCOMETER DEV NAME(LOC) BV2S.; GLUCOSE,POINT OF CARE 110 MG/DL (70-110)
[2021-04-06 21:08] LABS: GLUCOMETER DEV NAME(LOC) BV2S.; GLUCOSE,POINT OF CARE 94 MG/DL (70-110)
[2021-04-06] MEDS: OLANZapine 7.5 MG TABLET PO SCH (21:50)
[2021-04-06] MEDS: ZOLPIDEM TARTRATE 10 MG TABLET PO PRN (21:50)
[2021-04-07 00:39] VITALS: BP 114/79
[2021-04-07] MEDS: ACETAMINOPHEN 325 MG TABLET PO PRN ×2 (04:24→20:07)
[2021-04-07 06:48] LABS: GLUCOMETER DEV NAME(LOC) BV2S.; GLUCOSE,POINT OF CARE 96 MG/DL (70-110)
[2021-04-07] MEDS: MetFORMIN HCL 500 MG TABLET PO SCH ×2 (07:27→16:15)
[2021-04-07] MEDS: LITHIUM CARBONATE 300 MG CAPSULE PO SCH ×2 (07:27→16:15)
[2021-04-07 08:37] VITALS: BP 120/77
[2021-04-07] MEDS: MULTIVITAMINS WITH IRON TABLET PO SCH (09:05)
[2021-04-07] MEDS: OMEGA-3/DHA/EPA/FISH OIL 1,000 MG CAPSULE PO SCH (09:06)
[2021-04-07] MEDS: LOSARTAN POTASSIUM 50 MG TABLET PO SCH (09:06)
[2021-04-07] MEDS: GABAPENTIN 300 MG CAPSULE PO SCH ×2 (09:06→16:15)
[2021-04-07 11:32] LABS: GLUCOMETER DEV NAME(LOC) BV2S.; GLUCOSE,POINT OF CARE 94 MG/DL (70-110)
[2021-04-07 16:19] VITALS: BP 109/74
[2021-04-07 16:27] LABS: GLUCOMETER DEV NAME(LOC) BV2S.; GLUCOSE,POINT OF CARE 167 MG/DL (70-110)
[2021-04-07] MEDS: INSULIN LISPRO 100 UNITS/ML SQ PRN (16:40)
[2021-04-07 19:46] LABS: GLUCOMETER DEV NAME(LOC) BV2S.; GLUCOSE,POINT OF CARE 116 MG/DL (70-110)
[2021-04-07] MEDS: OLANZapine 7.5 MG TABLET PO SCH (20:06)
[2021-04-07] MEDS: ZOLPIDEM TARTRATE 10 MG TABLET PO PRN (22:13)
[2021-04-08 02:34] VITALS: BP 111/75
[2021-04-08 06:37] LABS: GLUCOMETER DEV NAME(LOC) BV2S.; GLUCOSE,POINT OF CARE 127 MG/DL (70-110)
[2021-04-08] MEDS: MetFORMIN HCL 500 MG TABLET PO SCH ×2 (06:52→16:44)
[2021-04-08] MEDS: LITHIUM CARBONATE 300 MG CAPSULE PO SCH ×2 (06:52→16:44)
[2021-04-08] MEDS: OMEGA-3/DHA/EPA/FISH OIL 1,000 MG CAPSULE PO SCH (08:06)
[2021-04-08] MEDS: GABAPENTIN 300 MG CAPSULE PO SCH ×2 (08:06→16:44)
[2021-04-08] MEDS: MULTIVITAMINS WITH IRON TABLET PO SCH (08:06)
[2021-04-08] MEDS: LOSARTAN POTASSIUM 50 MG TABLET PO SCH (08:07)
[2021-04-08] MEDS: ACETAMINOPHEN 325 MG TABLET PO PRN ×2 (08:07→21:17)
[2021-04-08 08:19] VITALS: BP 110/68
[2021-04-08 11:11] LABS: GLUCOMETER DEV NAME(LOC) BV2S.; GLUCOSE,POINT OF CARE 96 MG/DL (70-110)
[2021-04-08] MEDS: OLANZapine 5 MG RAPDIS TABLET PO PRN (13:01)
[2021-04-08 16:09] VITALS: BP 105/73
[2021-04-08] MEDS: INSULIN LISPRO 100 UNITS/ML SQ PRN (16:46)
[2021-04-08 17:00] LABS: GLUCOMETER DEV NAME(LOC) BV2S.; GLUCOSE,POINT OF CARE 194 MG/DL (70-110)
[2021-04-08] MEDS: OLANZapine 7.5 MG TABLET PO SCH (20:03)
[2021-04-08 21:01] LABS: GLUCOMETER DEV NAME(LOC) BV2S.; GLUCOSE,POINT OF CARE 122 MG/DL (70-110)
[2021-04-08] MEDS: ZOLPIDEM TARTRATE 10 MG TABLET PO PRN (21:16)
[2021-04-09 05:31] VITALS: BP 108/69
[2021-04-09 06:26] LABS: GLUCOMETER DEV NAME(LOC) BV2S.; GLUCOSE,POINT OF CARE 101 MG/DL (70-110)
[2021-04-09] MEDS: LITHIUM CARBONATE 300 MG CAPSULE PO SCH ×2 (06:48→16:36)
[2021-04-09] MEDS: MetFORMIN HCL 500 MG TABLET PO SCH ×2 (06:49→16:36)
[2021-04-09 08:11] VITALS: BP 132/80
[2021-04-09] MEDS: GABAPENTIN 300 MG CAPSULE PO SCH ×2 (08:17→16:36)
[2021-04-09] MEDS: LOSARTAN POTASSIUM 50 MG TABLET PO SCH (08:17)
[2021-04-09] MEDS: OMEGA-3/DHA/EPA/FISH OIL 1,000 MG CAPSULE PO SCH (08:17)
[2021-04-09] MEDS: MULTIVITAMINS WITH IRON TABLET PO SCH (08:17)
[2021-04-09 11:43] LABS: GLUCOMETER DEV NAME(LOC) BV2S.; GLUCOSE,POINT OF CARE 150 MG/DL (70-110)
[2021-04-09] MEDS: INSULIN LISPRO 100 UNITS/ML SQ PRN (11:44)
[2021-04-09 16:08] VITALS: BP 117/77
[2021-04-09] MEDS: BENZOCAINE/MENTHOL LOZENGE PO PRN (16:22)
[2021-04-09 16:23] LABS: GLUCOMETER DEV NAME(LOC) BV2S.; GLUCOSE,POINT OF CARE 106 MG/DL (70-110)
[2021-04-09] MEDS ORDERED: AZITHROMYCIN 250 MG TABLET PO ONE (17:45)
[2021-04-09] MEDS: OLANZapine 7.5 MG TABLET PO SCH (20:30)
[2021-04-09 20:31] LABS: GLUCOMETER DEV NAME(LOC) BV2S.; GLUCOSE,POINT OF CARE 135 MG/DL (70-110)
[2021-04-10 06:20] VITALS: BP 120/79
[2021-04-10] MEDS: BENZOCAINE/MENTHOL LOZENGE PO PRN ×2 (06:22→22:00)
[2021-04-10 06:29] LABS: GLUCOMETER DEV NAME(LOC) BV2S.; GLUCOSE,POINT OF CARE 120 MG/DL (70-110)
[2021-04-10] MEDS: MetFORMIN HCL 500 MG TABLET PO SCH ×2 (06:31→16:38)
[2021-04-10] MEDS: LITHIUM CARBONATE 300 MG CAPSULE PO SCH ×2 (06:31→16:38)
[2021-04-10 06:38] LABS: COVID AG,FIA SOURCE NASOPHARYNGEAL
[2021-04-10 08:19] VITALS: BP 115/77
[2021-04-10] MEDS: GABAPENTIN 300 MG CAPSULE PO SCH ×2 (09:22→16:38)
[2021-04-10] MEDS: MULTIVITAMINS WITH IRON TABLET PO SCH (09:22)
[2021-04-10] MEDS: OMEGA-3/DHA/EPA/FISH OIL 1,000 MG CAPSULE PO SCH (09:22)
[2021-04-10] MEDS: AZITHROMYCIN 250 MG TABLET PO SCH (09:22)
[2021-04-10] MEDS: LOSARTAN POTASSIUM 50 MG TABLET PO SCH (09:22)
[2021-04-10 11:00] LABS: GLUCOMETER DEV NAME(LOC) BV2S.; GLUCOSE,POINT OF CARE 101 MG/DL (70-110)
[2021-04-10] MEDS: ACETAMINOPHEN 325 MG TABLET PO PRN (12:26)
[2021-04-10 16:21] VITALS: BP 134/81
[2021-04-10 16:57] LABS: GLUCOMETER DEV NAME(LOC) BV2S.; GLUCOSE,POINT OF CARE 96 MG/DL (70-110)
[2021-04-10] MEDS: OLANZapine 7.5 MG TABLET PO SCH (20:44)
[2021-04-10 21:15] LABS: GLUCOMETER DEV NAME(LOC) BV2S.; GLUCOSE,POINT OF CARE 146 MG/DL (70-110)
[2021-04-10] MEDS: ZOLPIDEM TARTRATE 10 MG TABLET PO PRN (22:00)
[2021-04-11 05:39] VITALS: BP 111/74
[2021-04-11] MEDS: LITHIUM CARBONATE 300 MG CAPSULE PO SCH ×2 (06:45→16:27)
[2021-04-11] MEDS: MetFORMIN HCL 500 MG TABLET PO SCH ×2 (06:45→16:27)
[2021-04-11 06:52] LABS: GLUCOMETER DEV NAME(LOC) BV2S.; GLUCOSE,POINT OF CARE 118 MG/DL (70-110)
[2021-04-11 08:28] VITALS: BP 115/69
[2021-04-11] MEDS: MULTIVITAMINS WITH IRON TABLET PO SCH (08:37)
[2021-04-11] MEDS: LOSARTAN POTASSIUM 50 MG TABLET PO SCH (08:37)
[2021-04-11] MEDS: GABAPENTIN 300 MG CAPSULE PO SCH ×2 (08:37→16:27)
[2021-04-11] MEDS: AZITHROMYCIN 250 MG TABLET PO SCH (08:37)
[2021-04-11] MEDS: OMEGA-3/DHA/EPA/FISH OIL 1,000 MG CAPSULE PO SCH (08:37)
[2021-04-11 11:39] LABS: GLUCOMETER DEV NAME(LOC) BV2S.; GLUCOSE,POINT OF CARE 122 MG/DL (70-110)
[2021-04-11 16:17] VITALS: BP 111/74
[2021-04-11 16:55] LABS: GLUCOMETER DEV NAME(LOC) BV2S.; GLUCOSE,POINT OF CARE 107 MG/DL (70-110)
[2021-04-11] MEDS: ALBUTEROL SULFATE HFA 90 MCG/PUFF 8 GM INHALER IH PRN (16:56)
[2021-04-11] MEDS: BENZOCAINE/MENTHOL LOZENGE PO PRN (17:35)
[2021-04-11 21:14] LABS: GLUCOMETER DEV NAME(LOC) BV2S.; GLUCOSE,POINT OF CARE 116 MG/DL (70-110)
[2021-04-11] MEDS: ACETAMINOPHEN 325 MG TABLET PO PRN (21:22)
[2021-04-11] MEDS: ZOLPIDEM TARTRATE 10 MG TABLET PO PRN (22:05)
[2021-04-11] MEDS: OLANZapine 7.5 MG TABLET PO SCH (22:05)
[2021-04-12 01:12] VITALS: BP 120/71
[2021-04-12 06:18] LABS: GLUCOMETER DEV NAME(LOC) BV2S.; GLUCOSE,POINT OF CARE 110 MG/DL (70-110)
[2021-04-12] MEDS: LITHIUM CARBONATE 300 MG CAPSULE PO SCH ×2 (06:47→16:34)
[2021-04-12] MEDS: MetFORMIN HCL 500 MG TABLET PO SCH ×2 (06:47→16:34)
[2021-04-12 08:24] VITALS: BP 113/62
[2021-04-12] MEDS: MULTIVITAMINS WITH IRON TABLET PO SCH (08:29)
[2021-04-12] MEDS: GABAPENTIN 300 MG CAPSULE PO SCH ×2 (08:29→16:34)
[2021-04-12] MEDS: OMEGA-3/DHA/EPA/FISH OIL 1,000 MG CAPSULE PO SCH (08:29)
[2021-04-12] MEDS: AZITHROMYCIN 250 MG TABLET PO SCH (08:29)
[2021-04-12] MEDS: LOSARTAN POTASSIUM 50 MG TABLET PO SCH (08:29)
[2021-04-12 11:46] LABS: GLUCOMETER DEV NAME(LOC) BV2S.; GLUCOSE,POINT OF CARE 101 MG/DL (70-110)
[2021-04-12] MEDS: GuaiFENesin [SUGAR-FREE] 200 MG/10 ML SOLUTION UDCUP PO PRN (12:30)
[2021-04-12] MEDS: BENZOCAINE/MENTHOL LOZENGE PO PRN (14:16)
[2021-04-12 16:15] LABS: GLUCOMETER DEV NAME(LOC) BV2S.; GLUCOSE,POINT OF CARE 111 MG/DL (70-110)
[2021-04-12 16:24] VITALS: BP 117/76
[2021-04-12 20:33] LABS: GLUCOMETER DEV NAME(LOC) BV2S.; GLUCOSE,POINT OF CARE 117 MG/DL (70-110)
[2021-04-12] MEDS: OLANZapine 7.5 MG TABLET PO SCH (20:46)
[2021-04-12] MEDS: ZOLPIDEM TARTRATE 10 MG TABLET PO PRN (22:16)
[2021-04-13 06:13] VITALS: BP 134/81
[2021-04-13 06:25] LABS: GLUCOMETER DEV NAME(LOC) BV2S.; GLUCOSE,POINT OF CARE 103 MG/DL (70-110)
[2021-04-13] MEDS: LITHIUM CARBONATE 300 MG CAPSULE PO SCH ×2 (06:39→16:03)
[2021-04-13] MEDS: MetFORMIN HCL 500 MG TABLET PO SCH ×2 (06:39→16:03)
[2021-04-13 08:32] VITALS: BP 116/73
[2021-04-13] MEDS: AZITHROMYCIN 250 MG TABLET PO SCH (08:52)
[2021-04-13] MEDS: OMEGA-3/DHA/EPA/FISH OIL 1,000 MG CAPSULE PO SCH (08:52)
[2021-04-13] MEDS: LOSARTAN POTASSIUM 50 MG TABLET PO SCH (08:52)
[2021-04-13] MEDS: MULTIVITAMINS WITH IRON TABLET PO SCH (08:52)
[2021-04-13] MEDS: GABAPENTIN 300 MG CAPSULE PO SCH ×2 (08:52→16:03)
[2021-04-13 11:17] LABS: GLUCOMETER DEV NAME(LOC) BV2S.; GLUCOSE,POINT OF CARE 113 MG/DL (70-110)
[2021-04-13] MEDS: ACETAMINOPHEN 325 MG TABLET PO PRN (16:03)
[2021-04-13 16:13] VITALS: BP 122/77
[2021-04-13 16:54] LABS: GLUCOMETER DEV NAME(LOC) BV2S.; GLUCOSE,POINT OF CARE 126 MG/DL (70-110)
[2021-04-13] MEDS: INSULIN LISPRO 100 UNITS/ML SQ PRN (20:52)
[2021-04-13 21:03] LABS: GLUCOMETER DEV NAME(LOC) BV2S.; GLUCOSE,POINT OF CARE 198 MG/DL (70-110)
[2021-04-13] MEDS: GuaiFENesin [SUGAR-FREE] 200 MG/10 ML SOLUTION UDCUP PO PRN (21:05)
[2021-04-13] MEDS: ZOLPIDEM TARTRATE 10 MG TABLET PO PRN (22:01)
[2021-04-13] MEDS: OLANZapine 7.5 MG TABLET PO SCH (22:01)
[2021-04-14 01:30] VITALS: BP 120/76
[2021-04-14 06:26] LABS: GLUCOMETER DEV NAME(LOC) BV2S.; GLUCOSE,POINT OF CARE 108 MG/DL (70-110)
[2021-04-14] MEDS: MetFORMIN HCL 500 MG TABLET PO SCH ×2 (06:55→16:06)
[2021-04-14] MEDS: LITHIUM CARBONATE 300 MG CAPSULE PO SCH ×2 (06:55→16:06)
[2021-04-14 08:31] VITALS: BP 111/71
[2021-04-14] MEDS: MULTIVITAMINS WITH IRON TABLET PO SCH (09:09)
[2021-04-14] MEDS: OMEGA-3/DHA/EPA/FISH OIL 1,000 MG CAPSULE PO SCH (09:09)
[2021-04-14] MEDS: LOSARTAN POTASSIUM 50 MG TABLET PO SCH (09:09)
[2021-04-14] MEDS: ACETAMINOPHEN 325 MG TABLET PO PRN (09:10)
[2021-04-14] MEDS: GABAPENTIN 300 MG CAPSULE PO SCH ×2 (09:22→16:06)
[2021-04-14 11:15] LABS: GLUCOMETER DEV NAME(LOC) BV2S.; GLUCOSE,POINT OF CARE 135 MG/DL (70-110)
[2021-04-14] MEDS: BENZOCAINE/MENTHOL LOZENGE PO PRN (14:58)
[2021-04-14 16:13] VITALS: BP 110/75
[2021-04-14 16:28] LABS: GLUCOMETER DEV NAME(LOC) BV2S.; GLUCOSE,POINT OF CARE 136 MG/DL (70-110)
[2021-04-14] MEDS: GuaiFENesin [SUGAR-FREE] 200 MG/10 ML SOLUTION UDCUP PO PRN (17:22)
[2021-04-14] MEDS: INSULIN LISPRO 100 UNITS/ML SQ PRN (20:01)
[2021-04-14 20:07] LABS: GLUCOMETER DEV NAME(LOC) BV2S.; GLUCOSE,POINT OF CARE 191 MG/DL (70-110)
[2021-04-14] MEDS: OLANZapine 7.5 MG TABLET PO SCH (21:38)
[2021-04-14] MEDS: ZOLPIDEM TARTRATE 10 MG TABLET PO PRN (21:38)
[2021-04-15 01:08] VITALS: BP 117/76
[2021-04-15 06:23] LABS: GLUCOMETER DEV NAME(LOC) BV2S.; GLUCOSE,POINT OF CARE 122 MG/DL (70-110)
[2021-04-15] MEDS: MetFORMIN HCL 500 MG TABLET PO SCH ×2 (06:53→16:17)
[2021-04-15] MEDS: LITHIUM CARBONATE 300 MG CAPSULE PO SCH ×2 (06:53→16:17)
[2021-04-15 08:09] VITALS: BP 109/62
[2021-04-15] MEDS: GABAPENTIN 300 MG CAPSULE PO SCH ×2 (09:24→16:17)
[2021-04-15] MEDS: MULTIVITAMINS WITH IRON TABLET PO SCH (09:24)
[2021-04-15] MEDS: OMEGA-3/DHA/EPA/FISH OIL 1,000 MG CAPSULE PO SCH (09:24)
[2021-04-15] MEDS: LOSARTAN POTASSIUM 50 MG TABLET PO SCH (09:24)
[2021-04-15] MEDS: INSULIN LISPRO 100 UNITS/ML SQ PRN ×2 (11:41→16:22)
[2021-04-15] MEDS: LORATADINE 10 MG TABLET PO SCH (13:28)
[2021-04-15 14:30] LABS: GLUCOMETER DEV NAME(LOC) BV2S.; GLUCOSE,POINT OF CARE 146 MG/DL (70-110)
[2021-04-15 16:22] VITALS: BP 110/73
[2021-04-15 16:54] LABS: GLUCOMETER DEV NAME(LOC) BV2S.; GLUCOSE,POINT OF CARE 147 MG/DL (70-110)
[2021-04-15] MEDS: ACETAMINOPHEN 325 MG TABLET PO PRN (21:25)
[2021-04-15 21:36] LABS: GLUCOMETER DEV NAME(LOC) BV2S.; GLUCOSE,POINT OF CARE 123 MG/DL (70-110)
[2021-04-15] MEDS: OLANZapine 7.5 MG TABLET PO SCH (22:02)
[2021-04-15] MEDS: ZOLPIDEM TARTRATE 10 MG TABLET PO PRN (22:03)
[2021-04-16 00:53] VITALS: BP 105/52
[2021-04-16] MEDS: LITHIUM CARBONATE 300 MG CAPSULE PO SCH ×2 (06:31→16:11)
[2021-04-16] MEDS: MetFORMIN HCL 500 MG TABLET PO SCH ×2 (06:31→16:11)
[2021-04-16 06:39] LABS: GLUCOMETER DEV NAME(LOC) BV2S.; GLUCOSE,POINT OF CARE 92 MG/DL (70-110)
[2021-04-16 08:10] VITALS: BP 112/71
[2021-04-16 08:10] LABS: COVID AG,FIA SOURCE NASOPHARYNGEAL
[2021-04-16] MEDS: LORATADINE 10 MG TABLET PO SCH (08:28)
[2021-04-16] MEDS: GABAPENTIN 300 MG CAPSULE PO SCH ×2 (08:28→16:11)
[2021-04-16] MEDS: OMEGA-3/DHA/EPA/FISH OIL 1,000 MG CAPSULE PO SCH (08:28)
[2021-04-16] MEDS: MULTIVITAMINS WITH IRON TABLET PO SCH (08:28)
[2021-04-16] MEDS: LOSARTAN POTASSIUM 50 MG TABLET PO SCH (08:28)
[2021-04-16 11:52] LABS: GLUCOMETER DEV NAME(LOC) BV2S.; GLUCOSE,POINT OF CARE 82 MG/DL (70-110)
[2021-04-16 16:30] VITALS: BP 122/73
[2021-04-16 16:54] LABS: GLUCOMETER DEV NAME(LOC) BV2S.; GLUCOSE,POINT OF CARE 105 MG/DL (70-110)
[2021-04-16] MEDS: ACETAMINOPHEN 325 MG TABLET PO PRN (17:44)
[2021-04-16 20:43] LABS: GLUCOMETER DEV NAME(LOC) BV2S.; GLUCOSE,POINT OF CARE 117 MG/DL (70-110)
[2021-04-16] MEDS: ZOLPIDEM TARTRATE 10 MG TABLET PO PRN (21:55)
[2021-04-16] MEDS: OLANZapine 7.5 MG TABLET PO SCH (21:55)
[2021-04-17 01:05] VITALS: BP 110/72
[2021-04-17 06:27] LABS: GLUCOMETER DEV NAME(LOC) BV2S.; GLUCOSE,POINT OF CARE 111 MG/DL (70-110)
[2021-04-17] MEDS: MetFORMIN HCL 500 MG TABLET PO SCH ×2 (06:58→16:38)
[2021-04-17] MEDS: LITHIUM CARBONATE 300 MG CAPSULE PO SCH ×2 (06:58→16:38)
[2021-04-17 08:32] VITALS: BP 132/94
[2021-04-17] MEDS: LORATADINE 10 MG TABLET PO SCH (08:32)
[2021-04-17] MEDS: GABAPENTIN 300 MG CAPSULE PO SCH ×2 (08:32→16:38)
[2021-04-17] MEDS: OMEGA-3/DHA/EPA/FISH OIL 1,000 MG CAPSULE PO SCH (08:32)
[2021-04-17] MEDS: LOSARTAN POTASSIUM 50 MG TABLET PO SCH (08:32)
[2021-04-17] MEDS: MULTIVITAMINS WITH IRON TABLET PO SCH (08:32)
[2021-04-17 11:53] LABS: GLUCOMETER DEV NAME(LOC) BV2S.; GLUCOSE,POINT OF CARE 111 MG/DL (70-110)
[2021-04-17 16:24] VITALS: BP 121/76
[2021-04-17 16:51] LABS: GLUCOMETER DEV NAME(LOC) BV2S.; GLUCOSE,POINT OF CARE 121 MG/DL (70-110)
[2021-04-17] MEDS: INSULIN LISPRO 100 UNITS/ML SQ PRN (20:10)
[2021-04-17 20:33] LABS: GLUCOMETER DEV NAME(LOC) BV2S.; GLUCOSE,POINT OF CARE 159 MG/DL (70-110)
[2021-04-17] MEDS: GuaiFENesin [SUGAR-FREE] 200 MG/10 ML SOLUTION UDCUP PO PRN (20:44)
[2021-04-17] MEDS: OLANZapine 7.5 MG TABLET PO SCH (22:01)
[2021-04-17] MEDS: ZOLPIDEM TARTRATE 10 MG TABLET PO PRN (22:01)
[2021-04-18 00:57] VITALS: BP 122/75
[2021-04-18] MEDS: MetFORMIN HCL 500 MG TABLET PO SCH ×2 (06:38→16:47)
[2021-04-18] MEDS: LITHIUM CARBONATE 300 MG CAPSULE PO SCH ×2 (06:38→16:48)
[2021-04-18 06:49] LABS: GLUCOMETER DEV NAME(LOC) BV2S.; GLUCOSE,POINT OF CARE 120 MG/DL (70-110)
[2021-04-18 09:22] VITALS: BP 132/84
[2021-04-18] MEDS: LORATADINE 10 MG TABLET PO SCH (10:17)
[2021-04-18] MEDS: OMEGA-3/DHA/EPA/FISH OIL 1,000 MG CAPSULE PO SCH (10:17)
[2021-04-18] MEDS: LOSARTAN POTASSIUM 50 MG TABLET PO SCH (10:17)
[2021-04-18] MEDS: GABAPENTIN 300 MG CAPSULE PO SCH ×2 (10:17→16:48)
[2021-04-18] MEDS: MULTIVITAMINS WITH IRON TABLET PO SCH (10:17)
[2021-04-18 11:36] LABS: GLUCOMETER DEV NAME(LOC) BV2S.; GLUCOSE,POINT OF CARE 128 MG/DL (70-110)
[2021-04-18 16:18] VITALS: BP 110/72
[2021-04-18 16:27] LABS: GLUCOMETER DEV NAME(LOC) BV2S.; GLUCOSE,POINT OF CARE 145 MG/DL (70-110)
[2021-04-18] MEDS: INSULIN LISPRO 100 UNITS/ML SQ PRN (16:51)
[2021-04-18 20:34] LABS: GLUCOMETER DEV NAME(LOC) BV2S.; GLUCOSE,POINT OF CARE 94 MG/DL (70-110)
[2021-04-18] MEDS: OLANZapine 7.5 MG TABLET PO SCH (20:43)
[2021-04-18] MEDS: ZOLPIDEM TARTRATE 10 MG TABLET PO PRN (22:08)
[2021-04-19] MEDS: LITHIUM CARBONATE 300 MG CAPSULE PO SCH ×2 (06:32→16:29)
[2021-04-19] MEDS: MetFORMIN HCL 500 MG TABLET PO SCH ×2 (06:32→16:29)
[2021-04-19 06:38] LABS: GLUCOMETER DEV NAME(LOC) BV2S.; GLUCOSE,POINT OF CARE 114 MG/DL (70-110)
[2021-04-19 08:12] VITALS: BP 104/73
[2021-04-19] MEDS: MULTIVITAMINS WITH IRON TABLET PO SCH (10:14)
[2021-04-19] MEDS: LOSARTAN POTASSIUM 50 MG TABLET PO SCH (10:14)
[2021-04-19] MEDS: OMEGA-3/DHA/EPA/FISH OIL 1,000 MG CAPSULE PO SCH (10:14)
[2021-04-19] MEDS: GABAPENTIN 300 MG CAPSULE PO SCH ×2 (10:14→16:29)
[2021-04-19] MEDS: LORATADINE 10 MG TABLET PO SCH (10:14)
[2021-04-19 11:16] LABS: GLUCOMETER DEV NAME(LOC) BV2S.; GLUCOSE,POINT OF CARE 120 MG/DL (70-110)
[2021-04-19 16:12] VITALS: BP 110/72
[2021-04-19 16:18] LABS: GLUCOMETER DEV NAME(LOC) BV2S.; GLUCOSE,POINT OF CARE 90 MG/DL (70-110)
[2021-04-19] MEDS: ACETAMINOPHEN 325 MG TABLET PO PRN (19:51)
[2021-04-19 20:17] LABS: GLUCOMETER DEV NAME(LOC) BV2S.; GLUCOSE,POINT OF CARE 125 MG/DL (70-110)
[2021-04-19] MEDS: OLANZapine 7.5 MG TABLET PO SCH (20:28)
[2021-04-19] MEDS: ZOLPIDEM TARTRATE 10 MG TABLET PO PRN (21:58)
[2021-04-20 02:02] VITALS: BP 112/70
[2021-04-20 06:30] LABS: GLUCOMETER DEV NAME(LOC) BV2S.; GLUCOSE,POINT OF CARE 114 MG/DL (70-110)
[2021-04-20] MEDS: LITHIUM CARBONATE 300 MG CAPSULE PO SCH ×2 (06:36→16:40)
[2021-04-20] MEDS: MetFORMIN HCL 500 MG TABLET PO SCH ×2 (06:36→16:40)
[2021-04-20 08:35] VITALS: BP 108/60
[2021-04-20] MEDS: GABAPENTIN 300 MG CAPSULE PO SCH ×2 (10:18→16:40)
[2021-04-20] MEDS: OMEGA-3/DHA/EPA/FISH OIL 1,000 MG CAPSULE PO SCH (10:18)
[2021-04-20] MEDS: LOSARTAN POTASSIUM 50 MG TABLET PO SCH (10:18)
[2021-04-20] MEDS: MULTIVITAMINS WITH IRON TABLET PO SCH (10:18)
[2021-04-20] MEDS: LORATADINE 10 MG TABLET PO SCH (10:18)
[2021-04-20 11:09] LABS: GLUCOMETER DEV NAME(LOC) BV2S.; GLUCOSE,POINT OF CARE 143 MG/DL (70-110)
[2021-04-20] MEDS: ACETAMINOPHEN 325 MG TABLET PO PRN (11:25)
[2021-04-20] MEDS: INSULIN LISPRO 100 UNITS/ML SQ PRN ×2 (12:25→20:19)
[2021-04-20 16:20] VITALS: BP 105/65
[2021-04-20 16:22] LABS: GLUCOMETER DEV NAME(LOC) BV2S.; GLUCOSE,POINT OF CARE 122 MG/DL (70-110)
[2021-04-20 20:15] LABS: GLUCOMETER DEV NAME(LOC) BV2S.; GLUCOSE,POINT OF CARE 197 MG/DL (70-110)
[2021-04-20] MEDS: OLANZapine 7.5 MG TABLET PO SCH (20:29)
[2021-04-20] MEDS: ZOLPIDEM TARTRATE 10 MG TABLET PO PRN (21:32)
[2021-04-21 02:33] VITALS: BP 124/71
[2021-04-21 06:20] LABS: GLUCOMETER DEV NAME(LOC) BV2S.; GLUCOSE,POINT OF CARE 118 MG/DL (70-110)
[2021-04-21] MEDS: LITHIUM CARBONATE 300 MG CAPSULE PO SCH ×2 (06:56→16:20)
[2021-04-21] MEDS: MetFORMIN HCL 500 MG TABLET PO SCH ×2 (06:56→16:20)
[2021-04-21] MEDS: GABAPENTIN 300 MG CAPSULE PO SCH ×2 (08:24→16:20)
[2021-04-21] MEDS: MULTIVITAMINS WITH IRON TABLET PO SCH (08:24)
[2021-04-21] MEDS: OMEGA-3/DHA/EPA/FISH OIL 1,000 MG CAPSULE PO SCH (08:24)
[2021-04-21] MEDS: LOSARTAN POTASSIUM 50 MG TABLET PO SCH (08:25)
[2021-04-21] MEDS: LORATADINE 10 MG TABLET PO SCH (08:25)
[2021-04-21 08:36] VITALS: BP 120/70
[2021-04-21 11:24] LABS: GLUCOMETER DEV NAME(LOC) BV2S.; GLUCOSE,POINT OF CARE 98 MG/DL (70-110)
[2021-04-21 16:16] VITALS: BP 131/82
[2021-04-21 16:28] LABS: GLUCOMETER DEV NAME(LOC) BV2S.; GLUCOSE,POINT OF CARE 166 MG/DL (70-110)
[2021-04-21] MEDS: INSULIN LISPRO 100 UNITS/ML SQ PRN ×2 (16:33→20:21)
[2021-04-21] MEDS: OLANZapine 7.5 MG TABLET PO SCH (20:19)
[2021-04-21 20:23] LABS: GLUCOMETER DEV NAME(LOC) BV2S.; GLUCOSE,POINT OF CARE 180 MG/DL (70-110)
[2021-04-21] MEDS: ZOLPIDEM TARTRATE 10 MG TABLET PO PRN (22:42)
[2021-04-22 00:31] VITALS: BP 124/69
[2021-04-22 06:32] LABS: GLUCOMETER DEV NAME(LOC) BV2S.; GLUCOSE,POINT OF CARE 111 MG/DL (70-110)
[2021-04-22] MEDS: MetFORMIN HCL 500 MG TABLET PO SCH ×2 (06:36→16:13)
[2021-04-22] MEDS: LITHIUM CARBONATE 300 MG CAPSULE PO SCH ×2 (06:36→16:13)
[2021-04-22] MEDS: MULTIVITAMINS WITH IRON TABLET PO SCH (08:35)
[2021-04-22] MEDS: OMEGA-3/DHA/EPA/FISH OIL 1,000 MG CAPSULE PO SCH (08:35)
[2021-04-22] MEDS: LORATADINE 10 MG TABLET PO SCH (08:35)
[2021-04-22] MEDS: LOSARTAN POTASSIUM 50 MG TABLET PO SCH (08:35)
[2021-04-22] MEDS: GABAPENTIN 300 MG CAPSULE PO SCH ×2 (08:35→16:13)
[2021-04-22 08:51] VITALS: BP 110/62
[2021-04-22 11:51] LABS: GLUCOMETER DEV NAME(LOC) BV2S.; GLUCOSE,POINT OF CARE 127 MG/DL (70-110)
[2021-04-22 16:15] VITALS: BP 117/78
[2021-04-22] MEDS: INSULIN LISPRO 100 UNITS/ML SQ PRN (16:21)
[2021-04-22 16:51] LABS: GLUCOMETER DEV NAME(LOC) BV2S.; GLUCOSE,POINT OF CARE 143 MG/DL (70-110)
[2021-04-22 20:53] LABS: GLUCOMETER DEV NAME(LOC) BV2S.; GLUCOSE,POINT OF CARE 104 MG/DL (70-110)
[2021-04-22] MEDS: OLANZapine 7.5 MG TABLET PO SCH (21:53)
[2021-04-22] MEDS: ZOLPIDEM TARTRATE 10 MG TABLET PO PRN (21:53)
[2021-04-22] MEDS: ACETAMINOPHEN 325 MG TABLET PO PRN (21:54)
[2021-04-23 01:38] VITALS: BP 123/71
[2021-04-23] MEDS: MetFORMIN HCL 500 MG TABLET PO SCH ×2 (06:39→16:29)
[2021-04-23] MEDS: LITHIUM CARBONATE 300 MG CAPSULE PO SCH ×2 (06:39→16:29)
[2021-04-23 06:44] LABS: GLUCOMETER DEV NAME(LOC) BV2S.; GLUCOSE,POINT OF CARE 112 MG/DL (70-110)
[2021-04-23 07:46] LABS: COVID AG,FIA SOURCE NASOPHARYNGEAL
[2021-04-23 08:19] VITALS: BP 118/77
[2021-04-23] MEDS: GABAPENTIN 300 MG CAPSULE PO SCH ×2 (08:50→16:29)
[2021-04-23] MEDS: LOSARTAN POTASSIUM 50 MG TABLET PO SCH (08:50)
[2021-04-23] MEDS: LORATADINE 10 MG TABLET PO SCH (08:50)
[2021-04-23] MEDS: MULTIVITAMINS WITH IRON TABLET PO SCH (08:50)
[2021-04-23] MEDS: OMEGA-3/DHA/EPA/FISH OIL 1,000 MG CAPSULE PO SCH (08:50)
[2021-04-23 11:23] LABS: GLUCOMETER DEV NAME(LOC) BV2S.; GLUCOSE,POINT OF CARE 148 MG/DL (70-110)
[2021-04-23] MEDS: INSULIN LISPRO 100 UNITS/ML SQ PRN ×2 (12:05→17:05)
[2021-04-23 16:34] VITALS: BP 110/72
[2021-04-23 16:52] LABS: GLUCOMETER DEV NAME(LOC) BV2S.; GLUCOSE,POINT OF CARE 173 MG/DL (70-110)
[2021-04-23] MEDS: ACETAMINOPHEN 325 MG TABLET PO PRN (18:50)
[2021-04-23] MEDS: MAG HYDROX/AL HYDROX/SIMETH ES 30 ML SUSPENSION UDCUP PO PRN (19:18)
[2021-04-23] MEDS: OLANZapine 7.5 MG TABLET PO SCH (20:07)
[2021-04-23 20:30] LABS: GLUCOMETER DEV NAME(LOC) BV2S.; GLUCOSE,POINT OF CARE 129 MG/DL (70-110)
[2021-04-23] MEDS: ZOLPIDEM TARTRATE 10 MG TABLET PO PRN (21:59)
[2021-04-24] MEDS: MetFORMIN HCL 500 MG TABLET PO SCH ×2 (06:35→16:15)
[2021-04-24] MEDS: LITHIUM CARBONATE 300 MG CAPSULE PO SCH ×2 (06:35→16:15)
[2021-04-24 06:58] LABS: GLUCOMETER DEV NAME(LOC) BV2S.; GLUCOSE,POINT OF CARE 96 MG/DL (70-110)
[2021-04-24 08:22] VITALS: BP 128/80
[2021-04-24] MEDS: MULTIVITAMINS WITH IRON TABLET PO SCH (08:58)
[2021-04-24] MEDS: GABAPENTIN 300 MG CAPSULE PO SCH ×2 (08:58→16:15)
[2021-04-24] MEDS: LORATADINE 10 MG TABLET PO SCH (08:58)
[2021-04-24] MEDS: OMEGA-3/DHA/EPA/FISH OIL 1,000 MG CAPSULE PO SCH (08:58)
[2021-04-24] MEDS: LOSARTAN POTASSIUM 50 MG TABLET PO SCH (08:59)
[2021-04-24 11:18] LABS: GLUCOMETER DEV NAME(LOC) BV2S.; GLUCOSE,POINT OF CARE 123 MG/DL (70-110)
[2021-04-24 16:18] VITALS: BP 113/62
[2021-04-24 16:40] LABS: GLUCOMETER DEV NAME(LOC) BV2S.; GLUCOSE,POINT OF CARE 146 MG/DL (70-110)
[2021-04-24] MEDS: INSULIN LISPRO 100 UNITS/ML SQ PRN (17:02)
[2021-04-24] MEDS: OLANZapine 7.5 MG TABLET PO SCH (20:11)
[2021-04-24 20:30] LABS: GLUCOMETER DEV NAME(LOC) BV2S.; GLUCOSE,POINT OF CARE 123 MG/DL (70-110)
[2021-04-24] MEDS: ZOLPIDEM TARTRATE 10 MG TABLET PO PRN (21:53)
[2021-04-25 05:37] VITALS: BP 116/73
[2021-04-25 06:36] LABS: GLUCOMETER DEV NAME(LOC) BV2S.; GLUCOSE,POINT OF CARE 114 MG/DL (70-110)
[2021-04-25] MEDS: LITHIUM CARBONATE 300 MG CAPSULE PO SCH ×2 (06:57→16:30)
[2021-04-25] MEDS: MetFORMIN HCL 500 MG TABLET PO SCH ×2 (06:57→16:30)
[2021-04-25 08:51] VITALS: BP 121/76
[2021-04-25] MEDS: LORATADINE 10 MG TABLET PO SCH (09:48)
[2021-04-25] MEDS: OMEGA-3/DHA/EPA/FISH OIL 1,000 MG CAPSULE PO SCH (09:48)
[2021-04-25] MEDS: GABAPENTIN 300 MG CAPSULE PO SCH ×2 (09:48→16:30)
[2021-04-25] MEDS: LOSARTAN POTASSIUM 50 MG TABLET PO SCH (09:48)
[2021-04-25] MEDS: MULTIVITAMINS WITH IRON TABLET PO SCH (09:48)
[2021-04-25 16:23] VITALS: BP 122/64
[2021-04-25 16:24] LABS: GLUCOMETER DEV NAME(LOC) BV2S.; GLUCOSE,POINT OF CARE 155 MG/DL (70-110)
[2021-04-25] MEDS: INSULIN LISPRO 100 UNITS/ML SQ PRN (16:36)
[2021-04-25] MEDS: ACETAMINOPHEN 325 MG TABLET PO PRN (19:30)
[2021-04-25 20:24] LABS: GLUCOMETER DEV NAME(LOC) BV2S.; GLUCOSE,POINT OF CARE 107 MG/DL (70-110)
[2021-04-25] MEDS: OLANZapine 7.5 MG TABLET PO SCH (20:36)
[2021-04-25] MEDS: ZOLPIDEM TARTRATE 10 MG TABLET PO PRN (22:02)
[2021-04-26 00:15] VITALS: BP 111/71
[2021-04-26 06:30] LABS: GLUCOMETER DEV NAME(LOC) BV2S.; GLUCOSE,POINT OF CARE 113 MG/DL (70-110)
[2021-04-26] MEDS: MetFORMIN HCL 500 MG TABLET PO SCH ×2 (06:52→16:36)
[2021-04-26] MEDS: LITHIUM CARBONATE 300 MG CAPSULE PO SCH ×2 (06:52→16:36)
[2021-04-26 08:19] VITALS: BP 114/73
[2021-04-26] MEDS: MULTIVITAMINS WITH IRON TABLET PO SCH (09:28)
[2021-04-26] MEDS: OMEGA-3/DHA/EPA/FISH OIL 1,000 MG CAPSULE PO SCH (09:28)
[2021-04-26] MEDS: LOSARTAN POTASSIUM 50 MG TABLET PO SCH (09:28)
[2021-04-26] MEDS: GABAPENTIN 300 MG CAPSULE PO SCH ×2 (09:28→16:36)
[2021-04-26] MEDS: LORATADINE 10 MG TABLET PO SCH (09:28)
[2021-04-26 11:02] LABS: GLUCOMETER DEV NAME(LOC) BV2S.; GLUCOSE,POINT OF CARE 98 MG/DL (70-110)
[2021-04-26 16:09] VITALS: BP 120/71
[2021-04-26] MEDS: ACETAMINOPHEN 325 MG TABLET PO PRN (16:16)
[2021-04-26 16:25] LABS: GLUCOMETER DEV NAME(LOC) BV2S.; GLUCOSE,POINT OF CARE 170 MG/DL (70-110)
[2021-04-26] MEDS: INSULIN LISPRO 100 UNITS/ML SQ PRN ×2 (16:40→20:47)
[2021-04-26 20:15] LABS: GLUCOMETER DEV NAME(LOC) BV2S.; GLUCOSE,POINT OF CARE 178 MG/DL (70-110)
[2021-04-26] MEDS: OLANZapine 7.5 MG TABLET PO SCH (20:34)
[2021-04-26] MEDS: ZOLPIDEM TARTRATE 10 MG TABLET PO PRN (22:02)
[2021-04-27 01:10] VITALS: BP 119/66
[2021-04-27 06:20] LABS: GLUCOMETER DEV NAME(LOC) BV2S.; GLUCOSE,POINT OF CARE 97 MG/DL (70-110)
[2021-04-27] MEDS: MetFORMIN HCL 500 MG TABLET PO SCH ×2 (06:36→16:20)
[2021-04-27] MEDS: LITHIUM CARBONATE 300 MG CAPSULE PO SCH ×2 (06:36→16:20)
[2021-04-27 08:32] VITALS: BP 116/59
[2021-04-27 09:30] VITALS: BP 115/70
[2021-04-27] MEDS: LORATADINE 10 MG TABLET PO SCH (09:39)
[2021-04-27] MEDS: LOSARTAN POTASSIUM 50 MG TABLET PO SCH (09:39)
[2021-04-27] MEDS: GABAPENTIN 300 MG CAPSULE PO SCH ×2 (09:39→16:20)
[2021-04-27] MEDS: OMEGA-3/DHA/EPA/FISH OIL 1,000 MG CAPSULE PO SCH (09:39)
[2021-04-27] MEDS: MULTIVITAMINS WITH IRON TABLET PO SCH (09:39)
[2021-04-27 09:44] VITALS: BP 115/70
[2021-04-27 11:03] LABS: GLUCOMETER DEV NAME(LOC) BV2S.; GLUCOSE,POINT OF CARE 139 MG/DL (70-110)
[2021-04-27 16:22] VITALS: BP 125/75
[2021-04-27 16:45] LABS: GLUCOMETER DEV NAME(LOC) BV2S.; GLUCOSE,POINT OF CARE 102 MG/DL (70-110)
[2021-04-27] MEDS: OLANZapine 7.5 MG TABLET PO SCH (20:27)
[2021-04-27] MEDS: ACETAMINOPHEN 325 MG TABLET PO PRN (20:42)
[2021-04-27] MEDS: ZOLPIDEM TARTRATE 10 MG TABLET PO PRN (20:51)
[2021-04-27 20:55] LABS: GLUCOMETER DEV NAME(LOC) BV2S.; GLUCOSE,POINT OF CARE 134 MG/DL (70-110)
[2021-04-28 01:09] VITALS: BP 105/62
[2021-04-28] MEDS: LITHIUM CARBONATE 300 MG CAPSULE PO SCH ×2 (06:35→16:42)
[2021-04-28] MEDS: MetFORMIN HCL 500 MG TABLET PO SCH ×2 (06:35→16:42)
[2021-04-28 06:39] LABS: GLUCOMETER DEV NAME(LOC) BV2S.; GLUCOSE,POINT OF CARE 106 MG/DL (70-110)
[2021-04-28 08:15] VITALS: BP 104/67
[2021-04-28] MEDS: LOSARTAN POTASSIUM 50 MG TABLET PO SCH (09:17)
[2021-04-28] MEDS: OMEGA-3/DHA/EPA/FISH OIL 1,000 MG CAPSULE PO SCH (09:17)
[2021-04-28] MEDS: LORATADINE 10 MG TABLET PO SCH (09:17)
[2021-04-28] MEDS: MULTIVITAMINS WITH IRON TABLET PO SCH (09:17)
[2021-04-28] MEDS: GABAPENTIN 300 MG CAPSULE PO SCH ×2 (09:17→16:42)
[2021-04-28 11:10] LABS: GLUCOMETER DEV NAME(LOC) BV2S.; GLUCOSE,POINT OF CARE 103 MG/DL (70-110)
[2021-04-28 16:13] VITALS: BP 119/80
[2021-04-28 16:58] LABS: GLUCOMETER DEV NAME(LOC) BV2S.; GLUCOSE,POINT OF CARE 125 MG/DL (70-110)
[2021-04-28] MEDS: OLANZapine 7.5 MG TABLET PO SCH (20:27)
[2021-04-28 20:52] LABS: GLUCOMETER DEV NAME(LOC) BV2S.; GLUCOSE,POINT OF CARE 103 MG/DL (70-110)
[2021-04-28] MEDS: ZOLPIDEM TARTRATE 10 MG TABLET PO PRN (21:31)
[2021-04-29 00:13] VITALS: BP 118/84
[2021-04-29] MEDS: MetFORMIN HCL 500 MG TABLET PO SCH ×2 (06:51→16:29)
[2021-04-29] MEDS: LITHIUM CARBONATE 300 MG CAPSULE PO SCH ×2 (06:51→16:29)
[2021-04-29 06:55] LABS: GLUCOMETER DEV NAME(LOC) BV2S.; GLUCOSE,POINT OF CARE 117 MG/DL (70-110)
[2021-04-29] MEDS: LORATADINE 10 MG TABLET PO SCH (08:05)
[2021-04-29] MEDS: MULTIVITAMINS WITH IRON TABLET PO SCH (08:06)
[2021-04-29] MEDS: LOSARTAN POTASSIUM 50 MG TABLET PO SCH (08:06)
[2021-04-29] MEDS: OMEGA-3/DHA/EPA/FISH OIL 1,000 MG CAPSULE PO SCH (08:06)
[2021-04-29] MEDS: GABAPENTIN 300 MG CAPSULE PO SCH ×2 (08:06→16:29)
[2021-04-29 08:25] VITALS: BP 108/69
[2021-04-29] MEDS: ACETAMINOPHEN 325 MG TABLET PO PRN (10:59)
[2021-04-29 11:09] LABS: GLUCOMETER DEV NAME(LOC) BV2S.; GLUCOSE,POINT OF CARE 115 MG/DL (70-110)
[2021-04-29 16:16] LABS: GLUCOMETER DEV NAME(LOC) BV2S.; GLUCOSE,POINT OF CARE 105 MG/DL (70-110)
[2021-04-29 16:17] VITALS: BP 134/83
[2021-04-29 20:14] LABS: GLUCOMETER DEV NAME(LOC) BV2S.; GLUCOSE,POINT OF CARE 144 MG/DL (70-110)
[2021-04-29] MEDS: INSULIN LISPRO 100 UNITS/ML SQ PRN (20:37)
[2021-04-29] MEDS: MELATONIN 3 MG TABLET PO SCH (20:47)
[2021-04-29] MEDS: OLANZapine 7.5 MG TABLET PO SCH (20:47)
[2021-04-30 00:25] VITALS: BP 128/82
[2021-04-30 06:24] LABS: GLUCOMETER DEV NAME(LOC) BV2S.; GLUCOSE,POINT OF CARE 96 MG/DL (70-110)
[2021-04-30] MEDS: LITHIUM CARBONATE 300 MG CAPSULE PO SCH ×2 (06:53→16:25)
[2021-04-30] MEDS: MetFORMIN HCL 500 MG TABLET PO SCH ×2 (06:53→16:25)
[2021-04-30 08:15] VITALS: BP 113/65
[2021-04-30] MEDS: GABAPENTIN 300 MG CAPSULE PO SCH ×2 (08:30→16:25)
[2021-04-30] MEDS: LORATADINE 10 MG TABLET PO SCH (08:31)
[2021-04-30] MEDS: OMEGA-3/DHA/EPA/FISH OIL 1,000 MG CAPSULE PO SCH (08:31)
[2021-04-30] MEDS: LOSARTAN POTASSIUM 50 MG TABLET PO SCH (08:31)
[2021-04-30] MEDS: MULTIVITAMINS WITH IRON TABLET PO SCH (08:31)
[2021-04-30 08:39] LABS: GLUCOMETER DEV NAME(LOC) POC.BV
[2021-04-30 11:16] LABS: GLUCOMETER DEV NAME(LOC) BV2S.; GLUCOSE,POINT OF CARE 117 MG/DL (70-110)
[2021-04-30 16:10] VITALS: BP 125/84
[2021-04-30 17:48] LABS: GLUCOMETER DEV NAME(LOC) BV2S.; GLUCOSE,POINT OF CARE 107 MG/DL (70-110)
[2021-04-30 20:13] LABS: GLUCOMETER DEV NAME(LOC) BV2S.; GLUCOSE,POINT OF CARE 161 MG/DL (70-110)
[2021-04-30] MEDS: INSULIN LISPRO 100 UNITS/ML SQ PRN (20:24)
[2021-04-30] MEDS: OLANZapine 7.5 MG TABLET PO SCH (21:13)
[2021-04-30] MEDS: MELATONIN 3 MG TABLET PO SCH (21:13)
[2021-05-01 00:19] VITALS: BP 117/79
[2021-05-01 06:10] LABS: GLUCOMETER DEV NAME(LOC) BV2S.; GLUCOSE,POINT OF CARE 99 MG/DL (70-110)
[2021-05-01] MEDS: LITHIUM CARBONATE 300 MG CAPSULE PO SCH ×2 (06:31→16:45)
[2021-05-01] MEDS: MetFORMIN HCL 500 MG TABLET PO SCH ×2 (06:31→16:45)
[2021-05-01 08:14] VITALS: BP 104/62
[2021-05-01 08:34] VITALS: BP 110/66
[2021-05-01] MEDS: LORATADINE 10 MG TABLET PO SCH (08:35)
[2021-05-01] MEDS: GABAPENTIN 300 MG CAPSULE PO SCH ×2 (08:35→16:45)
[2021-05-01] MEDS: OMEGA-3/DHA/EPA/FISH OIL 1,000 MG CAPSULE PO SCH (08:35)
[2021-05-01] MEDS: MULTIVITAMINS WITH IRON TABLET PO SCH (08:35)
[2021-05-01] MEDS: LOSARTAN POTASSIUM 50 MG TABLET PO SCH (08:35)
[2021-05-01 11:40] LABS: GLUCOMETER DEV NAME(LOC) BV2S.; GLUCOSE,POINT OF CARE 106 MG/DL (70-110)
[2021-05-01 16:53] VITALS: BP 100/65
[2021-05-01 17:06] LABS: GLUCOMETER DEV NAME(LOC) BV2S.; GLUCOSE,POINT OF CARE 99 MG/DL (70-110)
[2021-05-01] MEDS: MELATONIN 3 MG TABLET PO SCH (20:08)
[2021-05-01] MEDS: OLANZapine 7.5 MG TABLET PO SCH (20:08)
[2021-05-01 20:47] LABS: GLUCOMETER DEV NAME(LOC) BV2S.; GLUCOSE,POINT OF CARE 126 MG/DL (70-110)
[2021-05-02 00:10] VITALS: BP 112/68
[2021-05-02 06:24] LABS: GLUCOMETER DEV NAME(LOC) BV2S.; GLUCOSE,POINT OF CARE 94 MG/DL (70-110)
[2021-05-02] MEDS: MetFORMIN HCL 500 MG TABLET PO SCH ×2 (06:50→16:37)
[2021-05-02] MEDS: LITHIUM CARBONATE 300 MG CAPSULE PO SCH ×2 (06:50→16:37)
[2021-05-02 08:07] VITALS: BP 110/71
[2021-05-02] MEDS: LOSARTAN POTASSIUM 50 MG TABLET PO SCH (08:26)
[2021-05-02] MEDS: OMEGA-3/DHA/EPA/FISH OIL 1,000 MG CAPSULE PO SCH (08:26)
[2021-05-02] MEDS: GABAPENTIN 300 MG CAPSULE PO SCH ×2 (08:26→16:37)
[2021-05-02] MEDS: MULTIVITAMINS WITH IRON TABLET PO SCH (08:26)
[2021-05-02] MEDS: LORATADINE 10 MG TABLET PO SCH (08:26)
[2021-05-02 16:06] VITALS: BP 114/79
[2021-05-02 16:54] LABS: GLUCOMETER DEV NAME(LOC) BV2S.; GLUCOSE,POINT OF CARE 129 MG/DL (70-110)
[2021-05-02] MEDS: OLANZapine 7.5 MG TABLET PO SCH (20:33)
[2021-05-02] MEDS: MELATONIN 3 MG TABLET PO SCH (20:33)
[2021-05-02] MEDS: INSULIN LISPRO 100 UNITS/ML SQ PRN (20:47)
[2021-05-02 20:55] LABS: GLUCOMETER DEV NAME(LOC) BV2S.; GLUCOSE,POINT OF CARE 199 MG/DL (70-110)
[2021-05-03 00:36] VITALS: BP 109/71
[2021-05-03] MEDS: LITHIUM CARBONATE 300 MG CAPSULE PO SCH ×2 (06:37→16:45)
[2021-05-03] MEDS: MetFORMIN HCL 500 MG TABLET PO SCH ×2 (06:37→16:45)
[2021-05-03 06:47] LABS: GLUCOMETER DEV NAME(LOC) BV2S.; GLUCOSE,POINT OF CARE 131 MG/DL (70-110)
[2021-05-03] MEDS: OMEGA-3/DHA/EPA/FISH OIL 1,000 MG CAPSULE PO SCH (07:57)
[2021-05-03] MEDS: LOSARTAN POTASSIUM 50 MG TABLET PO SCH (07:57)
[2021-05-03] MEDS: LORATADINE 10 MG TABLET PO SCH (07:57)
[2021-05-03] MEDS: GABAPENTIN 300 MG CAPSULE PO SCH ×2 (07:57→16:45)
[2021-05-03] MEDS: MULTIVITAMINS WITH IRON TABLET PO SCH (07:57)
[2021-05-03 08:07] VITALS: BP 115/66
[2021-05-03 11:07] LABS: GLUCOMETER DEV NAME(LOC) BV2S.; GLUCOSE,POINT OF CARE 120 MG/DL (70-110)
[2021-05-03 16:23] VITALS: BP 107/62
[2021-05-03 16:53] LABS: GLUCOMETER DEV NAME(LOC) BV2S.; GLUCOSE,POINT OF CARE 172 MG/DL (70-110)
[2021-05-03] MEDS: INSULIN LISPRO 100 UNITS/ML SQ PRN (17:02)
[2021-05-03] MEDS: OLANZapine 7.5 MG TABLET PO SCH (20:33)
[2021-05-03 20:44] LABS: GLUCOMETER DEV NAME(LOC) BV2S.; GLUCOSE,POINT OF CARE 126 MG/DL (70-110)
[2021-05-03] MEDS: MELATONIN 3 MG TABLET PO SCH (21:31)
[2021-05-04 00:22] VITALS: BP 100/68
[2021-05-04 06:25] LABS: GLUCOMETER DEV NAME(LOC) BV2S.; GLUCOSE,POINT OF CARE 105 MG/DL (70-110)
[2021-05-04] MEDS: LITHIUM CARBONATE 300 MG CAPSULE PO SCH ×2 (06:47→16:22)
[2021-05-04] MEDS: MetFORMIN HCL 500 MG TABLET PO SCH ×2 (06:47→16:21)
[2021-05-04 08:24] VITALS: BP 105/60
[2021-05-04] MEDS: LORATADINE 10 MG TABLET PO SCH (08:40)
[2021-05-04] MEDS: GABAPENTIN 300 MG CAPSULE PO SCH ×2 (08:40→16:22)
[2021-05-04] MEDS: OMEGA-3/DHA/EPA/FISH OIL 1,000 MG CAPSULE PO SCH (08:40)
[2021-05-04] MEDS: MULTIVITAMINS WITH IRON TABLET PO SCH (08:40)
[2021-05-04] MEDS: LOSARTAN POTASSIUM 50 MG TABLET PO SCH (08:40)
[2021-05-04 11:56] LABS: GLUCOMETER DEV NAME(LOC) BV2S.; GLUCOSE,POINT OF CARE 105 MG/DL (70-110)
[2021-05-04] MEDS: ALBUTEROL SULFATE HFA 90 MCG/PUFF 8 GM INHALER IH PRN (16:23)
[2021-05-04 16:51] VITALS: BP 110/67
[2021-05-04 17:02] LABS: GLUCOMETER DEV NAME(LOC) BV2S.; GLUCOSE,POINT OF CARE 119 MG/DL (70-110)
[2021-05-04] MEDS: INSULIN LISPRO 100 UNITS/ML SQ PRN (20:02)
[2021-05-04] MEDS: OLANZapine 7.5 MG TABLET PO SCH (20:51)
[2021-05-04] MEDS: MELATONIN 3 MG TABLET PO SCH (20:51)
[2021-05-04 20:52] LABS: GLUCOMETER DEV NAME(LOC) BV2S.; GLUCOSE,POINT OF CARE 148 MG/DL (70-110)
[2021-05-05 05:44] VITALS: BP 109/73
[2021-05-05] MEDS: MetFORMIN HCL 500 MG TABLET PO SCH ×2 (06:25→17:14)
[2021-05-05] MEDS: LITHIUM CARBONATE 300 MG CAPSULE PO SCH ×2 (06:25→17:14)
[2021-05-05 06:26] LABS: GLUCOMETER DEV NAME(LOC) BV2S.; GLUCOSE,POINT OF CARE 119 MG/DL (70-110)
[2021-05-05] MEDS: GABAPENTIN 300 MG CAPSULE PO SCH ×2 (08:37→17:14)
[2021-05-05] MEDS: OMEGA-3/DHA/EPA/FISH OIL 1,000 MG CAPSULE PO SCH (08:37)
[2021-05-05] MEDS: MULTIVITAMINS WITH IRON TABLET PO SCH (08:37)
[2021-05-05 08:38] VITALS: BP 120/71
[2021-05-05] MEDS: LOSARTAN POTASSIUM 50 MG TABLET PO SCH (08:38)
[2021-05-05] MEDS: LORATADINE 10 MG TABLET PO SCH (08:38)
[2021-05-05] MEDS ORDERED: TUBERCULIN, PURIFIED PROTEIN DERIVATIVE 5 TU/0.1 ML SYRINGE ID ONE ×2 (11:00→15:15)
[2021-05-05 11:06] LABS: GLUCOMETER DEV NAME(LOC) BV2S.; GLUCOSE,POINT OF CARE 160 MG/DL (70-110)
[2021-05-05] MEDS: INSULIN LISPRO 100 UNITS/ML SQ PRN ×2 (11:29→20:07)
[2021-05-05 16:56] LABS: GLUCOMETER DEV NAME(LOC) BV2S.; GLUCOSE,POINT OF CARE 118 MG/DL (70-110)
[2021-05-05 17:56] VITALS: BP 107/65
[2021-05-05 20:46] LABS: GLUCOMETER DEV NAME(LOC) BV2S.; GLUCOSE,POINT OF CARE 179 MG/DL (70-110)
[2021-05-05] MEDS: OLANZapine 7.5 MG TABLET PO SCH (21:25)
[2021-05-05] MEDS: MELATONIN 3 MG TABLET PO SCH (21:25)
[2021-05-06] VITALS: BP 105/59
[2021-05-06 06:27] LABS: GLUCOMETER DEV NAME(LOC) BV2S.; GLUCOSE,POINT OF CARE 110 MG/DL (70-110)
[2021-05-06] MEDS: MetFORMIN HCL 500 MG TABLET PO SCH ×2 (06:57→16:38)
[2021-05-06] MEDS: LITHIUM CARBONATE 300 MG CAPSULE PO SCH ×2 (06:57→16:37)
[2021-05-06 08:18] VITALS: BP 110/62
[2021-05-06] MEDS: MULTIVITAMINS WITH IRON TABLET PO SCH (08:44)
[2021-05-06] MEDS: OMEGA-3/DHA/EPA/FISH OIL 1,000 MG CAPSULE PO SCH (08:44)
[2021-05-06] MEDS: GABAPENTIN 300 MG CAPSULE PO SCH ×2 (08:44→16:38)
[2021-05-06] MEDS: LOSARTAN POTASSIUM 50 MG TABLET PO SCH (08:44)
[2021-05-06] MEDS: LORATADINE 10 MG TABLET PO SCH (08:44)
[2021-05-06 10:57] LABS: GLUCOMETER DEV NAME(LOC) BV2S.; GLUCOSE,POINT OF CARE 125 MG/DL (70-110)
[2021-05-06 16:04] VITALS: BP 107/61
[2021-05-06] MEDS: INSULIN LISPRO 100 UNITS/ML SQ PRN (16:49)
[2021-05-06 17:01] LABS: GLUCOMETER DEV NAME(LOC) BV2S.; GLUCOSE,POINT OF CARE 164 MG/DL (70-110)
[2021-05-06 20:37] LABS: GLUCOMETER DEV NAME(LOC) BV2S.; GLUCOSE,POINT OF CARE 104 MG/DL (70-110)
[2021-05-06] MEDS: MELATONIN 3 MG TABLET PO SCH (21:28)
[2021-05-06] MEDS: OLANZapine 7.5 MG TABLET PO SCH (21:28)
[2021-05-06] MEDS: ACETAMINOPHEN 325 MG TABLET PO PRN (21:43)
[2021-05-07 00:07] VITALS: BP 110/75
[2021-05-07] MEDS: MetFORMIN HCL 500 MG TABLET PO SCH ×2 (06:14→17:05)
[2021-05-07] MEDS: LITHIUM CARBONATE 300 MG CAPSULE PO SCH ×2 (06:14→17:05)
[2021-05-07 06:28] LABS: GLUCOMETER DEV NAME(LOC) BV2S.; GLUCOSE,POINT OF CARE 104 MG/DL (70-110)
[2021-05-07 08:09] VITALS: BP 116/63
[2021-05-07] MEDS: GABAPENTIN 300 MG CAPSULE PO SCH ×2 (08:37→17:05)
[2021-05-07] MEDS: LOSARTAN POTASSIUM 50 MG TABLET PO SCH (08:37)
[2021-05-07] MEDS: OMEGA-3/DHA/EPA/FISH OIL 1,000 MG CAPSULE PO SCH (08:37)
[2021-05-07] MEDS: MULTIVITAMINS WITH IRON TABLET PO SCH (08:37)
[2021-05-07] MEDS: LORATADINE 10 MG TABLET PO SCH (08:37)
[2021-05-07 11:17] LABS: GLUCOMETER DEV NAME(LOC) BV2S.; GLUCOSE,POINT OF CARE 131 MG/DL (70-110)
[2021-05-07 16:48] LABS: GLUCOMETER DEV NAME(LOC) BV2S.; GLUCOSE,POINT OF CARE 173 MG/DL (70-110)
[2021-05-07] MEDS: INSULIN LISPRO 100 UNITS/ML SQ PRN (17:12)
[2021-05-07 17:31] VITALS: BP 112/65
[2021-05-07] MEDS: OLANZapine 7.5 MG TABLET PO SCH (20:30)
[2021-05-07 20:52] LABS: GLUCOMETER DEV NAME(LOC) BV2S.; GLUCOSE,POINT OF CARE 147 MG/DL (70-110)
[2021-05-07] MEDS: MELATONIN 3 MG TABLET PO SCH (21:39)
[2021-05-08 00:15] VITALS: BP 118/70
[2021-05-08] MEDS: LITHIUM CARBONATE 300 MG CAPSULE PO SCH ×2 (06:20→16:32)
[2021-05-08] MEDS: MetFORMIN HCL 500 MG TABLET PO SCH ×2 (06:20→16:32)
[2021-05-08 06:26] LABS: GLUCOMETER DEV NAME(LOC) BV2S.; GLUCOSE,POINT OF CARE 106 MG/DL (70-110)
[2021-05-08 08:00] VITALS: BP 118/63
[2021-05-08] MEDS: LORATADINE 10 MG TABLET PO SCH (08:42)
[2021-05-08] MEDS: OMEGA-3/DHA/EPA/FISH OIL 1,000 MG CAPSULE PO SCH (08:42)
[2021-05-08] MEDS: LOSARTAN POTASSIUM 50 MG TABLET PO SCH (08:42)
[2021-05-08] MEDS: GABAPENTIN 300 MG CAPSULE PO SCH ×2 (08:42→16:32)
[2021-05-08] MEDS: MULTIVITAMINS WITH IRON TABLET PO SCH (09:00)
[2021-05-08 11:21] LABS: GLUCOMETER DEV NAME(LOC) BV2S.; GLUCOSE,POINT OF CARE 107 MG/DL (70-110)
[2021-05-08 16:14] VITALS: BP 104/64
[2021-05-08 16:31] LABS: GLUCOMETER DEV NAME(LOC) BV2S.; GLUCOSE,POINT OF CARE 118 MG/DL (70-110)
[2021-05-08 20:21] LABS: GLUCOMETER DEV NAME(LOC) BV2S.; GLUCOSE,POINT OF CARE 176 MG/DL (70-110)
[2021-05-08] MEDS: INSULIN LISPRO 100 UNITS/ML SQ PRN (20:55)
[2021-05-08] MEDS: MELATONIN 3 MG TABLET PO SCH (21:34)
[2021-05-08] MEDS: OLANZapine 7.5 MG TABLET PO SCH (21:34)
[2021-05-09 04:09] VITALS: BP 109/62
[2021-05-09] MEDS: LITHIUM CARBONATE 300 MG CAPSULE PO SCH ×2 (07:20→16:34)
[2021-05-09] MEDS: MetFORMIN HCL 500 MG TABLET PO SCH ×2 (07:20→16:34)
[2021-05-09 07:21] LABS: GLUCOMETER DEV NAME(LOC) BV2S.; GLUCOSE,POINT OF CARE 102 MG/DL (70-110)
[2021-05-09 08:20] VITALS: BP 124/85
[2021-05-09] MEDS: GABAPENTIN 300 MG CAPSULE PO SCH ×2 (08:58→16:34)
[2021-05-09] MEDS: LORATADINE 10 MG TABLET PO SCH (08:58)
[2021-05-09] MEDS: MULTIVITAMINS WITH IRON TABLET PO SCH (08:58)
[2021-05-09] MEDS: LOSARTAN POTASSIUM 50 MG TABLET PO SCH (08:58)
[2021-05-09] MEDS: OMEGA-3/DHA/EPA/FISH OIL 1,000 MG CAPSULE PO SCH (08:59)
[2021-05-09 11:21] LABS: GLUCOMETER DEV NAME(LOC) BV2S.; GLUCOSE,POINT OF CARE 128 MG/DL (70-110)
[2021-05-09 16:03] VITALS: BP 112/62
[2021-05-09 16:06] LABS: GLUCOMETER DEV NAME(LOC) POC.BV
[2021-05-09 16:22] VITALS: BP 112/62
[2021-05-09 16:26] LABS: GLUCOMETER DEV NAME(LOC) BV2S.; GLUCOSE,POINT OF CARE 117 MG/DL (70-110)
[2021-05-09] MEDS: ACETAMINOPHEN 325 MG TABLET PO PRN (16:35)
[2021-05-09 20:26] LABS: GLUCOMETER DEV NAME(LOC) BV2S.; GLUCOSE,POINT OF CARE 175 MG/DL (70-110)
[2021-05-09] MEDS: INSULIN LISPRO 100 UNITS/ML SQ PRN (20:56)
[2021-05-09] MEDS: MELATONIN 3 MG TABLET PO SCH (22:04)
[2021-05-09] MEDS: OLANZapine 7.5 MG TABLET PO SCH (22:04)
[2021-05-10 00:39] VITALS: BP 103/61
[2021-05-10 06:35] LABS: GLUCOMETER DEV NAME(LOC) BV2S.; GLUCOSE,POINT OF CARE 111 MG/DL (70-110)
[2021-05-10] MEDS: LITHIUM CARBONATE 300 MG CAPSULE PO SCH ×2 (06:50→16:55)
[2021-05-10] MEDS: MetFORMIN HCL 500 MG TABLET PO SCH ×2 (06:50→16:55)
[2021-05-10 08:42] VITALS: BP 128/70
[2021-05-10] MEDS: LOSARTAN POTASSIUM 50 MG TABLET PO SCH (08:47)
[2021-05-10] MEDS: OMEGA-3/DHA/EPA/FISH OIL 1,000 MG CAPSULE PO SCH (08:47)
[2021-05-10] MEDS: MULTIVITAMINS WITH IRON TABLET PO SCH (08:47)
[2021-05-10] MEDS: LORATADINE 10 MG TABLET PO SCH (08:48)
[2021-05-10] MEDS: GABAPENTIN 300 MG CAPSULE PO SCH ×2 (08:48→16:55)
[2021-05-10 11:41] LABS: GLUCOMETER DEV NAME(LOC) BV2S.; GLUCOSE,POINT OF CARE 118 MG/DL (70-110)
[2021-05-10 16:31] LABS: GLUCOMETER DEV NAME(LOC) BV2S.; GLUCOSE,POINT OF CARE 144 MG/DL (70-110)
[2021-05-10 16:33] VITALS: BP 104/63
[2021-05-10] MEDS: INSULIN LISPRO 100 UNITS/ML SQ PRN (16:57)
[2021-05-10] MEDS: MELATONIN 3 MG TABLET PO SCH (20:20)
[2021-05-10] MEDS: OLANZapine 7.5 MG TABLET PO SCH (20:20)
[2021-05-10 20:51] LABS: GLUCOMETER DEV NAME(LOC) BV2S.; GLUCOSE,POINT OF CARE 140 MG/DL (70-110)
[2021-05-11 00:59] VITALS: BP 108/63
[2021-05-11 06:36] LABS: GLUCOMETER DEV NAME(LOC) BV2S.; GLUCOSE,POINT OF CARE 87 MG/DL (70-110)
[2021-05-11] MEDS: LITHIUM CARBONATE 300 MG CAPSULE PO SCH ×2 (06:46→16:40)
[2021-05-11] MEDS: MetFORMIN HCL 500 MG TABLET PO SCH ×2 (06:46→16:40)
[2021-05-11 08:18] VITALS: BP 106/67
[2021-05-11] MEDS: LORATADINE 10 MG TABLET PO SCH (09:14)
[2021-05-11] MEDS: OMEGA-3/DHA/EPA/FISH OIL 1,000 MG CAPSULE PO SCH (09:14)
[2021-05-11] MEDS: GABAPENTIN 300 MG CAPSULE PO SCH ×2 (09:14→16:40)
[2021-05-11] MEDS: MULTIVITAMINS WITH IRON TABLET PO SCH (09:14)
[2021-05-11] MEDS: LOSARTAN POTASSIUM 50 MG TABLET PO SCH (10:33)
[2021-05-11 11:16] LABS: GLUCOMETER DEV NAME(LOC) BV2S.; GLUCOSE,POINT OF CARE 106 MG/DL (70-110)
[2021-05-11 16:28] VITALS: BP 104/71
[2021-05-11 16:51] LABS: GLUCOMETER DEV NAME(LOC) BV2S.; GLUCOSE,POINT OF CARE 101 MG/DL (70-110)
[2021-05-11] MEDS: OLANZapine 7.5 MG TABLET PO SCH (21:00)
[2021-05-11] MEDS: MELATONIN 3 MG TABLET PO SCH (21:00)
[2021-05-11 21:01] LABS: GLUCOMETER DEV NAME(LOC) BV2S.; GLUCOSE,POINT OF CARE 154 MG/DL (70-110)
[2021-05-11] MEDS: INSULIN LISPRO 100 UNITS/ML SQ PRN (21:07)
[2021-05-12 00:40] VITALS: BP 111/73
[2021-05-12] MEDS: MetFORMIN HCL 500 MG TABLET PO SCH ×2 (06:48→16:31)
[2021-05-12] MEDS: LITHIUM CARBONATE 300 MG CAPSULE PO SCH ×2 (06:48→16:31)
[2021-05-12 07:01] LABS: GLUCOMETER DEV NAME(LOC) BV2S.; GLUCOSE,POINT OF CARE 103 MG/DL (70-110)
[2021-05-12] MEDS: MULTIVITAMINS WITH IRON TABLET PO SCH (08:18)
[2021-05-12] MEDS: GABAPENTIN 300 MG CAPSULE PO SCH ×2 (08:19→16:31)
[2021-05-12] MEDS: LORATADINE 10 MG TABLET PO SCH (08:19)
[2021-05-12] MEDS: LOSARTAN POTASSIUM 50 MG TABLET PO SCH (08:19)
[2021-05-12] MEDS: OMEGA-3/DHA/EPA/FISH OIL 1,000 MG CAPSULE PO SCH (08:19)
[2021-05-12 08:31] VITALS: BP 118/77
[2021-05-12 11:51] LABS: GLUCOMETER DEV NAME(LOC) BV2S.; GLUCOSE,POINT OF CARE 115 MG/DL (70-110)
[2021-05-12 16:13] VITALS: BP 115/74
[2021-05-12 16:51] LABS: GLUCOMETER DEV NAME(LOC) BV2S.; GLUCOSE,POINT OF CARE 118 MG/DL (70-110)
[2021-05-12] MEDS: MELATONIN 3 MG TABLET PO SCH (20:10)
[2021-05-12] MEDS: OLANZapine 7.5 MG TABLET PO SCH (20:11)
[2021-05-12 20:16] LABS: GLUCOMETER DEV NAME(LOC) BV2S.; GLUCOSE,POINT OF CARE 216 MG/DL (70-110)
[2021-05-12] MEDS: INSULIN LISPRO 100 UNITS/ML SQ PRN (21:02)
[2021-05-13 00:53] VITALS: BP 109/70
[2021-05-13] MEDS: MetFORMIN HCL 500 MG TABLET PO SCH ×2 (06:33→16:38)
[2021-05-13] MEDS: LITHIUM CARBONATE 300 MG CAPSULE PO SCH ×2 (06:33→16:38)
[2021-05-13 06:37] LABS: GLUCOMETER DEV NAME(LOC) BV2S.; GLUCOSE,POINT OF CARE 105 MG/DL (70-110)
[2021-05-13] MEDS: GABAPENTIN 300 MG CAPSULE PO SCH ×2 (08:54→16:38)
[2021-05-13] MEDS: LORATADINE 10 MG TABLET PO SCH (08:54)
[2021-05-13] MEDS: OMEGA-3/DHA/EPA/FISH OIL 1,000 MG CAPSULE PO SCH (08:54)
[2021-05-13] MEDS: LOSARTAN POTASSIUM 50 MG TABLET PO SCH (08:54)
[2021-05-13] MEDS: MULTIVITAMINS WITH IRON TABLET PO SCH (08:54)
[2021-05-13 11:10] LABS: GLUCOMETER DEV NAME(LOC) BV2S.; GLUCOSE,POINT OF CARE 109 MG/DL (70-110)
[2021-05-13] MEDS: ACETAMINOPHEN 325 MG TABLET PO PRN (11:27)
[2021-05-13 13:12] VITALS: BP 125/69
[2021-05-13 16:13] VITALS: BP 113/68
[2021-05-13 16:16] LABS: GLUCOMETER DEV NAME(LOC) BV2S.; GLUCOSE,POINT OF CARE 182 MG/DL (70-110)
[2021-05-13] MEDS: INSULIN LISPRO 100 UNITS/ML SQ PRN (16:39)
[2021-05-13 20:16] LABS: GLUCOMETER DEV NAME(LOC) BV2S.; GLUCOSE,POINT OF CARE 118 MG/DL (70-110)
[2021-05-13] MEDS: OLANZapine 7.5 MG TABLET PO SCH (20:47)
[2021-05-13] MEDS: MELATONIN 3 MG TABLET PO SCH (20:47)
[2021-05-14 04:00] VITALS: BP 110/65
[2021-05-14 06:21] LABS: GLUCOMETER DEV NAME(LOC) BV2S.; GLUCOSE,POINT OF CARE 113 MG/DL (70-110)
[2021-05-14] MEDS: MetFORMIN HCL 500 MG TABLET PO SCH ×2 (06:34→16:15)
[2021-05-14] MEDS: LITHIUM CARBONATE 300 MG CAPSULE PO SCH ×2 (06:34→16:15)
[2021-05-14 08:11] VITALS: BP 114/67
[2021-05-14] MEDS: OMEGA-3/DHA/EPA/FISH OIL 1,000 MG CAPSULE PO SCH (09:35)
[2021-05-14] MEDS: LORATADINE 10 MG TABLET PO SCH (09:35)
[2021-05-14] MEDS: LOSARTAN POTASSIUM 50 MG TABLET PO SCH (09:35)
[2021-05-14] MEDS: MULTIVITAMINS WITH IRON TABLET PO SCH (09:36)
[2021-05-14] MEDS: GABAPENTIN 300 MG CAPSULE PO SCH ×2 (09:36→16:15)
[2021-05-14 11:11] LABS: GLUCOMETER DEV NAME(LOC) BV2S.; GLUCOSE,POINT OF CARE 147 MG/DL (70-110)
[2021-05-14] MEDS: INSULIN LISPRO 100 UNITS/ML SQ PRN ×2 (12:08→21:00)
[2021-05-14] MEDS: OLANZapine 5 MG RAPDIS TABLET PO PRN (13:56)
[2021-05-14 16:14] VITALS: BP 123/76
[2021-05-14] MEDS: ACETAMINOPHEN 325 MG TABLET PO PRN (16:15)
[2021-05-14 17:06] LABS: GLUCOMETER DEV NAME(LOC) BV2S.; GLUCOSE,POINT OF CARE 91 MG/DL (70-110)
[2021-05-14 20:16] LABS: GLUCOMETER DEV NAME(LOC) BV2S.; GLUCOSE,POINT OF CARE 161 MG/DL (70-110)
[2021-05-14] MEDS: OLANZapine 7.5 MG TABLET PO SCH (20:56)
[2021-05-14] MEDS: MELATONIN 3 MG TABLET PO SCH (20:56)
[2021-05-15 02:15] VITALS: BP 114/66
[2021-05-15] MEDS: MetFORMIN HCL 500 MG TABLET PO SCH ×2 (06:26→16:52)
[2021-05-15] MEDS: LITHIUM CARBONATE 300 MG CAPSULE PO SCH ×2 (06:26→16:52)
[2021-05-15 07:20] LABS: GLUCOMETER DEV NAME(LOC) BV2S.; GLUCOSE,POINT OF CARE 103 MG/DL (70-110)
[2021-05-15 08:30] VITALS: BP 111/74
[2021-05-15] MEDS: LORATADINE 10 MG TABLET PO SCH (09:00)
[2021-05-15] MEDS: LOSARTAN POTASSIUM 50 MG TABLET PO SCH (09:00)
[2021-05-15] MEDS: GABAPENTIN 300 MG CAPSULE PO SCH ×2 (09:00→16:52)
[2021-05-15] MEDS: OMEGA-3/DHA/EPA/FISH OIL 1,000 MG CAPSULE PO SCH (09:00)
[2021-05-15] MEDS: MULTIVITAMINS WITH IRON TABLET PO SCH (09:00)
[2021-05-15 11:26] LABS: GLUCOMETER DEV NAME(LOC) BV2S.; GLUCOSE,POINT OF CARE 131 MG/DL (70-110)
[2021-05-15 15:01] LABS: GLUCOMETER DEV NAME(LOC) POC.BV
[2021-05-15 16:11] VITALS: BP 135/67
[2021-05-15] MEDS: ACETAMINOPHEN 325 MG TABLET PO PRN (16:16)
[2021-05-15 17:02] LABS: GLUCOMETER DEV NAME(LOC) BV2S.; GLUCOSE,POINT OF CARE 110 MG/DL (70-110)
[2021-05-15] MEDS: MELATONIN 3 MG TABLET PO SCH (20:01)
[2021-05-15] MEDS: OLANZapine 7.5 MG TABLET PO SCH (20:01)
[2021-05-15 21:16] LABS: GLUCOMETER DEV NAME(LOC) BV2S.; GLUCOSE,POINT OF CARE 121 MG/DL (70-110)
[2021-05-16 06:32] LABS: GLUCOMETER DEV NAME(LOC) BV2S.; GLUCOSE,POINT OF CARE 105 MG/DL (70-110)
[2021-05-16] MEDS: MetFORMIN HCL 500 MG TABLET PO SCH ×2 (06:47→16:43)
[2021-05-16] MEDS: LITHIUM CARBONATE 300 MG CAPSULE PO SCH ×2 (06:47→16:43)
[2021-05-16 08:10] VITALS: BP 123/67
[2021-05-16] MEDS: LOSARTAN POTASSIUM 50 MG TABLET PO SCH (09:39)
[2021-05-16] MEDS: GABAPENTIN 300 MG CAPSULE PO SCH ×2 (09:39→16:43)
[2021-05-16] MEDS: OMEGA-3/DHA/EPA/FISH OIL 1,000 MG CAPSULE PO SCH (09:39)
[2021-05-16] MEDS: LORATADINE 10 MG TABLET PO SCH (09:39)
[2021-05-16] MEDS: MULTIVITAMINS WITH IRON TABLET PO SCH (09:39)
[2021-05-16 11:26] LABS: GLUCOMETER DEV NAME(LOC) BV2S.; GLUCOSE,POINT OF CARE 127 MG/DL (70-110)
[2021-05-16 16:15] VITALS: BP 126/76
[2021-05-16 16:21] LABS: GLUCOMETER DEV NAME(LOC) BV2S.; GLUCOSE,POINT OF CARE 136 MG/DL (70-110)
[2021-05-16 20:36] LABS: GLUCOMETER DEV NAME(LOC) BV2S.; GLUCOSE,POINT OF CARE 126 MG/DL (70-110)
[2021-05-16] MEDS: OLANZapine 7.5 MG TABLET PO SCH (20:52)
[2021-05-16] MEDS: MELATONIN 3 MG TABLET PO SCH (20:52)
[2021-05-17 00:15] VITALS: BP 110/72
[2021-05-17 06:16] LABS: GLUCOMETER DEV NAME(LOC) BV2S.; GLUCOSE,POINT OF CARE 115 MG/DL (70-110)
[2021-05-17] MEDS: LITHIUM CARBONATE 300 MG CAPSULE PO SCH ×2 (06:42→16:49)
[2021-05-17] MEDS: MetFORMIN HCL 500 MG TABLET PO SCH ×2 (06:43→16:49)
[2021-05-17 08:18] VITALS: BP 119/72
[2021-05-17] MEDS: OMEGA-3/DHA/EPA/FISH OIL 1,000 MG CAPSULE PO SCH (08:55)
[2021-05-17] MEDS: LORATADINE 10 MG TABLET PO SCH (08:55)
[2021-05-17] MEDS: LOSARTAN POTASSIUM 50 MG TABLET PO SCH (08:55)
[2021-05-17] MEDS: MULTIVITAMINS WITH IRON TABLET PO SCH (08:55)
[2021-05-17] MEDS: GABAPENTIN 300 MG CAPSULE PO SCH ×2 (08:56→16:49)
[2021-05-17 11:26] LABS: GLUCOMETER DEV NAME(LOC) BV2S.; GLUCOSE,POINT OF CARE 102 MG/DL (70-110)
[2021-05-17 16:19] VITALS: BP 105/67
[2021-05-17] MEDS: ACETAMINOPHEN 325 MG TABLET PO PRN (16:20)
[2021-05-17 16:26] LABS: GLUCOMETER DEV NAME(LOC) BV2S.; GLUCOSE,POINT OF CARE 168 MG/DL (70-110)
[2021-05-17] MEDS: INSULIN LISPRO 100 UNITS/ML SQ PRN (16:51)
[2021-05-17 20:26] LABS: GLUCOMETER DEV NAME(LOC) BV2S.; GLUCOSE,POINT OF CARE 96 MG/DL (70-110)
[2021-05-17] MEDS: OLANZapine 7.5 MG TABLET PO SCH (20:42)
[2021-05-17] MEDS: MELATONIN 3 MG TABLET PO SCH (20:42)
[2021-05-18 00:50] VITALS: BP 103/62
[2021-05-18] MEDS: MetFORMIN HCL 500 MG TABLET PO SCH ×2 (06:17→16:37)
[2021-05-18] MEDS: LITHIUM CARBONATE 300 MG CAPSULE PO SCH ×2 (06:17→16:37)
[2021-05-18 06:22] LABS: GLUCOMETER DEV NAME(LOC) BV2S.; GLUCOSE,POINT OF CARE 105 MG/DL (70-110)
[2021-05-18 08:22] VITALS: BP 123/79
[2021-05-18] MEDS: MULTIVITAMINS WITH IRON TABLET PO SCH (10:12)
[2021-05-18] MEDS: LORATADINE 10 MG TABLET PO SCH (10:12)
[2021-05-18] MEDS: GABAPENTIN 300 MG CAPSULE PO SCH ×2 (10:12→16:37)
[2021-05-18] MEDS: OMEGA-3/DHA/EPA/FISH OIL 1,000 MG CAPSULE PO SCH (10:12)
[2021-05-18] MEDS: LOSARTAN POTASSIUM 50 MG TABLET PO SCH (10:12)
[2021-05-18 11:36] LABS: GLUCOMETER DEV NAME(LOC) BV2S.; GLUCOSE,POINT OF CARE 126 MG/DL (70-110)
[2021-05-18 16:18] VITALS: BP 105/66
[2021-05-18 16:32] LABS: GLUCOMETER DEV NAME(LOC) BV2S.; GLUCOSE,POINT OF CARE 108 MG/DL (70-110)
[2021-05-18 20:37] LABS: GLUCOMETER DEV NAME(LOC) BV2S.; GLUCOSE,POINT OF CARE 175 MG/DL (70-110)
[2021-05-18] MEDS: OLANZapine 7.5 MG TABLET PO SCH (20:38)
[2021-05-18] MEDS: MELATONIN 3 MG TABLET PO SCH (20:38)
[2021-05-18] MEDS: INSULIN LISPRO 100 UNITS/ML SQ PRN (21:00)
[2021-05-19 00:30] VITALS: BP 135/79
[2021-05-19 06:31] LABS: GLUCOMETER DEV NAME(LOC) BV2S.; GLUCOSE,POINT OF CARE 101 MG/DL (70-110)
[2021-05-19] MEDS: LITHIUM CARBONATE 300 MG CAPSULE PO SCH ×2 (06:48→16:31)
[2021-05-19] MEDS: MetFORMIN HCL 500 MG TABLET PO SCH ×2 (06:48→16:31)
[2021-05-19 08:31] VITALS: BP 110/70
[2021-05-19] MEDS: OMEGA-3/DHA/EPA/FISH OIL 1,000 MG CAPSULE PO SCH (08:58)
[2021-05-19] MEDS: LOSARTAN POTASSIUM 50 MG TABLET PO SCH (08:58)
[2021-05-19] MEDS: LORATADINE 10 MG TABLET PO SCH (08:58)
[2021-05-19] MEDS: GABAPENTIN 300 MG CAPSULE PO SCH ×2 (08:58→16:31)
[2021-05-19] MEDS: MULTIVITAMINS WITH IRON TABLET PO SCH (08:58)
[2021-05-19 11:21] LABS: GLUCOMETER DEV NAME(LOC) BV2S.; GLUCOSE,POINT OF CARE 105 MG/DL (70-110)
[2021-05-19 16:25] VITALS: BP 118/73
[2021-05-19 16:46] LABS: GLUCOMETER DEV NAME(LOC) BV2S.; GLUCOSE,POINT OF CARE 112 MG/DL (70-110)
[2021-05-19] MEDS: OLANZapine 7.5 MG TABLET PO SCH (20:01)
[2021-05-19] MEDS: MELATONIN 3 MG TABLET PO SCH (20:01)
[2021-05-19] MEDS: INSULIN LISPRO 100 UNITS/ML SQ PRN (20:43)
[2021-05-19 20:51] LABS: GLUCOMETER DEV NAME(LOC) BV2S.; GLUCOSE,POINT OF CARE 141 MG/DL (70-110)
[2021-05-19] MEDS: ZOLPIDEM TARTRATE 10 MG TABLET PO PRN (21:38)
[2021-05-20 00:35] VITALS: BP 115/73
[2021-05-20 06:31] LABS: GLUCOMETER DEV NAME(LOC) BV2S.; GLUCOSE,POINT OF CARE 103 MG/DL (70-110)
[2021-05-20] MEDS: LITHIUM CARBONATE 300 MG CAPSULE PO SCH ×2 (06:52→16:55)
[2021-05-20] MEDS: MetFORMIN HCL 500 MG TABLET PO SCH ×2 (06:52→16:55)
[2021-05-20] MEDS: OMEGA-3/DHA/EPA/FISH OIL 1,000 MG CAPSULE PO SCH (08:28)
[2021-05-20] MEDS: LOSARTAN POTASSIUM 50 MG TABLET PO SCH (08:28)
[2021-05-20] MEDS: MULTIVITAMINS WITH IRON TABLET PO SCH (08:28)
[2021-05-20] MEDS: GABAPENTIN 300 MG CAPSULE PO SCH ×2 (08:28→16:55)
[2021-05-20] MEDS: LORATADINE 10 MG TABLET PO SCH (08:28)
[2021-05-20 09:09] VITALS: BP 133/81
[2021-05-20] MEDS: INSULIN LISPRO 100 UNITS/ML SQ PRN (11:17)
[2021-05-20 11:31] LABS: GLUCOMETER DEV NAME(LOC) BV2S.; GLUCOSE,POINT OF CARE 166 MG/DL (70-110)
[2021-05-20 16:12] VITALS: BP 123/72
[2021-05-20] MEDS: ACETAMINOPHEN 325 MG TABLET PO PRN (17:02)
[2021-05-20 17:22] LABS: GLUCOMETER DEV NAME(LOC) BV2S.; GLUCOSE,POINT OF CARE 101 MG/DL (70-110)
[2021-05-20] MEDS: MELATONIN 3 MG TABLET PO SCH (20:04)
[2021-05-20] MEDS: OLANZapine 7.5 MG TABLET PO SCH (20:04)
[2021-05-20 21:21] LABS: GLUCOMETER DEV NAME(LOC) BV2S.; GLUCOSE,POINT OF CARE 112 MG/DL (70-110)
[2021-05-21 05:48] VITALS: BP 121/62
[2021-05-21 06:31] LABS: GLUCOMETER DEV NAME(LOC) BV2S.; GLUCOSE,POINT OF CARE 101 MG/DL (70-110)
[2021-05-21] MEDS: LITHIUM CARBONATE 300 MG CAPSULE PO SCH ×2 (07:00→16:29)
[2021-05-21] MEDS: MetFORMIN HCL 500 MG TABLET PO SCH ×2 (07:01→16:29)
[2021-05-21 07:09] LABS: COVID AG,FIA SOURCE NASOPHARYNGEAL
[2021-05-21 08:31] VITALS: BP 100/60
[2021-05-21] MEDS: MULTIVITAMINS WITH IRON TABLET PO SCH (08:57)
[2021-05-21] MEDS: LOSARTAN POTASSIUM 50 MG TABLET PO SCH (08:57)
[2021-05-21] MEDS: OMEGA-3/DHA/EPA/FISH OIL 1,000 MG CAPSULE PO SCH (08:57)
[2021-05-21] MEDS: LORATADINE 10 MG TABLET PO SCH (08:58)
[2021-05-21] MEDS: GABAPENTIN 300 MG CAPSULE PO SCH ×2 (08:58→16:29)
[2021-05-21] MEDS ORDERED: VENLAFAXINE HCL 75 MG TABLET PO ONE (10:30)
[2021-05-21] MEDS ORDERED: VENLAFAXINE HCL 37.5 MG TABLET PO ONE (11:15)
[2021-05-21] MEDS: INSULIN LISPRO 100 UNITS/ML SQ PRN ×2 (11:32→20:41)
[2021-05-21 11:36] LABS: GLUCOMETER DEV NAME(LOC) BV2S.; GLUCOSE,POINT OF CARE 174 MG/DL (70-110)
[2021-05-21] MEDS: ACETAMINOPHEN 325 MG TABLET PO PRN (13:53)
[2021-05-21 16:14] VITALS: BP 116/79
[2021-05-21 16:36] LABS: GLUCOMETER DEV NAME(LOC) BV2S.; GLUCOSE,POINT OF CARE 108 MG/DL (70-110)
[2021-05-21 20:37] LABS: GLUCOMETER DEV NAME(LOC) BV2S.; GLUCOSE,POINT OF CARE 230 MG/DL (70-110)
[2021-05-21] MEDS: MELATONIN 3 MG TABLET PO SCH (21:02)
[2021-05-21] MEDS: OLANZapine 7.5 MG TABLET PO SCH (21:03)
[2021-05-22 00:38] VITALS: BP 103/66
[2021-05-22] MEDS: MetFORMIN HCL 500 MG TABLET PO SCH ×2 (06:57→16:29)
[2021-05-22] MEDS: LITHIUM CARBONATE 300 MG CAPSULE PO SCH ×2 (06:58→16:29)
[2021-05-22] MEDS: OMEGA-3/DHA/EPA/FISH OIL 1,000 MG CAPSULE PO SCH (08:07)
[2021-05-22] MEDS: GABAPENTIN 300 MG CAPSULE PO SCH ×2 (08:07→16:29)
[2021-05-22] MEDS: MULTIVITAMINS WITH IRON TABLET PO SCH (08:07)
[2021-05-22] MEDS: LORATADINE 10 MG TABLET PO SCH (08:07)
[2021-05-22] MEDS: LOSARTAN POTASSIUM 50 MG TABLET PO SCH (08:08)
[2021-05-22 08:25] VITALS: BP 116/66
[2021-05-22] MEDS ORDERED: VENLAFAXINE HCL 37.5 MG TABLET PO SCH (09:00)
[2021-05-22 11:11] LABS: GLUCOMETER DEV NAME(LOC) BV2S.; GLUCOSE,POINT OF CARE 120 MG/DL (70-110)
[2021-05-22 11:21] LABS: GLUCOMETER DEV NAME(LOC) BV2S.; GLUCOSE,POINT OF CARE 108 MG/DL (70-110)
[2021-05-22 16:08] VITALS: BP 120/81
[2021-05-22 16:17] LABS: GLUCOMETER DEV NAME(LOC) BV2S.; GLUCOSE,POINT OF CARE 80 MG/DL (70-110)
[2021-05-22 20:31] LABS: GLUCOMETER DEV NAME(LOC) BV2S.; GLUCOSE,POINT OF CARE 182 MG/DL (70-110)
[2021-05-22] MEDS: MELATONIN 3 MG TABLET PO SCH (20:33)
[2021-05-22] MEDS: OLANZapine 7.5 MG TABLET PO SCH (20:33)
[2021-05-22] MEDS: INSULIN LISPRO 100 UNITS/ML SQ PRN (20:40)
[2021-05-22] MEDS: MAG HYDROX/AL HYDROX/SIMETH ES 30 ML SUSPENSION UDCUP PO PRN (20:59)
[2021-05-23 05:22] VITALS: BP 100/64
[2021-05-23] MEDS: MetFORMIN HCL 500 MG TABLET PO SCH ×2 (06:56→16:33)
[2021-05-23] MEDS: LITHIUM CARBONATE 300 MG CAPSULE PO SCH ×2 (06:56→16:33)
[2021-05-23 07:05] LABS: GLUCOMETER DEV NAME(LOC) BV2S.; GLUCOSE,POINT OF CARE 110 MG/DL (70-110)
[2021-05-23 08:14] VITALS: BP 121/70
[2021-05-23] MEDS: OMEGA-3/DHA/EPA/FISH OIL 1,000 MG CAPSULE PO SCH (08:25)
[2021-05-23] MEDS: MULTIVITAMINS WITH IRON TABLET PO SCH (08:25)
[2021-05-23] MEDS: LOSARTAN POTASSIUM 50 MG TABLET PO SCH (08:25)
[2021-05-23] MEDS: GABAPENTIN 300 MG CAPSULE PO SCH ×2 (08:25→16:33)
[2021-05-23] MEDS: LORATADINE 10 MG TABLET PO SCH (08:25)
[2021-05-23 11:06] LABS: GLUCOMETER DEV NAME(LOC) BV2S.; GLUCOSE,POINT OF CARE 95 MG/DL (70-110)
[2021-05-23 16:11] VITALS: BP 117/61
[2021-05-23 16:21] LABS: GLUCOMETER DEV NAME(LOC) BV2S.; GLUCOSE,POINT OF CARE 100 MG/DL (70-110)
[2021-05-23 20:26] LABS: GLUCOMETER DEV NAME(LOC) BV2S.; GLUCOSE,POINT OF CARE 116 MG/DL (70-110)
[2021-05-23] MEDS: OLANZapine 7.5 MG TABLET PO SCH (20:36)
[2021-05-23] MEDS: MELATONIN 3 MG TABLET PO SCH (20:36)
[2021-05-24 00:30] VITALS: BP 105/62
[2021-05-24 06:21] LABS: GLUCOMETER DEV NAME(LOC) BV2S.; GLUCOSE,POINT OF CARE 111 MG/DL (70-110)
[2021-05-24] MEDS: LITHIUM CARBONATE 300 MG CAPSULE PO SCH ×2 (06:45→16:40)
[2021-05-24] MEDS: MetFORMIN HCL 500 MG TABLET PO SCH ×2 (06:45→16:40)
[2021-05-24] MEDS: LORATADINE 10 MG TABLET PO SCH (08:07)
[2021-05-24] MEDS: LOSARTAN POTASSIUM 50 MG TABLET PO SCH (08:07)
[2021-05-24] MEDS: MULTIVITAMINS WITH IRON TABLET PO SCH (08:07)
[2021-05-24] MEDS: GABAPENTIN 300 MG CAPSULE PO SCH ×2 (08:07→16:40)
[2021-05-24] MEDS: OMEGA-3/DHA/EPA/FISH OIL 1,000 MG CAPSULE PO SCH (08:07)
[2021-05-24 08:12] VITALS: BP 127/74
[2021-05-24 09:45] LABS: COVID AG,FIA SOURCE NASOPHARYNGEAL
[2021-05-24 11:47] LABS: GLUCOMETER DEV NAME(LOC) BV2S.; GLUCOSE,POINT OF CARE 86 MG/DL (70-110)
[2021-05-24 16:37] VITALS: BP 115/71
[2021-05-24 17:16] LABS: GLUCOMETER DEV NAME(LOC) BV2S.; GLUCOSE,POINT OF CARE 116 MG/DL (70-110)
[2021-05-24] MEDS: OLANZapine 7.5 MG TABLET PO SCH (20:02)
[2021-05-24] MEDS: MELATONIN 3 MG TABLET PO SCH (20:02)
[2021-05-24 20:15] LABS: GLUCOMETER DEV NAME(LOC) BV2S.; GLUCOSE,POINT OF CARE 129 MG/DL (70-110)
[2021-05-24] MEDS: ACETAMINOPHEN 325 MG TABLET PO PRN (21:12)
[2021-05-25 00:25] VITALS: BP 104/62
[2021-05-25 06:31] LABS: GLUCOMETER DEV NAME(LOC) BV2S.; GLUCOSE,POINT OF CARE 105 MG/DL (70-110)
[2021-05-25] MEDS: MetFORMIN HCL 500 MG TABLET PO SCH (06:35)
[2021-05-25] MEDS: LITHIUM CARBONATE 300 MG CAPSULE PO SCH (06:35)
[2021-05-25 08:06] VITALS: BP 116/74
[2021-05-25] MEDS: LOSARTAN POTASSIUM 50 MG TABLET PO SCH (08:07)
[2021-05-25] MEDS: LORATADINE 10 MG TABLET PO SCH (08:08)
[2021-05-25] MEDS: MULTIVITAMINS WITH IRON TABLET PO SCH (08:08)
[2021-05-25] MEDS: GABAPENTIN 300 MG CAPSULE PO SCH (08:08)
[2021-05-25] MEDS: OMEGA-3/DHA/EPA/FISH OIL 1,000 MG CAPSULE PO SCH (08:08)
[2021-05-25] MEDS ORDERED: METF-1211 PO (09:07)
[2021-05-25] MEDS ORDERED: LORA10TA7 PO (09:08)
[2021-05-25] MEDS ORDERED: MELA3TAB PO ×2 (09:09→09:11)
[2021-05-25 11:36] LABS: GLUCOMETER DEV NAME(LOC) BV2S.; GLUCOSE,POINT OF CARE 95 MG/DL (70-110)
== END 2021-05-25 15:40 | disposition home or self-care (01) | DRG 750 ==
LOC: EMS 20:14 → B2S 03-28 00:12
PROVIDERS: ADMIT Psychiatry & Neurology Psychiatry; ATTEND Psychiatry & Neurology Psychiatry
DX: F25.1 Schizoaffective disorder, depressive type (principal); E11.65 Type 2 diabetes mellitus with hyperglycemia; E78.5 Hyperlipidemia, unspecified; F41.9 Anxiety disorder, unspecified; G47.00 Insomnia, unspecified; K59.00 Constipation, unspecified; I10 Essential (primary) hypertension; K21.9 Gastro-esophageal reflux disease without esophagitis; J45.909 Unspecified asthma, uncomplicated; Z20.822 Contact with and (suspected) exposure to COVID-19; Z88.8 Allergy status to other drugs, medicaments and biological substances; Z88.6 Allergy status to analgesic agent; Z79.899 Other long term (current) drug therapy
CPT/HCPCS: 80053; 80061; 80178; 82962; 83036; 84439; 84443; 85025; 87081; 99285; G0480; J3535